=== PATIENT | female | born 1930 | race Caucasian/White ===

== ENCOUNTER 2017-05-22 11:35 | Emergency (ER) | payer MEDICARE ==
[2017-05-22 12:33] VITALS: BP 132/73
--- NOTE | 2017-05-22 13:34 | UC ---
Complaint Female HPI - HPI Summary HPI Summary: urinary incontience x2 since last night, which is not normal for pt. she also notes that she is peeing more frequently since then then. per pt's daughter, pt has been feeling a little run down over the past week. not quite the same amount of spunk as usual. no dysuria. no recent falls or confusion. - History Of Current Complaint Chief Complaint: UCGU Stated Complaint: URINARY COMPLAINT Time Seen by Provider: 05/22/17 12:22 Hx Obtained From: Patient, Family/Drip Molder Hx Last Menstrual Period: n/a ?: No Onset/Duration: Sudden Onset, Lasting Hours, Still Present Timing: Constant Severity Initially: Moderate Severity Currently: Moderate Pain Intensity: 0 Character: Not Applicable Aggravating Factor(s): Nothing Alleviating Factor(s): Nothing Associated Signs And Symptoms: Negative: Fever, Back Pain, Nausea, Vomiting(# Of Episodes =) - Allergies/Home Medications Allergies/Adverse Reactions: Allergies Allergy/AdvReac Type Severity Reaction Status Date / Time Atorvastatin [From Lipitor] Allergy Unknown Leg Cramps Verified 05/22/17 12:20 avoids statins Allergy Unknown Uncoded 05/22/17 12:20 Reaction Details Home Medications: Home Medications Acetaminophen TAB* [Tylenol TAB*] 500 mg Q6HR 05/22/17 [History Confirmed ] Warfarin TAB(*) [Coumadin TAB(*)] 3 tab DAILY 05/22/17 [History Confirmed ] PMH/Surg Hx/FS Hx/Imm Hx Previously Healthy: Yes Endocrine History: Thyroid Disease, Dyslipidemia Cardiovascular History: Hypertension, Atrial Fibrillation, Other Other Cardiovascular History: anticoagulated - Surgical History Surgical History: Yes Surgery Procedure, Year, and Place: aortic valve 2006, 2010 cholecystectomy; Left knee replacement 2000, hysterectomy, appendectomy, tonsillectomy, right shoulder surgery, LEFT hip - Family History Known Family History: Positive: Hypertension - Social History Occupation: Retired Lives: With Family Alcohol Use: None Alcohol Amount: gin and raisins for arhtritis Substance Use Type: None Smoking Status (MU): Former Smoker - Immunization History Most Recent Influenza Vaccination: NOT YET 2017 Most Recent Pneumonia Vaccination: UNKNOWN Review of Systems Constitutional: Negative Skin: Negative Eyes: Negative ENT: Negative Respiratory: Negative Cardiovascular: Negative Gastrointestinal: Negative Genitourinary: Frequency, Other - incontinence Motor: Negative, Other - no changes in gait stability Musculoskeletal: Negative Neurological: Negative Is Patient Immunocompromised?: No All Other Systems Reviewed And Are Negative: Yes Physical Exam Triage Information Reviewed: Yes Vital Signs: Initial Vital Signs Temp 98 F 05/22/17 12:25 Pulse 89 05/22/17 12:25 Resp 18 05/22/17 12:25 BP 132/73 05/22/17 12:25 Pulse Ox 96 05/22/17 12:25 Vital Signs Reviewed: Yes Abdomen Description: Positive: Nontender, Soft. Negative: CVA Tenderness (R), CVA Tenderness (L), Distended, Guarding, McBurney's Point Tenderness - Additional Comments Appearance: Well-Appearing, No Pain Distress, Well-Nourished Eyes: conjunctiva clear, negative: discharge ENT: hearing grossly normal, no muffled voice Neck: Normal, Supple Respiratory/Lung Sounds: Lungs clear, Normal breath sounds, No respiratory distress, No accessory muscle use Cardiovascular: RRR, No murmur Musculoskeletal: Normal Neurological: Alert, muscle tone normal Psychiatric: Normal, age appropriate behavior Skin: Normal, other -- Warm, Dry, Normal color VITAL SIGNS REVIEWED Complaint Female Dx - Differential Dx/Diagnosis Differential Diagnosis/HQI/PQRI: Urinary Tract Infection Provider Diagnoses: uti, hematuria Discharge - Discharge Plan Condition: Stable Disposition: HOME Prescriptions: Sulfamethox/Trimethoprim DS* [Bactrim DS 800/160 TAB*] 1 tab PO BID #10 tab Patient Education Materials: Urinary Tract Infection in Women (ED), Hematuria ( ED) Referrals: Max Alicea MD [Primary Care Provider] - 2 Days Additional Instructions: ANTIBIOTIC THERAPY: You have been given an antibiotic prescription. It's important that you take all the medication, unless instructed otherwise by your physician. Failure to complete the entire course can result in relapse of your condition. Common side effects of antibiotics include nausea, intestinal cramping, or diarrhea. Women may develop vaginal yeast infections, and babies can get yeast (thrush) in the mouth following the use of antibiotics. Contact your physician if you develop significant side effects from this medication. Allergy to this antibiotic can result in hives, wheezing, faintness, or itching. If symptoms of allergy occur, stop the medication and call the doctor. THIS MEDICATION WILL INCREASE THE LEVEL OF WARFARIN IN YOUR BLOOD! IT IS IMPORTANT THAT YOU SEE YOU PCP TO RECHECK YOU WARFARIN LEVEL IN 2 DAYS. ANYTIME YOU TAKE AN ANTIBIOTIC, IT IS IMPORTANT TO REPLENISH THE BODY'S SUPPLY OF "GOOD BACTERIA." YOU CAN GET GOOD BACTERIA FROM HIGH QUALITY CULTURED FOODS SUCH LOCAL YOGURT, SOUR KRAUT, MONIK GIOVANNI, NATURALLY FERMENTED PICKLES AND PROBIOTIC DRINKS. YOU CAN ALSO GET GOOD BACTERIA FROM A PROBIOTIC SUPPLEMENT.
== END 2017-05-22 13:33 | disposition home or self-care (01) ==
LOC: UCCORT 11:35
DX: N39.0 Urinary tract infection, site not specified (principal); R31.9 Hematuria, unspecified; E07.9 Disorder of thyroid, unspecified; E78.5 Hyperlipidemia, unspecified; I10 Essential (primary) hypertension; I48.91 Unspecified atrial fibrillation; Z79.01 Long term (current) use of anticoagulants; Z95.2 Presence of prosthetic heart valve; Z90.49 Acquired absence of other specified parts of digestive tract; Z96.652 Presence of left artificial knee joint; Z90.710 Acquired absence of both cervix and uterus; Z87.891 Personal history of nicotine dependence
CPT/HCPCS: 81003; 87086; 99212; G0463

== ENCOUNTER 2018-04-15 09:10 | Emergency (ER) | payer MEDICARE ==
[2018-04-15 10:26] VITALS: BP 139/69
--- NOTE | 2018-04-15 10:33 | UC ---
Lower Extremity/Ankle HPI - HPI Summary HPI Summary: Per white lead filterer "c/o falling on after loosing balance injuring R lower leg. Area is red and purplish in color. " -she is here w/ her daughter. -she has no pain in her leg. She didn't realize that she even bumped it until she saw the bruise next day. -Denies fevers, chills. -She is on Coumadin and reports that she is very compliant. INR has been therapeutic. She has no pain in the calf or swelling in the calf. There is redness anteriorly and a bruise. -She is a former nurse. - History of Current Complaint Chief Complaint: UCLowerExtremity Stated Complaint: RIGHT LEG COMPLAINT,FELL 04/13/18 Time Seen by Provider: 04/15/18 10:13 Hx Last Menstrual Period: n/a Pain Intensity: 0 - Allergies/Home Medications Allergies/Adverse Reactions: Allergies Allergy/AdvReac Type Severity Reaction Status Date / Time atorvastatin [From Lipitor] Allergy Leg Cramps Verified 04/15/18 10:15 avoids statins Allergy Unknown Uncoded 05/22/17 12:20 Reaction Details Home Medications: Home Medications Lisinopril TAB* [Prinivil TAB 10 MG*] 20 mg PO DAILY 04/15/18 [History Confirmed 04/15/18] PMH/Surg Hx/FS Hx/Imm Hx Previously Healthy: Yes Endocrine History: Hypothyroidism Cardiovascular History: Other - aortic valve replacement - coumadin. no h/o PE Other Cardiovascular History: aortic valve replacement - coumadin. no h/o PE - Surgical History Surgical History: Yes Surgery Procedure, Year, and Place: aortic valve 2006, 2010 cholecystectomy; Left knee replacement 2000, hysterectomy, appendectomy, tonsillectomy, right shoulder surgery, LEFT hip - Family History Known Family History: Positive: Hypertension - Social History Alcohol Use: None Alcohol Amount: gin and raisins for arhtritis Substance Use Type: None Smoking Status (MU): Former Smoker When Did the Patient Quit Smoking/Using Tobacco: 2006 - Immunization History Most Recent Influenza Vaccination: NOT YET 2016 Most Recent Pneumonia Vaccination: UNKNOWN Review of Systems Constitutional: Negative Skin: Rash, Bruising Eyes: Negative ENT: Negative Respiratory: Negative Cardiovascular: Negative Gastrointestinal: Negative Genitourinary: Negative Motor: Negative Neurovascular: Negative Musculoskeletal: Negative Neurological: Negative Psychological: Negative Is Patient Immunocompromised?: No All Other Systems Reviewed And Are Negative: Yes Physical Exam Triage Information Reviewed: Yes Appearance: Well-Appearing, No Pain Distress, Well-Nourished - well oriented. Vital Signs: Initial Vital Signs Temp 98.1 F 04/15/18 10:20 Pulse 77 04/15/18 10:20 Resp 18 04/15/18 10:20 BP 139/69 04/15/18 10:20 Pulse Ox 99 04/15/18 10:20 Vital Signs Reviewed: Yes Eye Exam: Normal ENT Exam: Normal Respiratory: Positive: Lungs clear Cardiovascular Exam: Normal Cardiovascular: Positive: RRR, Murmur:Sys:Grade _?_/ Abdomen Description: Positive: Nontender, Soft Musculoskeletal: Positive: Other: - rt anterior lower leg with bruise (baseball size) dark ecchymosis 2/3rds up the leg. there is light erythema surrounding that and extending down to proximal ankle. warm to touch. there is no erythema, swelling or tenderness in calf. mild swelling in ankle w/ varocicities. bony landmarks NT. tenderness only at bruise site. Neurological Exam: Normal Psychological Exam: Normal Skin: Positive: Other - see above Lower Extremity Course/Dx - Course Course Of Treatment: no indication for xray as there is no pain or significant trauma hx. -keflex tid x 10 d. denies abx allergy. probiotic. -call structural ironworker to notify of abx d/t coumadin. - Differential Dx/Diagnosis Differential Diagnosis/HQI/PQRI: Cellulitis, Compartment Syndrome, Contusion, DVT, Fracture (Closed) Provider Diagnoses: Rt lower leg cellulitis & contusion Discharge - Sign-Out/Discharge Documenting (check all that apply): Patient Departure - Discharge Plan Condition: Stable Disposition: HOME Prescriptions: Cephalexin CAP* [Keflex CAP*] 500 mg PO TID 10 Days #30 cap Patient Education Materials: Cellulitis (ED) Referrals: Max Alicea MD [Primary Care Provider] - Additional Instructions: -Make sure to take a probiotic daily while on antibiotics to help prevent a potential complication of antibiotic use called c diff. Some well known brands that can be found OTC are florastor, align and Dreamscape Blue. Make sure to complete the entire prescription unless advised otherwise by your health care provider. -Be certain to call your warfarin prescriber on Tuesday 04/17 to notify them of your new antibiotic as they may want to change your dose or lab draw schedule. -You should be seen sooner if you develop fevers/chills or worsening redness -You may require a longer course of antibiotics depending on the progress at the end of the 10 days of cephalexin. - Billing Disposition and Condition Condition: STABLE Disposition: Home
== END 2018-04-15 11:01 | disposition home or self-care (01) ==
LOC: UCCORT 09:10
DX: S80.11XA Contusion of right lower leg, initial encounter (principal); L03.115 Cellulitis of right lower limb; W19.XXXA Unspecified fall, initial encounter; Y93.9 Activity, unspecified; Y92.009 Unspecified place in unspecified non-institutional (private) residence as the place of occurrence of the external cause; Z79.01 Long term (current) use of anticoagulants; Z88.8 Allergy status to other drugs, medicaments and biological substances; Z95.2 Presence of prosthetic heart valve; Z87.891 Personal history of nicotine dependence
CPT/HCPCS: 99212; G0463

== ENCOUNTER 2018-05-02 10:57 | Emergency (ER) | payer MEDICARE ==
[2018-05-02 12:19] LABS: ABS Basophils 0.1 10^3/ul (0-0.2); ABS Eosinophils 0 10^3/ul (0-0.6); ABS Lymphocytes 1.2 10^3/ul (1.0-4.8); ABS Monocytes 1.4 10^3/ul (0-0.8); ABS Neutrophils 13.3 10^3/ul (1.5-7.7); ABS Nucleated RBC 0 10^3/ul; Eosinophil % 0.1 % (0-6); Hematocrit 36 % (35-47); Hemoglobin 11.9 g/dl (12.0-16.0); Lymphocyte % 7.7 % (25-47); Mean Corpuscular HGB Conc 33 g/dl (31-36); Mean Corpuscular Hemoglobin 31 pg (27-31); Mean Corpuscular Volume 94 fL (80-97); Mean Platelet Volume 8.3 um3 (7.4-10.4); Nucleated Red Blood Cells % 0; Platelet Count 286 10^3/ul (150-450); Red Blood Count 3.83 10^6/ul (4.00-5.40); Red Cell Distribution Width 14 % (10.5-15); White Blood Count 16.1 10^3/ul (3.5-10.8)
[2018-05-02 12:32] LABS: EGFR Non-African American 73.1 (>60)
--- NOTE | 2018-05-02 12:32 | ED ---
Back Pain - HPI Summary HPI Summary: This patient is an 88 year old F [facility] by [facility] daughter with a chief complaint of back pain since 1-2 weeks after a mechanical fall on 04/13/18. Pt endorses she had just woken up, and when in the kitchen she tripped over her legs (fall not related to dizziness or syncope) and landed on her buttocks and lower back, as well as hitting her right gonzalez on a chair. Pt notes she felt no pain sx until 1 or 2 weeks after she fell; she endorses sharp sudden pain in her back upon moving in a certain way, which causes lightheadedness and instability secondary to pain. In addition, pt endorses PMHx cellulitis in her right leg for which she finished abx on 04/25/18; pt endorses severe diarrhea and weakness on 04/24/18. Pt also finished abx on for a UTI. Pt currently endorses constipation, with little to no alleviation with enema, laxatives, and prune juice. She notes she feels impacted. Finally , pt endorses new onset incontinence. - History of Current Complaint Chief Complaint: EDBackInjuryPain Stated Complaint: LOWER BACK PAIN/WEAKNESS Time Seen by Provider: 05/02/18 11:30 Hx Obtained From: Patient, Family/Upstream Biomanufacturing Technician Hx Last Menstrual Period: n/a Onset/Duration: Sudden Onset, Lasting Minutes, Still Present - intermittent Onset/Duration: Started Weeks Ago, Traumatic, Still Present Timing: Intermittent, Lasting Seconds Back Pain Location: Is Discrete @ - lower Severity Initially: Moderate Severity Currently: None Pain Intensity: 5 Pain Scale Used: 0-10 Numeric Character: Sharp Aggravating Symptom(s): Movement Associated Signs And Symptoms: Positive: Swelling - right gonzalez, Redness - right gonzalez, Bladder Incontinence, Other - lightheadedness secondary to pain.. Negative: Fever - Allergies/Home Medications Allergies/Adverse Reactions: Allergies Allergy/AdvReac Type Severity Reaction Status Date / Time atorvastatin [From Lipitor] Allergy Leg Cramps Verified 05/02/18 11:20 avoids statins Allergy Unknown Uncoded 05/02/18 11:20 Reaction Details Home Medications: Home Medications Clotrimazole/Betamethasone* [Lotrisone Cream*] 1 applic TOPICAL Q72HR 05/02/18 [ History Confirmed 05/02/18] Conjugated Estrogens VAG CM* [Premarin VAG CREAM*] 1 applic VAGINAL DAILY [History Confirmed 05/02/18] Premarin VAG CREAM* 1 applic VAGINAL DAILY 05/02/18 [History Confirmed 05/02/18] PMH/Surg Hx/FS Hx/Imm Hx Endocrine/Hematology History: Reports: Hx Thyroid Disease - hypo Cardiovascular History: Reports: Hx Hypertension, Hx Valvular Heart Disease - aortic valve replacement GI History: Reports: Hx Gall Bladder Disease History: Denies: Hx Dialysis Musculoskeletal History: Reports: Hx Arthritis - left leg, Other Musculoskeletal History - right shoulder injury Sensory History: Reports: Hx Contacts or Glasses, Hx Hearing Aid Denies: Hx Deafness Opthamlomology History: Reports: Hx Contacts or Glasses EENT History: Denies: Hx Deafness Psychiatric History: Denies: Hx Autism - Surgical History Surgery Procedure, Year, and Place: aortic valve 2006, 2010 cholecystectomy; Left knee replacement 2000, hysterectomy, appendectomy, tonsillectomy, right shoulder surgery, LEFT hip Hx Anesthesia Reactions: No Infectious Disease History: No Infectious Disease History: Denies: Traveled Outside the [place] in Last 30 Days - Family History Known Family History: Positive: Hypertension - Social History Occupation: Retired Lives: Alone Alcohol Use: Rare Alcohol Amount: gin and raisins for arhtritis Hx Substance Use: No Substance Use Type: Reports: None Hx Tobacco Use: Yes Smoking Status (MU): Former Smoker Review of Systems Negative: Fever Positive: Other - constipation/impaction Positive: incontinence Positive: Myalgia - lower back, Decreased ROM - secondary to pain Positive: Bruising - right leg, Other - erythema right gonzalez Neurological: Other - lightheaded secondary to back pain upon position change All Other Systems Reviewed And Are Negative: Yes Physical Exam - Summary Physical Exam Summary: Appearance: Well appearing, no pain distress Skin: warm, dry, reflects adequate perfusion Head/face: normal Eyes: EOMI, CHERYL ENT: normal Neck: supple, non-tender Respiratory: CTA, breath sounds present Cardiovascular: RRR, pulses symmetrical Abdomen: non-tender, soft Bowel: present Musculoskeletal: normal, strength/ROM intact. Mild swelling of right leg with redness Neuro: normal, sensory motor intact, A&Ox3 Triage Information Reviewed: Yes Vital Signs On Initial Exam: Initial Vitals Temp Pulse Resp BP Pulse Ox 97.7 F 89 20 146/90 97 05/02/18 11:14 05/02/18 11:14 05/02/18 11:14 05/02/18 11:14 05/02/18 11:14 Vital Signs Reviewed: Yes Diagnostics - Vital Signs Vital Signs Temp Pulse Resp BP Pulse Ox 05/02/18 11:14 97.7 F 89 20 146/90 97 - Laboratory Lab Results: Lab Results 05/02/18 Range/Units 12:05 WBC 16.1 H (3.5-10.8) 10^3/ul RBC 3.83 L (4.00-5.40) 10^6/ul Hgb 11.9 L (12.0-16.0) g/dl Hct 36 (35-47) % MCV 94 (80-97) fL MCH 31 (27-31) pg MCHC 33 (31-36) g/dl RDW 14 (10.5-15) % Plt Count 286 (150-450) 10^3/ul MPV 8.3 (7.4-10.4) um3 Neut % (Auto) 83.0 (38-83) % Lymph % (Auto) 7.7 L (25-47) % [place] % (Auto) 8.9 H (0-7) % Eos % (Auto) 0.1 (0-6) % Baso % (Auto) 0.3 (0-2) % Absolute Neuts (auto) 13.3 H (1.5-7.7) 10^3/ul Absolute Lymphs (auto) 1.2 (1.0-4.8) 10^3/ul Absolute Monos (auto) 1.4 H (0-0.8) 10^3/ul Absolute Eos (auto) 0 (0-0.6) 10^3/ul Absolute Basos (auto) 0.1 (0-0.2) 10^3/ul Absolute Nucleated RBC 0 10^3/ul Nucleated RBC % 0 Result Diagrams: 05/02/18 12:05 05/02/18 12:05 Lab Statement: Any lab studies that have been ordered have been reviewed, and results considered in the medical decision making process. - Radiology RLE XR Xray Interpretation: No Acute Changes Radiology Interpretation Completed By: Radiologist - No acute bony findings. Dr. Albright has reviewed this report. - CT L-Spine CT Interpretation: No Acute Changes CT Interpretation Completed By: Radiologist - 1. NO EVIDENCE FOR FRACTURE. 2. MODERATE LUMBAR SPONDYLOSIS. Dr. Albright has reviewed this report. Back Pain Course/Dx - Course Course Of Treatment: An 88-year-old F presents to the ED with a CC of intermittent lower back pain for about a week. (+) intermittent pain, fall on 04/13, constipation, sx onset 2 weeks after fall, aggravation of sx with position change, incontinence (new). (-) enema/laxative/prune juice alleviating sx, dizziness. 04/24/18 severe diarrhea, weakness, aches, worsening back pain, chills. PMHx cellulitis RLE, UTI, ABx finished 05/01/18 (UTI), and different regimen finished 04/25 (cellulitis. A RLE XR was (-). A CT L-spine reveals moderate spondylosis but was otherwise negative. In the ED course, pt was given no meds. Pt shows an elevated WBC count and ascorbic acid in her urine. - Diagnoses Differential Diagnosis/HQI/PQRI: Positive: Arthritis, Strain, Other - cellulitis rt leg Provider Diagnoses: Cellulitis of right leg Discharge - Sign-Out/Discharge Documenting (check all that apply): Patient Departure - discharge - Discharge Plan Condition: Stable Disposition: HOME Prescriptions: DOXYcycline CAP(*) [DOXYcycline 100MG CAP(*)] 100 mg PO BID #20 cap Patient Education Materials: Cellulitis (ED) Referrals: Max Alicea MD [Primary Care Provider] - 3 Days Additional Instructions: Return to the emergency department for any new or worsening symptoms. - Billing Disposition and Condition Condition: STABLE Disposition: Home - Attestation Statements Document Initiated by Carmineibdayna: Yes Documenting Scribe: Luisito Rodriguez Provider For Whom Arnulfo is Documenting (Include Credential): Dr. Jon Albright MD Scribe Attestation: Luisito Prajapati scribed for Dr. Jon Albright MD on 05/02/18 at 1434. Scribe Documentation Reviewed: Yes Provider Attestation: The documentation as recorded by the Luisito arnold accurately reflects the service I personally performed and the decisions made by me, Dr. Jon Albright MD
--- NOTE | 2018-05-02 12:48 | RAD ---
INDICATION: Leg injury COMPARISON: None TECHNIQUE: AP and lateral views were obtained. FINDINGS: There is osteopenia. There is no acute bony change. There is advanced osteoarthritis about the knee. There are soft tissue calcifications many of which are vascular. IMPRESSION: NO ACUTE BONY FINDINGS
--- NOTE | 2018-05-02 13:22 | RAD ---
INDICATION: Trauma, back pain. COMPARISON: There are no relevant prior studies available for comparison. TECHNIQUE: Contiguous axial sections were obtained beginning above the T12 vertebra and continuing through the L5-S1 disc space. Images were reconstructed in the sagittal and coronal planes. FINDINGS: VERTEBRA: The vertebra are in normal alignment. No fracture is seen. L1-L2: There are mild hypertrophic changes within the facet joints and mild endplate spurring. No significant spinal canal or neural foraminal narrowing is seen. L2-L3: There is a mild broad-based disc bulge and mild hypertrophic changes within the facet joints. There is moderate spinal canal narrowing and mild bilateral neural foraminal narrowing. L3-L4: There is a mild broad-based disc bulge and moderate hypertrophic changes within the facet joints. There is mild to moderate spinal canal narrowing and mild neural foraminal narrowing on the left side. L4-L5: There is a mild broad-based disc bulge and severe hypertrophic changes within the facet joints. There is hypertrophy of the ligamentum flavum. There is moderate spinal canal narrowing and mild bilateral neural foraminal narrowing. L5-S1: There is a mild broad-based disc bulge and severe hypertrophic changes within the facet joints. There is mild lateral recess narrowing and mild bilateral neural foraminal narrowing. IMPRESSION: 1. NO EVIDENCE FOR FRACTURE. 2. MODERATE LUMBAR SPONDYLOSIS.
[2018-05-02 14:04] LABS: Urine Appearance Clear; Urine Blood Negative (Negative); Urine Color Straw; Urine Ketones Negative (Negative); Urine Protein Negative (Negative); Urine Specific Gravity 1.003 (1.010-1.030); Urine Urobilinogen Negative (Negative)
[2018-05-02] MEDS ORDERED: DOXYcycline CAP(*) 100 MG PO ONE (14:22)
[2018-05-02 14:23] VITALS: BP 113/67
== END 2018-05-02 14:41 | disposition home or self-care (01) ==
LOC: ED 10:57
DX: S80.11XA Contusion of right lower leg, initial encounter (principal); M54.5 Low back pain; Z87.891 Personal history of nicotine dependence; W19.XXXA Unspecified fall, initial encounter; Y92.9 Unspecified place or not applicable; I10 Essential (primary) hypertension
CPT/HCPCS: 36415; 72131; 80053; 81003; 85025; 99283; A9270-GY

== ENCOUNTER 2018-05-31 06:37 | Inpatient (IN) | payer MEDICARE ==
--- OUTSIDE RECORDS SUMMARY | 2018-05-31 06:46 | XMS REPORT ---
:1930 External Reference #:[id number] Author Organization [employer] Address [address] [place] [address] Phone [phone] Care Team Providers Name Role Phone Max Alicea MD Primary Care Physician Unavailable Payers Type Date Identification Numbers Payment Provider Subscriber Commercial Policy Number: [id number] [employer]/Todays Options Nurys Stephen PayID: [id number] [address] [address] Attn: [place] [address] Problems Date Description Provider Status Onset: 03/25/2017 Paroxysmal atrial fibrillation Tameka Larsen M.D. Active Onset: 01/06/2016 Essential hypertension Tameka Larsen M.D. Active Onset: 07/01/2015 Heart valve replacement Tameka Larsen M.D. Active Onset: 04/04/2015 Aortic valve disorder Tameka Larsen M.D. Active Onset: 04/04/2015 Atrial fibrillation Tameka Larsen M.D. Active Family History Date Family Member(s) Problem(s) Comments General Cancer General Diabetes General Hypertension General Stroke General Depression Social History Type Date Description Comments Marital Status Lives With Alone Family comes daily and sometimes stays w/ pt at night Occupation Retired Occupation Nurse Cigarette Use Former Cigarette Smoker Pt denies smoking pipe, cigar, e-cigarettes, or using chewing tobacco. Smokeless Tobacco Never Used Smokeless Tobacco ETOH Use Denies alcohol use Smoking Patient is a former smoker Recreational Drug Use Denies Drug Use Smoking Light tobacco smoker (10 or fewer cigarettes/day) Daily Caffeine Consumes on average 1 cup of regular coffee per day Daily Caffeine Comsumes on average 1 cup of decaff coffee per day Exercise Type/Frequency Does not exercise walking around the house, to the mailbox Allergies, Adverse Reactions, Alerts Date Description Reaction Status Severity Comments 11/22/2013 Lipitor Extreme weakness active Moderate to Severe Medications Medication Date Status Form Strength Qnty SIG Indications Ordering Provider Lisinopril 07/01/ Active Tablets 20mg 90tab 1 by mouth R42 Tameka 2014 s every day Sis Larsen Warfarin Sodium 06/10/ Active Tablets 1mg 270ta 4 tabs on Tameka2014 bs tuesday, , and M.DRoslyn saturdays 3 tabs all other days as directed Levothyroxine / Active 125mcg once daily Unknown Sodium 0000 Zetia / Active Tablets 10mg 1 per day Unknown 0000 Aspirin Ec / Active Tablets DR 81mg 90tab 1 by mouth Unknown 0000 s every day Senior / Active Tablets Unknown Multivitamin 0000 Plus Calcium 500+D / Active Once daily Unknown 0000 Icaps Areds / Active Capsules 2 daily Unknown Multivitamin 0000 Systain Eye / Active 2x a day Unknown Drop 0000 Acetaminophen / Active Tablets 500mg 1 tablets Unknown 0000 daily and as needed for pain Tylenol PM / Active Tablets take one Unknown 0000 tablet/capsu le by mouth at bedtime. as needed for pain Clotrimazole/Be / Active Cream 1-0.05% apply twice Unknown tamethasone 0000 a week as Dipropionate needed Apple Cider / Active with honey Unknown Vinegar Ultra 0000 Premarin / Active Cream 0.625mg/G 1 Unknown [address] of vagina 1-2 times weekly Lisinopril/Hydr / Hx Tablets 20-12.5mg 1 per day R42 Unknown ochlorothiazide - 2014 Nortriptyline / Hx Capsules 25mg 1 per day Unknown HCL - 2014 Metoprolol / Hx Tablets 25mg 2x per day Unknown Tartrate - 2014 Ibuprofen / Hx Tablets 400mg 90tab 1 by mouth Unknown 0000 - s three times 06/01/ a day as 2015 needed Elmore 3 / Hx Unknown 0000 - 05/02/ 2016 Nystatin/Triamc / Hx Cream 163821-7. 3x per day Unknown inolone 0000 - 1Unit/GM- prn 2017 Betamethasone / Hx Cream 0.1% 2x per day Unknown Valerate - 2014 Miconazole / Hx Topical prn Unknown Nitrate - 2017 Coconut Oil / Hx Capsules 1000mg 2 cap po Unknown 0000 - daily Am 2017 Pure Muscadine / Hx 2 tabs daily Unknown Grape Seed Caps - 2017 Tramadol HCL / Hx Tablets 50mg 1 tablets Unknown 0000 - every 6 20/ hours as 2017 needed Sulfamethoxazol / Hx Tablets 800-160mg Take 1 Unknown e/Trimethoprim 0000 - Tablet Twice DS 03/24/ A Day 2016 Amoxicillin / Hx Capsules 500mg Unknown - 2017 Prednisone / Hx Tablets 10mg take 2 Unknown 0000 - tablets by 01/18/ mouth for 5 2018 days then 1 tablet daily for 5 days for Vital Signs Date Vital Result Comment 05/16/2018 Height 61.5 inches 5'1.50" Weight 169.50 lb Heart Rate 68 /min BP Systolic Sitting 128 mmHg BP Diastolic Sitting 78 mmHg Respiratory Rate 16 /min Body Temperature 97.5 F Pain Level 5 BMI (Body Mass Index) 31.5 kg/m2 01/19/2018 Height 61.5 inches 5'1.50" Weight 173.50 lb Heart Rate 80 /min BP Systolic Sitting 132 mmHg Rue large cuff BP Diastolic Sitting 66 mmHg Rue large cuff BP Systolic Standing 136 mmHg Rue BP Diastolic Standing 74 mmHg Rue Respiratory Rate 16 /min BMI (Body Mass Index) 32.2 kg/m2 Ejection Fraction 55-60% 02/05/15 03/25/2017 Height 61.5 inches 5'1.50" Weight 180.00 lb with out shoes Heart Rate 88 /min BP Systolic Sitting 122 mmHg Lue reg cuff BP Diastolic Sitting 74 mmHg Lue reg cuff BP Systolic Standing 128 mmHg Lue reg cuff BP Diastolic Standing 84 mmHg Lue reg cuff Respiratory Rate 17 /min BMI (Body Mass Index) 33.5 kg/m2 Ejection Fraction 55-60% date 02/05/15 ECHO 01/06/2016 Height 62 inches 5'2" Weight 183.00 lb Heart Rate 78 /min BP Systolic Sitting 150 mmHg LA reg cuff BP Diastolic Sitting 78 mmHg LA reg cuff BP Systolic Standing 148 mmHg LA reg cuff BP Diastolic Standing 90 mmHg LA reg cuff Respiratory Rate 18 /min BMI (Body Mass Index) 33.5 kg/m2 Ejection Fraction 55-60% 02/05/15 07/01/2015 Height 61 inches 5'1" Weight 172.00 lb w/ shoes Heart Rate 96 /min BP Systolic Sitting 120 mmHg Lue, lg cuff BP Diastolic Sitting 74 mmHg Lue, lg cuff BP Systolic Standing 124 mmHg Lue BP Diastolic Standing 86 mmHg Lue Respiratory Rate 18 /min BMI (Body Mass Index) 32.5 kg/m2 Ejection Fraction 55-60% as of 02/05/15 echo 04/04/2015 Height 61 inches 5'1" Weight 181.00 lb w/ shoes Heart Rate 88 /min reg BP Systolic Sitting 144 mmHg Rue, lg cuff BP Diastolic Sitting 80 mmHg Rue, lg cuff Respiratory Rate 18 /min BMI (Body Mass Index) 34.2 kg/m2 Ejection Fraction 55-60% as of 02/05/15 echo 01/23/2014 Heart Rate 78 /min BP Systolic Sitting 122 mmHg BP Diastolic Sitting 80 mmHg 12/10/2013 Heart Rate 80 /min BP Systolic Sitting 130 mmHg BP Diastolic Sitting 82 mmHg 11/22/2013 Height 63 inches 5'3" Weight 200.00 lb Heart Rate 84 /min BMI (Body Mass Index) 35.4 kg/m2 Results Test Date Test Result H/L Range Note Inr/Protime 05/12/2018 Inr 2.11 High 0.77-1.02 Inr/Protime 05/05/2018 Inr 1.90 High 0.77-1.02 Inr/Protime 04/17/2018 Inr 2.76 High 0.77-1.02 Inr/Protime 03/29/2018 Inr 1.96 High 0.77-1.02 Inr/Protime 03/14/2018 Inr 2.33 High 0.77-1.02 Inr/Protime 03/01/2018 Inr 1.66 High 0.77-1.02 Inr/Protime 02/07/2018 Inr 2.54 High 0.77-1.02 Inr/Protime 01/24/2018 Inr 1.75 High 0.77-1.02 Inr/Protime 01/10/2018 Inr 2.04 High 0.77-1.02 Inr/Protime 12/19/2017 Inr 2.27 High 0.77-1.02 Basic Metabolic Panel 12/19/2017 Sodium 140 mmol/L 139-145 Potassium 4.4 mmol/L 3.5-5.0 Chloride 102 mmol/L 101-111 Co2 Carbon Dioxide 30 mmol/L 22-32 Anion Gap 8 mmol/L 2-11 Glucose 103 mg/dL High 70-100 Blood Urea Nitrogen 15 mg/dL 6-24 Creatinine 0.75 mg/dL 0.51-0.95 BUN/Creatinine Ratio 20.0 8-20 Calcium 9.6 mg/dL 8.6-10.3 Egfr Non- 73.3 >60 Egfr 94.2 >60 1 Laboratory test finding 12/19/2017 TSH (Thyroid Stim 1.71 mcIU/mL 0.34- 5.60 2 Horm) Inr/Protime 12/06/2017 Inr 2.54 High 0.77-1.02 Inr/Protime 11/25/2017 Inr 1.33 High 0.77-1.02 Inr/Protime 11/15/2017 Inr 2.81 High 0.77-1.02 Inr/Protime 10/25/2017 Inr 2.37 High 0.77-1.02 Inr/Protime 09/27/2017 Inr 2.29 High 0.77-1.02 Inr/Protime 09/06/2017 Inr 2.76 High 0.77-1.02 Inr/Protime 08/22/2017 Inr 3.05 High 0.77-1.02 3 Inr/Protime 08/09/2017 Inr 1.65 High 0.77-1.02 4 Inr/Protime 07/11/2017 Inr 2.27 High 0.89-1.11 Inr/Protime 06/21/2017 Inr 2.21 High 0.89-1.11 Inr/Protime 06/07/2017 Inr 2.15 High 0.89-1.11 Inr/Protime 05/31/2017 Inr 1.78 High 0.89-1.11 Inr/Protime 05/17/2017 Inr 1.93 High 0.89-1.11 Inr/Protime 04/25/2017 Inr 1.95 High 0.89-1.11 Inr/Protime 03/22/2017 Inr 2.36 High 0.89-1.11 Inr/Protime 02/22/2017 Inr 2.55 High 0.89-1.11 Inr/Protime 02/01/2017 Inr 2.93 High 0.89-1.11 Inr/Protime 12/28/2016 Inr 2.43 High 0.89-1.11 Inr/Protime 11/26/2016 Inr 2.55 High 0.89-1.11 Inr/Protime 11/09/2016 Inr 3.18 High 0.89-1.11 Inr/Protime 10/05/2016 Inr 2.41 High 0.89-1.11 Inr/Protime 09/07/2016 Inr 2.47 High 0.89-1.11 Urine Culture And 08/20/2016 Urine Culture SEE RESULT BELOW 5 Sensitivities Comp Metabolic Panel 08/20/2016 Sodium 132 mmol/L Low 133-145 Potassium 4.8 mmol/L 3.5-5.0 Chloride 98 mmol/L Low 101-111 Co2 Carbon Dioxide 26 mmol/L 22-32 Anion Gap 8 mmol/L 2-11 Glucose 102 mg/dL High 70-100 Blood Urea Nitrogen 14 mg/dL 6-24 Creatinine 1.08 mg/dL High 0.51-0.95 BUN/Creatinine Ratio 13.0 8-20 Calcium 10.0 mg/dL 8.6-10.3 Total Protein 7.1 g/dL 6.4-8.9 Albumin 4.7 g/dL 3.2-5.2 Globulin 2.4 g/dL 2-4 Albumin/Globulin Ratio 2.0 1-3 Total Bilirubin 0.50 mg/dL 0.2-1.0 Alkaline Phosphatase 79 U/L 34-104 Alt 17 U/L 7-52 Ast 30 U/L 13-39 Egfr Non- 48.2 >60 Egfr 62.0 >60 6 CBC Auto Diff 08/20/2016 White Blood Count 8.5 10^3/uL 3.5-10.8 Red Blood Count 4.32 10^6/uL 4.0-5.4 Hemoglobin 13.4 g/dL 12.0-16.0 Hematocrit 40 % 35-47 Mean Corpuscular Volume 93 fL 80-97 Mean Corpuscular Hemoglobin 31 pg 27-31 Mean Corpuscular HGB Conc 33 g/dL 31-36 Red Cell Distribution Width 13 % 10.5-15 Platelet Count 312 10^3/uL 150-450 Mean Platelet Volume 9 um3 7.4-10.4 Abs Neutrophils 5.6 10^3/uL 1.5-7.7 Abs Lymphocytes 2.0 10^3/uL 1.0-4.8 Abs Monocytes 0.7 10^3/uL 0-0.8 Abs Eosinophils 0.1 10^3/uL 0-0.6 Abs Basophils 0 10^3/uL 0-0.2 Abs Nucleated RBC 0 10^3/uL Granulocyte % 66.2 % 38-83 Lymphocyte % 23.9 % Low 25-47 Monocyte % 8.2 % 1-9 Eosinophil % 1.4 % 0-6 Basophil % 0.3 % 0-2 Nucleated Red Blood Cells % 0 Inr/Protime 08/20/2016 Inr 2.15 High 0.89-1.11 Inr/Protime 08/06/2016 Inr 2.50 High 0.89-1.11 Inr/Protime 07/19/2016 Inr 2.16 High 0.89-1.11 Inr/Protime 06/15/2016 Inr 2.21 High 0.89-1.11 Inr/Protime 06/01/2016 Inr 2.40 High 0.89-1.11 Inr/Protime 05/24/2016 Inr 1.98 High 0.89-1.11 Inr/Protime 05/20/2016 Inr 4.54 High 0.89-1.11 Inr/Protime 05/04/2016 Inr 3.27 High 0.89-1.11 Inr/Protime 04/20/2016 Inr 3.23 High 0.89-1.11 Inr/Protime 03/09/2016 Inr 2.74 High 0.89-1.11 Inr/Protime 02/06/2016 Inr 2.08 High 0.89-1.11 Inr/Protime 01/06/2016 Inr 2.72 High 0.89-1.11 Inr/Protime 12/16/2015 Inr 2.22 High 0.89-1.11 Inr/Protime 11/28/2015 Inr 3.03 High 0.89-1.11 Laboratory test finding 11/12/2015 Inr/Protime 1.96 High 0.89-1.11 Laboratory test finding 10/08/2015 Inr/Protime 2.33 High 0.89-1.11 Laboratory test finding 09/16/2015 Inr/Protime 2.50 High 0.89-1.11 Laboratory test finding 09/02/2015 Inr/Protime 2.78 High 0.89-1.11 Laboratory test finding 08/05/2015 Inr/Protime 3.35 High 0.89-1.11 Laboratory test finding 07/08/2015 Inr/Protime 2.48 High 0.89-1.11 7 Laboratory test finding 07/01/2015 Inr/Protime 1.38 High 0.78-1.07 Inr/Protime 06/26/2015 Inr 1.32 High 0.78-1.07 1 Because ethnic data is not always readily available, this report includes an eGFR for both -Americans and non- Americans. The National Kidney Disease Education Program (NKDEP) does not endorse the use of the MDRD equation for patients that are not between the ages of 18 and 70, are , have extremes of body size, muscle mass, or nutritional status, or are non- or non-. According to the National Kidney Foundation, irrespective of diagnosis, the stage of the disease is based on the level of kidney function: Stage Description GFR(mL/min/1.73 m(2)) 1 Kidney damage with normal or decreased GFR 90 2 Kidney damage with mild decrease in GFR 60-89 3 Moderate decrease in GFR 30-59 4 Severe decrease in GFR 15-29 5 Kidney failure <15 (or dialysis) 2 Copy Result to: TAMEKA LARSEN ([id number]) 3 Please note the change in INR reference range effective 17. 4 Please note the change in INR reference range effective 17. 5 SEE RESULT BELOW Name: NURYS STEPHEN : [address]: Max Alicea MD Acct: [id number] Unit: [id number] AGE: 86 Location: [facility] Re08/20/16 SEX: F Status: REG REF SPEC: [id number] FISH: 08/20/16 [facility] DR: Max Alicea MD REQ: [id number] RECD: 08/20/16 STATUS: COMP ELIN DR: Tameka Khan MD _ SOURCE: URINE SPDESC: ORDERED: Urine Culture COMMENTS: Procedure Result Reported Site Urine Culture Final 08/22/16- 0758 ML No Growth (<1,000 CFU/mL) * ML - MAIN LAB (PSC1) . END OF REPORT * ML=Testing performed at Main Lab DEPARTMENT OF PATHOLOGY, [address] [place] [address] Sumit Johnston M.D. Director [facility] # [id number] 6 Because ethnic data is not always readily available, this report includes an eGFR for both -Americans and non- Americans. The National Kidney Disease Education Program (NKDEP) does not endorse the use of the MDRD equation for patients that are not between the ages of 18 and 70, are , have extremes of body size, muscle mass, or nutritional status, or are non- or non-. According to the National Kidney Foundation, irrespective of diagnosis, the stage of the disease is based on the level of kidney function: Stage Description GFR(mL/min/1.73 m(2)) 1 Kidney damage with normal or decreased GFR 90 2 Kidney damage with mild decrease in GFR 60-89 3 Moderate decrease in GFR 30-59 4 Severe decrease in GFR 15-29 5 Kidney failure <15 (or dialysis) 7 Effective immediately, due to a laboratory mean normal Protime change, the reference range for the INR has changed. Procedures Date CPT Code Description Status Comment 02/20/2018 38571 ECHO Transthoracic, Real-Time Completed 2D With Doppler And Color Flow 02/20/2018 29717 ECHO Transthoracic, Real-Time Completed 2D With Doppler And Color Flow 01/19/2018 25914 EKG Tracing & Interpretation Completed 03/25/2017 07083 EKG Tracing & Interpretation Completed 02/10/2017 83537 Carotid Doppler,Bilateral Completed 01/18/2017 Diabetic Retinal Eye Exam Completed Document: 01/18/17 - Consult Op[facility] 07/01/2015 86000 EKG Tracing & Interpretation Completed 04/04/2015 65840 EKG Tracing & Interpretation Completed 02/07/2015 05004 Color Flow Doppler/Interp & Completed Reprt 02/07/2015 36705 Pulse Completed Wave/Continuous-Interp.RPT 02/07/2015 59535 Echocardiography, Completed Transesophageal, Real Time W/Image 2D W/W/O M-M 02/07/2015 29247 Cardioversion Completed 02/06/2015 17058 ECHO Transthorasic Realtime 2D Completed W Doppler & Color Flow Hosp 12/24/2013 07792 Rad Shoulder Comp, Min. 2 Views Completed 11/22/2013 76353 Closed trtmt prox humeral fx Completed Encounters Type Date Location Provider CPT E/M Dx Office Visit 01/19/2018 1:30p [facility] Nataly Larsen M.D. 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 45810 I35.0 Type Rolling Machine Operator Z95.2 I48.0 R42 R94.31 Office Visit 04/04/2015 11:00a [facility] Nataly Larsen M.D. 93702 427.31 Type Rolling Machine Operator 424.1 V15.88 038.9 Office Visit 02/13/2015 7:57p [facility],evelyn Mckenna, 72562 427.31 Hospitalists D.O. 599.0 038.9 401.9 Office Visit 02/12/2015 7:56p [facility],evelyn Mckenna, 07386 599.0 Hospitalists D.O. 038.9 427.31 401.9 Office Visit 02/11/2015 7:56p [facility],evelyn Mckenna 31072 427.31 Hospitalists D.O. 599.0 038.9 401.9 Office Visit 02/10/2015 7:55p [facility],evelyn Mckenna 94094 427.31 Hospitalists D.O. 599.0 038.9 401.9 Office Visit 02/09/2015 7:54p [facility], [address] 427.31 Hospitalists Sis 599.0 038.9 401.9 Office Visit 02/08/2015 7:53p [facility], 72591 599.0 Hospitalists MBrandon 038.9 427.31 401.9 Office Visit 02/08/2015 2:37p [facility] Of Leon Torres, 73836 427.31 Bailee Alegre, [facility] Office Visit 02/07/2015 7:51p [facility], 78163 599.0 Hospitalists MBrandon 038.9 427.31 401.9 Office Visit 02/07/2015 12:21p [facility] Mikey Dodson M.D. 79504 790.7 427.32 424.1 Office Visit 02/06/2015 7:50p [facility], 02172 599.0 Hospitalists Sis 038.9 427.31 401.9 Office Visit 02/06/2015 12:57p [facility] Tameka Larsen M.D. 82566 427.31 [facility] 995.91 Office Visit 02/05/2015 7:48p [facility] Alessia Sewell N.P. 90469 599.0 Hospitalists 038.9 427.31 401.9 Office Visit 02/05/2015 12:39p [facility] Tameka Larsen M.D. 50747 427.31 [facility] 424.1 995.91 Office Visit 01/23/2014 11:30a [facility] [place], [address] 812.00 Of [facility] AT [place] Sis Plan of Care 01/19/2018 - Tameka Larsen M.D.Z95.2 Presence of prosthetic heart valveFollow up :We will call with echo results, if needed bring in sooner.I48.0 Paroxysmal atrial fibrillationComments:You are in the normal rhythm today, good rate control.I10 Essential (primary) hypertensionComments:Well controlledRecommendations:Continue current [id number] Localized edemaComments:Avoid foods with salt, avoid NSAID's (Motrin, Aleve, ibuprophen, naproxen, Advil)
--- OUTSIDE RECORDS SUMMARY | 2018-05-31 06:47 | XMS REPORT ---
:1931 External Reference #:[id number] Author Organization [facility] Address [address] [place] [address] Phone [phone] Care Team Providers Name Role Phone HCP given Primary Care Physician Unavailable Payers Type Date Identification Numbers Payment Provider Subscriber Commercial Effective: Policy Number: [id number] Today Option/Amer Nurys Stephen 2009 Prog PayID: [id number] [address] [address] [place] [address] Problems Date Description Provider Status Onset: 06/11/2004 Benign essential hypertension Max Dunlap M.D. Active Onset: 06/11/2004 Pure hypercholesterolemia Max Dunlap M.D. Active Onset: 11/13/2004 Vianney thyroiditis Max Dunlap M.D. Active Onset: 03/02/2006 Carpal tunnel syndrome Max Dunlap M.D. Active Onset: 03/02/2006 Dysthymia Max Dunlap M.D. Active Onset: 10/31/2007 Atrophic vaginitis Max Dunlap M.D. Active Onset: 04/26/2008 Chronic rhinitis Max Dunlap M.D. Active Onset: 08/20/2014 Migraine variants, not intractable Max Dunlap M.D. 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 Marital Status Patient is Employment Not currently working Cigarette Use Smoked 1-5 Cigarettes A Day For 30 Years Cigarette Use 03/29/2014 Denies Cigarette Use ETOH Use Rare Alcohol Use Smoking Non Smoker Daily Caffeine Consumes on average 2 cups of to 3 cups per day coffee per day Sun Exposure Minimum amount of sun exposure. Uses sunscreen Seat Belt/Car Seat Always uses a seat belt Currently Active The patient is currently not sexually active Age 1st [place] First intercourse was at age 22 # Partners in a Lifetime The patient has had 1 sexual partner Allergies, Adverse Reactions, Alerts Date Description Reaction Status Severity Comments 05/12/2010 Lipitor active muscle weakness Medications Medication Date Status Form Strength Qnty SIG Indications Ordering Provider Doxycycline 05/02 Hx Capsules 100mg one po twice Unknown Hyclate daily - 05/12 Clotrimazole 04/27 Active Cream 1% 45gm apply B35.4 brennan externally to Max affected areas M.DRoslyn twice a day for 2 weeks or until rash has resolved: then cont 2 day after rash resolves Clotrimazole/B 05/23 Active Cream 1-0.05% 45gm apply to Deanne etamethasone affected areas Max Dipropionate 2x/day as M.DRoslyn needed for fungal skin rashes Acv W/Honey 05/23 Active as directed Deanne twice daily Sis Santana Lisinopril 07/02 Active Tablets 20mg 1 pill every I10 [place] morning for MD Tameka high blood pressure Coumadin 02/17 Active Tablets 2mg 100ta 1-2 tabletS by I48.0 brennan bs mouth daily; Max Adjust Dose as M.DRoslyn Directed Calcium/Vitami 02/13 Active 1 po bid Unknown n Levothyroxine 06/08 Active Tablets 125mcg 90tab take 1 tablet E06.3 Deanne s by mouth every , day in the M.D. morning on an empty stomach Systane 02/03 Active Solution 0.4-0.3% 1-2 drops in each eye bid for dry eye Icaps Areds 11/19 Active Tablets 1 tab by mouth [place] Formula twice a day , Mireille mcintosh MD Zetia 01/31 Active Tablets 10mg 100ta 1 by mouth E78.0 Deanne, bs every day for high Max M.DRoslyn cholesterol Mvi Active 1 PO qd Unknown / Aspirin Active Tablets 81mg otc 1 po qd for Unknown heart disease prevention Tylenol Extra Active Tablets 500mg take two Unknown Strength / tablets by mouth daily, as needed - tss=[id number] all sorces Cipro 04/27 Hx Tablets 250mg 10tab 1 twice a day x Silcoindu, s 5 days Max - M.D. 05/04 PT For Right 01/08 Hx evaluate and M25.511 Judycoindu, Shoulder Pain treatMax, - modalities as M.D. 02/08 needed, instruct in hep Amoxicillin 10/27 Hx Tablets 500mg 30tab 1 three times a J01.90 Silcoindu , s day a day x 10 Max, - days for M.D. 12/18 sinusitis Prednisone 10/27 Hx Tablets 10mg 15tab 2 tabs for 5 J20.9 Silcoindu, s days then 1 tab Max, - for 5 days with M.D. 12/18 exacerbation of bronchitis Sulfamethoxazo 08/17 Hx Tablets 800-160mg 6tabs take 1 tablet uJdycoindu, le/Trimethopri by mouth david Cash DS - a day for 3 M.D. 08/20 days, for suspected UTI PT For 07/08 Hx please evaluate Deanne, Unsteady Gait and Max leal, And For - instruct in M.D. General 10/26 hep, modalities Strengthening prn Tobramycin 06/03 Hx Solution 0.3% 5ml 1 drop three H00.014 Sopchak, times a day for Nolberto, - 7 days D.O. 12/18 Sulfamethoxazo 05/22 Hx Tablets 800-160mg 10tab take 1 tablet Unknown le/Trimethopri s by mouth twice m DS - a day x 5 days 05/24 Premarin 10/05 Hx Cream 0.625mg/G 42.50 apply 1 gm N95.2 Silcoff, M 0G intravaginally Max, - before bed M.D. 05/24 3x/wk /2016 PT For Neck 03/31 Hx please evaluate 723.1 Silcoff, Pain And /2014 and Max leal, Stiffness - instruct in M.D. 07/01 hep, modalities /2014 prn. Metoprolol 03/01 Hx Tablets 100mg 1/2 tab by 401.1 Silcoff, Tartrate mouth twice a Max, - day for blood M.D. 03/07 pressure and /2014 heart rate control PT For 02/25 Hx please evaluate Silcoff, Unsteady Gait and Max leal, And For - instruct in M.D. General 07/01 hep, modalities Strengthening prn Warfarin 02/17 Hx Tablets 1mg 100ta use as directed 427.31 Silcoff, Sodium bs (up to 4 Max, - tablets daily); M.D. 03/31 for atrial /2014 fibrillation Metoprolol 02/13 Hx Tablets 100mg take 1 tablet 401.1 Unknown Tartrate by mouth twice - a day 03/01 Keflex 02/13 Hx Capsules 500mg 1 by mouth four times daily x 5 - days 02/18 Miconazole 09/30 Hx Cream 2% 45gm apply to 110.5 Silcoff, Nitrate affected areas Max, - up to twice a M.D. 09/30 day as needed /2017 for fungal rashes in skin folds PT For Left 09/30 Hx evaluate and 719.46 Silcoff, Knee And Hip treatMax, Pain as Well - modalties as M.D. as R Knee Pain 07/01 needed, instruct in hep 719.45 [place]-3 09/27/2014 - Hx Capsules 1 qd Unknown 02/05/2014 Systane Ultra 08/14/2014 - Hx Solution 0.4- Unknown 09/27/2014 0.3% Suppliment 08/05/2014 - Hx Unknown 09/27/2014 Lisinopril-Hydroc 05/27/2014 - Hx Tablets 20-1 90tabs take 1 tablet 401. Sopchak, hlorothiazide 07/02/2015 2.5m every morning 1 Jaleel Arvizu g for high blood pressure Coconut Oil 02/03/2014 - Hx Capsules 1000 2 po daily Unknown 03/29/2016 mg Metoprolol 09/20/2013 - Hx Tablets 25mg 200tabs take one tablet 401. Silcoff, Tartrate 02/18/2015 by mouth twice a 1 Max, day for blood M.D. pressure control Betamethasone 06/08/2013 - Hx Cream 0.1% 45gm apply to 691. Silcoff, Valerate 10/04/2016 affected area on 8 Max, ankle 2x/day as M.D. needed Lisinopril/Hydroc 06/08/2013 - Hx Tablets 20-1 90tabs take 1 tablet 401. Silcoff, hlorothiazide 05/27/2014 2.5m every morning 1 divya Santana for high blood M.D. pressure Pure [place] 02/05/2013 - Hx Capsules 2 caps daily in Unknown Grape Seed 03/29/2016 am Sulfamethoxazole/ 01/25/2012 - Hx Tablets 800- 0tabs 1 by mouth twice 599. Husseini, Trimethoprim DS 09/27/2014 160m a day x3 days as 0 MD Ruiz g needed for UTIs; start at onset of symptoms of urinary tract infections Sulfamethoxazole/ 11/17/2011 - Hx Tablets 800- 6tabs 1 po bid x3 595. Silcoff, Trimethoprim DS 11/20/2011 160m days; for 0 Max g urinary tract M.D. infection Amoxicillin 10/30/2011 - Hx Capsules 250m 30caps 1 tid for ten 595. Truong Suazo 11/09/2011 g days for 0 Klepack, infection M.D. Polyethylene 10/30/2011 - Hx Packet 3350 60units 1-2 packets per 564. Truong A. Glycol 3350 11/29/2011 NF day for 01 Klepack, constipation M.D. Lisinopril/Hydroc 09/08/2011 - Hx Tablets 10-1 90tabs 1 po qd in am 401. Silcoff, hlorothiazide 06/08/2013 2.5m for high blood 1 Max g pressure M.D. Sulfamethoxazole/ 06/01/2011 - Hx Tablets 800- 6tabs 1 tablet by 595. Silcoff, Trimethoprim DS 06/04/2011 160m mouth twice a 0 divya Santana day for 3 days; M.DRoslyn for urinary tract infection Ibuprofen 05/04/2011 - Hx Tablets 200m OTC takes 400mg Unknown 09/30/2015 g 2x/day PT For R Arm Pain 04/30/2009 - Hx please evaluate 729. Silcoff, And Decreased 11/03/2009 and treat, 5 Max Shoulder ROM instruct in Sis harrison modalities prn. Levoxyl 02/06/2009 - Hx Tablets 112m 90tabs 1 po qd in am on 245. Silcoff, 06/08/2013 cg an empty stomach 2 Sis Santana Metoprolol 12/23/2008 - Hx Tablets 25mg 180tabs 1 po bid for 401. Silcoff, 09/20/2013 high blood 1 Max pressure Sis Septra DS 12/02/2008 - Hx Tablets 800- 6tabs 1 po bid x3 days 599. Silcoindu, 12/05/2008 160 0 Sis Santana 595.0 Nystatin 07/08/2008 - Hx Cream 258616Qucp/GM 30gm apply to 698.1 Silcoff, 10/04/2016 affected areas Sis Santana 3x/d as needed for fungal infections on skin (jeana in skin folds) 112.3 Estrace 07/08/2008 Hx Cream 0.1mg/GM 42.500G apply 1-2 GM 627.3 Silcoindu , - intravaginally Max, 09/17/2013 2x/wk as needed M.DRoslyn for atrophic vaginitis and to prevent urinary tract infections Nortriptyline 07/08/2008 Hx Capsules 25mg 180caps 1-2 PO QHS 300.4 Silcoff, HCL - Max, 01/05/2015 Sis 780.52 Levoxyl 04/26/2008 - Hx Tablets 100mcg 90tabs 1 PO qd In 245.2 Silcoff, 02/06/2009 Am On An Max Empty David.DRoslyn Stomach Nortriptyline 04/26/2008 - Hx Capsules 25mg 30caps 1 PO QHS 300.4 Silcoff, HCL 07/08/2008 for 1 ana Santana M.D. D/C Fluticasone 10/31/2007 - Hx Suspension 50mcg/Ac 3Bottle 2 Sprays 472.0 Silcoff, Propionate 09/17/2013 t Into Each Max Nostril qd Sis For chronic runny nose Cipro 10/13/2007 - Hx 250mg 20units 1 po bid 595.0 Truong Suazo 10/19/2007 Sis Johnson Levaquin 09/26/2007 - Hx Tablets 500mg 10tabs 1 PO Once 466.0 Kianason, 10/06/2007 Daily as Remedios BLACKMON Directed 599.0 Metoprolol 06/19/2007 - Hx Tablets ER 50mg 90tabs 1 PO QHS For 401.1 Silcoff, Succinate ER 12/23/2008 24HR High BP And Max Heart Protection Sis Lisinopril/Hydr 06/19/2007 - Hx Tablets 10-12. 90tabs 1 po qd in am 401.1 Silcoff, ochlorothiazide 09/08/2011 5 for high blood Max pressure Sis Citalopram 06/19/2007 - Hx Tablets 20mg 90tabs 1 PO qd as 300.4 Silcoff , Hydrobromide 11/03/2009 Directed, for Max depression Sis Simvastatin 06/19/2007 - Hx Tablets 10mg 90tabs 1 PO qd To Lower 272.0 Alexis, 04/26/2008 Cholesterol Remedios BLACKMON Lisinopril 04/03/2007 - Hx Tablets 10mg 90tabs 1 PO qd For High 401.1 Silcoff, 06/19/2007 Blood Pressure Sis Santana Metoprolol 04/03/2007 - Hx Tablets 25mg 1 PO bid For 401.1 Unknown 06/19/2007 High Blood Pressure Zetia 06/08/2006 - Hx Tablets 10mg 90tabs 1 po qd for 272.0 Truong 10/28/2008 cholesterol Lakeisha Johnson M.D. Mycolog-II 06/08/2006 - Hx Cream 100,00 30gm Apply To 698.1 Silcoff, 07/08/2008 0Units Affected Area On Max, ;0.1% Vulva bid prn Sis Levoxyl 04/18/2006 - Hx Tablets 88mcg 90tabs 1 po qd in am on 245.2 Silcoff, 04/26/2008 an empty stomach Sis Santana Zocor 03/02/2006 - Hx Tablets 20mg 90tabs 1 po qd for high 272.0 Silcoff, 04/20/2006 cholesterol Sis Santana Levoxyl 10/18/2005 - Hx Tablets 75mcg 90tabs 1 po qd in am on 245.2 Silcoff, 04/18/2006 an empty stomach Max for underactive M.DRoslyn thyroid PT Referral For 10/18/2005 - Hx evaluate and 724.4 Silcoff, Lumbar 04/03/2007 treat instruct Max Radiculopathy in hep M.DRoslyn modalities prn PT Referral For 10/04/2005 - Hx Evaluate And 726.0 Silcoff, Bilat Frozen 04/03/2007 TreatMax Shoulders Modalities prn M.Yanely Levoxyl 11/13/2004 - Hx Tablets 50mcg 90tabs 1 qd for thyroid 245.2 Silcoff, 10/18/2005 on empty stomach Max in the am MBrandon Lipitor 12/31/2003 - Hx Tablets 10mg 90tabs 1 po qd supper 272.0 Silcoff, 11/06/2005 time to reduce antonella Santana M.D. Nortriptyline 12/31/2003 - Hx Capsules 25mg 180caps 2 tabs qhs 300.4 Silcoff, 04/26/2008 Sis Santana Verapamil 12/31/2003 - Hx Tablets 240mg 135tabs 1 and 1/ tab 401.1 Silcoff, Sustained 04/03/2007 every day Adair Santana M.D. Premarin 12/31/2003 - Hx Cream 0.625m 42.5gm apply to the 627.3 Silcoff , Vaginal 07/08/2008 g/GM vaginal opening nicho Santana urinary Sis opening and up in vagina about an inch twice A week Premarin 11/11/2003 - Hx Cream 0.625m 42.5gm 09/06 applicator 627.3 Silcoff, Vaginal 12/31/2003 g/GM intravaginally nora Santana M.D. Zithromax Z-Jaron 11/01/2003 - Hx Tablets 250mg Take as Directed 466.0 klepack 11/11/2003 #One Pack Albuterol Mdi 11/01/2003 - Hx Aerosol 90mcg/ 1units 2 Puffs Q 4 HRS 466.0 klepack 06/19/2007 Dose prn For SOB Lisinopril & 09/17/2003 - Hx Tablets 10mg;1 90tabs 1 po qd for 401.1 Silcoff, HCTZ 04/03/2007 2.5 mg blood prssure Sis Santana Calcium, Zinc, - Hx 2 PO qd Unknown Magnesium Vit. 08/06/2014 Meso Silver And - Hx 1-2Oz Daily q am Unknown Meso Gold 02/03/2015 Each Alea Vie - Hx 3Oz daily q am Unknown 02/05/2014 Medications Administered in Office Medication Date Status Form Strength Qnty SIG Indications Ordering Provider [id number] Swine Flu Administered Injection Deanne Vaccine 009 Sis Santana Immunizations CPT Code Status Date Vaccine Lot # 13472 Given 05/24/2017 Influenza Vaccine Split Virus Preservative Free Im [id number] Use 99953 Given 07/15/2016 Influenza Vaccine Split Virus Preservative Free Im Use 07939 Given 10/01/2015 Influenza Vaccine Split Virus Preservative Free Im [id number] Use 67202 Given 03/31/2015 Prevnar 13 [id number] 90696 Given 12/12/2014 Adacel or Boostrix, TDaP 33977 Given 07/08/2014 Flu, Split Virus 3Yrs 92161 Given 06/08/2013 Flu, Split Virus 3Yrs [id number] 03386 Given 05/19/2012 Flu, Split Virus 3Yrs [id number] 52923 Given 07/07/2009 Flu, Split Virus 3Yrs 94095 Given 07/05/2008 Flu, Split Virus 3Yrs [id number] 87338 Given 06/19/2007 Flu, Split Virus 3Yrs [id number] 40619 Given 06/27/2006 Flu, Split Virus 3Yrs 43078 Given 09/01/2005 Td Immunization Td-142 20947 Given 09/01/2005 Td Immunization 20118 Given 07/06/2005 Influenza Immunization 44813 Given 09/05/2004 Pneumococcal Immunization 44420 Given 06/27/2004 Flu, Split Virus 3Yrs 93798 Given 06/27/2004 Flu, Split Virus 3Yrs 71816 Given 07/02/2003 Flu, Split Virus 3Yrs 97621 Refused 12/19/2017 Shingrix Zoster (Shingles) Vaccine (HZV) Recomb,Subnit,Adjuvanted 07170 Refused 11/04/2009 Zostavax Vital Signs Date Vital Result Comment 05/05/2018 BP Systolic 132 mmHg BP Diastolic 82 mmHg 2018 BP Systolic 140 mmHg BP Diastolic 72 mmHg BP Systolic Recheck 130 mmHg BP Diastolic Recheck 80 mmHg Body Temperature 97.4 F Height 62 inches 5'2" w/shoes Weight 171.00 lb w/shoes BMI (Body Mass Index) 31.3 kg/m2 12/19/2017 BP Systolic 138 mmHg BP Diastolic 76 mmHg Weight 174.00 lb with shoes 10/27/2017 BP Systolic 138 mmHg BP Diastolic 74 mmHg Heart Rate 84 /min O2 % BldC Oximetry 95 % Body Temperature 97.1 F Weight 175.00 lb 06/03/2017 BP Systolic 138 mmHg BP Diastolic 78 mmHg 05/24/2017 BP Systolic 140 mmHg BP Diastolic 70 mmHg Height 62.50 inches 5'2.50" w/shoes Weight 177.00 lb w/shoes BMI (Body Mass Index) 31.9 kg/m2 11/19/2016 BP Systolic 144 mmHg BP Diastolic 76 mmHg Height 62 inches 5'2" w/shoes Weight 182.00 lb w/shoes BMI (Body Mass Index) 33.3 kg/m2 10/05/2016 BP Systolic 136 mmHg BP Diastolic 82 mmHg Heart Rate 80 /min reg Weight 186.00 lb 03/30/2016 BP Systolic 148 mmHg BP Diastolic 70 mmHg Height 62.5 inches 5'2.50" with shoes Weight 187.00 lb with shoes BMI (Body Mass Index) 33.7 kg/m2 10/01/2015 BP Systolic 146 mmHg R arm sitting BP Diastolic 76 mmHg R arm sitting BP Systolic Recheck 164 mmHg per RN BP Diastolic Recheck 78 mmHg per compliance aide Rate 84 /min reg Weight 177.00 lb 07/02/2015 BP Systolic 162 mmHg BP Diastolic 80 mmHg Weight 173.00 lb 03/31/2015 BP Systolic 148 mmHg BP Diastolic 70 mmHg Heart Rate 80 /min reg Respiratory Rate 14 /min not laboured Weight 180.00 lb shoes on 02/21/2015 BP Systolic 130 mmHg BP Diastolic 70 mmHg Heart Rate 54 /min reg Body Temperature 97.6 F Height 61 inches 5'1" Weight 180.00 lb BMI (Body Mass Index) 34.0 kg/m2 02/05/2015 BP Systolic 120 mmHg BP Diastolic 60 mmHg Heart Rate 140 /min irreg Respiratory Rate 14 /min not laboured Body Temperature 97.5 F Weight 191.00 lb 09/30/2014 BP Systolic 150 mmHg BP Diastolic 90 mmHg Height 61 inches 5'1" Weight 195.00 lb BMI (Body Mass Index) 36.8 kg/m2 08/20/2014 BP Systolic 130 mmHg BP Diastolic 60 mmHg Weight 193.00 lb 08/06/2014 BP Systolic 162 mmHg BP Diastolic 72 mmHg O2 % BldC Oximetry 98 % Weight 196.00 lb shoes on 03/29/2014 BP Systolic 150 mmHg BP Diastolic 80 mmHg Height 61.25 inches 5'1.25" Weight 194.00 lb BMI (Body Mass Index) 36.4 kg/m2 09/17/2013 BP Systolic 158 mmHg BP Diastolic 76 mmHg BP Systolic Recheck 136 mmHg R arm sitting BP Diastolic Recheck 70 mmHg R arm sitting Heart Rate 72 /min reg Weight 203.00 lb 06/08/2013 BP Systolic 166 mmHg R arm sitting BP Diastolic 82 mmHg R arm sitting BP Systolic Recheck 166 mmHg L arm sitting BP Diastolic Recheck 76 mmHg L arm sitting Weight 204.00 lb 06/08/2013 BP Systolic 152 mmHg BP Diastolic 80 mmHg Height 61.75 inches 5'1.75" Weight 204.00 lb BMI (Body Mass Index) 37.6 kg/m2 11/20/2012 BP Systolic 150 mmHg BP Diastolic 76 mmHg BP Systolic Recheck 164 mmHg R arm sitting BP Diastolic Recheck 86 mmHg R arm sitting Heart Rate 78 /min reg Height 62.50 inches 5'2.50" Weight 214.00 lb BMI (Body Mass Index) 38.5 kg/m2 05/19/2012 BP Systolic 146 mmHg BP Diastolic 84 mmHg BP Systolic Recheck 128 mmHg R arm sitting BP Diastolic Recheck 70 mmHg R arm sitting Height 62.5 inches 5'2.50" Weight 214.00 lb BMI (Body Mass Index) 38.5 kg/m2 02/02/2012 BP Systolic 142 mmHg BP Diastolic 70 mmHg Heart Rate 76 /min reg Respiratory Rate 16 /min not laboured Weight 215.00 lb 11/17/2011 BP Systolic 150 mmHg BP Diastolic 80 mmHg BP Systolic Recheck 144 mmHg R arm sitting BP Diastolic Recheck 72 mmHg R arm sitting Heart Rate 70 /min reg Body Temperature 98.2 F Weight 215.00 lb Last Menstrual Period 0 10/30/2011 BP Systolic 126 mmHg afebrile BP Diastolic 84 mmHg afebrile Height 63.5 inches 5'3.50" Weight 220.00 lb BMI (Body Mass Index) 38.4 kg/m2 06/01/2011 BP Systolic 140 mmHg BP Diastolic 80 mmHg Body Temperature 97.7 F Weight 220.00 lb 05/05/2011 BP Systolic 156 mmHg BP Diastolic 70 mmHg Body Temperature 97.4 F Height 63.5 inches 5'3.50" Weight 219.00 lb BMI (Body Mass Index) 38.2 kg/m2 11/09/2010 BP Systolic 154 mmHg BP Diastolic 80 mmHg BP Systolic Recheck 136 mmHg R arm sitting BP Diastolic Recheck 68 mmHg R arm sitting Height 63.50 inches 5'3.50" Weight 214.00 lb BMI (Body Mass Index) 37.3 kg/m2 05/12/2010 BP Systolic 162 mmHg BP Diastolic 82 mmHg BP Systolic Recheck 152 mmHg R arm sitting BP Diastolic Recheck 82 mmHg R arm sitting Heart Rate 74 /min reg Height 63 inches 5'3" Weight 217.00 lb BMI (Body Mass Index) 38.4 kg/m2 Last Menstrual Period 0 11/04/2009 BP Systolic 146 mmHg BP Diastolic 70 mmHg Height 63 inches 5'3" Weight 214.00 lb BMI (Body Mass Index) 37.9 kg/m2 04/30/2009 BP Systolic 150 mmHg BP Diastolic 80 mmHg Weight 210.00 lb Last Menstrual Period 0 01/31/2009 BP Systolic 158 mmHg BP Diastolic 78 mmHg Height 63 inches 5'3" Weight 202.00 lb BMI (Body Mass Index) 35.8 kg/m2 07/08/2008 BP Systolic 130 mmHg BP Diastolic 70 mmHg Body Temperature 98.2 F Weight 210.00 lb Last Menstrual Period 0 04/26/2008 BP Systolic 144 mmHg our large cuff BP Diastolic 80 mmHg our large cuff BP Systolic Recheck 167 mmHg pt machine BP Diastolic Recheck 88 mmHg pt machine Weight 217.00 lb BMI (Body Mass Index) 34.1 kg/m2 10/31/2007 BP Systolic 150 mmHg BP Diastolic 76 mmHg BP Systolic Recheck 170 mmHg R arm sitting BP Diastolic Recheck 86 mmHg R arm sitting Heart Rate 76 /min reg Height 66.9 inches 5'6.90" Weight 211.00 lb BMI (Body Mass Index) 33.1 kg/m2 10/19/2007 BP Systolic 130 mmHg BP Diastolic 74 mmHg Weight 210.00 lb Last Menstrual Period 0 10/13/2007 BP Systolic 168 mmHg BP Diastolic 86 mmHg Body Temperature 97.7 F Weight 210.00 lb 09/26/2007 BP Systolic 130 mmHg BP Diastolic 78 mmHg Body Temperature 97.4 F Weight 204.00 lb Last Menstrual Period 0 07/31/2007 BP Systolic 140 mmHg BP Diastolic 90 mmHg BP Systolic Recheck 158 mmHg R arm sitting BP Diastolic Recheck 84 mmHg R arm sitting Weight 209.00 lb Last Menstrual Period 0 06/19/2007 BP Systolic 160 mmHg BP Diastolic 96 mmHg Weight 205.00 lb Last Menstrual Period 0 04/03/2007 BP Systolic 166 mmHg BP Diastolic 84 mmHg BP Systolic Recheck 176 mmHg R arm sitting BP Diastolic Recheck 88 mmHg R arm sitting Heart Rate 68 /min reg Respiratory Rate 16 /min not laboured Height 66.9 inches 5'6.90" Weight 202.00 lb BMI (Body Mass Index) 31.7 kg/m2 06/08/2006 BP Systolic 160 mmHg BP Diastolic 80 mmHg Height 66.9 inches 5'6.90" Weight 209.00 lb BMI (Body Mass Index) 32.8 kg/m2 03/02/2006 BP Systolic 160 mmHg BP Diastolic 82 mmHg BP Systolic Recheck 138 mmHg R arm sitting BP Diastolic Recheck 82 mmHg R arm sitting Height 66.9 inches 5'6.90" Weight 210.00 lb BMI (Body Mass Index) 33.0 kg/m2 12/17/2005 BP Systolic 126 mmHg BP Diastolic 66 mmHg Height 66.9 inches 5'6.90" Weight 215.00 lb BMI (Body Mass Index) 33.8 kg/m2 11/15/2005 BP Systolic 130 mmHg BP Diastolic 64 mmHg Height 66.9 inches 5'6.90" Weight 208.00 lb BMI (Body Mass Index) 32.7 kg/m2 10/18/2005 BP Systolic 160 mmHg 126/78 lying down after EKG BP Diastolic 78 mmHg 126/78 lying down after EKG Height 66.9 inches 5'6.90" Weight 209.00 lb BMI (Body Mass Index) 32.8 kg/m2 10/04/2005 BP Systolic 122 mmHg BP Diastolic 74 mmHg Body Temperature 97.7 F Height 66.9 inches 5'6.90" Weight 210.00 lb BMI (Body Mass Index) 33.0 kg/m2 09/01/2005 BP Systolic 120 mmHg BP Diastolic 78 mmHg Body Temperature 98.2 F Height 66.9 inches 5'6.90" Weight 211.00 lb BMI (Body Mass Index) 33.1 kg/m2 04/16/2005 BP Systolic 142 mmHg (pts r arm-office cuff)r arm(pt cuff 152/81 BP Diastolic 84 mmHg (pts r arm-office cuff)r arm(pt cuff 152/81 BP Systolic Recheck 149 mmHg R arm w/ her cuff; 144/76 w/ our cuff BP Diastolic Recheck 72 mmHg R arm w/ her cuff; 144/76 w/ our cuff Height 66.9 inches 5'6.90" Weight 215.00 lb BMI (Body Mass Index) 33.8 kg/m2 01/15/2005 BP Systolic 158 mmHg BP Diastolic 80 mmHg BP Systolic Recheck 142 mmHg R arm sitting BP Diastolic Recheck 78 mmHg R arm sitting Heart Rate 76 /min reg Height 66.9 inches 5'6.90" Weight 216.00 lb BMI (Body Mass Index) 33.9 kg/m2 11/13/2004 BP Systolic 146 mmHg BP Diastolic 86 mmHg Height 66.9 inches 5'6.90" Weight 217.00 lb BMI (Body Mass Index) 34.1 kg/m2 08/10/2004 BP Systolic 138 mmHg BP Diastolic 72 mmHg Height 66.9 inches 5'6.90" Weight 214.00 lb BMI (Body Mass Index) 33.6 kg/m2 Last Menstrual Period 0 05/12/2004 BP Systolic 128 mmHg BP Diastolic 70 mmHg Body Temperature 97.6 F Weight 214.00 lb 03/31/2004 BP Systolic 130 mmHg BP Diastolic 70 mmHg BP Systolic Recheck 132 mmHg R arm sitting BP Diastolic Recheck 70 mmHg R arm sitting Weight 216.00 lb 12/31/2003 BP Systolic 142 mmHg BP Diastolic 82 mmHg BP Systolic Recheck 146 mmHg R arm sitting BP Diastolic Recheck 80 mmHg R arm sitting Weight 207.00 lb 11/11/2003 BP Systolic 138 mmHg BP Diastolic 88 mmHg Weight 199.00 lb 11/01/2003 Body Temperature 98.4 F Weight 204.00 lb 10/08/2003 Body Temperature 97.6 F Weight 204.00 lb Last Menstrual Period 0 Results Test Date Test Result H/L Range Note CBC Auto Diff 05/02/2018 White Blood Count 16.1 10^3/uL High 3.5-10.8 Red Blood Count 3.83 10^6/uL Low 4.00-5.40 Hemoglobin 11.9 g/dL Low 12.0-16.0 Hematocrit 36 % 35-47 Mean Corpuscular Volume 94 fL 80-97 Mean Corpuscular Hemoglobin 31 pg 27-31 Mean Corpuscular HGB Conc 33 g/dL 31-36 Red Cell Distribution Width 14 % 10.5-15 Platelet Count 286 10^3/uL 150-450 Mean Platelet Volume 8.3 um3 7.4-10.4 Abs Neutrophils 13.3 10^3/uL High 1.5-7.7 Abs Lymphocytes 1.2 10^3/uL 1.0-4.8 Abs Monocytes 1.4 10^3/uL High 0-0.8 Abs Eosinophils 0 10^3/uL 0-0.6 Abs Basophils 0.1 10^3/uL 0-0.2 Abs Nucleated RBC 0 10^3/uL Granulocyte % 83.0 % 38-83 Lymphocyte % 7.7 % Low 25-47 Monocyte % 8.9 % High 0-7 Eosinophil % 0.1 % 0-6 Basophil % 0.3 % 0-2 Nucleated Red Blood Cells % 0 Comp Metabolic Panel 05/02/2018 Sodium 137 mmol/L 135-145 Potassium 4.0 mmol/L 3.5-5.0 Chloride 103 mmol/L 101-111 Co2 Carbon Dioxide 27 mmol/L 22-32 Anion Gap 7 mmol/L 2-11 Glucose 108 mg/dL High 70-100 Blood Urea Nitrogen 13 mg/dL 6-24 Creatinine 0.75 mg/dL 0.51-0.95 BUN/Creatinine Ratio 17.3 8-20 Calcium 9.5 mg/dL 8.6-10.3 Total Protein 6.5 g/dL 6.4-8.9 Albumin 4.2 g/dL 3.2-5.2 Globulin 2.3 g/dL 2-4 Albumin/Globulin Ratio 1.8 1-3 Total Bilirubin 0.70 mg/dL 0.2-1.0 Alkaline Phosphatase 84 U/L 34-104 Alt 21 U/L 7-52 Ast 34 U/L 13-39 Egfr Non- 73.1 >60 Egfr 88.4 >60 1 Urinalysis Profile 05/02/2018 Urine Color Straw Urine Appearance Clear Urine Specific [place] 1.003 Low 1.010-1.030 Urine pH 6.0 5-9 Urine Urobilinogen Negative Negative Urine Ketones Negative Negative Urine Protein Negative Negative Urine Leukocytes Negative Negative Urine Blood Negative Negative * * Negative 2 Urine Nitrite Negative Negative Urine Bilirubin Negative Negative Urine Glucose Negative Negative Xray 2018 X-Ray, Shoulder, Right, <pending> 2 View Inr/Protime 03/29/2018 Inr 1.96 High 0.77-1.02 Inr/Protime 03/14/2018 Inr 2.33 High 0.77-1.02 3 Inr/Protime 03/01/2018 Inr 1.66 High 0.77-1.02 Inr/Protime 02/07/2018 Inr 2.54 High 0.77-1.02 Inr/Protime 01/24/2018 Inr 1.75 High 0.77-1.02 Inr/Protime 01/10/2018 Inr 2.04 High 0.77-1.02 Basic Metabolic Panel 12/19/2017 Sodium 140 mmol/L 139-145 Potassium 4.4 mmol/L 3.5-5.0 Chloride 102 mmol/L 101-111 Co2 Carbon Dioxide 30 mmol/L 22-32 Anion Gap 8 mmol/L 2-11 Glucose 103 mg/dL High 70-100 Blood Urea Nitrogen 15 mg/dL 6-24 Creatinine 0.75 mg/dL 0.51-0.95 BUN/Creatinine Ratio 20.0 8-20 Calcium 9.6 mg/dL 8.6-10.3 Egfr Non- 73.3 >60 Egfr 94.2 >60 4 Laboratory test 12/19/2017 TSH (Thyroid Stim 1.71 mcIU/mL 0.34-5.60 5 finding Horm) Laboratory test 12/06/2017 Inr/Protime 2.54 High 0.77-1.02 6 finding Laboratory test 11/25/2017 Inr/Protime 1.33 High 0.77-1.02 7 finding Laboratory test 11/15/2017 Inr/Protime 2.81 High 0.77-1.02 8 finding Laboratory test 10/25/2017 Inr/Protime 2.37 High 0.77-1.02 9, 10 finding Laboratory test 09/06/2017 Urine Culture And SEE RESULT 11 finding Sensitivities BELOW Urinalysis Profile 09/06/2017 Urine Color Yellow Urine Appearance Clear Urine Specific [place] 1.005 Low 1.010-1.030 Urine pH 6.0 5-9 Urine Urobilinogen Negative Negative Urine Ketones Negative Negative Urine Protein Negative Negative Urine Leukocytes 3+ Negative Urine Blood Negative Negative * * Negative 12 Urine Nitrite Negative Negative Urine Bilirubin Negative Negative Urine Glucose Negative Negative Urine White Blood Cell 2+(11-20/hpf) Absent Urine Red Blood Cell Trace(0-2/hpf) Absent Urine Bacteria Absent Absent Urine Squamous Epithelial Cell Present Absent Urinalysis Profile 08/17/2017 Urine Color Straw Urine Appearance Clear Urine Specific [place] 1.004 Low 1.010-1.030 Urine pH 6.0 5-9 Urine Urobilinogen Negative Negative Urine Ketones Negative Negative Urine Protein Negative Negative Urine Leukocytes 1+ Negative Urine Blood 3+ Negative Urine Nitrite Negative Negative Urine Bilirubin Negative Negative Urine Glucose Negative Negative Urine White Blood Cell 3+(>20/hpf) Absent Urine Red Blood Cell Trace(0-2/hpf) Absent Urine Bacteria Absent Absent Laboratory test 08/17/2017 Urine Culture And SEE RESULT BELOW 13 finding Sensitivities Basic Metabolic Panel 06/07/2017 Sodium 139 mmol/L 133-145 Potassium 4.2 mmol/L 3.5-5.0 Chloride 102 mmol/L 101-111 Co2 Carbon Dioxide 30 mmol/L 22-32 Anion Gap 7 mmol/L 2-11 Glucose 118 mg/dL High 70-100 Blood Urea Nitrogen 13 mg/dL 6-24 Creatinine 0.86 mg/dL 0.51-0.95 BUN/Creatinine Ratio 15.1 8-20 Calcium 9.6 mg/dL 8.6-10.3 Egfr Non- 62.6 >60 Egfr 80.5 >60 14 Laboratory test finding 06/07/2017 TSH (Thyroid Stim 1.44 mcIU/mL 0.34- 5.60 Horm) Urine Micro Inhouse 05/24/2017 Ua WBC 3 15 Ua RBC - 15 Ua Casts - 15 Ua Epi - 15 Ua Other - 15 Ua Glucose - 15 Ua Bilirubin - 15 Ua Ketones - 15 Ua Specific [place] 1.005 15 Ua Blood - 15 Ua PH 5.0 15 Ua Protein - 15 Ua Urobilinogen - 15 Ua Nitrite - 15 Ua Leukocytes - 15 Laboratory test 05/22/2017 Urine Culture And SEE RESULT BELOW 16, 17 finding Sensitivities Urinalysis Profile 10/15/2016 Urine Color Straw Urine Appearance Clear Urine Specific [place] 1.004 Low 1.010-1.030 Urine pH 7.0 5-9 Urine Urobilinogen Negative Negative Urine Ketones Negative Negative Urine Protein Negative Negative Urine Leukocytes 1+ Negative Urine Blood 3+ Negative Urine Nitrite Negative Negative Urine Bilirubin Negative Negative Urine Glucose Negative Negative Urine White Blood Cell Trace(0-5/hpf) Absent Urine Red Blood Cell 2+(6-10/hpf) Absent Urine Bacteria Absent Absent Urine Squamous Epithelial Cell Present Absent Laboratory test 10/15/2016 Urine Culture And SEE RESULT 18 finding Sensitivities BELOW Laboratory test 10/05/2016 TSH (Thyroid Stim 1.88 mcIU/mL 0.34-5.6 finding Horm) 0 Laboratory test 08/20/2016 Inr/Protime 2.15 High 0.89-1.1 19, 20 finding 1 CBC Auto Diff 08/20/2016 White Blood Count [...] 0-2 Nucleated Red Blood Cells % 0 Comp Metabolic Panel 08/20/2016 Sodium 132 mmol/L [...] Egfr Non- 48.2 >60 Egfr 62.0 >60 21 Laboratory test finding 08/20/2016 Urine Culture And SEE RESULT BELOW 22 Sensitivities Urine Micro Inhouse 03/30/2016 Ua WBC - 23 Ua RBC - 23 Ua Casts - 23 Ua Epi - 23 Ua Other - 23 Ua Glucose - 23 Ua Bilirubin - 23 Ua Ketones - 23 Ua Specific [place] 1.005 23 Ua Blood H Tr 23 Ua PH 5.0 23 Ua Protein - 23 Ua Urobilinogen - 23 Ua Nitrite - 23 Ua Leukocytes - 23 Laboratory test 10/08/2015 TSH (Thyroid Stim 0.36 ?IU/mL 0.34-5.60 finding Horm) Laboratory test 08/12/2015 Inr/Protime 2.32 High 0.89-1.11 finding Protime W/ Inr(Add 07/15/2015 Inr 2.94 High 0.89-1.11 24, 25 V58.61) Laboratory test 06/26/2015 Inr/Protime 1.32 High 0.78-1.07 26, 27 finding Inr/Protime 03/21/2015 Inr 2.16 High 0.78-1.07 Inr/Protime 03/14/2015 Inr 2.11 High 0.78-1.07 Protime W/ Inr(Add 03/06/2015 #International 4.0 V58.61) Normalized Laboratory test 03/05/2015 Urine Culture See Note 28 finding Urine Screen 03/05/2015 Urine Color YELLOW Yellow Urine Clarity CLEAR Clear Urine Glucose - Dipstick NEGATIVE mg/dL Negative Urine Bilirubin - Dipstick NEGATIVE Negative Urine Ketone NEGATIVE mg/dL Negative Urine Specific [place] 1.015 1.010-1.030 Urine Blood NEGATIVE Negative Urine PH 6.0 Low 6.5-7.5 Urine Protein - Dipstick NEGATIVE mg/dL Negative Urine Urobilinogen - Dipstick 0.2 E.U./dL 0.2-1.0 Urine Nitrite - Dipstick NEGATIVE Negative Urine Leuk Esterase NEGATIVE Negative Protime W/ Inr(Add 02/25/2015 #International Normalized 3.0 V58.61) Protime 02/20/2015 Protime 21.3 seconds High 12.1-14.9 Inr 1.8 High 0.9-1.1 29 Protime 02/17/2015 Protime 19.9 seconds High 12.1-14.9 Inr 1.7 High 0.9-1.1 30 CBC W/Automated Diff 02/17/2015 White Blood Count 8.8 K/uL 3.1-10.7 Red Blood Count 3.86 M/uL Low 3.90-5.40 Hemoglobin 11.9 gm/dL 11.6-15.8 Hematocrit 37.3 % 36.0-46.1 Mean Cell Volume 96.6 fl 80.9-99.0 Mean Corpuscular HGB 30.8 pg 25.9-32.7 Mean Corpuscular HGB Conc 31.9 g/dL 30.8-34.3 Platelet Count 514 K/uL High 155-360 Red Cell Distri Width SD 50.3 fl High 3-47 Red Cell Distri Width %CV 14.6 % High 11.7-14.4 Mean Platelet Volume 10.7 fL 8.9-12.4 Neut% 62.2 % 40.4-72.8 Lymph % 24.1 % 17.0-46.1 [place] % 11.1 % 4.3-13.2 Eo% 2.1 % 0.0-6.6 Bas% 0.5 % 0.0-1.1 Neut# 5.47 K/uL 1.0-7.0 Lymph # 2.11 K/uL 1.8-7.0 [place] # 0.97 K/uL High 0.3-0.9 Eos # 0.18 K/uL 0.0-0.5 Baso # 0.04 K/uL 0.0-0.1 Basic Metabolic Panel 02/17/2015 Glucose 90 mg/dL 74-106 BUN 13 mg/dL 7-18 Creatinine 0.8 mg/dL 0.6-1.3 Glom Filtration Rate, Estimate >60 mL/min >60 If >60 mL/min >60 31 BUN/Creat 16.2 ratio Sodium 140 mmol/L 136-145 Potassium 3.7 mmol/L 3.5-5.1 Chloride 104 mmol/L 98-107 Carbon Dioxide 28 mmol/L 21-32 Anion Gap 8 mEq/L 8-16 Calcium 9.4 mg/dL 8.5-10.1 Laboratory test finding 02/05/2015 Blood Culture SEE RESULT BELOW 32 Urinalysis Profile 02/05/2015 Urine Color Yellow Urine Appearance Cloudy Urine Specific [place] 1.011 1.010-1.030 Urine pH 5.0 5-9 Urine Urobilinogen Negative Negative Urine Ketones Negative Negative Urine Protein 1+(30 mg/dL) Negative Urine Leukocytes 3+ Negative Urine Blood 1+ Negative * * Negative 33 Urine Nitrite Negative Negative Urine Bilirubin Negative Negative Urine Glucose Negative Negative Urine White Blood Cell 3+(>20/hpf) Absent Urine Red Blood Cell 1+(3-5/hpf) Absent Urine Bacteria Absent Absent Laboratory test finding 02/05/2015 Magnesium 1.9 mg/dL 1.9-2.7 Troponin-I (TnI) 0.11 ng/mL High <0.03 34 TSH (Thyroid Stim Horm) 1.97 ?IU/mL 0.34-5.60 Comp Metabolic Panel 02/05/2015 Sodium 130 mmol/L Low 133-145 Potassium 3.5 mmol/L 3.5-5.0 Chloride 94 mmol/L Low 101-111 Co2 Carbon Dioxide 26 mmol/L 22-32 Anion Gap 10 mmol/L 2-11 Glucose 156 mg/dL High 70-100 Blood Urea Nitrogen 20 mg/dL 6-24 Creatinine 1.06 mg/dL High 0.51-0.95 BUN/Creatinine Ratio 18.9 8-20 Calcium 9.3 mg/dL 8.6-10.3 Total Protein 7.5 g/dL 6.4-8.9 Albumin 4.0 g/dL 3.2-5.2 Globulin 3.5 g/dL 2-4 Albumin/Globulin Ratio 1.1 1-3 Total Bilirubin 0.70 mg/dL 0.2-1.0 Alkaline Phosphatase 165 U/L High 34-104 Alt 58 U/L High 7-52 Ast 57 U/L High 13-39 Egfr Non- 49.5 >60 Egfr 63.7 >60 35 Laboratory test finding 02/05/2015 Partial Thrombo Time 31.8 seconds 26.0 -36.3 PTT Lactic Acid 2.9 mmol/L High 0.5-2.2 36 Inr/Protime 02/05/2015 Inr 1.10 High 0.78-1.07 CBC Auto Diff 02/05/2015 White Blood Count 18.0 10^3/uL High 4.8-10.8 Red Blood Count 4.20 10^6/uL 4.0-5.4 Hemoglobin 13.0 g/dL 12.0-16.0 Hematocrit 39 % 35-47 Mean Corpuscular Volume 94 fL 80-97 Mean Corpuscular Hemoglobin 31 pg 27-31 Mean Corpuscular HGB Conc 33 g/dL 31-36 Red Cell Distribution Width 14 % 10.5-15 Platelet Count 290 10^3/uL 150-450 Mean Platelet Volume 9 um3 7.4-10.4 Abs Neutrophils 15.4 10^3/uL High 1.5-7.7 Abs Lymphocytes 1.0 10^3/uL 1.0-4.8 Abs Monocytes 1.5 10^3/uL High 0-0.8 Abs Eosinophils 0 10^3/uL 0-0.6 Abs Basophils 0 10^3/uL 0-0.2 Abs Nucleated RBC 0.01 10^3/uL Granulocyte % 85.8 % High 38-83 Lymphocyte % 5.8 % Low 25-47 Monocyte % 8.2 % 1-9 Eosinophil % 0.1 % 0-6 Basophil % 0.1 % 0-2 Nucleated Red Blood Cells % 0 CBC Auto Diff 06/14/2014 White Blood Count 8.0 10^3/uL 4.8-10.8 Red Blood Count 4.05 10^6/uL 4.0-5.4 Hemoglobin 13.0 g/dL 12.0-16.0 Hematocrit 37 % 35-47 Mean Corpuscular Volume 90 fL 80-97 Mean Corpuscular Hemoglobin 32 pg High 27-31 Mean Corpuscular HGB Conc 36 g/dL 31-36 Red Cell Distribution Width 13 % 10.5-15 Platelet Count 299 10^3/uL 150-450 Mean Platelet Volume 8 um3 7.4-10.4 Abs Neutrophils 4.7 10^3/uL 1.5-7.7 Abs Lymphocytes 2.3 10^3/uL 1.0-4.8 Abs Monocytes 0.7 10^3/uL 0-0.8 Abs Eosinophils 0.2 10^3/uL 0-0.6 Abs Basophils 0 10^3/uL 0-0.2 Abs Nucleated RBC 0 10^3/uL Granulocyte % 59.2 % 38-83 Lymphocyte % 28.9 % 25-47 Monocyte % 8.6 % 1-9 Eosinophil % 2.9 % 0-6 Basophil % 0.4 % 0-2 Nucleated Red Blood Cells % 0 Comp Metabolic Panel 06/14/2014 Sodium 137 mmol/L 133-145 Potassium 4.1 mmol/L 3.7-5.6 Chloride 101 mmol/L 101-111 Co2 Carbon Dioxide 31 mmol/L 22-32 Anion Gap 5 mmol/L 2-11 Glucose 93 mg/dL 70-100 Blood Urea Nitrogen 13 mg/dL 6-24 Creatinine 0.70 mg/dL 0.51-0.95 BUN/Creatinine Ratio 18.6 8-20 Calcium 9.7 mg/dL 8.6-10.3 Total Protein 6.5 g/dL 6.4-8.9 Albumin 4.4 g/dL 3.2-5.2 Globulin 2.1 g/dL 2-4 Albumin/Globulin Ratio 2.1 1-3 Total Bilirubin 0.50 mg/dL 0.2-1.0 Alkaline Phosphatase 94 U/L 34-104 Alt 16 U/L 7-52 Ast 22 U/L 13-39 Egfr Non- 79.9 >60 Egfr 102.8 >60 37 Laboratory test finding 06/14/2014 TSH (Thyroid Stimulating 3.63 IU/mL 0.34-5.60 Horm) Laboratory test finding 08/08/2013 TSH (Thyroid Stimulating 4.50 miu/mL 0.34-5.60 Horm) Basic Metabolic Panel 08/08/2013 Sodium 139 mmol/L 133-145 Potassium 3.9 mmol/L 3.5-5.0 Chloride 99 mmol/L Low 101-111 Co2 Carbon Dioxide 31.0 mmol/L 22-32 Anion Gap 9.0 mmol/L 2-11 Glucose 118 mg/dL High 70-100 Blood Urea Nitrogen 11 mg/dL 6-24 Creatinine 0.80 mg/dL 0.50-1.40 BUN/Creatinine Ratio 13.8 8-20 Calcium 9.8 mg/dL 8.1-9.9 Egfr Non- 68.7 >60 Egfr 88.3 >60 38 Laboratory test finding 06/08/2013 Hemoglobin A1c 6.0 Basic Metabolic Panel 06/07/2013 Sodium 137 mmol/L 133-145 Potassium 4.0 mmol/L 3.5-5.0 Chloride 100 mmol/L Low 101-111 Co2 Carbon Dioxide 31.0 mmol/L 22-32 Anion Gap 6.0 mmol/L 2-11 Glucose 102 mg/dL High 70-100 Blood Urea Nitrogen 9 mg/dL 6-24 Creatinine 0.70 mg/dL 0.50-1.40 BUN/Creatinine Ratio 12.9 8-20 Calcium 9.3 mg/dL 8.1-9.9 Egfr Non- 80.1 >60 Egfr 103.0 >60 39 Laboratory test 06/07/2013 TSH (Thyroid Stimulating 6.54 miu/mL High 0.34- 5.60 finding Horm) Lipid Profile 06/07/2013 Triglycerides 254 mg/dL High 40-200 (Trig/Chol/HDL) Cholesterol 247 mg/dL High Less than 200 HDL Cholesterol 45 mg/dL 40-60 40 Cholesterol/HDL Ratio 5.5 Average High 1-4.44 LDL Cholesterol 151.2 High Less Than 100 41 Laboratory test finding 06/07/2013 Alt 18 U/L 14-54 Urine Micro Inhouse 11/20/2012 Ua WBC - Ua RBC - Ua Casts - Ua Epi - Ua Other - Ua Glucose - Ua Bilirubin - Ua Ketones - Ua Specific [place] 1.005 Ua Blood - Ua PH 7.0 Ua Protein - Ua Urobilinogen - Ua Nitrite - Ua Leukocytes - Laboratory test finding 05/19/2012 Vitamin B12 422 pg/mL 180-914 Laboratory test finding 05/12/2012 TSH 3.56 MIU/ML 0.34-5.60 42 Comp Metabolic Panel 05/12/2012 Sodium 141 mmol/L 135-145 42 Potassium 4.4 mmol/L 3.5-5.0 42 Chloride 103 mmol/L 101-111 42 Co2 (Carbon Dioxide) 31.0 mmol/L 22-32 42 Anion Gap 7.0 mmol/L 2-11 42, 43 Glucose 111 mg/dL High 70-100 42 BUN 14 mg/dL 6-24 42 Creatinine 0.8 mg/dL 0.50-1.40 42 One Over Creatinine 1.25 42 BUN/Creatinine Ratio 17.5 8-20 42 Calcium 9.6 mg/dL 8.1-9.9 42 Total Protein 6.8 GM/DL 6.2-8.1 42 Albumin 4.3 GM/DL 3.2-5.2 42 Globulin 2.5 GM/DL 2-4 42 Albumin/Globulin Ratio 1.7 1-3 42 Bilirubin Total 0.6 mg/dL 0.4-1.5 42, 44 Alkaline Phosphatase 94 U/L 30-110 42 Ast (Sgot) 29 U/L 12-42 42 eGFR Non- 68.8 > 60 42 eGFR 88.5 > 60 42, 45 Laboratory test finding 05/12/2012 Alt (SGPT) 25 U/L 14-54 42 Basic Metabolic Panel 01/24/2012 Sodium 139 mmol/L 135-145 Potassium 4.2 mmol/L 3.5-5.0 Chloride 100 mmol/L Low 101-111 Co2 (Carbon Dioxide) 31.0 mmol/L 22-32 Anion Gap 8.0 mmol/L 2-11 46 Glucose 131 mg/dL High 70-100 BUN 14 mg/dL 6-24 Creatinine 0.9 mg/dL 0.50-1.40 One Over Creatinine 1.11 BUN/Creatinine Ratio 15.6 8-20 Calcium 10.2 mg/dL High 8.1-9.9 eGFR Non- 60.2 > 60 eGFR 77.5 > 60 47 Urine Micro Inhouse 11/17/2011 Ua WBC tntc Ua RBC tntc Ua Casts - Ua Epi 0-1 Ua Other - Ua Glucose - Ua Bilirubin - Ua Ketones - Ua Specific [place] 1.005 Ua Blood lrg Ua PH 6.0 Ua Protein - Ua Urobilinogen - Ua Nitrite - Ua Leukocytes 3+ Culture Urine Inhouse 11/17/2011 Colonies no growth Urine Micro Inhouse 10/30/2011 Ua WBC packed Ua RBC packed Ua Casts - Ua Epi - Ua Other - Ua Glucose - Ua Bilirubin - Ua Ketones - Ua Specific [place] 1.010 Ua Blood lrg Ua PH 6.0 Ua Protein 4+ Ua Urobilinogen - Ua Nitrite + Ua Leukocytes lrg Culture Urine Inhouse 10/30/2011 Colonies neg Urine Micro Inhouse 06/15/2011 Ua WBC 0-2 Ua RBC - Ua Casts - Ua Epi 0-2 Ua Other - Ua Glucose - Ua Bilirubin - Ua Ketones - Ua Specific [place] 1.005 Ua Blood - Ua PH 6.0 Ua Protein - Ua Urobilinogen - Ua Nitrite - Ua Leukocytes 2+ Urine Micro Inhouse 06/01/2011 Ua WBC tntc 48 Ua RBC tntc 48 Ua Casts - 48 Ua Epi - 48 Ua Other - 48 Ua Glucose - 48 Ua Bilirubin - 48 Ua Ketones - 48 Ua Specific [place] 1.015 48 Ua Blood lrg 48 Ua PH 6.5 48 Ua Protein 3+ 48 Ua Urobilinogen - 48 Ua Nitrite - 48 Ua Leukocytes 2+ 48 Culture Urine Inhouse 06/01/2011 Colonies 06/07 - 48 Basic Metabolic Panel 05/18/2011 Sodium 141 mmol/L 135-145 Potassium 4.2 mmol/L 3.5-5.0 Chloride 106 mmol/L 101-111 Co2 (Carbon Dioxide) 27.0 mmol/L 22-32 Anion Gap 8.0 mmol/L 2-11 49 Glucose 113 mg/dL High 70-100 BUN 11 mg/dL 6-24 Creatinine 0.9 mg/dL 0.50-1.40 One Over Creatinine 1.11 BUN/Creatinine Ratio 12.2 8-20 Calcium 9.3 mg/dL 8.1-9.9 eGFR Non- 60.2 > 60 eGFR 77.5 > 60 50 Laboratory test finding 05/18/2011 Folate RBC (RBC SEE NOTE ng/mL 280- 903 51 Folic Acid) Vitamin B12 339 pg/mL 180-914 TSH 3.94 MIU/ML 0.34-5.60 Lipid Profile (Trig/Chol/HDL) 05/18/2011 Triglyceride 266 mg/dL High 40- 200 Cholesterol 245 mg/dL High Less Than 200 52 High Density Lipoprotein 47 mg/dL 40-60 53 Cholesterol/HDL Ratio 5.21 AVERAGE High 1-4.44 Low Density Lipoprotein 145 mg/dL High Less Than 100 54 Laboratory test finding 05/18/2011 Alt (SGPT) 26 U/L 14-54 Lipid Profile (Trig/Chol/HDL) 05/07/2010 Triglyceride 213 mg/dL High 40- 200 Cholesterol 212 mg/dL High Less Than 200 55 High Density Lipoprotein 37 mg/dL Low 40-60 56 Cholesterol/HDL Ratio 5.73 AVERAGE High 1-4.44 Low Density Lipoprotein 132 mg/dL High Less Than 100 57 Laboratory test finding 05/07/2010 Alt (SGPT) 23 U/L 14-54 Basic Metabolic Panel 05/07/2010 Sodium 140 mmol/L 135-145 Potassium 4.1 mmol/L 3.5-5.0 Chloride 104 mmol/L 101-111 Co2 (Carbon Dioxide) 27.0 mmol/L 22-32 Anion Gap 9.0 mmol/L 2-11 58 Glucose 94 mg/dL 70-100 59 BUN 11 mg/dL 6-24 Creatinine 0.80 mg/dL 0.50-1.40 One Over Creatinine 1.20 BUN/Creatinine Ratio 13.8 8-20 Calcium 9.1 mg/dL 8.1-9.9 eGFR Non- 73.5 > 60 eGFR 89.0 > 60 60 Laboratory test finding 05/07/2010 TSH 2.54 MIU/ML 0.34-5.60 Laboratory test finding 04/30/2009 Alt (SGPT) 22 U/L 14-54 Lipid Profile (Trig/Chol/HDL) 04/30/2009 Triglyceride 254 mg/dL High 40- 200 Cholesterol 249 mg/dL High Less Than 200 61 High Density Lipoprotein 49 mg/dL 40-60 62 Cholesterol/HDL Ratio 5.08 AVERAGE High 1-4.44 Low Density Lipoprotein 149 mg/dL High Less Than 100 63 Laboratory test finding 04/30/2009 TSH 3.07 MIU/ML 0.34-5.60 Laboratory test finding 01/31/2009 TSH 4.71 MIU/ML 0.34-5.60 Basic Metabolic Panel 01/31/2009 Sodium 139 mmol/L 135-145 Potassium 4.4 mmol/L 3.5-5.0 Chloride 101 mmol/L 101-111 Co2 (Carbon Dioxide) 32.0 mmol/L 22-32 Anion Gap 6.0 mmol/L 2-11 64 Glucose 112 mg/dL High 70-100 65 BUN 11 mg/dL 6-24 Creatinine 0.90 mg/dL 0.50-1.40 One Over Creatinine 1.10 BUN/Creatinine Ratio 12.2 8-20 Calcium 10.2 mg/dL High 8.1-9.9 66 Urine Micro Inhouse 01/31/2009 Urine Microscopic Inhouse see result note 67 Ua Inhouse 01/31/2009 Ua Glucose - 67 Ua Bilirubin - 67 Ua Ketones - 67 Ua Specific [place] 1.010 67 Ua Blood - 67 Ua PH 6.0 67 Ua Protein - 67 Ua Urobilinogen - 67 Ua Nitrite - 67 Ua Leukocytes - 67 Culture Urine Inhouse 01/31/2009 Colonies no growth 67 Laboratory test finding 11/27/2008 Alt (SGPT) 23 U/L 14-54 Lipid Profile (Trig/Chol/HDL) 11/27/2008 Triglyceride 252 mg/dL High 40- 200 Cholesterol 258 mg/dL High Less Than 200 68 High Density Lipoprotein 47 mg/dL 40-60 69 Cholesterol/HDL Ratio 5.49 AVERAGE High 1-4.44 Low Density Lipoprotein 161 mg/dL High Less Than 100 70 Liver Function Tests 08/01/2008 Total Protein 6.9 g/dL 6.3-8.0 Albumin 4.0 g/dL 3.5-5.0 Bilirubin,Total 0.2 mg/dL 0.2-1.2 Bilirubin,Direct 0.0 mg/dL Low 0.1-0.4 Bilirubin,Indirect 0.2 mg/dL 0.0-0.9 Sgot/Ast 18 U/L 16-40 SGPT/Alt 34 U/L 30-65 Alkaline Phosphatase 113 U/L 50-136 Globulin 2.9 gm/dL 1.9-4.3 Alb/Glob 1.4 Laboratory test finding 08/01/2008 Lipase 473 U/L High 114-286 Laboratory test finding 06/19/2008 TSH 1.14 MIU/ML 0.34-5.60 Basic Metabolic Panel 04/16/2008 Sodium 140 mmol/L 135-145 Potassium 4.4 mmol/L 3.5-5.0 Chloride 106 mmol/L 101-111 Co2 (Carbon Dioxide) 30.0 mmol/L 22-32 Anion Gap 4.0 mmol/L 2-11 71 Glucose 101 mg/dL 70-105 BUN 13 mg/dL 6-24 Creatinine 1.0 mg/dL 0.5-1.4 One Over Creatinine 1.00 BUN/Creatinine Ratio 13.0 8-20 Calcium 9.0 mg/dL 8.1-9.9 72 Laboratory test finding 04/16/2008 Alt (SGPT) 21 U/L 14-54 Lipid Profile (Trig/Chol/HDL) 04/16/2008 Triglyceride 253 mg/dL High 40- 200 Cholesterol 243 mg/dL High Less Than 200 73 High Density Lipoprotein 49 mg/dL 40-60 74 Cholesterol/HDL Ratio 4.96 AVERAGE High 1-4.44 Low Density Lipoprotein 143 mg/dL High Less Than 100 75 Laboratory test finding 04/16/2008 TSH 5.04 MIU/ML 0.34-5.60 Urine Micro Inhouse 10/31/2007 Urine Microscopic - Inhouse Ua Inhouse 10/31/2007 Ua Glucose - Ua Bilirubin - Ua Ketones - Ua Specific [place] 1.005 Ua Blood - Ua PH 6.0 Ua Protein - Ua Urobilinogen - Ua Nitrite - Ua Leukocytes - Urine Micro Inhouse 10/19/2007 Urine Microscopic Inhouse 3-4 epi, occ wbc Ua Inhouse 10/19/2007 Ua Glucose - Ua Bilirubin - Ua Ketones - Ua Specific [place] 1.010 Ua Blood - Ua PH 6.0 Ua Protein - Ua Urobilinogen - Ua Nitrite - Ua Leukocytes sm Culture Urine Inhouse 10/13/2007 Colonies no growth Urine Micro Inhouse 10/13/2007 Urine Microscopic Inhouse packed rbc, no othr Ua Inhouse 10/13/2007 Ua Glucose - Ua Bilirubin - Ua Ketones - Ua Specific [place] 1.005 Ua Blood lg Ua PH 6.5 Ua Protein 1+ Ua Urobilinogen - Ua Nitrite - Ua Leukocytes tr Ua Inhouse 09/26/2007 Ua Glucose - Ua Bilirubin - Ua Ketones - Ua Specific [place] 1.015 Ua Blood lrg Ua PH 6.5 Ua Protein +3 Ua Urobilinogen - Ua Nitrite - Ua Leukocytes +2 Culture Urine Inhouse 09/26/2007 Colonies 1x10/2nd Laboratory test finding 07/19/2007 TSH 2.73 MIU/ML 0.34-5.60 Basic Metabolic Panel 07/19/2007 One Over Creatinine 1.11 Anion Gap 5.0 mmol/L 2-11 76 BUN 11 mg/dL 6-24 Calcium 9.1 mg/dL 8.7-10.2 Chloride 100 mmol/L Low 101-111 Co2 (Carbon Dioxide) 31.0 mmol/L 22-32 Glucose 98 mg/dL 70-105 Potassium 4.5 mmol/L 3.5-5.0 Sodium 136 mmol/L 135-145 BUN/Creatinine Ratio 12.2 8-20 Creatinine 0.9 mg/dL 0.5-1.4 Lipid Profile 07/19/2007 Cholesterol/HDL Ratio 4.17 AVERAGE 1-4.44 (Trig/Chol/HDL) Cholesterol 221 mg/dL High Less Than 200 77 Triglyceride 262 mg/dL High 40-200 High Density Lipoprotein 53 mg/dL 40-60 Low Density Lipoprotein 116 mg/dL High Less Than 100 78 Laboratory test finding 07/19/2007 Alt (SGPT) 19 U/L 14-54 Lipid Profile 04/03/2007 Cholesterol/HDL Ratio 6.21 AVERAGE High 1-4.44 79 (Trig/Chol/HDL) Cholesterol 261 mg/dL High Less Than 200 79, 80 Triglyceride 236 mg/dL High 40-200 79 High Density Lipoprotein 42 mg/dL 40-60 79 Low Density Lipoprotein 172 mg/dL High Less Than 100 79, 81 Laboratory test finding 04/03/2007 Alt (SGPT) 21 U/L 14-54 79 Basic Metabolic Panel 04/03/2007 One Over Creatinine 1.11 79 Anion Gap 8.0 mmol/L 2-11 79, 82 BUN 7 mg/dL 6-24 79 Calcium 9.1 mg/dL 8.7-10.2 79 Chloride 100 mmol/L Low 101-111 79 Co2 (Carbon Dioxide) 30.0 mmol/L 22-32 79 Glucose 98 mg/dL 70-105 79 Potassium 4.7 mmol/L 3.5-5.0 79 Sodium 138 mmol/L 135-145 79 BUN/Creatinine Ratio 7.8 Low 8-20 79 Creatinine 0.9 mg/dL 0.5-1.4 79 Laboratory test finding 04/03/2007 TSH 2.70 MIU/ML 0.34-5.60 79 CBC With Electronic Diff 04/03/2007 White Blood Count 7.0 CUMM 4.8-10.8 79 Abs Basophils 0 0-0.2 79 Abs Eosinophils 0.3 0-0.6 79 Absolute Neutrophil Count 3.9 1.5-7.7 79 Abs Lymphs 2.2 1.0-4.8 79 Abs Mononuclear 0.6 0-0.8 79 Basophil % 0.3 % 0-2 79 Hematocrit 38 % 35-47 79 Hemoglobin 12.8 g/dL 12.0-16.0 79 Eosinophil % 4.9 % 0-6 79 Gran % 55.6 % 38-83 79 Lymph % 30.6 % 20-45 79 Mean Corpuscular HGB Cone 34 g/dL 32-36 79 Mean Corpuscular Hemoglob 31 pg 27-31 79 Mean Corpuscular Volume 92 um3 79-97 79 Mean Platelet Volume 8.1 um3 7.4-10.4 79 Mononuclear % 8.6 % 1-9 79 Platelet Count 347 CUMM 150-450 79 Red Cell Count 4.12 CUMM Low 4.2-5.4 79 Redcell Distribution WDTH 15 % 10.5-15 79 Lipid Profile 08/01/2006 Cholesterol/HDL Ratio 5.29 AVERAGE High 1-4.44 (Trig/Chol/HDL) Cholesterol 259 mg/dL High Less Than 200 83 Triglyceride 277 mg/dL High 40-200 High Density Lipoprotein 49 mg/dL 40-60 Low Density Lipoprotein 155 mg/dL High Less Than 100 84 Laboratory test finding 08/01/2006 Alt (SGPT) 23 U/L 14-54 Lipid Profile 05/27/2006 Cholesterol/HDL Ratio 5.20 AVERAGE High 1-4.44 (Trig/Chol/HDL) Cholesterol 255 mg/dL High Less Than 200 85 Triglyceride 222 mg/dL High 40-200 High Density Lipoprotein 49 mg/dL 40-60 Low Density Lipoprotein 162 mg/dL High Less Than 100 86 Laboratory test finding 05/27/2006 Alt (SGPT) 17 U/L 14-54 TSH 2.46 MIU/ML 0.34-5.60 Lipid Profile 04/12/2006 Cholesterol/HDL Ratio 6.24 AVERAGE High 1-4.44 79 (Trig/Chol/HDL) Cholesterol 262 mg/dL High Less Than 200 79, 87 Triglyceride 229 mg/dL High 40-200 79 High Density Lipoprotein 42 mg/dL 40-60 79 Low Density Lipoprotein 174 mg/dL High Less Than 100 79, 88 Laboratory test finding 04/12/2006 Alt (SGPT) 20 U/L 14-54 79 TSH 5.22 MIU/ML 0.34-5.60 79 Laboratory test finding 11/30/2005 TSH 0.95 MIU/ML 0.34-5.60 Lipid Profile 10/14/2005 Cholesterol 172 mg/dL Less Than 200 79, 89 (Trig/Chol/HDL) Triglyceride 139 mg/dL 40-200 79 High Density Lipoprotein 51 mg/dL 40-60 79 Low Density Lipoprotein 93 mg/dL Less Than 100 79, 90 Cholesterol/HDL Ratio 3.37 AVERAGE 1-4.44 79 Laboratory test finding 10/14/2005 TSH 9.69 MIU/ML High 0.34-5.60 79 Laboratory test finding 10/14/2005 Alt (SGPT) 19 U/L 14-54 79 Basic Metabolic Panel 10/14/2005 One Over Creatinine 1.42 79 Anion Gap 7.0 mmol/L 2-11 79, 91 BUN 10 mg/dL 6-24 79 Calcium 9.7 mg/dL 8.7-10.2 79 Chloride 102 mmol/L 101-111 79 Co2 (Carbon Dioxide) 30.0 mmol/L 22-32 79 Glucose 95 mg/dL 70-105 79 Potassium 4.5 mmol/L 3.5-5.0 79 Sodium 139 mmol/L 135-145 79 BUN/Creatinine Ratio 14.3 8-20 79 Creatinine 0.7 mg/dL 0.5-1.4 79 Laboratory test finding 12/25/2004 TSH 2.92 MIU/ML 0.34-5.60 Thyroid Autoantibodies 10/29/2004 Thyroglobulin 55 U/ML < 60 Autoantibodies Thyroid Peroxidase Autoab > 1300 U/ML High < 60 92 Laboratory test finding 10/29/2004 TSH 9.89 MIU/ML High 0.34-5.60 Laboratory test finding 09/02/2004 TSH 7.67 High Lipid Profile (Trig/Chol/HDL) 09/02/2004 Cholesterol 184 93 Triglyceride 187 High Density Lipoprotein 55 Low Density Lipoprotein 92 94 Cholesterol/HDL Ratio 3.35 Laboratory test finding 09/02/2004 Alt (SGPT) 23 Basic Metabolic Panel 01/10/2004 Anion Gap 6.0 mmol/L 2-11 95 BUN 10 mg/dL 6-24 Calcium 9.6 mg/dL 8.7-10.2 Chloride 98 mmol/L Low 101-111 Co2 (Carbon Dioxide) 28.0 mmol/L 22-32 Creatinine 0.8 mg/dL 0.5-1.4 Glucose 96 mg/dL 70-105 Potassium 3.9 mmol/L 3.5-5.0 Sodium 132 mmol/L Low 135-145 BUN/Creatinine Ratio 12.5 8-20 Laboratory test finding 01/10/2004 Alt (SGPT) 30 U/L 14-54 Lipid Profile (Trig/Chol/HDL) 01/10/2004 Cholesterol 207 mg/dL High Less Than 200 96 Triglyceride 237 mg/dL High 40-200 High Density Lipoprotein 53 mg/dL 40-60 Low Density Lipoprotein 107 mg/dL High Less Than 100 97 Cholesterol/HDL Ratio 3.91 AVERAGE 1-4.44 1 Because ethnic data is not always [...] 5 Kidney failure <15 (or dialysis) 2 *Ascorbic acid is present which may interfere with detection of blood. 3 Dr. Motta's office is managing Warfarin dosing. 4 Because ethnic data is not always readily [...] 15-29 5 Kidney failure <15 (or dialysis) 5 Copy Result to: TAMEKA MOTTA ([id number]) 6 ORDERED ON 10/28/17 VALID THROUGH 04/27/18 PER DOCTOR DRAWN ONCE MONTHLY FOR 6 MONTHS 7 INR Q MONTH x 6 MONTHS x PRN VALID 05/05/2017 TO 11/03/2017 8 INR x month x 6 months plus PRN [address] Martinez office 10 INR Q MONTH x 6 MONTHS x PRN VALID 05/05/2017 TO 11/03/2017 11 SEE RESULT BELOW Name: NURYS STEPHEN : [address]: Max Dunlap MD Acct: [id number] Unit: [id number] AGE: 87 Location: [facility] Re09/06/17 SEX: F Status: REG REF SPEC: [id number] FISH: 09/06/[address] [facility] [address]: Max Dunlap MD REQ: [id number] RECD: 09/06/17 STATUS: COMP _ SOURCE: URINE SPDESC: ORDERED: Urine Culture Urine Source: Clean Catch Procedure Result Reported Site Urine Culture Final 09/08/17- 0907 ML No growth of clinically significant organisms * ML - [facility] ([facility]) . END OF REPORT * ML=Testing performed at Main Lab DEPARTMENT OF PATHOLOGY, [address] [place] [address] Sumit Johnston M.D. Director [facility] # [id number] 12 *Ascorbic acid is present which may interfere with detection of blood. 13 SEE RESULT BELOW Name: NURYS STEPHEN : [address]: Max Dunlap MD Acct: [id number] Unit: [id number] AGE: 87 Location: [facility] Re08/17/17 SEX: F Status: REG REF SPEC: [id number] FISH: 08/17/17-[address] [facility] [address]: Max Dunlap MD REQ: [id number] RECD: 08/17/17 STATUS: COMP _ S[facility]: [facility] ORDERED: Urine Culture Procedure Result Reported Site Urine Culture Final 08/19/17- 08 ML Organism 1 ESCHERICHIA COLI [place] Count 25-50,000 (Moderate) CFU/ML 1. ESCHERICHIA COLI M.I.C. RX --------- ------ Ampicillin <=2 S Cefazolin <=4 S Cefepime <=1 S Ceftriaxone <=1 S Ciprofloxacin <=0.25 S Gentamicin <=1 S Levofloxacin <=0.12 S Meropenem <=0.25 S Nitrofurantoin <=16 S Tetracycline <=1 S Pipercillin/Tazobactam <=4 S Trimethoprim/Sulfamethoxazole <=20 S Amoxicillin/Clavulanic Acid <=2 S Aztreonam <=1 S Contact the Microbiology Department for any additional antibiotic reporting. * ML - MAIN LAB ([facility]) . END OF REPORT * ML=Testing performed at Main Lab DEPARTMENT OF PATHOLOGY, [address] [place] [address] Sumit Johnston M.D. Director [facility] # [id number] 14 Because ethnic data is not always readily [...] 15-29 5 Kidney failure <15 (or dialysis) 15 void, clear, yellow 16 [id number] 17 SEE RESULT BELOW Name: SHERRINURYS A : [address]: Dayami Cohen Acct: [id number] Unit: [id number] AGE: 87 Location: [facility] Re05/22/17 SEX: F Status: DEP ER SPEC: [id number] FISH: 05/22/17-[address]: Dayami Borja DO REQ: [id number] RECD: 05/23/17 STATUS: ANA [place] DR: Max Dunlap MD _ SOURCE: URINE SPDC: ORDERED: Urine Culture COMMENTS: [id number] Procedure Result Reported Site Urine Culture Final 05/24/17- 1159 ML No Growth (<1,000 CFU/mL) * ML - MAIN LAB ([facility]) . END OF REPORT * ML=Testing performed at Main Lab DEPARTMENT OF PATHOLOGY, [address] [place] [address] Sumit Johnston M.D. Director [facility] # [id number] 18 SEE RESULT BELOW Name: NURYS STEPHEN : [address]: Max Dunlap MD Acct: [id number] Unit: [id number] AGE: 86 Location: [facility] Re10/15/16 SEX: F Status: REG REF SPEC: [id number] FISH: 10/15/[address] [facility] [address]: Max Dunlap MD REQ: [id number] RECD: 10/15/16 STATUS: COMP _ SOURCE: URINE SPDESC: ORDERED: Urine Culture Urine Source: Clean Catch Procedure Result Reported Site Urine Culture Final 10/17/16- 0832 ML No growth of clinically significant organisms * ML - MAIN LAB ([facility]) . END OF REPORT * ML=Testing performed at Main Lab DEPARTMENT OF PATHOLOGY, [address] [place] [address] Sumit Johnston M.D. Director [facility] # [id number] [address] Martinez office 20 PRN VALID 07/02/16-12/31/16 Q MONTHLY PRN 21 Because ethnic data is not always readily [...] 15-29 5 Kidney failure <15 (or dialysis) 22 SEE RESULT BELOW Name: NURYS STEPHEN : [address]: Max Dunlap MD Acct: [id number] Unit: [id number] AGE: 86 Location: [facility] Re08/20/16 SEX: F Status: REG REF SPEC: [id number] FISH: 08/20/[address] [facility] [address]: Max Dunlap MD REQ: [id number] RECD: 08/20/16 STATUS: COMP [facility] DR: Tameka Khan MD _ SOURCE: URINE SPDESC: ORDERED: Urine Culture COMMENTS: Procedure Result Reported Site Urine Culture Final 08/22/16- 0758 ML No Growth (<1,000 CFU/mL) * ML - MAIN LAB ([facility]) . END OF REPORT * ML=Testing performed at Main Lab DEPARTMENT OF PATHOLOGY, [address] [place] [address] Sumit Johnston M.D. Director [facility] # [id number] 23 void, clear, light yellow 24 Loree/HCR calls w/result of INR 2.7- this has not come in electronically so I will not enter result into report. SL 25 Effective immediately, due to a laboratory mean normal Protime change, the reference range for the INR has changed. 26 Pt no longer on Warfarin 27 monthly and prn X 6 months Copy Result to: MAX DUNLAP ([id number]) 28 Organism 1 ! URETHRAL KAITLYN Quantity ! 10,000 - 50,000 CFU/mL 29 THERAPEUTIC INR RANGE: 2.0 - 3.0 DVT, Pulmonary embolus, prophylaxis against venous thrombosis or systemic embolization in high risk patients. 2.5 - 3.5 Mechanical heart valves 30 THERAPEUTIC INR RANGE: 2.0 - 3.0 DVT, Pulmonary embolus, prophylaxis against venous thrombosis or systemic embolization in high risk patients. 2.5 - 3.5 Mechanical heart valves 31 Note: Persistent reduction for 3 months or more in an eGFR <60 mL/min/1.73 m2 defines CKD. Patients with eGFR values >/=60 mL/min/1.73 m2 may also have CKD if evidence of persistent proteinuria is present. The original MDRD equation for estimated GFR is not valid for patients less than 18 years of age. Additional information may be found at www.kdoqi.org. 32 SEE RESULT BELOW Name: NURYS STEPHEN DOB: [address]: Abeba Mckenna DO Acct: [id number] Unit: [id number] AGE: 84 Location: ICU [id number] Re02/05/15 SEX: F Status: ADM IN SPEC: [id number] FISH: 02/05/[address]: Jolynn Ervin MD REQ: [id number] RECD: 02/05/15 STATUS: COMP DELFINHR DR: [facility] Max Dunlap MD _ SOURCE: BLOOD,VENO SPDESC: ORDERED: Blood Cult COMMENTS: Verbal to [id number] by [id number] at 1651 on 02/07/15. Results read back accurately. Procedure Result Verified Site Aerobic Culture Bottle Final 02/08/15- 0852 ML Aerobic Bottle Gram Stain Gram Negative Bacilli Organism 1 ESCHERICHIA COLI Please refer to [id number] culture ANAEROBIC bottle for sensitivity testing. Anaerobic Culture Bottle Final 02/10/15- 1244 ML No Growth Day 5 * ML - MAIN LAB ([facility]) . END OF REPORT * ML=Testing performed at Main Lab DEPARTMENT OF PATHOLOGY, [address] [place] [address] Sumit Johnston M.D. Director [facility] # [id number] 33 *Ascorbic acid is present which may interfere with detection of blood. 34 Reference Range and Interpretation: TnI (ng/mL) Interpretation Less Than 0.03 ng/mL Not supportive of diagnosis of LA 0.03 - 0.50 ng/mL Indeterminate: suggest serial studies if clinically indicated. Greater than 0.5 ng/mL Consistent with diagnosis of LA 35 Because ethnic data is not always readily [...] 15-29 5 Kidney failure <15 (or dialysis) 36 Critical Result LACT:2.9 Called to [id number]/MICHELLE at: 12:39:55 by:[id number] Read back by:[email or web address] 37 Because ethnic data is not always readily [...] 15-29 5 Kidney failure <15 (or dialysis) 38 Because ethnic data is not always readily [...] 15-29 5 Kidney failure <15 (or dialysis) 39 Because ethnic data is not always readily [...] 15-29 5 Kidney failure <15 (or dialysis) 40 HDL Interpretation: Undesirable: High Risk: Less than 40 mg/dL Desirable: Low Risk: Greater than 60 mg/dL 41 LDL Interpretation: Low Risk Optimal Level: LDL Less than 100 mg/dL Near or Above Optimal: LDL 100-129 mg/dL Borderline High Risk: LDL 130-159 mg/dL High Risk: LDL 160-189 mg/dL Very High Risk: LDL Greater than 189 mg/dL 42 FASTING 43 Anion gap measurement may be of limited value in the presence of any alkalosis, especially in a combined acid base disorder. . 44 A metabolite of Naproxen, O-desmethylnaproxen, has been shown to interfere with the Jendrassik-Fourche method for measuring total bilirubin. Samples from patients who have taken Naproxen have shown spurious elevation in total bilirubin levels. 45 Because ethnic data is not always readily [...] 15-29 5 Kidney failure <15 (or dialysis) 46 Anion gap measurement may be of limited value in the presence of any alkalosis, especially in a combined acid base disorder. . 47 Because ethnic data is not always readily [...] 15-29 5 Kidney failure <15 (or dialysis) 48 pinpoint growth on emb only 49 Anion gap measurement may be of limited value in the presence of any alkalosis, especially in a combined acid base disorder. . 50 Because ethnic data is not always readily [...] 15-29 5 Kidney failure <15 (or dialysis) 51 RBC FOLATE result is greater than 1326 ng/ml. Test Performed By:[facility] [address] [place] [id number] 52 CHOLESTEROL INTERPRETATION: Desirable: Less than 200 MG/DL Borderline-High Risk: 200-239 MG/DL High-Risk: 240 MG/DL and over 53 HDL INTERPRETATION: Undesirable: High Risk: Less than 40 MG/DL Desirable: Low Risk: Greater than 60 MG/DL 54 LDL INTERPRETATION: Low Risk Optimal Level: LDL Less than 100 MG/DL Near or Above Optimal: LDL 100-129 MG/DL Borderline High Risk: LDL 130-159 MG/DL High Risk: LDL 160-189 MG/DL Very High Risk: LDL Greater than 189 MG/DL 55 CHOLESTEROL INTERPRETATION: Desirable: Less than 200 MG/DL Borderline-High Risk: 200-239 MG/DL High-Risk: 240 MG/DL and over 56 HDL INTERPRETATION: Undesirable: High Risk: Less than 40 MG/DL Desirable: Low Risk: Greater than 60 MG/DL 57 LDL INTERPRETATION: Low Risk Optimal Level: LDL Less than 100 MG/DL Near or Above Optimal: LDL 100-129 MG/DL Borderline High Risk: LDL 130-159 MG/DL High Risk: LDL 160-189 MG/DL Very High Risk: LDL Greater than 189 MG/DL 58 Anion gap measurement may be of limited value in the presence of any alkalosis, especially in a combined acid base disorder. . 59 Note change in reference range as of 04/25/08. The change was based on recommendations from the [place] [employer]. 60 Because ethnic data is not always readily [...] 15-29 5 Kidney failure <15 (or dialysis) 61 CHOLESTEROL INTERPRETATION: Desirable: Less than 200 MG/DL Borderline-High Risk: 200-239 MG/DL High-Risk: 240 MG/DL and over 62 HDL INTERPRETATION: Undesirable: High Risk: Less than 40 MG/DL Desirable: Low Risk: Greater than 60 MG/DL 63 LDL INTERPRETATION: Low Risk Optimal Level: LDL Less than 100 MG/DL Near or Above Optimal: LDL 100-129 MG/DL Borderline High Risk: LDL 130-159 MG/DL High Risk: LDL 160-189 MG/DL Very High Risk: LDL Greater than 189 MG/DL 64 Anion gap measurement may be of limited value in the presence of any alkalosis, especially in a combined acid base disorder. . 65 Note change in reference range as of 04/25/08. The change was based on recommendations from the [employer]. 66 Please note change in reference range effective 08 . 67 occ epi, occ renal cell, numerous crystals 68 CHOLESTEROL INTERPRETATION: Desirable: Less than 200 MG/DL Borderline-High Risk: 200-239 MG/DL High-Risk: 240 MG/DL and over 69 HDL INTERPRETATION: Undesirable: High Risk: Less than 40 MG/DL Desirable: Low Risk: Greater than 60 MG/DL 70 LDL INTERPRETATION: Low Risk Optimal Level: LDL Less than 100 MG/DL Near or Above Optimal: LDL 100-129 MG/DL Borderline High Risk: LDL 130-159 MG/DL High Risk: LDL 160-189 MG/DL Very High Risk: LDL Greater than 189 MG/DL 71 Anion gap measurement may be of limited value in the presence of any alkalosis, especially in a combined acid base disorder. . 72 Please note change in reference range effective 08 . 73 CHOLESTEROL INTERPRETATION: Desirable: Less than 200 MG/DL Borderline-High Risk: 200-239 MG/DL High-Risk: 240 MG/DL and over 74 HDL INTERPRETATION: Undesirable: High Risk: Less than 40 MG/DL Desirable: Low Risk: Greater than 60 MG/DL 75 LDL INTERPRETATION: Low Risk Optimal Level: LDL Less than 100 MG/DL Near or Above Optimal: LDL 100-129 MG/DL Borderline High Risk: LDL 130-159 MG/DL High Risk: LDL 160-189 MG/DL Very High Risk: LDL Greater than 189 MG/DL 76 Anion gap measurement may be of limited value in the presence of any alkalosis, especially in a combined acid base disorder. . 77 Classification: Borderline High . 78 CALCULATED LDL APPROXIMATES THE VALUE OF A DIRECT LDL MEASUREMENT. Classification: Near or above optimal . 79 FASTING 80 Classification: High . 81 CALCULATED LDL APPROXIMATES THE VALUE OF A DIRECT LDL MEASUREMENT. Classification: High . 82 Anion gap measurement may be of limited value in the presence of any alkalosis, especially in a combined acid base disorder. . 83 Classification: High . 84 CALCULATED LDL APPROXIMATES THE VALUE OF A DIRECT LDL MEASUREMENT. Classification: Borderline High . 85 Classification: High . 86 CALCULATED LDL APPROXIMATES THE VALUE OF A DIRECT LDL MEASUREMENT. Classification: High . 87 Classification: High . 88 CALCULATED LDL APPROXIMATES THE VALUE OF A DIRECT LDL MEASUREMENT. Classification: High . 89 Classification: Desirable . 90 CALCULATED LDL APPROXIMATES THE VALUE OF A DIRECT LDL MEASUREMENT. Classification: Optimal Level . 91 Anion gap measurement may be of limited value in the presence of any alkalosis, especially in a combined acid base disorder. . 92 TEST PERFORMED BY: [facility], [employer] [address] [place] [address] 93 Classification: Desirable . 94 CALCULATED LDL APPROXIMATES THE VALUE OF A DIRECT LDL MEASUREMENT. Classification: Optimal Level . 95 Anion gap measurement may be of limited value in the presence of any alkalosis, especially in a combined acid base disorder. . 96 Classification: Borderline High . 97 CALCULATED LDL APPROXIMATES THE VALUE OF A DIRECT LDL MEASUREMENT. Classification: Near or above optimal . Procedures Date CPT Code Description Status Comment 2018 27345 X-Ray Shoulder Two Or More Views Completed 05/24/2017 40883 Destruction Premalignant Skin Completed Lesions, 2-14,Ea 05/24/2017 81297 Destruction Premalignant Skin Completed Lesions 03/30/2016 88573 Destruction Premalignant Skin Completed Lesions 11/03/2015 13287 Excise Benign Lesion 1.1-2CM Completed Scalp/Neck/Hands/Feet/Genitalia 02/05/2015 43102 Electrocardiogram Complete Completed 11/17/2011 12317 Electrocardiogram Complete Completed 04/26/2008 19178 Destruction Of Skin Lesions Up Completed To 14 Flat Warts/Molluscum Contag 10/06/2006 Colonoscopy Completed 10/12: Had 2 polyps (hyperplastic), some divertics (Dr Moe) : Normal exc w/adhesions 10/18/2005 21760 Electrocardiogram Complete Completed 10/04/2005 70567 X-Ray, Hip (Both) Incl Ap Pelvis Completed 05/12/2004 49623 Electrocardiogram Complete Completed Encounters Type Date Location Provider CPT E/M Dx Office Visit 2018 11:00a Main Office Rossi Antonio 96507 B35.4 M25.511 L03.115 M75.41 Office Visit 12/19/2017 11:00a Main Office Max Dunlap M.D. 44593 I10 E06.3 Z23 M25.511 Office Visit 10/27/2017 3:00p Main Office Rossi Antonio 35544 J01.90 J20.9 Office Visit 06/03/2017 11:45a Main Office Nolberto Gibbs D.O. 47249 H00.014 Office Visit 05/24/2017 11:00a Main Office Max Dunlap M.D. 09564 I10 L57.0 I48.0 E06.3 N95.2 N39.0 Z23 Z79.01 Office Visit 11/19/2016 10:45a Main Office Max Dunlap M.D. 97646 N95.2 E06.3 I10 Z71.89 G47.00 Office Visit 10/05/2016 12:55p Main Office Max Dunlap M.D. 45712 E06.3 I10 N95.2 M17.11 G47.00 Office Visit 03/30/2016 12:55p Main Office Max Dunlap M.D. 38016 M17.11 R60.9 E06.3 I10 I48.0 E78.0 L57.0 Office Visit 10/01/2015 12:55p Main Office Max Dunlap M.D. 42614 I10 I48.0 L72.3 E06.3 Z23 Z41.8 Office Visit 07/02/2015 12:55p Main Office Max Dunlap M.D. 64205 I10 R19.5 I48.0 Office Visit 03/31/2015 10:45a Main Office Max Dunlap M.D. 77450 401.1 427.31 723.1 362.30 v03.82 v07.2 Office Visit 02/21/2015 9:45a Main Office Max Dunlap M.D. 34586 427.31 995.91 599.0 783.21 783.0 Office Visit 02/05/2015 9:45a Main Office Max Dunlap M.D. 07176 780.60 780.79 783.0 785.0 427.31 Office Visit 09/30/2014 11:30a Main Office Max Dunlap M.D. 79414 719.46 719.45 401.1 245.2 110.5 Office Visit 08/20/2014 12:55p Main Office Max Dunlap M.D. 56275 362.36 346.20 362.81 Office Visit 08/06/2014 10:45a Main Office Nolberto Gibbs D.O. 49382 786.2 Office Visit 03/29/2014 1:45p Main Office Max Dunlap M.D. 43868 401.1 272.0 245.2 783.21 Office Visit 09/17/2013 2:00p Main Office Max Dunlap M.D. 52366 401.1 245.2 719.46 790.21 Office Visit 06/08/2013 1:00p Main Office Max Dunlap M.D. 00553 790.21 401.1 272.0 245.2 691.8 v04.81 v07.2 112.3 Office Visit 11/20/2012 9:45a Main Office Max Dunlap M.D. 24721 401.1 245.2 790.21 272.0 V76.10 V70.0 300.4 Office Visit 05/19/2012 11:15a Main Office Max Dunlap M.D. 89736 401.1 245.2 790.21 599.0 V76.10 782.0 V04.81 V07.2 Office Visit 02/02/2012 3:30p Main Office Max Dunlap M.D. 76516 366.9 V72.84 401.1 272.0 Office Visit 11/17/2011 9:45a Main Office Max Dunlap M.D. 73465 401.1 599.70 595.0 272.0 245.2 V70.0 300.4 V79.0 Office Visit 10/30/2011 11:00a Main Office Truong Johnson M.D. 90867 595.0 564.01 Office Visit 06/01/2011 1:45p Main Office Max Dunlap M.D. 00498 599.70 595.0 Office Visit 05/05/2011 3:30p Main Office Max Dunlap M.D. 46763 401.1 782.1 272.0 245.2 V76.10 Office Visit 11/09/2010 1:30p Main Office Max Dunlap M.D. 03952 401.1 V70.0 V76.10 782.0 727.03 245.2 272.0 V82.81 698.1 Office Visit 05/12/2010 10:15a Main Office Max Dunlap M.D. 60361 401.1 272.0 245.2 300.4 V76.10 Office Visit 11/04/2009 11:15a Main Office Max Dunlap M.D. 63700 245.2 401.1 272.0 300.4 386.11 702.0 V65.49 Office Visit 04/30/2009 9:45a Main Office Max Dunlap M.D. 26268 245.2 401.1 272.0 729.5 V76.10 Office Visit 01/31/2009 10:15a Main Office Max Dunlap M.D. 81360 401.1 272.0 386.11 300.4 245.2 599.71 627.3 Office Visit 10/28/2008 8:55a Main Office Max Dunlap M.D. 05406 401.9 272.0 789.00 Office Visit 07/08/2008 1:45p Main Office Max Dunlap M.D. 01323 780.4 627.3 698.1 401.1 245.2 300.4 780.52 780.79 Office Visit 04/26/2008 10:45a Main Office Max Dunlap M.D. 93994 401.1 272.0 300.4 245.2 627.3 472.0 078.10 Office Visit 10/31/2007 10:00a Main Office Max Dunlap M.D. 27115 627.3 401.1 272.0 300.4 472.0 245.2 Office Visit 10/19/2007 2:00p Main Office Truong Johnson M.D. 79566 627.3 599.7 Office Visit 10/13/2007 5:00p Main Office Truong Johnson M.D. 84145 599.0 595.0 Office Visit 09/26/2007 2:00p [place] [address] 466.0 599.0 272.0 401.1 Office Visit 07/31/2007 8:30a Main Office Max Dunlap M.D. 19216 401.1 272.0 300.4 245.2 Office Visit 06/19/2007 8:30a Main Office Max Dunlap M.D. 44036 401.1 V07.2 272.0 300.4 245.2 780.79 782.1 V04.81 Office Visit 04/03/2007 9:15a Main Office Max Dunlap M.D. 16057 272.0 401.1 245.2 300.4 424.1 V65.49 Office Visit 06/08/2006 9:30a Main Office Max Dunlap M.D. 00228 272.0 245.2 401.1 698.1 565.0 Office Visit 03/02/2006 9:15a Main Office Max Dunlap M.D. 43490 724.4 729.5 272.0 401.1 354.0 300.4 245.2 Office Visit 12/17/2005 3:45p Main Office Max Dunlap M.D. 10015 245.2 354.0 724.4 729.5 272.0 401.1 722.52 Office Visit 11/15/2005 10:15a Main Office Max Dunlap M.D. 85965 401.1 245.2 729.5 354.0 724.4 272.0 722.52 Office Visit 10/18/2005 9:30a Main Office Max Dunlap M.D. 31200 401.1 272.0 245.2 729.5 354.0 724.4 110.5 Office Visit 10/04/2005 2:15p Main Office Max Dunlap M.D. 23338 726.0 719.45 354.0 401.1 272.0 245.2 Office Visit 09/01/2005 9:30a Main Office Max Dunlap M.D. 17138 726.32 726.31 718.41 743.9 V06.5 V07.2 Office Visit 04/16/2005 10:45a Main Office Max Dunlap M.D. 59567 401.1 272.0 Office Visit 01/15/2005 11:15a Main Office Max Dunlap M.D. 97860 245.2 401.1 Office Visit 11/13/2004 9:30a Main Office Max Dunlap M.D. 10690 245.2 Office Visit 08/10/2004 9:45a Main Office Max Dunlap M.D. 44480 272.0 401.1 110.5 569.3 V76.51 V76.10 Office Visit 05/12/2004 11:30a Main Office Max Dunlap M.D. 17164 366.9 401.1 272.0 V72.84 Office Visit 03/31/2004 1:30p Main Office Max Dunlap M.D. 55223 401.1 272.0 728.71 424.1 Office Visit 12/31/2003 2:30p Main Office Max Dunlap M.D. 54369 627.3 401.1 272.0 Office Visit 11/11/2003 12:55p Main Office Max Dunlap M.D. 04086 627.3 Office Visit 11/01/2003 3:30p Main Office fabiola 04234 466.0 Office Visit 10/08/2003 11:15a Main Office Carlos Caceres M.D. 85964 462 401.1 424.1 Plan of Care Future Appointment(s):06/20/2018 1:30 pm - Max Dunlap M.D. at Main Tqaaxx8705/05/2018 - Nolberto Gibbs D.O.M25.511 Pain in right shoulderFollow up: as orojvuwqlN00.7 Diarrhea, jkvyaymxhrqS86.5 Low back painL03.115 Cellulitis of right lower limbK64.9 Unspecified okxuxmrczkoT49.00 Constipation, unspecified
--- OUTSIDE RECORDS SUMMARY | 2018-05-31 06:48 | XMS REPORT ---
:1930 External Reference #:[id number] Author Organization [facility] Address [address] [place] [address] Phone [phone] Care Team Providers Name Role Phone HCP given Primary Care Physician Unavailable Payers Type Date Identification Numbers Payment Provider Subscriber Commercial Effective: Policy Number: [id number] Today Option/Amer Nurys Stephen 2009 Prog PayID: [id number] [address] [address] [place] [address] Problems Date Description Provider Status Onset: 06/11/2004 [...] is currently not sexually active Age 1st [place] First intercourse was at age 22 # [...] Active Tablets 20mg 1 pill every I10 [place] morning for MD Tameka high blood pressure [...] tablets by mouth daily, as needed - [id number] all sorces Cipro 04/27 Hx Tablets 250mg [...] Hx Tablets 800-160mg 6tabs take 1 tablet Judycoindu, le/Trimethopri by mouth david Cash DS - [...] Hx please evaluate Silcoff, Unsteady Gait and aMx leal, And For - instruct in M.D. [...] Pain 07/01 needed, instruct in hep 719.45 Louisa-3 09/27/2014 - Hx Capsules 1 qd Unknown [...] x3 days 599. Silcoindu, 12/05/2008 160 0 Ssi Santana 595.0 Nystatin 07/08/2008 - Hx Cream [id number]/GM 30gm apply to 698.1 Silcoff, 10/04/2016 affected [...] CPT Code Status Date Vaccine Lot # [id number] Given 05/24/2017 Influenza Vaccine Split Virus Preservative Free Im [id number] Use 43218 Given 07/15/2016 Influenza Vaccine Split Virus Preservative Free Im Use 77984 Given 10/01/2015 Influenza Vaccine Split Virus Preservative Free Im [id number] Use 22439 Given 03/31/2015 Prevnar 13 [id number] 73835 Given 12/12/2014 Adacel or Boostrix, TDaP 43720 Given 07/08/2014 Flu, Split Virus 3Yrs 06164 Given 06/08/2013 Flu, Split Virus 3Yrs [id number] 29407 Given 05/19/2012 Flu, Split Virus 3Yrs [id number] 98085 Given 07/07/2009 Flu, Split Virus 3Yrs 98605 Given 07/05/2008 Flu, Split Virus 3Yrs [id number] 68197 Given 06/19/2007 Flu, Split Virus 3Yrs [id number] 20592 Given 06/27/2006 Flu, Split Virus 3Yrs 32126 Given 09/01/2005 Td Immunization Td-142 33842 Given 09/01/2005 Td Immunization 85100 Given 07/06/2005 Influenza Immunization 73324 Given 09/05/2004 Pneumococcal Immunization 17565 Given 06/27/2004 Flu, Split Virus 3Yrs 95212 Given 06/27/2004 Flu, Split Virus 3Yrs 71027 Given 07/02/2003 Flu, Split Virus 3Yrs 52330 Refused 12/19/2017 Shingrix Zoster (Shingles) Vaccine (HZV) Recomb,Subnit,Adjuvanted 14749 Refused 11/04/2009 Zostavax Vital Signs Date Vital [...] RN BP Diastolic Recheck 78 mmHg per aircraft log clerk Rate 84 /min reg Weight 177.00 lb [...] Color Straw Urine Appearance Clear Urine Specific [place] 1.003 Low 1.010-1.030 Urine pH 6.0 5-9 [...] Color Yellow Urine Appearance Clear Urine Specific [place] 1.005 Low 1.010-1.030 Urine pH 6.0 5-9 [...] Color Straw Urine Appearance Clear Urine Specific [place] 1.004 Low 1.010-1.030 Urine pH 6.0 5-9 [...] 15 Ua Ketones - 15 Ua Specific [place] 1.005 15 Ua Blood - 15 Ua PH 5.0 15 Ua Protein - 15 Ua Urobilinogen - 15 Ua Nitrite - 15 Ua Leukocytes - 15 Laboratory test 05/22/2017 Urine Culture And SEE RESULT BELOW 16, 17 finding Sensitivities Urinalysis Profile 10/15/2016 Urine Color Straw Urine Appearance Clear Urine Specific [place] 1.004 Low 1.010-1.030 Urine pH 7.0 5-9 [...] 23 Ua Ketones - 23 Ua Specific [place] 1.005 23 Ua Blood H Tr 23 [...] Urine Ketone NEGATIVE mg/dL Negative Urine Specific [place] 1.015 1.010-1.030 Urine Blood NEGATIVE Negative Urine [...] % 40.4-72.8 Lymph % 24.1 % 17.0-46.1 [place] % 11.1 % 4.3-13.2 Eo% 2.1 % 0.0-6.6 Bas% 0.5 % 0.0-1.1 Neut# 5.47 K/uL 1.0-7.0 Lymph # 2.11 K/uL 1.8-7.0 [place] # 0.97 K/uL High 0.3-0.9 Eos # [...] Color Yellow Urine Appearance Cloudy Urine Specific [place] 1.011 1.010-1.030 Urine pH 5.0 5-9 Urine [...] Bilirubin - Ua Ketones - Ua Specific [place] 1.005 Ua Blood - Ua PH 7.0 [...] Bilirubin - Ua Ketones - Ua Specific [place] 1.005 Ua Blood lrg Ua PH 6.0 Ua Protein - Ua Urobilinogen - Ua Nitrite - Ua Leukocytes 3+ Culture Urine Inhouse 11/17/2011 Colonies no growth Urine Micro Inhouse 10/30/2011 Ua WBC packed Ua RBC packed Ua Casts - Ua Epi - Ua Other - Ua Glucose - Ua Bilirubin - Ua Ketones - Ua Specific [place] 1.010 Ua Blood lrg Ua PH 6.0 Ua Protein 4+ Ua Urobilinogen - Ua Nitrite + Ua Leukocytes lrg Culture Urine Inhouse 10/30/2011 Colonies neg Urine Micro Inhouse 06/15/2011 Ua WBC 0-2 Ua RBC - Ua Casts - Ua Epi 0-2 Ua Other - Ua Glucose - Ua Bilirubin - Ua Ketones - Ua Specific [place] 1.005 Ua Blood - Ua PH 6.0 Ua Protein - Ua Urobilinogen - Ua Nitrite - Ua Leukocytes 2+ Urine Micro Inhouse 06/01/2011 Ua WBC tntc 48 Ua RBC tntc 48 Ua Casts - 48 Ua Epi - 48 Ua Other - 48 Ua Glucose - 48 Ua Bilirubin - 48 Ua Ketones - 48 Ua Specific [place] 1.015 48 Ua Blood lrg 48 Ua [...] 67 Ua Ketones - 67 Ua Specific [place] 1.010 67 Ua Blood - 67 Ua [...] Bilirubin - Ua Ketones - Ua Specific [place] 1.005 Ua Blood - Ua PH 6.0 Ua Protein - Ua Urobilinogen - Ua Nitrite - Ua Leukocytes - Urine Micro Inhouse 10/19/2007 Urine Microscopic Inhouse 3-4 epi, occ wbc Ua Inhouse 10/19/2007 Ua Glucose - Ua Bilirubin - Ua Ketones - Ua Specific [place] 1.010 Ua Blood - Ua PH 6.0 Ua Protein - Ua Urobilinogen - Ua Nitrite - Ua Leukocytes sm Culture Urine Inhouse 10/13/2007 Colonies no growth Urine Micro Inhouse 10/13/2007 Urine Microscopic Inhouse packed rbc, no othr Ua Inhouse 10/13/2007 Ua Glucose - Ua Bilirubin - Ua Ketones - Ua Specific [place] 1.005 Ua Blood lg Ua PH 6.5 Ua Protein 1+ Ua Urobilinogen - Ua Nitrite - Ua Leukocytes tr Ua Inhouse 09/26/2007 Ua Glucose - Ua Bilirubin - Ua Ketones - Ua Specific [place] 1.015 Ua Blood lrg Ua PH 6.5 [...] dialysis) 5 Copy Result to: TAMEKA MOTTA ([id number]) 6 ORDERED ON 10/28/17 VALID THROUGH 04/27/18 [...] [address]: Max Dunlap MD Acct: [id number] Unit: [id number] AGE: 87 Location: [facility] Re09/06/17 SEX: F Status: REG REF SPEC: [id number] FISH: 09/06/[address] [facility] [address]: Max Dunlap MD REQ: [id number] RECD: 09/06/17 STATUS: COMP _ SOURCE: URINE SPDESC: ORDERED: Urine Culture Urine Source: Clean Catch Procedure Result Reported Site Urine Culture Final 09/08/17- 0907 ML No growth of clinically significant organisms * ML - [facility] ([facility]) . END OF REPORT * ML=Testing performed at Main Lab DEPARTMENT OF PATHOLOGY, [address] [place] [address] Sumit Johnston M.D. Director [facility] # [id number] 12 *Ascorbic acid is present which may interfere with detection of blood. 13 SEE RESULT BELOW Name: NURYS STEPHEN : [address]: Max Dunlap MD Acct: [id number] Unit: [id number] AGE: 87 Location: [facility] Re08/17/17 SEX: F Status: REG REF SPEC: [id number] FISH: 08/17/17-10[address] [facility] [address]: Max Dunlap MD REQ: [id number] RECD: 08/17/17 STATUS: COMP _ S[facility]: [facility] ORDERED: Urine Culture Procedure Result Reported Site Urine Culture Final 08/19/17- 08 ML Organism 1 ESCHERICHIA COLI [place] Count 25-50,000 (Moderate) CFU/ML 1. ESCHERICHIA COLI [...] performed at Main Lab DEPARTMENT OF PATHOLOGY, [address] [place] [address] Sumit Johnston M.D. Director [facility] # [id number] 14 Because ethnic data is not always [...] (or dialysis) 15 void, clear, yellow 16 [id number] 17 SEE RESULT BELOW Name: SHERRINURYS A : [address]: Dayami Cohen Acct: [id number] Unit: [id number] AGE: 87 Location: [facility] Re05/22/17 SEX: F Status: DEP ER SPEC: [id number] FISH: 05/22/17-[address]: Dayami Borja DO REQ: [id number] RECD: 05/23/17 STATUS: [facility] [place] DR: Max Dunlap MD _ SOURCE: URINE SPDC: ORDERED: Urine Culture COMMENTS: [id number] Procedure Result Reported Site Urine Culture Final 05/24/17- 1159 ML No Growth (<1,000 CFU/mL) * ML - MAIN LAB ([facility]) . END OF REPORT * ML=Testing performed at Main Lab DEPARTMENT OF PATHOLOGY, [address] [place] [address] Sumit Johnston M.D. Director [facility] # [id number] 18 SEE RESULT BELOW Name: NURYS STEPHEN : [address]: Max Dunlap MD Acct: [id number] Unit: [id number] AGE: 86 Location: [facility] Re10/15/16 SEX: F Status: REG REF SPEC: [id number] FISH: 10/15/[address] [facility] [address]: Max Dunlap MD REQ: [id number] RECD: 10/15/16 STATUS: COMP _ SOURCE: URINE SPDESC: ORDERED: Urine Culture Urine Source: Clean Catch Procedure Result Reported Site Urine Culture Final 10/17/16- 0832 ML No growth of clinically significant organisms * ML - MAIN LAB ([facility]) . END OF REPORT * ML=Testing performed at Main Lab DEPARTMENT OF PATHOLOGY, [address] [place] [address] Sumit Johnston M.D. Director [facility] # [id number] [address] Martinez office 20 [...] [address]: Max Dunlap MD Acct: [id number] Unit: [id number] AGE: 86 Location: [facility] Re08/20/16 SEX: F Status: REG REF SPEC: [id number] FISH: 08/20/[address] [facility] [address]: Max Dunlap MD REQ: [id number] RECD: 08/20/16 STATUS: COMP [facility] DR: Tameka Khan MD _ SOURCE: URINE SPDESC: ORDERED: Urine Culture COMMENTS: Procedure Result Reported Site Urine Culture Final 08/22/16- 0758 ML No Growth (<1,000 CFU/mL) * ML - MAIN LAB ([facility]) . END OF REPORT * ML=Testing performed at Main Lab DEPARTMENT OF PATHOLOGY, [address] [place] [address] Sumit Johnston M.D. Director [facility] # [id number] 23 void, clear, light yellow 24 Loree/HCR [...] 6 months Copy Result to: MAX DUNLAP ([id number]) 28 Organism 1 ! URETHRAL KAITLYN Quantity [...] [address]: Abeba Mckenna DO Acct: [id number] Unit: [id number] AGE: 84 Location: ICU [id number] Re02/05/15 SEX: F Status: ADM IN SPEC: [id number] FISH: 02/05/[address]: Jolynn Ervin MD REQ: [id number] RECD: 02/05/15 STATUS: COMP DELFINHR DR: [facility] Max Dunlap MD _ SOURCE: BLOOD,VENO SPDESC: ORDERED: Blood Cult COMMENTS: Verbal to [id number]/ICU by [email or web address] at 1651 on 02/07/15. Results read back accurately. Procedure Result Verified Site Aerobic Culture Bottle Final 02/08/15- 0852 ML Aerobic Bottle Gram Stain Gram Negative Bacilli Organism 1 ESCHERICHIA COLI Please refer to SY0459 culture ANAEROBIC bottle for sensitivity testing. Anaerobic Culture Bottle Final 02/10/15- 1244 ML No Growth Day 5 * ML - MAIN LAB ([facility]) . END OF REPORT * ML=Testing performed at Main Lab DEPARTMENT OF PATHOLOGY, [address] [place] [address] Sumit Johnston M.D. Director [facility] # [id number] 33 *Ascorbic acid is present which may interfere with detection of blood. 34 Reference Range and Interpretation: TnI (ng/mL) Interpretation Less Than 0.03 ng/mL Not supportive of diagnosis of [place] 0.03 - 0.50 ng/mL Indeterminate: suggest serial studies if clinically indicated. Greater than 0.5 ng/mL Consistent with diagnosis of [place] 35 Because ethnic data is not always [...] dialysis) 36 Critical Result LACT:2.9 Called to [id number]/MICHELLE at: 12:39:55 by:[email or web address] Read back by:[email or web address] 37 Because ethnic data is not always [...] has been shown to interfere with the [place] method for measuring total bilirubin. Samples from [...] is greater than 1326 ng/ml. Test Performed By:[facility] [address] [place] [id number] 52 CHOLESTEROL INTERPRETATION: Desirable: Less than 200 [...] change was based on recommendations from the [place] [employer]. 60 Because ethnic data is [...] change was based on recommendations from the [place] [employer]. 66 Please note change in [...] base disorder. . 92 TEST PERFORMED BY: [employer], [address] [address] [place] [address] 93 Classification: Desirable . 94 CALCULATED LDL [...] Date CPT Code Description Status Comment 2018 41463 X-Ray Shoulder Two Or More Views Completed 05/24/2017 82139 Destruction Premalignant Skin Completed Lesions, 2-14,Ea 05/24/2017 39209 Destruction Premalignant Skin Completed Lesions 03/30/2016 38282 Destruction Premalignant Skin Completed Lesions 11/03/2015 87928 Excise Benign Lesion 1.1-2CM Completed Scalp/Neck/Hands/Feet/Genitalia 02/05/2015 11523 Electrocardiogram Complete Completed 11/17/2011 63480 Electrocardiogram Complete Completed 04/26/2008 44784 Destruction Of Skin Lesions Up Completed To 14 Flat Warts/Molluscum Contag 10/06/2006 Colonoscopy Completed 10/12: Had 2 polyps (hyperplastic), some divertics (Dr Moe) : Normal exc w/adhesions 10/18/2005 78187 Electrocardiogram Complete Completed 10/04/2005 53982 X-Ray, Hip (Both) Incl Ap Pelvis Completed 05/12/2004 38494 Electrocardiogram Complete Completed Encounters Type Date Location Provider CPT E/M Dx Office Visit 2018 11:00a Main Office Rossi Antonio 31915 B35.4 M25.511 L03.115 M75.41 Office Visit 12/19/2017 11:00a Main Office Max Dunlap M.D. 14752 I10 E06.3 Z23 M25.511 Office Visit 10/27/2017 3:00p Main Office Rossi Antonio 98650 J01.90 J20.9 Office Visit 06/03/2017 11:45a Main Office Nolberto Gibbs D.O. 65203 H00.014 Office Visit 05/24/2017 11:00a Main Office Max Dunlap M.D. 28895 I10 L57.0 I48.0 E06.3 N95.2 N39.0 Z23 Z79.01 Office Visit 11/19/2016 10:45a Main Office Max Dunlap M.D. 77368 N95.2 E06.3 I10 Z71.89 G47.00 Office Visit 10/05/2016 12:55p Main Office Max Dunlap M.D. 00162 E06.3 I10 N95.2 M17.11 G47.00 Office Visit 03/30/2016 12:55p Main Office Max Dunlap M.D. 17627 M17.11 R60.9 E06.3 I10 I48.0 E78.0 L57.0 Office Visit 10/01/2015 12:55p Main Office Max Dunlap M.D. 69690 I10 I48.0 L72.3 E06.3 Z23 Z41.8 Office Visit 07/02/2015 12:55p Main Office Max Dunlap M.D. 15390 I10 R19.5 I48.0 Office Visit 03/31/2015 10:45a Main Office Max Dunlap M.D. 29772 401.1 427.31 723.1 362.30 v03.82 v07.2 Office Visit 02/21/2015 9:45a Main Office Max Dunlap M.D. 92578 427.31 995.91 599.0 783.21 783.0 Office Visit 02/05/2015 9:45a Main Office Max Dunlap M.D. 98806 780.60 780.79 783.0 785.0 427.31 Office Visit 09/30/2014 11:30a Main Office Max Dunlap M.D. 79170 719.46 719.45 401.1 245.2 110.5 Office Visit 08/20/2014 12:55p Main Office Max Dunlap M.D. 29698 362.36 346.20 362.81 Office Visit 08/06/2014 10:45a Main Office Nolberto Gibbs D.O. 68758 786.2 Office Visit 03/29/2014 1:45p Main Office Max Dunlap M.D. 04842 401.1 272.0 245.2 783.21 Office Visit 09/17/2013 2:00p Main Office Max Dunlap M.D. 49266 401.1 245.2 719.46 790.21 Office Visit 06/08/2013 1:00p Main Office Max Dunlap M.D. 42833 790.21 401.1 272.0 245.2 691.8 v04.81 v07.2 112.3 Office Visit 11/20/2012 9:45a Main Office Max Dunlap M.D. 18326 401.1 245.2 790.21 272.0 V76.10 V70.0 300.4 Office Visit 05/19/2012 11:15a Main Office Max Dunlap M.D. 53144 401.1 245.2 790.21 599.0 V76.10 782.0 V04.81 V07.2 Office Visit 02/02/2012 3:30p Main Office Max Dunlap M.D. 59717 366.9 V72.84 401.1 272.0 Office Visit 11/17/2011 9:45a Main Office Max Dunlap M.D. 63227 401.1 599.70 595.0 272.0 245.2 V70.0 300.4 V79.0 Office Visit 10/30/2011 11:00a Main Office Truong Johnson M.D. 65921 595.0 564.01 Office Visit 06/01/2011 1:45p Main Office Max Dunlap M.D. 56939 599.70 595.0 Office Visit 05/05/2011 3:30p Main Office Max Dunlap M.D. 10290 401.1 782.1 272.0 245.2 V76.10 Office Visit 11/09/2010 1:30p Main Office Max Dunlap M.D. 71374 401.1 V70.0 V76.10 782.0 727.03 245.2 272.0 V82.81 698.1 Office Visit 05/12/2010 10:15a Main Office Max Dunlap M.D. 19709 401.1 272.0 245.2 300.4 V76.10 Office Visit 11/04/2009 11:15a Main Office Max Dunlap M.D. 35142 245.2 401.1 272.0 300.4 386.11 702.0 V65.49 Office Visit 04/30/2009 9:45a Main Office Max Dunlap M.D. 10349 245.2 401.1 272.0 729.5 V76.10 Office Visit 01/31/2009 10:15a Main Office Max Dunlap M.D. 75673 401.1 272.0 386.11 300.4 245.2 599.71 627.3 Office Visit 10/28/2008 8:55a Main Office Max Dunlap M.D. 80957 401.9 272.0 789.00 Office Visit 07/08/2008 1:45p Main Office Max Dunlap M.D. 08901 780.4 627.3 698.1 401.1 245.2 300.4 780.52 780.79 Office Visit 04/26/2008 10:45a Main Office Max Dunlap M.D. 27212 401.1 272.0 300.4 245.2 627.3 472.0 078.10 Office Visit 10/31/2007 10:00a Main Office Max Dunlap M.D. 75897 627.3 401.1 272.0 300.4 472.0 245.2 Office Visit 10/19/2007 2:00p Main Office Truong Johnson M.D. 86822 627.3 599.7 Office Visit 10/13/2007 5:00p Main Office Truong Johnson M.D. 09484 599.0 595.0 Office Visit 09/26/2007 2:00p [place] [address] 466.0 599.0 272.0 401.1 Office Visit 07/31/2007 8:30a Main Office Max Dunlap M.D. 91070 401.1 272.0 300.4 245.2 Office Visit 06/19/2007 8:30a Main Office Max Dunlap M.D. 60455 401.1 V07.2 272.0 300.4 245.2 780.79 782.1 V04.81 Office Visit 04/03/2007 9:15a Main Office Max Dunlap M.D. 35512 272.0 401.1 245.2 300.4 424.1 V65.49 Office Visit 06/08/2006 9:30a Main Office Max Dunlap M.D. 84284 272.0 245.2 401.1 698.1 565.0 Office Visit 03/02/2006 9:15a Main Office Max Dunlap M.D. 95832 724.4 729.5 272.0 401.1 354.0 300.4 245.2 Office Visit 12/17/2005 3:45p Main Office Max Dunlap M.D. 85778 245.2 354.0 724.4 729.5 272.0 401.1 722.52 Office Visit 11/15/2005 10:15a Main Office Max Dunlap M.D. 63604 401.1 245.2 729.5 354.0 724.4 272.0 722.52 Office Visit 10/18/2005 9:30a Main Office Max Dunlap M.D. 34706 401.1 272.0 245.2 729.5 354.0 724.4 110.5 Office Visit 10/04/2005 2:15p Main Office Max Dunlap M.D. 05195 726.0 719.45 354.0 401.1 272.0 245.2 Office Visit 09/01/2005 9:30a Main Office Max Dunlap M.D. 92117 726.32 726.31 718.41 743.9 V06.5 V07.2 Office Visit 04/16/2005 10:45a Main Office Max Dunlap M.D. 89759 401.1 272.0 Office Visit 01/15/2005 11:15a Main Office Max Dunlap M.D. 78874 245.2 401.1 Office Visit 11/13/2004 9:30a Main Office Max Dunlap M.D. 95081 245.2 Office Visit 08/10/2004 9:45a Main Office Max Dunlap M.D. 86491 272.0 401.1 110.5 569.3 V76.51 V76.10 Office Visit 05/12/2004 11:30a Main Office Max Dunlap M.D. 71127 366.9 401.1 272.0 V72.84 Office Visit 03/31/2004 1:30p Main Office Max Dunlap M.D. 08688 401.1 272.0 728.71 424.1 Office Visit 12/31/2003 2:30p Main Office Max Dunlap M.D. 82483 627.3 401.1 272.0 Office Visit 11/11/2003 12:55p Main Office Max Dunlap M.D. 76423 627.3 Office Visit 11/01/2003 3:30p Main Office fabiola 89943 466.0 Office Visit 10/08/2003 11:15a Main Office Carlos Caceres M.D. 67266 462 401.1 424.1 Plan of Care Future Appointment(s):06/20/2018 1:30 pm - Max Dunlap M.D. at Main Wgqymc9805/05/2018 - Nolberto Gibbs D.O.M25.511 Pain in right pttdzjvkC46.7 Diarrhea, vfantxbnsftC17.00 Constipation, rdjrxqnqrntO34.5 Low back painL03.115 Cellulitis of right lower limbK64.9 Unspecified hemorrhoids
[2018-05-31] MEDS ORDERED: Morphine INJ* 2 MG/ML 1 ML SYRINGE (TWO MG - NEW SYRINGE VERSION) IV ONE (06:57)
[2018-05-31] MEDS ORDERED: NS 0.9% 1000 ML* 1,000 ML IV ONE (06:59)
--- NOTE | 2018-05-31 07:00 | ED ---
Lower Extremity - HPI Summary HPI Summary: Patient is an 88-year-old female who presents emergency department for left knee injury that occurred around midnight. Patient lives at home by myself with her dog. Patient states she was trying to get out of her room and her daughter was in her way when she suddenly lost her balance and fell injuring her left knee. Pt. is unclear exactly why she fell but denie syncopal episode. Patient called for her son who was able to assist her off the floor. Patient did not want to come to the ER after fall and went back to sleep. When she awoke just prior to arrival she had significant left pain and is unable to bear weight or bend. She denies striking her head or LOC. She denies current or prior CP, SOB, abd. pain, V/D, urinary sxs, lightheadedness or dizziness. She not chronic back pain. She denies numbness, tingling or weakness in extremities. Symptoms are moderate in severity. Moving left leg makes symptoms worse. Lying still makes sxs better. Pt. currently on coumadin for a. fib. Past medical hx: afib, hypothyroidism, HTN. 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 Hx Last Menstrual Period: n/a Pain Intensity: 4 - Allergies/Home Medications Allergies/Adverse Reactions: Allergies Allergy/AdvReac Type Severity Reaction Status Date / Time atorvastatin [From Lipitor] Allergy Leg Cramps Verified 05/31/18 06:42 avoids statins Allergy Unknown Uncoded 05/31/18 06:42 Reaction Details PMH/Surg Hx/FS Hx/Imm Hx Previously Healthy: Yes Endocrine/Hematology History: Reports: Hx Thyroid Disease - hypo Cardiovascular History: Reports: Hx Hypertension, Hx Valvular Heart Disease - aortic valve replacement GI History: Reports: Hx Gall Bladder Disease History: Denies: Hx Dialysis Musculoskeletal History: Reports: Hx Arthritis - left leg, Other Musculoskeletal History - right shoulder injury Sensory History: Reports: Hx Contacts or Glasses, Hx Hearing Aid Denies: Hx Deafness Opthamlomology History: Reports: Hx Contacts or Glasses Psychiatric History: Denies: Hx Autism - Surgical History Surgery Procedure, Year, and Place: aortic valve 2006, 2010 cholecystectomy; Left knee replacement 2000, hysterectomy, appendectomy, tonsillectomy, right shoulder surgery, LEFT hip Hx Anesthesia Reactions: No Infectious Disease History: No Infectious Disease History: Denies: Traveled Outside the [place] in Last 30 Days - Family History Known Family History: Positive: Hypertension - Social History Occupation: Retired Lives: Alone Alcohol Use: Rare Alcohol Amount: gin and raisins for arhtritis Hx Substance Use: No Substance Use Type: Reports: None Hx Tobacco Use: Yes Smoking Status (MU): Former Smoker Review of Systems Constitutional: Negative Negative: Fever, Chills Eyes: Negative ENT: Negative Cardiovascular: Negative Negative: Palpitations, Chest Pain Respiratory: Negative Negative: Shortness Of Breath, Cough Gastrointestinal: Negative Negative: Abdominal Pain, Vomiting, Diarrhea, Nausea Genitourinary: Negative Positive: Other - Left knee pain Skin: Negative Neurological: Negative Negative: Headache, Weakness, Paresthesia, Numbness, Syncope All Other Systems Reviewed And Are Negative: Yes Physical Exam Triage Information Reviewed: Yes Vital Signs On Initial Exam: Initial Vitals Temp Pulse Resp BP Pulse Ox 97.3 F 74 16 143/75 98 05/31/18 06:37 05/31/18 06:37 05/31/18 06:37 05/31/18 06:37 05/31/18 06:37 Vital Signs Reviewed: Yes Appearance: Positive: Well-Appearing - Pt. lying in bed in NAD. Pleasant and talkative. Daughter present. Skin: Positive: Warm, Dry Head/Face: Positive: Normal Head/Face Inspection Eyes: Positive: Normal, EOMI Neck: Positive: Supple Respiratory/Lung Sounds: Positive: Clear to Auscultation, Breath Sounds Present Cardiovascular: Positive: Normal, RRR, Murmur Abdomen Description: Positive: Nontender, Soft Musculoskeletal: Positive: Other - Good palpable bilateral pedal pulses. Exam is limited secondary to pt.'s pain. Diffuse edema and pain over left knee. No hip pain. Neurological: Positive: Normal, Alert, Oriented to Person Place, Time, CN Intact II-III Psychiatric: Positive: Affect/Mood Appropriate - Ozone Coma Scale Best Eye Response: 4 - Spontaneous Best Motor Response: 6 - Obeys Commands Best Verbal Response: 5 - Oriented Coma Scale Total: 15 Procedures - Splinting Left Pre-Made Type: knee immobilizer Pre-Proc Neuro Vasc Exam: normal Post-Proc Neuro Vasc Exam: normal Diagnostics - Vital Signs Vital Signs Temp Pulse Resp BP Pulse Ox 05/31/18 06:51 78 130/67 97 05/31/18 06:37 97.3 F 74 16 143/75 98 - Laboratory Result Diagrams: 05/31/18 08:03 05/31/18 08:03 Lab Statement: Any lab studies that have been ordered have been reviewed, and results considered in the medical decision making process. Lower Extremity Course/Dx - Course Course Of Treatment: Patient presenting to the ER for left knee pain after a fall. No reported head injury and patient is well-appearing, awake, alert and oriented. We'll obtain basic labs, EKG and imaging. Patient ordered IV morphine for pain. Suspect fracture. Knee xray shows a minimally displaced periprosthetic distal femur fracture. I spoke with oncall orthopedics, Dr. Ramos, and he would like pt. placed in immobilizer and CT scan for further evaluation. Results discussed with pt. and daughter. Daughter notes that pt. is now c/o right knee pain and would like an xray. Right knee xray shows effusion without fx, per radiology. Pt. will be unable to return home given unable to ambulate with bilateral knee injuries. Hospitalist was consulted, Dr. Power, and pt. has been accpeted for admission and ortho. consults. Knee immobilizer in place. - Diagnoses Differential Diagnosis/HQI/PQRI: Positive: Contusion, Fracture (Closed), Sprain , Strain Provider Diagnoses: Femur fracture Discharge - Sign-Out/Discharge Documenting (check all that apply): Patient Departure - Discharge Plan Condition: Stable Disposition: ADMITTED TO [facility] - Billing Disposition and Condition Condition: STABLE Disposition: Admitted to [facility]
[2018-05-31] MEDS ORDERED: Morphine INJ* 4 MG/ML 1 ML SYRINGE (NEW SYRINGE VERSION) ONE (07:27)
--- NOTE | 2018-05-31 07:49 | RAD ---
INDICATION: Left knee injury. TECHNIQUE: 4 views of the left knee were obtained. FINDINGS: There is a lipohemarthrosis. The patient is status post total left knee replacement surgery. There is a transverse periprosthetic fracture of the distal femur which appears nondisplaced. IMPRESSION: 1. NONDISPLACED PERIPROSTHETIC FRACTURE OF THE DISTAL FEMUR. 2. LIPOHEMARTHROSIS.
--- NOTE | 2018-05-31 07:49 | RAD ---
HISTORY: fall COMPARISONS: None VIEWS: 1 , Single frontal view of the pelvis FINDINGS: BONE DENSITY: There is diffuse osteopenia. BONES: The patient is status post left hip arthroplasty. On the single frontal projection, there is no appreciable hardware failure or osteolysis. There is no displaced fracture. JOINTS: The patient is status post left hip arthroplasty. There is mild osteoarthritis of the right hip and SI joint with moderate to advanced osteoarthritis of the left SI joint. ALIGNMENT: There is no dislocation. SOFT TISSUES: Unremarkable. OTHER FINDINGS: None. IMPRESSION: 1. OSTEOPENIA. 2. OSTEOARTHRITIS. 3. STATUS POST LEFT HIP ARTHROPLASTY. 4. NO ACUTE OSSEOUS INJURY. IF SYMPTOMS PERSIST, RECOMMEND REPEAT IMAGING.
--- NOTE | 2018-05-31 07:50 | RAD ---
HISTORY: fall COMPARISONS: February 10, 2015 VIEWS: 1: frontal portable view of the chest at 7:18 AM FINDINGS: LINES AND TUBES: None. CARDIOMEDIASTINAL SILHOUETTE: The cardiomediastinal silhouette is normal for portable technique. PLEURA: The costophrenic angles are sharp. No pleural abnormalities are noted. LUNG PARENCHYMA: There is a diffuse reticular pattern with indistinct pulmonary vessels. ABDOMEN: The upper abdomen is clear. There is no subphrenic gas. BONES AND SOFT TISSUES: Degenerative changes are noted. Surgical clips are noted overlying the right upper chest. IMPRESSION: HYPERINFLATION. NO ACTIVE CARDIOPULMONARY DISEASE.
[2018-05-31 08:15] LABS: ABS Basophils 0 10^3/ul (0-0.2); ABS Eosinophils 0.1 10^3/ul (0-0.6); ABS Lymphocytes 1.3 10^3/ul (1.0-4.8); ABS Neutrophils 10.5 10^3/ul (1.5-7.7); ABS Nucleated RBC 0 10^3/ul; Eosinophil % 0.5 % (0-6); Hematocrit 36 % (35-47); Lymphocyte % 10.3 % (25-47); Mean Corpuscular HGB Conc 33 g/dl (31-36); Mean Corpuscular Hemoglobin 31 pg (27-31); Mean Corpuscular Volume 95 fL (80-97); Mean Platelet Volume 9.1 um3 (7.4-10.4); Nucleated Red Blood Cells % 0; Platelet Count 269 10^3/ul (150-450); Red Blood Count 3.82 10^6/ul (4.00-5.40); Red Cell Distribution Width 14 % (10.5-15); White Blood Count 12.8 10^3/ul (3.5-10.8)
[2018-05-31 08:22] LABS: Urine Appearance Clear; Urine Blood Negative (Negative); Urine Color Yellow; Urine Ketones Negative (Negative); Urine Protein Negative (Negative); Urine Specific Gravity 1.011 (1.010-1.030); Urine Urobilinogen Negative (Negative)
[2018-05-31 08:28] LABS: INR 3.42 (0.77-1.02)
[2018-05-31 08:34] LABS: EGFR Non-African American 79.2 (>60)
--- NOTE | 2018-05-31 08:54 | RAD ---
Indication: LEFT knee pain following injury. Periprosthetic fracture noted on radiographs. Comparison: May 31, 2018 radiographs. Technique: Noncontrast CT from the LEFT hip through the LEFT knee without contrast. Multiplanar reformation. Report: Artifact from the normally located hip and knee prostheses. There is a nondisplaced oblique coronal posterior cephalad to anterior caudal fracture at the distal metaphysis of the femur extending to the margin of the femoral component of the knee prosthesis distally. No additional fracture evident within the [id number]. Knee joint effusion with fat fluid level. Soft tissue edema or infiltrative hematoma about the LEFT knee without evidence for a loculated soft tissue plane hematoma. IMPRESSION: #. Nondisplaced oblique coronal oriented periprosthetic fracture at the distal femur extending to the margin of the femoral component prosthesis distally. #. Moderate lipohemarthrosis at the knee.
--- NOTE | 2018-05-31 08:59 | RAD ---
Indication: Fall with periprosthetic LEFT knee fracture. Denies RIGHT knee complaints. Comparison: May 02, 2018 RIGHT lower leg radiographs. Technique: RIGHT knee: AP, tunnel, crosstable lateral, sunrise views. Report: Bone density appears decreased throughout. Advanced osteoarthritis with severe osteophytosis. Joint space narrowing is marked at the lateral joint compartment with associated subchondral sclerosis. Subtle lucencies at the medial tibial plateau noted however this portion of the RIGHT knee is included in the [id number] on the CT of the LEFT femur of the same date and fails to demonstrate a corresponding fracture. Moderate suprapatellar joint effusion without gross fat fluid level. Mild diffuse soft tissue swelling. Peripheral vascular calcifications. IMPRESSION: #. Advanced osteoarthritis. Moderate joint effusion. No visualized fracture.
[2018-05-31] MEDS ORDERED: Clotrimazole/Betamethasone CREAM* 15 GM TOPICAL PRN (09:00)
[2018-05-31] MEDS ORDERED: oxyCODONE TAB* 5 MG TAB PO PRN (10:57)
[2018-05-31] MEDS ORDERED: Acetaminophen TAB* 325 MG PO PRN (10:58)
[2018-05-31] MEDS: oxyCODONE TAB* 5 MG TAB PO PRN (11:31)
[2018-05-31] MEDS: Aspirin 81 mg CHEW TAB* 81 MG TAB.CHEW PO SCH (11:31)
[2018-05-31] MEDS: Levothyroxine TAB* 125 MCG TAB PO SCH (12:29)
[2018-05-31] MEDS ORDERED: Bisacodyl SUPP* 10 MG SUPP PR PRN (18:13)
[2018-05-31] MEDS ORDERED: Senna TAB PO PRN (18:13)
[2018-05-31] MEDS: Acetaminophen TAB* 325 MG PO PRN (18:32)
--- NOTE | 2018-05-31 18:46 | CONS ---
CONSULTATION NOTE: DATE OF CONSULT: 05/31/18 REASON FOR CONSULT: Left knee area fracture. HISTORY OF PRESENT ILLNESS: The patient is an 88-year-old woman, with atrial fibrillation, who lives at home by herself, with family nearby, who ambulates with a walker at home and a walker or cane outside the home, who presents to the [facility] Emergency Department after having sustained a fall at home with left knee pain around midnight early in the morning of today, 05/31/18. The patient lives in a 1-level home by herself. She uses a walker at home. She has 8 children. One daughter lives nearby and visits her at least twice a week. She has a dog at home. The patient did not state how many times a week she leaves the home. The patient got up at around midnight. She was getting much attention from her dog. She fell quickly while using her walker. She thinks that the dog might have bumped into her or tripped her. The patient fell on to bilateral knees and developed left knee pain. The patient called her son to assist her off the floor using some sort of medical alert system. The patient initially did not want to come to the emergency room and fell asleep. When she awoke after having been brought to bed , the patient had significant left knee pain and so consented to an ambulance being called. The patient was brought in by ambulance. The patient describes significant left knee area pain. She has some minimal right knee pain. No other areas of pain throughout her body. No head or neck injury sustained in the fall. No loss of consciousness. The patient was seen in the emergency room, the patient has already been admitted to the hospitalist service, given this fracture, her age and functional level, and her atrial fibrillation. The patient had her total knee arthroplasty performed in the distant past, by Dr. Sullivan in [place], [place], at [facility], in approximately 2000. The patient does not have an arthroplasty in the right knee. The patient also has a left hip arthroplasty in place, as appreciated by CT imaging. PAST MEDICAL HISTORY: Hypertension, atrial fibrillation, hypothyroidism, and aortic valve replacement. PAST SURGICAL HISTORY: Aortic valve replacement, 2006; cholecystectomy, 2010; left total knee arthroplasty, 2000; hysterectomy; appendectomy; tonsillectomy; right shoulder surgery; left hip arthroplasty. MEDICATIONS: 1. Lisinopril. 2. Coumadin. 3. Tylenol as needed. 4. Multivitamin. 5. Calcium and vitamin D. 6. Ezetimibe. 7. Levothyroxine. 8. Aspirin 81 mg p.o. daily. 9. Clotrimazole betamethasone topical cream q.72 hours. ALLERGIES: ATORVASTATIN (leg cramps). SOCIAL HISTORY: Retired. Lives alone, uses a walker most of the times and a cane some of the time. Occasionally leaves the home. Has children who live nearby. Eight total children. Former smoker. REVIEW OF SYSTEMS: The patient denies loss of consciousness or headache. No fevers, sweats, or chills. No chest pain. No shortness of breath. No abdominal pain. Some minimal contralateral right knee pain. PHYSICAL EXAM: Vital Signs: At 6:37 a.m., her temperature 97.3 degrees Fahrenheit, pulse 74, blood pressure 143/75, respirations 16 with a pulse oxygenation of 98% on room air. In no acute distress, alert and oriented, appropriate mood and affect, appropriate dress and hygiene for an ER patient, well- coordinated bilateral upper and lower extremities. The patient's daughter is in the emergency room bay with her. Left lower extremity exam reveals moderate soft tissue swelling about the knee. No bruising. Skin is intact. No skin defects or abrasions. Generalized tenderness to palpation about the distal femur and knee. Neurovascularly intact distally. Deferred contralateral right knee exam. DIAGNOSTIC STUDIES/LAB DATA: X-rays of the left knee from today were reviewed by me. They demonstrate a well-placed total knee arthroplasty. Difficult to discern if this is cruciate retaining or posterior stabilized, but I believe that it is cruciate retaining. Periprosthetic fracture appreciated. There are fracture lines both distal and proximal to the proximal most extent of the femoral component. No displacement appreciable at the fracture sites, although there is a question of some displacement of the lateral epicondyle with regards to the implant on the AP view, x-ray; there were total of [address] scan, lower extremity of the femur, which included the knee. In this, there is no appreciable fracture site displacement of the left distal femur fracture. Component appears stable and not loose. A fracture line is again visible both proximal and distal to the anterior proximal most lip of the femoral component. The CT scan makes it seem as though the predominance of the fracture is at that proximal lip of the femoral component and proximal to it. More difficult to appreciate fracture line distal to that lip by CT, that had been appreciated on x-ray. We can see in the CT scan that there is also a total hip arthroplasty, left component in place with no fracture about it. ASSESSMENT: 1. Left distal femur periprosthetic fracture. 2. Status post total knee arthroplasty, outside hospital, 2000, with components well fixed by imaging. PLAN: 1. I spoke to the patient and her daughter about treatment options, nonoperative and operative. Typically nondisplaced fractures are treated nonoperatively, although certainly there is the downside that the patient's weightbearing is going to be limited for prolonged period of time. However, especially given her medical comorbidities including aortic valve replacement, nonoperative treatment is initially safer. 2. We will place the patient in a knee immobilizer. 3. I recommend a small amount of elevation for comfort and reduced swelling of the left lower extremity. Icing as tolerated to the left knee to reduce swelling. 4. The patient has been admitted to the hospitalist service for atrial fibrillation and other medical diagnosis management. 5. The patient will see Physical Therapy to determine how functional she can be given the limitations that we will put on her in terms of weightbearing and knee immobilizer. 6. Disposition planning for rehab placement versus return to the patient's daughter's home. 7. The patient will be toe touch or touch down weightbearing in a knee immobilizer. 8. Orthopedic Surgery can continue to follow while the patient is in-house. The patient can follow up with me in clinic in 2 weeks to obtain radiographs and to look for any leg displacement at the fracture site. 9. I recommended that the patient and her daughter buy a second knee immobilizer that can be used for when she is bathing. 10. The patient's daughter is a very good healthcare advocate and had a number of questions to ask regarding the patient's care and diagnosis and prognosis. [id number]/[facility] #: [id number] LIANA
[2018-05-31] MEDS: Docusate CAP* 100 MG PO SCH (19:59)
[2018-05-31] MEDS: Magnesium Hydroxide LIQ* 30 ML UDC PO SCH (19:59)
--- NOTE | 2018-06-01 00:47 | HP ---
CC: Dr. Alicea; Dr. Ramos HISTORY AND PHYSICAL: DATE OF ADMISSION: 05/31/18 PROVIDER: Claudette Irwin NP PRIMARY CARE PROVIDER: Dr. Alicea. ATTENDING PHYSICIAN WHILE IN THE HOSPITAL: Maddie Le MD * (dictated by Claudette Irwin NP). CHIEF COMPLAINT: 1. Left distal femur fracture. 2. Fall. HISTORY OF PRESENT ILLNESS: Ms. Stephen is an 88-year-old female with a past medical history significant for history of atrial fibrillation, hypothyroidism, hypertension, high cholesterol, who presented to the emergency room after a fall at home. The patient reports that she was ambulating from the bathroom, she turned to turn off the bathroom light and then went forward and her dog was in front of her walker. She is not sure what happened but ended up falling and landing on the floor. She denies any loss of consciousness. She denies any head injury. She does report that immediately after the fall she had left leg pain. She reports that her son came to the house and assisted her into bed, where she slept for approximately 3 to 4 hours and then called her family due to the pain and swelling in her leg. The patient denies any fever or chills, denies any nausea or vomiting, denies any abdominal pain, denies any back pain. She denies any urine frequency or urgency, denies any cough or congestion. The patient reports that she was in her normal state of health prior to her fall. She also denied any dizziness. While in the emergency room, she had x-rays of her chest, pelvis, and knee. Her left knee shows a distal left femur fracture above the prosthetic as she does have a history of left knee replacement. Due to the distal femur fracture , we were asked to see and evaluate her for admission. PAST MEDICAL HISTORY: Significant for: 1. Hypertension. 2. Hypothyroidism. 3. History of atrial fibrillation. 4. Severe constipation. 5. History of cellulitis. PAST SURGICAL HISTORY: 1. Tonsillectomy. 2. Hysterectomy. 3. Appendectomy. 4. Left knee replacement in 2000. 5. Left eye detachment retina repair. 6. Left cataract implant. 7. Aortic valve replacement in 2006. 8. Cholecystectomy in 2007. 9. Right cataract in 2011. HOME MEDICATIONS: Include: 1. Levothyroxine 125 mcg p.o. daily. 2. Lisinopril 20 mg p.o. daily. 3. Zetia 10 mg p.o. daily. 4. Aspirin 81 mg p.o. daily. 5. Calcium with vitamin D b.i.d. 6. Multivitamin. 7. Coumadin 3 mg Tuesday, Tuesday and Tuesday and 4 mg Tuesday, , Tuesday, and Tuesday. ALLERGIES TO MEDICATIONS: ATORVASTATIN. FAMILY HISTORY: A grandmother with a history of coronary artery disease. No reported history of diabetes or cancer within the family. SOCIAL HISTORY: The patient reports that she quit smoking in 2006, prior to that she smoked approximately a quarter pack a week for several years. She denies any alcohol use, denies any illicit drug use. She currently lives at home alone, but her family visits on a daily basis and then is there for support. Surrogate decision maker in the event she is unable to make her own decisions is her daughter, Sharona Stephen, her phone number is [phone] and her cell phone number is [phone]. The patient is a full code. REVIEW OF SYSTEMS: There was no documented fever. There has been no significant weight change. There was no double vision. She denies any dizziness. Denies any current rhinorrhea. Denies sore throat, cough, or congestion. She denies chest pain, orthopnea, or nocturnal dyspnea. She denies any abdominal pain, nausea, vomiting or diarrhea. Denies any dysuria, urinary frequency, or hematuria. She denies any loss of consciousness. She denies neck pain. She denies any pruritus or skin ulcerations. Review of 14 systems was completed and all others were negative. PHYSICAL EXAMINATION GENERAL: At this time, Ms. Stephen is an 88-year-old female who appears in mild discomfort, resting in the hospital bed. She does not appear to be in acute distress. VITAL SIGNS: Temperature was 98.8, heart rate was 85, respirations 16, O2 saturation on room air was 99%, blood pressure was 101/40. HEENT: Head is atraumatic, normocephalic. Eyes: EOMs are intact. Sclerae anicteric and not pale. Oral mucosa appears to be moist. No oropharyngeal erythema. NECK: Supple. LUNGS: Clear to auscultation bilaterally. No wheezes, rales, or rhonchi. CARDIAC: S1, S2. She has a regular rate and rhythm. There is a murmur. No rubs or gallops. ABDOMEN: Soft and nontender. Bowel sounds are present x4. EXTREMITIES: Pulses are +2 bilaterally. Radial pulses are +2 bilaterally. She is able to move upper extremities with 4/5 strength. She does have a knee immobilizer intact to her left lower extremity. She is able to bend and move her right lower extremity without difficulty. NEUROLOGIC: She is awake, alert, and oriented x3. Her speech is clear. Tongue is midline. There is no gross neuro focal deficits. SKIN: Intact. She does have ecchymosis noted to her left posterior rib cage. There is no crepitus and it is nontender to palpation. DIAGNOSTIC STUDIES AND LABORATORY DATA: WBCs were 12.8, RBCs 3.82, hemoglobin was 12.0, hematocrit was 36, platelet count was 269. INR was 3.42. Sodium 140 , potassium 3.9, chloride 105, carbon dioxide was 27, anion gap was 8, BUN was 13, creatinine 0.70, glucose was 122. Urine was within normal limits. She had an x- ray of the left knee, nondisplaced periprosthetic fracture of the distal femur. She had a pelvis x-ray, osteopenia, osteoarthritis, status post left hip arthroplasty. No acute osseous injury. She had a chest x-ray, radiologist's impression: Hyperinflation, no active cardiopulmonary disease. She had a CT of her lower extremity, nondisplaced oblique coronal oriented periprosthetic fracture at the distal femur extended into the margins of the femoral component prosthesis distally. Moderate lipohemarthrosis at the knee. She had an x-ray of the right knee, advanced osteoarthritis, mild joint effusion , no evidence of fracture. She had an electrocardiogram in the emergency room, which showed sinus rhythm at a rate of 75. ASSESSMENT AND PLAN: Ms. Stephen is an 88-year-old female patient who presented to the emergency room with complaints of left leg pain after a fall at home. We were asked to see and evaluate her due to distal femur fracture. She will be admitted inpatient for: 1. Left distal periprosthetic femur fracture. Management will be per Orthopedics. PT/OT per Orthopedics. Deep venous thrombosis prophylaxis per Orthopedics. 2. Fall. I suspect that her fall was related to being off balance as she was turning and then went forward to move forward and possibly tripping over her dog. She denied any dizziness or loss of consciousness. 3. Hypertension. We will continue on Zetia at this time. I will hold her lisinopril as her systolic blood pressure is 108. 4. History of atrial fibrillation. We will continue her on Coumadin. We will hold today's Coumadin dose as her INR is 3.42. We will repeat an INR in the a.m. and dosing will be adjusted as needed. 5. Hypothyroid. We will continue her on levothyroxine 125 mcg p.o. daily. 6. Deep venous thrombosis prophylaxis. She will be placed on Coumadin and SCDs as she is greater than highest risk. 7. Code status. She is a full code. 8. Fluids, electrolytes, and nutrition. She will be placed on regular diet and heart healthy. TIME SPENT: Time spent on this admission was approximately 60 minutes, greater than half that time was spent [id number] with the patient obtaining my history and physical, the other half the time was spent going over my plan of care and implementing my plan of care. I have discussed this with my attending, Dr. Maddie Le, she is in agreement with my plan. CLAUDETTE IRWIN, SHEEBA [id number]/CPS #: [id number] MTDD
[2018-06-01] MEDS: Acetaminophen TAB* 325 MG PO PRN ×3 (03:46→20:49)
[2018-06-01 05:18] LABS: ABS Basophils 0 10^3/ul (0-0.2); ABS Eosinophils 0.1 10^3/ul (0-0.6); ABS Lymphocytes 1.4 10^3/ul (1.0-4.8); ABS Monocytes 1.2 10^3/ul (0-0.8); ABS Neutrophils 6.7 10^3/ul (1.5-7.7); ABS Nucleated RBC 0 10^3/ul; Eosinophil % 0.6 % (0-6); Hematocrit 30 % (35-47); Hemoglobin 10.1 g/dl (12.0-16.0); Lymphocyte % 14.9 % (25-47); Mean Corpuscular HGB Conc 34 g/dl (31-36); Mean Corpuscular Hemoglobin 32 pg (27-31); Mean Corpuscular Volume 94 fL (80-97); Mean Platelet Volume 8.9 um3 (7.4-10.4); Nucleated Red Blood Cells % 0; Platelet Count 223 10^3/ul (150-450); Red Blood Count 3.14 10^6/ul (4.00-5.40); Red Cell Distribution Width 13 % (10.5-15); White Blood Count 9.3 10^3/ul (3.5-10.8)
[2018-06-01 05:24] LABS: INR 3.6 (0.77-1.02)
[2018-06-01 05:37] LABS: EGFR Non-African American 92.8 (>60)
[2018-06-01] MEDS: Levothyroxine TAB* 125 MCG TAB PO SCH (07:53)
[2018-06-01] MEDS: Magnesium Hydroxide LIQ* 30 ML UDC PO SCH ×2 (09:12→20:53)
[2018-06-01] MEDS: Vitamin THERAPEUTIC TAB PO SCH (09:13)
[2018-06-01] MEDS: Ezetimibe TAB* 10 MG PO SCH (09:13)
[2018-06-01] MEDS: oxyCODONE TAB* 5 MG TAB PO PRN (09:13)
[2018-06-01] MEDS: Docusate CAP* 100 MG PO SCH ×2 (09:13→20:49)
[2018-06-01] MEDS: Aspirin 81 mg CHEW TAB* 81 MG TAB.CHEW PO SCH (09:13)
--- NOTE | 2018-06-01 13:20 | PN ---
Progress Note - Progress Note Date of Service: 06/01/18 SOAP: Subjective: []Patient seen and examined at bedside. She feels well. No pain at rest. Denies CP, SOB, dizziness, nausea. Objective: []General: Well appearing, NAD LLE: immobilizer in place. No skin breakdown. DF/PF intact. Sensation intact distally. Dp2+ Calves supple and nontender without erythema, edema or palpable cords Assessment: []left periprosthetic distal femur fracture Plan: []TTWB with knee immobilizer F/U with Dr Ramos outpt in 2 weeks Vital Signs Temp 97.8 F 06/01/18 11:43 Pulse 95 06/01/18 11:43 Resp 16 06/01/18 12:11 BP 134/49 06/01/18 11:43 Pulse Ox 96 06/01/18 11:43 Intake & Output 05/31/18 06/01/18 06/01/18 18:59 06:59 18:59 Intake Total 1120 640 Output Total 300 900 450 Balance 820 -260 -450 Weight 170 lb Intake: IV Fluids 1000 Oral 120 640 Output: Urine 300 900 450 Other: Estimated Void Medium # Bowel Movements 0 # Voids 1 Laboratory Last Values WBC 9.3 10^3/ul (3.5-10.8) 06/01/18 05:10 RBC 3.14 10^6/ul (4.00-5.40) L 06/01/18 05:10 Hgb 10.1 g/dl (12.0-16.0) L 06/01/18 05:10 Hct 30 % (35-47) L 06/01/18 05:10 MCV 94 fL (80-97) 06/01/18 05:10 MCH 32 pg (27-31) H 06/01/18 05:10 MCHC 34 g/dl (31-36) 06/01/18 05:10 RDW 13 % (10.5-15) 06/01/18 05:10 Plt Count 223 10^3/ul (150-450) 06/01/18 05:10 MPV 8.9 um3 (7.4-10.4) 06/01/18 05:10 Neut % (Auto) 71.7 % (38-83) 06/01/18 05:10 Lymph % (Auto) 14.9 % (25-47) L 06/01/18 05:10 [place] % (Auto) 12.4 % (0-7) H 06/01/18 05:10 Eos % (Auto) 0.6 % (0-6) 06/01/18 05:10 Baso % (Auto) 0.4 % (0-2) 06/01/18 05:10 Absolute Neuts (auto) 6.7 10^3/ul (1.5-7.7) 06/01/18 05:10 Absolute Lymphs (auto) 1.4 10^3/ul (1.0-4.8) 06/01/18 05:10 Absolute Monos (auto) 1.2 10^3/ul (0-0.8) H 06/01/18 05:10 Absolute Eos (auto) 0.1 10^3/ul (0-0.6) 06/01/18 05:10 Absolute Basos (auto) 0 10^3/ul (0-0.2) 06/01/18 05:10 Absolute Nucleated RBC 0 10^3/ul 06/01/18 05:10 Nucleated RBC % 0 06/01/18 05:10 INR (Anticoag Therapy) 3.60 (0.77-1.02) H 06/01/18 05:10 Sodium 137 mmol/L (135-145) 06/01/18 05:10 Potassium 4.2 mmol/L (3.5-5.0) 06/01/18 05:10 Chloride 105 mmol/L (101-111) 06/01/18 05:10 Carbon Dioxide 28 mmol/L (22-32) 06/01/18 05:10 Anion Gap 4 mmol/L (2-11) 06/01/18 05:10 BUN 9 mg/dL (6-24) 06/01/18 05:10 Creatinine 0.61 mg/dL (0.51-0.95) 06/01/18 05:10 Est GFR ( Amer) 112.3 (>60) 06/01/18 05:10 Est GFR (Non-Af Amer) 92.8 (>60) 06/01/18 05:10 BUN/Creatinine Ratio 14.8 (8-20) 06/01/18 05:10 Glucose 121 mg/dL (70-100) H 06/01/18 05:10 Calcium 8.5 mg/dL (8.6-10.3) L 06/01/18 05:10 Total Bilirubin 0.50 mg/dL (0.2-1.0) 05/31/18 08:03 AST 24 U/L (13-39) 05/31/18 08:03 ALT 15 U/L (7-52) 05/31/18 08:03 Alkaline Phosphatase 76 U/L (34-104) 05/31/18 08:03 Troponin I 0.00 ng/mL (<0.04) 05/31/18 08:03 Total Protein 6.5 g/dL (6.4-8.9) 05/31/18 08:03 Albumin 4.3 g/dL (3.2-5.2) 05/31/18 08:03 Globulin 2.2 g/dL (2-4) 05/31/18 08:03 Albumin/Globulin Ratio 2.0 (1-3) 05/31/18 08:03 Urine Color Yellow 05/31/18 08:03 Urine Appearance Clear 05/31/18 08:03 Urine pH 6.0 (5-9) 05/31/18 08:03 Ur Specific [place] 1.011 (1.010-1.030) 05/31/18 08:03 Urine Protein Negative (Negative) 05/31/18 08:03 Urine Ketones Negative (Negative) 05/31/18 08:03 Urine Blood Negative (Negative) 05/31/18 08:03 Urine Nitrate Negative (Negative) 05/31/18 08:03 Urine Bilirubin Negative (Negative) 05/31/18 08:03 Urine Urobilinogen Negative (Negative) 05/31/18 08:03 Ur Leukocyte Esterase Negative (Negative) 05/31/18 08:03 Urine Glucose Negative (Negative) 05/31/18 08:03 Urine Ascorbic Acid * (Negative) A 05/31/18 08:03
[2018-06-01] MEDS: Polyethylene Glycol 3350* 17 GM PACKET PO PRN (14:20)
--- NOTE | 2018-06-01 19:30 | PN ---
Subjective Date of Service: 06/01/18 Interval History: States that left leg pain is controlled. denies fever or chills denies chest pain or shortness of breath. Denies abd pain n/v/d. Family History: Unchanged from Admission Social History: Unchanged from Admission Past Medical History: Unchanged from Admission Objective Active Medications: Acetaminophen (Tylenol Tab*) 487.5 mg PO Q6H PRN PRN Reason: PAIN Last Admin: 06/01/18 12:17 Dose: 487.5 mg Aspirin (Aspirin 81 Mg Chew Tab*) 81 mg PO DAILY [facility] Last Admin: 06/01/18 09:13 Dose: 81 mg Betamethasone/Clotrimazole (Lotrisone Cream*) 1 applic TOPICAL BID PRN PRN Reason: FUNGAL SKIN RASHES Bisacodyl (Dulcolax Supp*) 10 mg [place] DAILY PRN PRN Reason: CONSTIPATION Docusate Sodium (Colace Cap*) 100 mg PO BID [facility] Last Admin: 06/01/18 09:13 Dose: 100 mg Ezetimibe (Zetia Tab*) 10 mg PO DAILY [facility] Last Admin: 06/01/18 09:13 Dose: 10 mg Levothyroxine Sodium (Synthroid Tab*) 125 mcg PO 0800 [facility] Last Admin: 06/01/18 07:53 Dose: 125 mcg Magnesium Hydroxide (Milk Of Magnesia Liq*) 30 ml PO BID [facility] Last Admin: 06/01/18 09:12 Dose: 30 ml Magnesium Hydroxide (Milk Of Magnesia Liq*) 30 ml PO BID PRN PRN Reason: CONSTIPATION Multivitamins (Theragran Tab*) 1 tab PO DAILY [facility] Last Admin: 06/01/18 09:13 Dose: 1 tab Oxycodone HCl (Roxycodone Tab*) 5 mg PO Q4H PRN PRN Reason: PAIN Last Admin: 06/01/18 09:13 Dose: 5 mg Oxycodone HCl (Roxycodone Tab*) 10 mg PO Q4H PRN PRN Reason: SEVERE PAIN Polyethylene Glycol/Electrolytes (Miralax*) 17 gm PO DAILY PRN PRN Reason: CONSTIPATION Last Admin: 06/01/18 14:20 Dose: 17 gm Senna (Senokot Tab*) 1 tab PO BEDTIME PRN PRN Reason: CONSTIPATION Vital Signs - 8 hr 06/01/18 06/01/1806/01/18 11:43 12:11 15:26 Temperature 97.8 F 98.6 F Pulse Rate 95 95 Respiratory 16 16 16 Rate Blood Pressure 134/49 117/56 (mmHg) O2 Sat by Pulse 96 99 Oximetry Oxygen Devices in Use Now: None Appearance: alert resting in bed, no acute distress. Eyes: No Scleral Icterus Ears/Nose/Mouth/Throat: Clear Oropharnyx, Mucous Membranes Moist Neck: NL Appearance and Movements; NL JVP, Trachea Midline Respiratory: Symmetrical Chest Expansion and Respiratory Effort, Clear to Auscultation Cardiovascular: NL Sounds; No Murmurs; No JVD, No Edema Abdominal: NL Sounds; No Tenderness; No Distention Extremities: No Clubbing, Cyanosis Skin: No Rash or Ulcers, No Nodules or Sclerosis Neurological: Alert and Oriented x 3 Nutrition: Taking PO's Result Diagrams: 06/01/18 05:10 06/01/18 05:10 Assess/Plan/Problems-Billing Assessment: Ms. Stephen is a 88 y.o female with a past medical hx significant for htn, hypothyroid, and fib who presented to the ER after fall at home. Patient was found to have a left distal femur fracture. She was seen by dr. Ramos in consult and surgery is not needed. Patient was placed in a left knee immobilizer - Patient Problems (1) Closed fracture of left distal femur Current Visit: Yes Status: Acute Code(s): S72.402A - UNSP FRACTURE OF LOWER END OF LEFT FEMUR, INIT FOR CLOS FX SNOMED Code(s): 036456367 Comment: Management per ortho left knee immobilzer PT/OT (2) Afib Current Visit: Yes Status: Acute Code(s): I48.91 - UNSPECIFIED ATRIAL FIBRILLATION SNOMED Code(s): 65552198 Comment: stable continue coumadin - holding coumadin as INR is supratherapeutic 3.40 not on rate agent at home (3) HTN (hypertension) Current Visit: No Status: Acute Code(s): I10 - ESSENTIAL (PRIMARY) HYPERTENSION SNOMED Code(s): 36638686 Comment: BP stable - continue zetia - will hold lisinopril for now as SBP 117 (4) Hypothyroidism Current Visit: No Status: Acute Code(s): E03.9 - HYPOTHYROIDISM, UNSPECIFIED SNOMED Code(s): 44188773 Comment: continue levothyroxine (5) DVT prophylaxis Current Visit: No Status: Acute Code(s): ZTL8757 - SNOMED Code(s): 749253148 Comment: coumadin (6) Patient is full code Current Visit: No Status: Acute Code(s): Z78.9 - OTHER SPECIFIED HEALTH STATUS SNOMED Code(s): 601994213 Status and Disposition: inpatient
[2018-06-02 06:20] LABS: INR 1.64 (0.77-1.02)
[2018-06-02] MEDS: Levothyroxine TAB* 125 MCG TAB PO SCH (09:00)
[2018-06-02] MEDS: Ezetimibe TAB* 10 MG PO SCH (09:00)
[2018-06-02] MEDS: Polyethylene Glycol 3350* 17 GM PACKET PO PRN (09:00)
[2018-06-02] MEDS: Aspirin 81 mg CHEW TAB* 81 MG TAB.CHEW PO SCH (09:00)
[2018-06-02] MEDS: Vitamin THERAPEUTIC TAB PO SCH (09:00)
[2018-06-02] MEDS: Docusate CAP* 100 MG PO SCH ×2 (09:00→20:52)
[2018-06-02] MEDS: oxyCODONE TAB* 5 MG TAB PO PRN ×3 (09:07→20:56)
[2018-06-02] MEDS: Magnesium Hydroxide LIQ* 30 ML UDC PO SCH (09:08)
--- NOTE | 2018-06-02 14:48 | RAD ---
Indication: Left distal femoral fracture with left calf swelling. Duplex Doppler sonography of the deep venous system of the left lower extremity deep venous system was performed. Bilaterally the common femoral veins appear patent and compressible. Left proximal greater saphenous vein, proximal deep femoral vein, femoral vein, popliteal vein, posterior tibial veins and peroneal veins appear patent and compressible. IMPRESSION: NO EVIDENCE OF DEEP VENOUS THROMBOSIS IS IDENTIFIED.
--- NOTE | 2018-06-02 16:58 | PN ---
Subjective Date of Service: 06/02/18 Interval History: reports left calf tenderness today. no swelling to the calf. Denies chest pain or shortness of breath . denies abd pain n/v/d. Family History: Unchanged from Admission Social History: Unchanged from Admission Past Medical History: Unchanged from Admission Objective Active Medications: Acetaminophen (Tylenol Tab*) 487.5 mg PO Q6H PRN PRN Reason: PAIN Last Admin: 06/01/18 20:49 Dose: 487.5 mg Aspirin (Aspirin 81 Mg Chew Tab*) 81 mg PO DAILY [facility] Last Admin: 06/02/18 09:00 Dose: 81 mg Betamethasone/Clotrimazole (Lotrisone Cream*) 1 applic TOPICAL BID PRN PRN Reason: FUNGAL SKIN RASHES Bisacodyl (Dulcolax Supp*) 10 mg [place] DAILY PRN PRN Reason: CONSTIPATION Docusate Sodium (Colace Cap*) 100 mg PO BID [facility] Last Admin: 06/02/18 09:00 Dose: 100 mg Ezetimibe (Zetia Tab*) 10 mg PO DAILY [facility] Last Admin: 06/02/18 09:00 Dose: 10 mg Levothyroxine Sodium (Synthroid Tab*) 125 mcg PO 0800 [facility] Last Admin: 06/02/18 09:00 Dose: 125 mcg Magnesium Hydroxide (Milk Of Magnesia Liq*) 30 ml PO BID PRN PRN Reason: CONSTIPATION Multivitamins (Theragran Tab*) 1 tab PO DAILY [facility] Last Admin: 06/02/18 09:00 Dose: 1 tab Oxycodone HCl (Roxycodone Tab*) 5 mg PO Q4H PRN PRN Reason: PAIN Last Admin: 06/02/18 16:21 Dose: 5 mg Oxycodone HCl (Roxycodone Tab*) 10 mg PO Q4H PRN PRN Reason: SEVERE PAIN Pharmacy Profile Note (Coumadin Daily Reminder*) 1 note FOLLOW UP 1700 [facility] Last Admin: 06/02/18 16:21 Dose: 1 note Polyethylene Glycol/Electrolytes (Miralax*) 17 gm PO DAILY PRN PRN Reason: CONSTIPATION Last Admin: 06/02/18 09:00 Dose: 17 gm Senna (Senokot Tab*) 1 tab PO BEDTIME PRN PRN Reason: CONSTIPATION Last Admin: 06/01/18 20:49 Dose: 1 tab Warfarin Sodium (Coumadin Tab(*)) 4 mg PO ONCE@1700 ONE; Protocol Stop: 06/02/18 17:01 Last Admin: 06/02/18 16:21 Dose: 4 mg Vital Signs - 8 hr 06/02/18 06/02/18 06/02/18 09:07 11:10 12:26 Temperature 97.8 F Pulse Rate 87 Respiratory 18 14 18 Rate Blood Pressure 120/57 (mmHg) O2 Sat by Pulse 96 Oximetry 06/02/18 06/02/18 15:24 16:21 Temperature 97.7 F Pulse Rate 97 Respiratory 16 18 Rate Blood Pressure 127/68 (mmHg) O2 Sat by Pulse 100 Oximetry Oxygen Devices in Use Now: None Appearance: appears comfortable sittingin the chair, no acute distress Eyes: No Scleral Icterus Ears/Nose/Mouth/Throat: Clear Oropharnyx, Mucous Membranes Moist Neck: NL Appearance and Movements; NL JVP Respiratory: Symmetrical Chest Expansion and Respiratory Effort, Clear to Auscultation Cardiovascular: NL Sounds; No Murmurs; No JVD, No Edema Abdominal: NL Sounds; No Tenderness; No Distention Extremities: No Edema, No Clubbing, Cyanosis Skin: No Rash or Ulcers Neurological: Alert and Oriented x 3 Nutrition: Taking PO's Result Diagrams: 06/01/18 05:10 06/01/18 05:10 Assess/Plan/Problems-Billing Assessment: Ms. Stephen is a 88 y.o female with a past medical hx significant for htn, hypothyroid, and fib who presented to the ER after fall at home. Patient was found to have a left distal femur fracture. She was seen by dr. Ramos in consult and surgery is not needed. Patient was placed in a left knee immobilizer - Patient Problems (1) Closed fracture of left distal femur Current Visit: Yes Status: Acute Code(s): S72.402A - UNSP FRACTURE OF LOWER END OF LEFT FEMUR, INIT FOR CLOS FX SNOMED Code(s): 729962473 Comment: Management per ortho left knee immobilzer PT/OT -c/o calf tenderness to the left calf today- ultrasound negative for DVT (2) Afib Current Visit: Yes Status: Acute Code(s): I48.91 - UNSPECIFIED ATRIAL FIBRILLATION SNOMED Code(s): 01460727 Comment: stable continue coumadin - INR 1.65 today at 4mg not on rate agent at home (3) HTN (hypertension) Current Visit: No Status: Acute Code(s): I10 - ESSENTIAL (PRIMARY) HYPERTENSION SNOMED Code(s): 05933382 Comment: BP stable - continue zetia - will hold lisinopril for now as SBP 120-130's (4) Hypothyroidism Current Visit: No Status: Acute Code(s): E03.9 - HYPOTHYROIDISM, UNSPECIFIED SNOMED Code(s): 63385338 Comment: continue levothyroxine (5) DVT prophylaxis Current Visit: No Status: Acute Code(s): NDW6849 - SNOMED Code(s): 370476642 Comment: coumadin (6) Patient is full code Current Visit: No Status: Acute Code(s): Z78.9 - OTHER SPECIFIED HEALTH STATUS SNOMED Code(s): 161515935 Status and Disposition: inpatient - will need short term rehab at discharge.
[2018-06-02] MEDS ORDERED: Warfarin TAB(*) 4 MG PO ONE (17:00)
[2018-06-02] MEDS: Magnesium Hydroxide LIQ* 30 ML UDC PO PRN (20:57)
[2018-06-03 05:47] LABS: INR 1.21 (0.77-1.02)
[2018-06-03] MEDS: Acetaminophen TAB* 325 MG PO PRN ×2 (06:33→20:04)
[2018-06-03] MEDS: Levothyroxine TAB* 125 MCG TAB PO SCH (08:45)
[2018-06-03] MEDS: Ezetimibe TAB* 10 MG PO SCH (08:45)
[2018-06-03] MEDS: Vitamin THERAPEUTIC TAB PO SCH (08:45)
[2018-06-03] MEDS: Aspirin 81 mg CHEW TAB* 81 MG TAB.CHEW PO SCH (08:45)
[2018-06-03] MEDS: Docusate CAP* 100 MG PO SCH ×2 (08:45→20:04)
--- NOTE | 2018-06-03 11:59 | PN ---
Subjective Date of Service: 06/03/18 Interval History: Ms. Stephen reports feeling well today. She does have some continued pain in her left knee but it is manageable. She denies other complaint including chest pain , SOB, nausea, or abdominal pain. Family History: Unchanged from Admission Social History: Unchanged from Admission Past Medical History: Unchanged from Admission Objective Active Medications: Acetaminophen (Tylenol Tab*) 487.5 mg PO Q6H PRN Aspirin (Aspirin 81 Mg Chew Tab*) 81 mg PO DAILY [facility] Betamethasone/Clotrimazole (Lotrisone Cream*) 1 applic TOPICAL BID PRN Bisacodyl (Dulcolax Supp*) 10 mg [place] DAILY PRN Docusate Sodium (Colace Cap*) 100 mg PO BID [facility] Ezetimibe (Zetia Tab*) 10 mg PO DAILY [facility] Levothyroxine Sodium (Synthroid Tab*) 125 mcg PO 0800 [facility] Magnesium Hydroxide (Milk Of Magnesia Liq*) 30 ml PO BID PRN Multivitamins (Theragran Tab*) 1 tab PO DAILY [facility] Oxycodone HCl (Roxycodone Tab*) 5 mg PO Q4H PRN Oxycodone HCl (Roxycodone Tab*) 10 mg PO Q4H PRN Pharmacy Profile Note (Coumadin Daily Reminder*) 1 note FOLLOW UP 1700 [facility] Polyethylene Glycol/Electrolytes (Miralax*) 17 gm PO DAILY PRN Senna (Senokot Tab*) 1 tab PO BEDTIME PRN Vital Signs: Temp Pulse Resp BP Pulse Ox 97.9 F 83 16 127/57 96 06/03/18 07:48 06/03/18 07:48 06/03/18 07:48 06/03/18 07:48 06/03/18 07:48 Oxygen Devices in Use Now: None Appearance: Female sitting up in chair in NAD Eyes: No Scleral Icterus Ears/Nose/Mouth/Throat: Mucous Membranes Moist Neck: Trachea Midline Respiratory: Symmetrical Chest Expansion and Respiratory Effort, Clear to Auscultation Cardiovascular: NL Sounds; No Murmurs; No JVD, No Edema Abdominal: NL Sounds; No Tenderness; No Distention Extremities: No Edema Skin: No Rash or Ulcers Neurological: Alert and Oriented x 3, NL Muscle Strength and Tone Nutrition: Taking PO's Result Diagrams: 06/01/18 05:10 09/27/18 05:10 Assess/Plan/Problems-Billing Assessment: Ms. Stephen is a 88 y.o female with a past medical hx significant for htn, hypothyroid, and fib who presented to the ER after fall at home. Patient was found to have a left distal femur fracture. She was seen by dr. Ramos in consult and surgery is not needed. Patient was placed in a left knee immobilizer . - Patient Problems (1) Closed fracture of left distal femur Comment: - Management per ortho, non-operative - Left knee immobilzer, TTWB - PT/OT (2) Afib Comment: - HR 80s. - Continue coumadin - INR 1.21 today at 4mg, had been held as INR was supratherapeutic - Not on rate control agent outpatient. (3) HTN (hypertension) Comment: - SBP 110-130s - Resume lisinopril at half dose. (4) Hypothyroidism Comment: - Continue levothyroxine (5) DVT prophylaxis Comment: - Coumadin with heparin while INR subtherapeutic. (6) Patient is full code Comment: Status and Disposition: Inpatient - will need short term rehab at discharge.
[2018-06-03] MEDS: Heparin VIAL(*) 5000 UNITS/ML VIAL (FIVE THOUSAND) SUBCUT SCH ×2 (14:46→21:31)
[2018-06-03] MEDS ORDERED: Warfarin TAB(*) 6 MG PO ONE (18:00)
[2018-06-04] MEDS: Acetaminophen TAB* 325 MG PO PRN ×3 (03:40→19:54)
[2018-06-04] MEDS: Heparin VIAL(*) 5000 UNITS/ML VIAL (FIVE THOUSAND) SUBCUT SCH ×3 (06:00→23:29)
[2018-06-04] MEDS: Levothyroxine TAB* 125 MCG TAB PO SCH (08:04)
--- NOTE | 2018-06-04 08:20 | PN ---
Subjective Date of Service: 06/04/18 Interval History: Ms. Stephen reports good control of her pain. She did have a steroid injection to her left knee per ortho today. She denies chest pain, SOB, nausea, or abdominal pain and is tolerating oral intake well. She hopes for discharge to [facility] for subacute rehab when and if a bed is available. Family History: Unchanged from Admission Social History: Unchanged from Admission Past Medical History: Unchanged from Admission Objective Active Medications: Acetaminophen (Tylenol Tab*) 487.5 mg PO Q6H PRN Aspirin (Aspirin 81 Mg Chew Tab*) 81 mg PO DAILY JACK Betamethasone/Clotrimazole (Lotrisone Cream*) 1 applic TOPICAL BID PRN Bisacodyl (Dulcolax Supp*) 10 mg ND DAILY PRN Docusate Sodium (Colace Cap*) 100 mg PO BID JACK Ezetimibe (Zetia Tab*) 10 mg PO DAILY JACK Heparin Sodium (Porcine) (Heparin Vial(*)) 5,000 units SUBCUT Q8HR [facility] Levothyroxine Sodium (Synthroid Tab*) 125 mcg PO 0800 JACK Lisinopril (Prinivil Tab*) 10 mg PO DAILY JACK Magnesium Hydroxide (Milk Of Magnesia Liq*) 30 ml PO BID PRN Multivitamins (Theragran Tab*) 1 tab PO DAILY JACK Oxycodone HCl (Roxycodone Tab*) 5 mg PO Q4H PRN Oxycodone HCl (Roxycodone Tab*) 10 mg PO Q4H PRN Pharmacy Profile Note (Coumadin Daily Reminder*) 1 note FOLLOW UP 1700 [facility] Polyethylene Glycol/Electrolytes (Miralax*) 17 gm PO DAILY PRN Senna (Senokot Tab*) 1 tab PO BEDTIME PRN Vital Signs: Temp Pulse Resp BP Pulse Ox 98.0 F 87 20 125/72 99 06/04/18 03:14 06/04/18 03:14 06/04/18 03:14 06/04/18 03:14 06/04/18 03:14 Oxygen Devices in Use Now: None Appearance: Female sitting up in chair in NAD Eyes: No Scleral Icterus Neck: Trachea Midline Respiratory: Symmetrical Chest Expansion and Respiratory Effort, Clear to Auscultation Cardiovascular: NL Sounds; No Murmurs; No JVD, No Edema Abdominal: NL Sounds; No Tenderness; No Distention Lymphatic: No Cervical Adenopathy Extremities: No Edema Skin: No Rash or Ulcers Neurological: Alert and Oriented x 3, NL Muscle Strength and Tone Nutrition: Taking PO's Result Diagrams: 06/01/18 05:10 06/01/18 05:10 Assess/Plan/Problems-Billing Assessment: Ms. Stephen is a 88 y.o female with a past medical hx significant for htn, hypothyroid, and fib who presented to the ER after fall at home. Patient was found to have a left distal femur fracture. She was seen by dr. Ramos in consult and surgery is not needed. Patient was placed in a left knee immobilizer . - Patient Problems (1) Closed fracture of left distal femur Comment: - Management per ortho, non-operative - Left knee immobilzer, TTWB - PT/OT (2) Afib Comment: - HR 80s. - Continue coumadin - INR 1.21 today at 4mg, had been held as INR was supratherapeutic - Not on rate control agent outpatient. (3) HTN (hypertension) Comment: - SBP 110-130s - Resume lisinopril at half dose. (4) Hypothyroidism Comment: - Continue levothyroxine (5) DVT prophylaxis Comment: - Coumadin with heparin while INR subtherapeutic. (6) Patient is full code Comment: Status and Disposition: Inpatient - will need short term rehab at discharge. Patient hoping to go to [facility] for rehab.
[2018-06-04] MEDS: Ezetimibe TAB* 10 MG PO SCH (08:34)
[2018-06-04] MEDS: Vitamin THERAPEUTIC TAB PO SCH (08:35)
[2018-06-04] MEDS: Lisinopril TAB* 10 MG PO SCH (08:35)
[2018-06-04] MEDS: Docusate CAP* 100 MG PO SCH ×2 (08:35→19:54)
[2018-06-04] MEDS: Aspirin 81 mg CHEW TAB* 81 MG TAB.CHEW PO SCH (08:35)
[2018-06-04] MEDS ORDERED: Lidocaine 2% PF * 5 ML VIAL INJ ONE (12:00)
[2018-06-04] MEDS ORDERED: methylPREDNISolone ACETATE 80* 80 MG/ML 1 ML VIAL INTRAARTIC ONE (12:00)
--- NOTE | 2018-06-04 12:04 | PN ---
Progress Note - Progress Note Date of Service: 06/04/18 SOAP: Subjective: Left knee distal femur periprosthetic fx. Tolerating immobilizer well, c/o pain to right knee with known arthritis. Awaiting bed at [facility] rehab. Denies CP/SOB, f /c, n/v Objective: Vitals: Temp Pulse Resp BP Pulse Ox 98.3 F 84 18 120/66 98 06/04/18 07:13 06/04/18 07:13 06/04/18 08:00 06/04/18 07:13 06/04/18 07:13 Gen: A&Ox3, NAD at rest sitting in chair LLE: Immobilizer intact, +f/e at ankle and MTPs, n/v intact RLE: Mild joint effusion at knee, ttp med and lat joint line. 10-100 deg ROM with crepitus. Distal n/v inact Assessment: Left knee distal femur periprostheic fx, right knee arthritis Plan: Cortisone injection requested in right knee, will give today for pain relief as LLE is toe touch WB Transfer to rehab when bed available F/u with Dr. Ramos as outpt
[2018-06-04] MEDS: Warfarin TAB(*) 4 MG PO SCH (16:54)
[2018-06-05] MEDS: Heparin VIAL(*) 5000 UNITS/ML VIAL (FIVE THOUSAND) SUBCUT SCH ×2 (05:29→16:00)
[2018-06-05] MEDS: Acetaminophen TAB* 325 MG PO PRN ×2 (05:30→20:16)
[2018-06-05 05:52] LABS: INR 2.02 (0.77-1.02)
[2018-06-05] MEDS: Levothyroxine TAB* 125 MCG TAB PO SCH (08:03)
[2018-06-05] MEDS: Docusate CAP* 100 MG PO SCH ×2 (08:03→20:16)
[2018-06-05] MEDS: Vitamin THERAPEUTIC TAB PO SCH (08:03)
[2018-06-05] MEDS: Polyethylene Glycol 3350* 17 GM PACKET PO PRN (08:03)
[2018-06-05] MEDS: Ezetimibe TAB* 10 MG PO SCH (08:03)
[2018-06-05] MEDS: Aspirin 81 mg CHEW TAB* 81 MG TAB.CHEW PO SCH (08:03)
[2018-06-05] MEDS: Lisinopril TAB* 10 MG PO SCH (10:31)
--- NOTE | 2018-06-05 12:49 | PN ---
Subjective Date of Service: 06/05/18 Interval History: Ms. Stephen denies complaint today. She is eager for discharge to [place] tomorrow. Family History: Unchanged from Admission Social History: Unchanged from Admission Past Medical History: Unchanged from Admission Objective Active Medications: Acetaminophen (Tylenol Tab*) 487.5 mg PO Q6H PRN Aspirin (Aspirin 81 Mg Chew Tab*) 81 mg PO DAILY JACK Betamethasone/Clotrimazole (Lotrisone Cream*) 1 applic TOPICAL BID PRN Bisacodyl (Dulcolax Supp*) 10 mg HI DAILY PRN Docusate Sodium (Colace Cap*) 100 mg PO BID JACK Ezetimibe (Zetia Tab*) 10 mg PO DAILY JACK Heparin Sodium (Porcine) (Heparin Vial(*)) 5,000 units SUBCUT Q8HR JACK Levothyroxine Sodium (Synthroid Tab*) 125 mcg PO 0800 JACK Lisinopril (Prinivil Tab*) 10 mg PO DAILY JACK Magnesium Hydroxide (Milk Of Magnesia Liq*) 30 ml PO BID PRN Multivitamins (Theragran Tab*) 1 tab PO DAILY JACK Oxycodone HCl (Roxycodone Tab*) 5 mg PO Q4H PRN Oxycodone HCl (Roxycodone Tab*) 10 mg PO Q4H PRN Polyethylene Glycol/Electrolytes (Miralax*) 17 gm PO DAILY PRN Senna (Senokot Tab*) 1 tab PO BEDTIME PRN Warfarin Sodium (Coumadin Tab(*)) 4 mg PO DAILY@1700 JACK; Protocol Vital Signs: Temp Pulse Resp BP Pulse Ox 98.1 F 98 17 149/70 99 06/05/18 11:58 06/05/18 11:58 06/05/18 11:58 06/05/18 11:58 06/05/18 11:58 Oxygen Devices in Use Now: None Appearance: Female lying in bed in NAD Eyes: No Scleral Icterus Ears/Nose/Mouth/Throat: Mucous Membranes Moist Neck: Trachea Midline Respiratory: Symmetrical Chest Expansion and Respiratory Effort, Clear to Auscultation Cardiovascular: NL Sounds; No Murmurs; No JVD, No Edema Abdominal: NL Sounds; No Tenderness; No Distention Extremities: No Edema Skin: No Rash or Ulcers Neurological: Alert and Oriented x 3, NL Muscle Strength and Tone Nutrition: Taking PO's Result Diagrams: 06/01/18 05:10 06/01/18 05:10 Assess/Plan/Problems-Billing Assessment: Ms. Stephen is a 88 y.o female with a past medical hx significant for htn, hypothyroid, and fib who presented to the ER after fall at home. Patient was found to have a left distal femur fracture. She was seen by dr. Ramos in consult and surgery is not needed. Patient was placed in a left knee immobilizer . - Patient Problems (1) Closed fracture of left distal femur Comment: - Management per ortho, non-operative - Left knee immobilzer, TTWB - PT/OT (2) Afib Comment: - HR 80s. - Continue coumadin - INR 2.02 today at 4mg. - Not on rate control agent outpatient. (3) HTN (hypertension) Comment: - SBP 110-130s - Resume lisinopril at half dose. (4) Hypothyroidism Comment: - Continue levothyroxine (5) DVT prophylaxis Comment: - Coumadin with heparin while INR subtherapeutic. (6) Patient is full code Comment: Status and Disposition: Inpatient - will need short term rehab at discharge. Patient hoping to go to [facility] for rehab.
--- NOTE | 2018-06-05 15:32 | PN ---
Progress Note - Progress Note Date of Service: 06/05/18 SOAP: Subjective: [] Patient seen and examined at bedside. She feels well without LLE pain ,CP, SOB. Right knee pain has improved Objective: []Gen: NAD, sitting comfortably LLE: Immobilizer intact and no skin breakdown, +f/e at ankle and MTPs, DP2+, sensation intact distally. RLE: knee with mild effusion, no erythema or warmth. Calves supple and nontender without erythema, edema or palpable cords Assessment: Left knee distal femur periprostheic fx, right knee arthritis Plan: LLE toe touch WB Transfer to rehab when bed available F/u with Dr. Ramos as outpt Vital Signs Temp 98.1 F 06/05/18 11:58 Pulse 98 06/05/18 11:58 Resp 17 06/05/18 11:58 BP 149/70 06/05/18 11:58 Pulse Ox 99 06/05/18 11:58 Intake & Output 06/04/18 06/05/18 06/05/18 18:59 06:59 18:59 Intake Total 1470 1000 540 Output Total 1700 0 500 Balance -230 1000 40 Intake: Oral 1470 1000 540 Output: Urine 1700 0 500 Other: Estimated Void Large # Bowel Movements 1 1 Estimated Stool Amount Small Small # Voids 1 Laboratory Last Values WBC 9.3 10^3/ul (3.5-10.8) 06/01/18 05:10 RBC 3.14 10^6/ul (4.00-5.40) L 06/01/18 05:10 Hgb 10.1 g/dl (12.0-16.0) L 06/01/18 05:10 Hct 30 % (35-47) L 06/01/18 05:10 MCV 94 fL (80-97) 06/01/18 05:10 MCH 32 pg (27-31) H 06/01/18 05:10 MCHC 34 g/dl (31-36) 06/01/18 05:10 RDW 13 % (10.5-15) 06/01/18 05:10 Plt Count 223 10^3/ul (150-450) 06/01/18 05:10 MPV 8.9 um3 (7.4-10.4) 06/01/18 05:10 Neut % (Auto) 71.7 % (38-83) 06/01/18 05:10 Lymph % (Auto) 14.9 % (25-47) L 06/01/18 05:10 [place] % (Auto) 12.4 % (0-7) H 06/01/18 05:10 Eos % (Auto) 0.6 % (0-6) 06/01/18 05:10 Baso % (Auto) 0.4 % (0-2) 06/01/18 05:10 Absolute Neuts (auto) 6.7 10^3/ul (1.5-7.7) 06/01/18 05:10 Absolute Lymphs (auto) 1.4 10^3/ul (1.0-4.8) 06/01/18 05:10 Absolute Monos (auto) 1.2 10^3/ul (0-0.8) H 06/01/18 05:10 Absolute Eos (auto) 0.1 10^3/ul (0-0.6) 06/01/18 05:10 Absolute Basos (auto) 0 10^3/ul (0-0.2) 06/01/18 05:10 Absolute Nucleated RBC 0 10^3/ul 06/01/18 05:10 Nucleated RBC % 0 06/01/18 05:10 INR (Anticoag Therapy) 2.02 (0.77-1.02) H 06/05/18 05:18 Sodium 137 mmol/L (135-145) 06/01/18 05:10 Potassium 4.2 mmol/L (3.5-5.0) 06/01/18 05:10 Chloride 105 mmol/L (101-111) 06/01/18 05:10 Carbon Dioxide 28 mmol/L (22-32) 06/01/18 05:10 Anion Gap 4 mmol/L (2-11) 06/01/18 05:10 BUN 9 mg/dL (6-24) 06/01/18 05:10 Creatinine 0.61 mg/dL (0.51-0.95) 06/01/18 05:10 Est GFR ( Amer) 112.3 (>60) 06/01/18 05:10 Est GFR (Non-Af Amer) 92.8 (>60) 06/01/18 05:10 BUN/Creatinine Ratio 14.8 (8-20) 06/01/18 05:10 Glucose 121 mg/dL (70-100) H 06/01/18 05:10 Calcium 8.5 mg/dL (8.6-10.3) L 06/01/18 05:10 Total Bilirubin 0.50 mg/dL (0.2-1.0) 05/31/18 08:03 AST 24 U/L (13-39) 05/31/18 08:03 ALT 15 U/L (7-52) 05/31/18 08:03 Alkaline Phosphatase 76 U/L (34-104) 05/31/18 08:03 Troponin I 0.00 ng/mL (<0.04) 05/31/18 08:03 Total Protein 6.5 g/dL (6.4-8.9) 05/31/18 08:03 Albumin 4.3 g/dL (3.2-5.2) 05/31/18 08:03 Globulin 2.2 g/dL (2-4) 05/31/18 08:03 Albumin/Globulin Ratio 2.0 (1-3) 05/31/18 08:03 Urine Color Yellow 05/31/18 08:03 Urine Appearance Clear 05/31/18 08:03 Urine pH 6.0 (5-9) 05/31/18 08:03 Ur Specific [place] 1.011 (1.010-1.030) 05/31/18 08:03 Urine Protein Negative (Negative) 05/31/18 08:03 Urine Ketones Negative (Negative) 05/31/18 08:03 Urine Blood Negative (Negative) 05/31/18 08:03 Urine Nitrate Negative (Negative) 05/31/18 08:03 Urine Bilirubin Negative (Negative) 05/31/18 08:03 Urine Urobilinogen Negative (Negative) 05/31/18 08:03 Ur Leukocyte Esterase Negative (Negative) 05/31/18 08:03 Urine Glucose Negative (Negative) 05/31/18 08:03 Urine Ascorbic Acid * (Negative) A 05/31/18 08:03
[2018-06-05] MEDS: Warfarin TAB(*) 4 MG PO SCH (17:32)
[2018-06-05] MEDS: Magnesium Hydroxide LIQ* 30 ML UDC PO PRN (20:37)
--- NOTE | 2018-06-06 05:46 | PN ---
Subjective Date of Service: 06/06/18 Interval History: Ms. Stephen states that she is doing well. She reports that her knee pain is well controlled. She denies other complaint including chest pain, SOB, nausea, or abdominal pain. She is eager for discharge today. Family History: Unchanged from Admission Social History: Unchanged from Admission Past Medical History: Unchanged from Admission Objective Active Medications: Acetaminophen (Tylenol Tab*) 487.5 mg PO Q6H PRN Aspirin (Aspirin 81 Mg Chew Tab*) 81 mg PO DAILY JACK Betamethasone/Clotrimazole (Lotrisone Cream*) 1 applic TOPICAL BID PRN Bisacodyl (Dulcolax Supp*) 10 mg SD DAILY PRN Docusate Sodium (Colace Cap*) 100 mg PO BID JACK Ezetimibe (Zetia Tab*) 10 mg PO DAILY JACK Levothyroxine Sodium (Synthroid Tab*) 125 mcg PO 0800 JACK Lisinopril (Prinivil Tab*) 10 mg PO DAILY JACK Magnesium Hydroxide (Milk Of Magnesia Liq*) 30 ml PO BID PRN Multivitamins (Theragran Tab*) 1 tab PO DAILY JACK Oxycodone HCl (Roxycodone Tab*) 5 mg PO Q4H PRN Oxycodone HCl (Roxycodone Tab*) 10 mg PO Q4H PRN Polyethylene Glycol/Electrolytes (Miralax*) 17 gm PO DAILY JACK Senna (Senokot Tab*) 1 tab PO BEDTIME PRN Warfarin Sodium (Coumadin Tab(*)) 4 mg PO DAILY@1700 JACK; Protocol Vital Signs: Temp Pulse Resp BP Pulse Ox 97.7 F 84 16 124/56 98 06/06/18 00:23 06/06/18 00:23 06/06/18 00:23 06/06/18 00:23 06/06/18 00:23 Oxygen Devices in Use Now: None Appearance: Female lying in bed in NAD Eyes: No Scleral Icterus Ears/Nose/Mouth/Throat: Mucous Membranes Moist Neck: Trachea Midline Respiratory: Symmetrical Chest Expansion and Respiratory Effort, Clear to Auscultation Cardiovascular: NL Sounds; No Murmurs; No JVD, No Edema Abdominal: NL Sounds; No Tenderness; No Distention Extremities: No Edema Skin: No Rash or Ulcers Neurological: Alert and Oriented x 3, NL Muscle Strength and Tone Nutrition: Taking PO's Result Diagrams: 06/01/18 05:10 06/01/18 05:10 Assess/Plan/Problems-Billing Assessment: Ms. Stephen is a 88 y.o female with a past medical hx significant for htn, hypothyroid, and fib who presented to the ER after fall at home. Patient was found to have a left distal femur fracture. She was seen by dr. Ramos in consult and surgery is not needed. Patient was placed in a left knee immobilizer . - Patient Problems (1) Closed fracture of left distal femur Comment: - Management per ortho, non-operative - Left knee immobilzer, TTWB - PT/OT (2) Afib Comment: - HR 80s. - Continue coumadin - INR 2.02 today. - Not on rate control agent outpatient. (3) HTN (hypertension) Comment: - SBP 110-130s - Resume lisinopril at half dose. (4) Hypothyroidism Comment: - Continue levothyroxine (5) DVT prophylaxis Comment: - Coumadin (6) Patient is full code Comment: Status and Disposition: Inpatient -Discharge to [facility].
[2018-06-06] MEDS ORDERED: Polyethylene Glycol 3350* 17 GM PACKET PO SCH (09:00)
[2018-06-06] MEDS: Levothyroxine TAB* 125 MCG TAB PO SCH (10:23)
[2018-06-06] MEDS: Vitamin THERAPEUTIC TAB PO SCH (10:23)
[2018-06-06] MEDS: Aspirin 81 mg CHEW TAB* 81 MG TAB.CHEW PO SCH (10:24)
[2018-06-06] MEDS: Lisinopril TAB* 10 MG PO SCH (10:24)
[2018-06-06] MEDS: Docusate CAP* 100 MG PO SCH (10:24)
[2018-06-06] MEDS: Ezetimibe TAB* 10 MG PO SCH (10:24)
[2018-06-06 11:30] VITALS: BP 127/56
--- NOTE | 2018-06-06 12:33 | DS ---
CC: Dr. Alicea * [facility] MEDICINE DISCHARGE SUMMARY: DATE OF ADMISSION: 05/31/18 DATE OF DISCHARGE: 06/06/18 PRIMARY CARE PHYSICIAN: Dr. Alicea. ATTENDING PHYSICIAN: Dr. Aline Honeycutt * (dictation provided by Alessia Sewell NP ). PRIMARY DIAGNOSIS: Periprosthetic fracture of the distal femur on the left. SECONDARY DIAGNOSES: 1. Hypertension. 2. Hypothyroidism. 3. History of atrial fibrillation. 4. Severe constipation. 5. History of cellulitis. PAST SURGICAL HISTORY: 1. Tonsillectomy. 2. Hysterectomy. 3. Appendectomy. 4. Left knee replacement in 2000. 5. Left eye detachment and retina repair. 6. Cataract implant. 7. Aortic valve replacement in 2006. 8. Cholecystectomy in 2007. 9. Right cataract, 2011. MEDICATIONS AT THE TIME OF DISCHARGE: 1. Warfarin 3 mg on Tuesday, Tuesday, , Tuesday, Tuesday, and 4 mg on Tuesday and Tuesday. 2. Multivitamin 1 cap p.o. daily. 3. Aspirin 81 mg p.o. daily. 4. Tylenol 500 mg p.o. q.6 hours p.r.n. 5. Clotrimazole 1 application topically q.72 hours. 6. Calcium with vitamin D 1 tab p.o. daily. 7. Levothyroxine 125 mcg p.o. daily. 8. Zetia 10 mg p.o. daily. 9. Oxycodone 5 mg p.o. q.4 hours p.r.n. 10. Senna 1 tab p.o. at bedtime p.r.n. 11. MiraLAX 17 g p.o. daily. 12. Lisinopril 10 mg p.o. daily. 13. Docusate 100 mg p.o. b.i.d. 14. Dulcolax 10 mg p.o. daily p.r.n. HOSPITAL COURSE: Ms. Stephen is an 88-year-old female, who presented to the hospital on 05/31/18 after a fall with pain in her left leg. Please see the dictated H and P from Claudette Irwin NP, for complete details. In brief, the patient reported that she was ambulating to the bathroom when she tripped and fell over her dog. She had immediate left leg pain. In the emergency room, the patient had x-rays including a knee x-ray, which showed "nondisplaced periprosthetic fracture of the distal femur and lipohemarthrosis." The pelvis x-ray showed no acute fracture. Chest x-ray showed hyperinflation with no active cardiopulmonary disease. The lower extremity CT showed "nondisplaced oblique coronal oriented periprosthetic fracture at the distal femur extending to the margin of the femoral component prosthesis distally, moderate lipohemarthrosis at the knee." Her labs showed only mild leukocytosis likely secondary to trauma. Urinalysis was negative. Ms. Stephen was admitted to the hospital. She was seen in consultation by Dr. Bi Ramos from orthopedic services and I refer you to his note for complete details but in brief, he noted that nondisplaced fractures were typically treated nonoperatively and that given her medical comorbidities, nonoperative treatment would be safer. The patient was placed in a knee immobilizer. Physical Therapy and pain medication efforts were attempted were instituted. Ms. Stephen has been doing well in the period since her fall. She has been progressing well with physical therapy, but continues with knee rehabilitation. Her vitals have remained stable. She states that her pain is well controlled and she has no other complaint. Ms. Stephen is to be discharged to [facility] today. DISPOSITION: To [facility]. DIET: Low fat, low salt. ACTIVITY: As tolerated. FOLLOWUP PLANS: 1. Please follow up with the providers at [facility] regarding the continued management of INR while on warfarin. INR on 06/05/18 was 2.02. 2. Please follow up with Dr. Ramos from [facility] Orthopedic Services around . Please call for an appointment. TIME SPENT: Approximately 60 minutes was spent in the discharge of this patient , more than half the time was spent with the patient at the bedside reviewing the events leading up to this hospitalization and during this hospitalization, performing the physical examination, reviewing the plan of care. ALESSIA SEWELL NP [id number]/[facility] #: [id number] [facility] CENTERVicki
[2018-06-06] MEDS: oxyCODONE TAB* 5 MG TAB PO PRN (13:56)
== END 2018-06-06 13:50 | DRG 561 ==
LOC: ED 06:37 → SSU 09:23
PROVIDERS: ADMIT Internal Medicine; ATTEND Internal Medicine
PROC: 2W3MX3Z Immobilization of Left Lower Extremity using Brace (ICD-10-PCS; principal; 2018-05-31)
DX: M97.02XA Periprosthetic fracture around internal prosthetic left hip joint, initial encounter (principal); Z96.642 Presence of left artificial hip joint; W01.0XXA Fall on same level from slipping, tripping and stumbling without subsequent striking against object, initial encounter; I48.91 Unspecified atrial fibrillation; E03.9 Hypothyroidism, unspecified; I10 Essential (primary) hypertension; K59.09 Other constipation; M16.11 Unilateral primary osteoarthritis, right hip; Y92.008 Other place in unspecified non-institutional (private) residence as the place of occurrence of the external cause; Z79.01 Long term (current) use of anticoagulants; Z79.82 Long term (current) use of aspirin; Z79.899 Other long term (current) drug therapy; Z88.8 Allergy status to other drugs, medicaments and biological substances; Z82.49 Family history of ischemic heart disease and other diseases of the circulatory system; Z95.2 Presence of prosthetic heart valve; Z87.891 Personal history of nicotine dependence
CPT/HCPCS: 36415; 71045; 72170; 80048; 80053; 81003; 84484; 85025; 85610; 90686; 93005; 97530; 99285; A9270-GY; G8978-GP-CL; G8978-GP-CM; G8979-GP-CJ; G8987-GO-CL; G8988-GO-CI; J1040; J1644; J2270

== ENCOUNTER 2019-01-14 12:29 | Emergency (ER) | payer MEDICARE ==
--- NOTE | 2019-01-14 12:56 | ED ---
Lower Extremity - HPI Summary HPI Summary: This patient is a 88 year old female presenting to [facility] with a chief complaint of left leg weakness and pain since last week. Patient suffered a femur fracture in May last year. Since then, patient has taken physical therapy and achieved 100% weight bearing. 2 weeks ago, patient states that she suddenly felt pain and weakness in her left leg after stepping wrong. Patient states that the pain has persisted since then and has begun to radiate to the back of her leg as well. The pain is rated 10/10 in severity. Symptoms aggravated by nothing. Symptoms alleviated by nothing - History of Current Complaint Chief Complaint: EDExtremityLower Stated Complaint: PAIN IN LEFT FEMUR/LEG/WEAKNESS PER PT DAUGHTER Time Seen by Provider: 01/14/19 12:41 Hx Obtained From: Patient Hx Last Menstrual Period: n/a Mechanism Of Injury: Unknown Onset of Pain: Immediate Onset/Duration: Still Present Severity Currently: Severe Pain Intensity: 10 Pain Scale Used: 0-10 Numeric Timing: Constant Location: Is Discrete @ - left leg Associated Signs And Symptoms: Negative: Fever Aggravating Factor(s): Nothing Alleviating Factor(s): Nothing - Allergies/Home Medications Allergies/Adverse Reactions: Allergies Allergy/AdvReac Type Severity Reaction Status Date / Time atorvastatin [From Lipitor] Allergy Leg Cramps Verified 05/31/18 06:42 avoids statins Allergy Unknown Uncoded 05/31/18 06:42 Reaction Details PMH/Surg Hx/FS Hx/Imm Hx Previously Healthy: No Endocrine/Hematology History: Reports: Hx Thyroid Disease - hypo, Hx Anemia Cardiovascular History: Reports: Hx Hypertension, Hx Valvular Heart Disease - aortic valve replacement GI History: Reports: Hx Gall Bladder Disease, Other GI Disorders - chronic constipation Denies: Hx Gastroesophageal Reflux Disease History: Denies: Hx Dialysis Comment Only: Other Problems/Disorders - UTI Musculoskeletal History: Reports: Hx Arthritis - left leg, Hx Osteoporosis, Other Musculoskeletal History - right shoulder injury Sensory History: Reports: Hx Cataracts - both eyes, Hx Contacts or Glasses, Hx Macular Degeneration, Hx Hearing Aid Denies: Hx Deafness Opthamlomology History: Reports: Hx Cataracts - both eyes, Hx Contacts or Glasses, Hx Macular Degeneration Psychiatric History: Reports: Hx Depression Denies: Hx Autism - Surgical History Surgery Procedure, Year, and Place: aortic valve 2006, 2010 cholecystectomy; Left knee replacement 2000, hysterectomy, appendectomy, tonsillectomy, right shoulder surgery, LEFT hip Hx Anesthesia Reactions: No Infectious Disease History: No Infectious Disease History: Denies: Traveled Outside the [place] in Last 30 Days - Family History Known Family History: Positive: Hypertension - Social History Alcohol Use: Rare Alcohol Amount: gin and raisins for arhtritis Hx Substance Use: No Substance Use Type: Reports: None Hx Tobacco Use: Yes Smoking Status (MU): Former Smoker Review of Systems Negative: Fever Positive: Other - left leg pain Positive: Weakness All Other Systems Reviewed And Are Negative: Yes Physical Exam - Summary Physical Exam Summary: Appearance: The patient is well-nourished in no acute distress and in no acute pain. Skin: The skin is warm and dry and skin color reflects adequate perfusion. HEENT: The head is normocephalic and atraumatic. The pupils are equal and reactive. The conjunctivae are clear and without drainage. Nares are patent and without drainage. Mouth reveals moist mucous membranes and the throat is without erythema and exudate. The external ears are intact. The ear canals are patent and without drainage. The tympanic membranes are intact. Neck: The neck is supple with full range of motion and non-tender. There are no carotid bruits. There is no neck vein distension. Respiratory: Chest is non-tender. Lungs are clear to auscultation and breath sounds are symmetrical and equal. Cardiovascular: Heart is regular rate and rhythm. There is no murmur or rub auscultated. There is no peripheral edema and pulses are symmetrical and equal. Abdomen: The abdomen is soft and non-tender. There are normal bowel sounds heard in all four quadrants and there is no organomegaly palpated. Musculoskeletal: There is no back tenderness noted. Extremities are non-tender with full range of motion. There is good capillary refill. There is no peripheral edema or calf tenderness elicited. Neurological: Patient is alert and oriented to person, place and time. Tender to ROM of her left leg. Cranial nerves are grossly intact. Deep tendon reflexes are symmetrical and equal in all four extremities. Psychiatric: The patient has an appropriate affect and does not exhibit any anxiety or depression. Triage Information Reviewed: Yes Vital Signs On Initial Exam: Initial Vitals Temp Pulse Resp BP Pulse Ox 97.7 F 98 16 125/88 97 01/14/19 12:35 01/14/19 12:35 01/14/19 12:35 01/14/19 12:35 01/14/19 12:35 Vital Signs Reviewed: Yes Diagnostics - Vital Signs Vital Signs Temp Pulse Resp BP Pulse Ox 01/14/19 12:35 97.7 F 98 16 125/88 97 - Laboratory Lab Statement: Any lab studies that have been ordered have been reviewed, and results considered in the medical decision making process. - Radiology Femur XR Radiology Interpretation Completed By: Radiologist Summary of Radiographic Findings: Femur XR reveals, per radiologist, IMPRESSION : 1. No radiographically apparent acute abnormality of the left hip or femur including the hip and knee prostheses. 2. Incidentally noted is calcified atherosclerosis. Please correlate to signs or symptoms of left lower extremity arterial insufficiency. ED physician has reviewed this radiology report. Lower Extremity Course/Dx - Course Course Of Treatment: Ms. 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 This past August she sustained a periprosthetic fracture and was treated conservatively by Dr. Rodríguez. She has been going through physical therapy and rehabilitation and last while she was at rehabilitation she got a sudden pain in her left thigh. She has continued to have pain and infected is gotten worse subsequently. She is barely able to bear weight on it. She is nontoxic in appearance with stable vitals and pleasant and cooperative. Initially any attempt to move the leg elicited pain therefore an x-ray was obtained of her left femur prior to any manipulation. There was no sign of a fracture on plain film. Subsequent exam revealed that she had significant pain when she had active or passive movement in the anterior thigh. She did not have any significant tenderness to palpation of that area. I think this is likely a muscle tear although she may need further workup with MRI scan at some point. Initially she refused to have any pain medication but at discharge she accepted a prescription for tramadol. - Diagnoses Provider Diagnoses: Muscle strain Discharge - Sign-Out/Discharge Documenting (check all that apply): Patient Departure Patient Received Moderate/Deep Sedation with Procedure: No - Discharge Plan Condition: Stable Disposition: HOME Prescriptions: traMADol TAB* [Ultram*] 50 mg PO Q6HR PRN #20 tab MDD 4 PRN Reason: Pain traMADol TAB* [Ultram*] 50 mg PO Q6HR PRN #20 tab MDD 4 PRN Reason: Pain Patient Education Materials: Muscle Strain (ED) Referrals: Max Alicea MD [Primary Care Provider] - 3 Days Bi Ramos MD [Medical Doctor] - 1 Week Additional Instructions: Follow up with Dr. Ramos this week. Return to the ED for any new or worsening symptoms. - Billing Disposition and Condition Condition: STABLE Disposition: Home - Attestation Statements Document Initiated by Paule: Yes Documenting Scribe: Miriam Love Provider For Whom Scribe is Documenting (Include Credential): Abelardo Felipe MD Scribe Attestation: I, Miriam Love, scribed for Abelardo Felipe MD on 01/14/19 at 1759. Scribe Documentation Reviewed: Yes Provider Attestation: The documentation as recorded by the Miriam arnold accurately reflects the service I personally performed and the decisions made by me, Abelardo Felipe MD Status of Scribe Document: Viewed
--- OUTSIDE RECORDS SUMMARY | 2019-01-14 13:19 | XMS REPORT | Continuity of Care Document ---
:1930 External Reference #:[id number] Author Name Max Dunlap M.D. Address [address] [facility] [address] [place] [address] Care Team Providers Name Role Phone HCP given Primary Care Physician Unavailable Payers Date Identification Numbers Payment Provider Subscriber Effective: 2009 Policy Number: [id number] Today [employer] Stephen PayID: [id number] [address] [address] [place] [address] Advance Directives Description No Information Available Problems Active Problems Provider Date Benign essential hypertension Max Dunlap M.D. Onset: 06/11/2004 Pure hypercholesterolemia Max Dunlap M.D. Onset: 06/11/2004 Vianney thyroiditis Max Dunlap M.D. Onset: 11/13/2004 Carpal tunnel syndrome Max Dunlap M.D. Onset: 03/02/2006 Dysthymia Max Dunlap M.D. Onset: 03/02/2006 Atrophic vaginitis Max Dunlap M.D. Onset: 10/31/2007 Chronic rhinitis Max Dunlap M.D. Onset: 04/26/2008 Migraine variants, not intractable Max Dunlap M.D. 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 Marital Status Patient is Employment Not currently working Hand Dominance Patient is right-handed Tobacco Use Start: Unknown Smoked 1-5 Cigarettes A Day For 30 Years Tobacco Use Reviewed: 03/29/14 Denies Cigarette Use Smoking Status Reviewed: 05/05/18 Denies Cigarette Use ETOH Use Rare Alcohol Use Tobacco Use Start: Unknown Non Smoker Sun Exposure Minimum amount of sun exposure. Uses sunscreen Seat Belt/Car Seat Always uses a seat belt Currently Active The patient is currently not sexually active Age 1st Terril First intercourse was at age 22 # Partners in a Lifetime The patient has had 1 sexual partner Allergies, Adverse Reactions, Alerts Active Allergies Reaction Severity Comments Date Lipitor muscle weakness 05/12/2010 Medications Active Medications SIG Qnty Indications Ordering Date Provider Premarin apply 1 gm 42.500G N95.2 Silcoindu, 01/10/2019 intravaginally before Sis Santana 0.625mg/GM Cream bed 3x/wk as needed for vaginal bleeding Ezetimibe take 1 tablet by 100tabs E78.0 Deanne, 10/18/2018 10mg mouth once daily For Sis Santana Tablets High Cholesterol PT For R Shoulder please evaluate and M25.511 Silbrennan, 09/12/2018 Pain And L Leg treat, instruct in Sis Santana Pain (S/P L Distal hep, modalities prn Femur #) M97.12xD Mvi/Senior Complete 1 PO qd Unknown 08/06/2018 Nystatin apply up to 3x/day to 60gm Max Dunlap, 08/06/2018 [id number]/GM affected area as M.D. Powder needed for fungal rashes Docusate Sodium 1 cap by mouth twice 60caps Max Dunlap, 06/06/2018 100mg a day for M.D. Capsules constipation Dulcolax take 1-2 tablets by Unknown 06/06/[address] mouth in the evening only Clotrimazole apply externally to 45gm B35.4 Max Dunlap, 2018 1% Cream affected areas twice M.D. a day for 2 weeks or until rash has resolved: then cont 2 day after rash resolves Acv W/Honey as directed twice Max Dunlap, 05/23/2017 daily M.D. Lisinopril 1 pill every morning I10 KaliaYolanda ninon, 07/02/2015 20mg Tablets for high blood MD pressure Coumadin 1-2 tabletS by mouth 100tabs I48.0 Max Dunlap, 02/17/2015 2mg Tablets daily; Adjust Dose as M.D. Directed Calcium/Vitamin D 1 po daily Unknown 02/13/2015 Levothyroxine Sodium take 1 tablet by 90tabs E06.3 Max Dunlap, 2012 125mcg mouth every morning M.D. Tablets on empty stomach Systane 1-2 drops in each eye Unknown 02/03/2013 0.4-0.3% Solution bid for dry eye for chronic dry eye` Icaps Areds Formula 1 tab by mouth twice Nik, 11/19/2012 a day MD Rosette Tablets Aspirin 1 po qd for heart otc Unknown 81mg Tablets disease prevention Tylenol Extra Strength take two tablets by Unknown mouth twice daily, as 500mg Tablets needed - [id number] all sorces with additional mid day dose prn History Medications PT For Right M25.511 Deanne, 08/07/2018 - Shoulder Pain Sis Santana 09/12/2018 Doxycycline Hyclate one po twice daily Unknown 05/02/2018 - 05/12/2018 100mg Capsules Cipro 1 twice a day x 5 10tabs Deanne, 2018 - 250mg Tablets days Sis Santana 05/04/2018 PT For Right evaluate and treat, M25.511 Deanne, 01/08/2018 - Shoulder Pain modalities as needed, Sis Santana 02/08/2018 instruct in hep Amoxicillin 1 three times a day a 30tabs J01.90 Deanne, 10/27/2017 - 500mg day x 10 days for Sis Santana 12/18/2017 Tablets sinusitis Prednisone 2 tabs for 5 days 15tabs J20.9 Deanne, 10/27/2017 - 10mg then 1 tab for 5 days Sis Santana 12/18/2017 Tablets with exacerbation of bronchitis Sulfamethoxazole/Tri take 1 tablet by 6tabs Deanne, 08/17/2017 - methoprim DS mouth twice a day for Sis Santana 08/20/2017 3 days, for suspected 800-160mg Tablets UTI PT For Unsteady Gait please evaluate and Deanne, 07/08/2017 - And For General treat, instruct in Sis Santana 10/26/2017 Strengthening hep, modalities prn Tobramycin 1 drop three times a 5ml H00.014 Sai, 06/03/2017 - 0.3% day for 7 days Jaleel Arvizu 12/18/2017 Solution Clotrimazole/Betamet apply to affected 45unit Deanne, 05/23/2017 - hasone Dipropionate areas 2x/day as s Sis Santana 01/09/2019 needed for fungal 1-0.05% Cream skin rashes Sulfamethoxazole/Tri take 1 tablet by 10tabs Unknown 05/22/2017 - methoprim DS mouth twice a day x 5 05/24/2017 days 800-160mg Tablets Premarin apply 1 gm 42.500 N95.2 Judycoindu, 10/05/2016 - 0.625mg/GM intravaginally before G Sis Santana 05/24/2017 Cream bed 3x/wk Premarin 1 by mouth every day 90tabs Silbrennan, 08/06/2016 - 0.625mg as needed for vaginal Sis Santana 12/05/2018 Tablets bleeding PT For Neck Pain And please evaluate and 723.1 Deanne, 03/31/2015 - Stiffness treat, instruct in Sis Santana 07/01/2015 hep, modalities prn. Metoprolol Tartrate 1/2 tab by mouth 401.1 Deanne, 03/01/2015 - twice a day for blood Sis Santana 03/07/2015 100mg Tablets pressure and heart rate control PT For Unsteady Gait please evaluate and Deanne, 02/25/2015 - And For General treat, instruct in Sis Santana 07/01/2015 Strengthening hep, modalities prn Warfarin Sodium use as directed (up 100tab 427.31 Silbrennan, 02/17/2015 - 1mg to 4 tablets daily); jaime Santana M.D. 03/31/2015 Tablets for atrial fibrillation Keflex 1 by mouth four times Unknown 02/13/2015 - 500mg Capsules daily x 5 days 02/18/2015 Metoprolol Tartrate take 1 tablet by 401.1 Unknown 02/13/2015 - mouth twice a day 03/01/2015 100mg Tablets Miconazole Nitrate apply to affected 45gm 110.5 Silcoff, 09/30/2014 - 2% areas up to twice a Sis Santana 09/30/2017 Cream day as needed for fungal rashes in skin folds PT For Left Knee And evaluate and treat, 719.46 Deanne, 09/30/2014 - Hip Pain as Well as modalties as needed, Sis Santana 07/01/2015 R Knee Pain instruct in hep 719.45 [place]-3 1 qd Unknown 09/27/2014 - Capsules 02/05/2014 Systane Ultra Unknown 08/14/2014 - 09/27/2014 0.4-0.3% Solution Suppliment Unknown 08/05/2014 - 09/27/2014 Lisinopril-Hydrochlo take 1 tablet every 90tabs 401.1 [facility], 05/27/2014 - rothiazide morning for high Nolberto, D.O. 07/02/2015 20-12.5mg blood pressure Tablets Coconut Oil 2 po daily Unknown 02/03/2014 - 1000mg 03/29/2016 Capsules Metoprolol Tartrate take one tablet by 200tabs 401.1 Deanne, 09/20/2013 - mouth twice a day Sis Santana 02/18/2015 25mg Tablets for blood pressure control Betamethasone apply to affected 45gm 691.8 Silcoff, 06/08/2013 - Valerate area on ankle Sis Santana 10/04/2016 0.1% Cream 2x/day as needed Lisinopril/Hydrochlo take 1 tablet every 90tabs 401.1 Silcoindu, 06/08/2013 - rothiazide morning for high Sis Santana 05/27/2014 20-12.5mg blood pressure Tablets Pure [place] Grape 2 caps daily in am Unknown 02/05/2013 - Seed 03/29/2016 Capsules Sulfamethoxazole/Tri 1 by mouth twice a 0tabs 599.0 Erin 01/25/2012 - methoprim DS day x3 days as MD Ruiz 09/27/2014 needed for UTIs; 800-160mg Tablets start at onset of symptoms of urinary tract infections Sulfamethoxazole/Tri 1 po bid x3 days; 6tabs 595.0 Silcoindu, 11/17/2011 - methoprim DS for urinary tract Sis Santana 11/20/2011 infection 800-160mg Tablets Amoxicillin 1 tid for ten days 30caps 595.0 Truong Suazo 10/30/2011 - 250mg for infection Sis Johnson 11/09/2011 Capsules Polyethylene Glycol 1-2 packets per day 60units 564.01 Truong Suazo 2011 - 3350 for constipation Sis Johnson 11/29/2011 3350NF Packet Lisinopril/Hydrochlo 1 po qd in am for 90tabs 401.1 Deanne, 09/08/2011 - rothiazide high blood pressure Sis Santana 06/08/2013 10-12.5mg Tablets Sulfamethoxazole/Tri 1 tablet by mouth 6tabs 595.0 Judycoindu, 06/01/2011 - methoprim DS twice a day for 3 Sis Santana 06/04/2011 days; for urinary 800-160mg Tablets tract infection Ibuprofen takes 400mg 2x/day OTC Unknown 05/04/2011 - 200mg 09/30/2015 Tablets PT For R Arm Pain please evaluate and 729.5 Deanne, 04/30/2009 - And Decreased treat, instruct in Sis Santana 11/03/2009 Shoulder ROM hep, modalities prn. Levoxyl 1 po qd in am on an 90tabs 245.2 Judycoindu, 02/06/2009 - 112mcg empty stomach Sis Santana 06/08/2013 Tablets Zetia 1 by mouth every 100tabs E78.0 Deanne, 01/31/2009 - 10mg Tablets day for high Sis Santana 10/18/2018 cholesterol Metoprolol 1 po bid for high 180tabs 401.1 Judycoindu, 12/23/2008 - 25mg blood pressure Sis Santana 09/20/2013 Tablets Septra DS 1 po bid x3 days 6tabs 599.0 Deanne 12/02/2008 - 800-160 Sis Santana 12/05/2008 Tablets 595.0 Nystatin apply to affected 30gm 698.1 Max Dunlap 07/08/2008 - [id number]/GM areas 3x/d as M.DRoslyn 10/04/2016 Cream needed for fungal infections on skin (jeana in skin folds) 112.3 Estrace apply 1-2 GM 42.500G 627.3 Deanne 07/08/2008 - 0.1mg/GM intravaginally 2x/wk Sis Santana 09/17/2013 Cream as needed for atrophic vaginitis and to prevent urinary tract infections Nortriptyline HCL 1-2 PO QHS 180caps 300.4 Deanne 07/08/2008 - Sis Santana 01/05/2015 25mg Capsules 780.52 Levoxyl 1 PO qd In Am On 90tabs 245.2 Max Dunlap 04/26/2008 - 100mcg Tablets An Empty Stomach M.DRoslyn 02/06/2009 Nortriptyline HCL 1 PO QHS for 1 30caps 300.4 Max Dunlap 04/26/2008 - 25mg month then D/C M.DRoslyn 07/08/2008 Capsules Fluticasone 2 Sprays Into 3Bottle 472.0 Max Dunlap 10/31/2007 - Propionate Each Nostril qd M.DRoslyn 09/17/2013 50mcg/Act For chronic Suspension runny nose Cipro 1 po bid 20units 595.0 Truong Suazo 10/13/2007 - 250mg Sis Johnson 10/19/2007 Levaquin 1 PO Once Daily 10tabs 466.0 Remedios Espinoza MD 09/26/2007 - 500mg Tablets as Directed 10/06/2007 599.0 Simvastatin 1 PO qd To Lower 90tabs 272.0 Remedios Espinoza 06/19/2007 - 10mg Cholesterol 04/26/2008 Tablets Citalopram 1 PO qd as Directed, 90tabs 300.4 Deanne 06/19/2007 - Hydrobromide for depression Sis Santana 11/03/2009 20mg Tablets Lisinopril/Hydrochlo 1 po qd in am for 90tabs 401.1 Judycoindu, 06/19/2007 - rothiazide high blood pressure Sis Santana 09/08/2011 10-12.5 Tablets Metoprolol Succinate 1 PO QHS For High BP 90tabs 401.1 Deanne, 2006 - ER And Heart Protection Sis Santana 12/23/2008 50mg Tablets ER 24HR Lisinopril 1 PO qd For High 90tabs 401.1 Judycoindu, 04/03/2007 - 10mg Blood Pressure Sis Santana 06/19/2007 Tablets Metoprolol 1 PO bid For High 401.1 Unknown 04/03/2007 - 25mg Blood Pressure 06/19/2007 Tablets Zetia 1 po qd for 90tabs 272.0 Truong Suazo 06/08/2006 - 10mg Tablets cholesterol Sis Johnson 10/28/2008 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 04/03/2007 modalities prn PT Referral For Evaluate And Treat, 726.0 Deanne, 10/04/2005 - Bilat Frozen Modalities prn Sis Santana 04/03/2007 Shoulders Levoxyl 1 qd for thyroid on 90tabs 245.2 Judycoindu, 11/13/2004 - 50mcg Tablets empty stomach in the Sis Santana 10/18/2005 am Lipitor 1 po qd supper time 90tabs 272.0 Deanne 12/31/2003 - 10mg Tablets to reduce cholesterol Sis Santana 11/06/2005 Nortriptyline 2 tabs qhs 180caps 300.4 Deanne, 12/31/2003 - 25mg Sis Santana 04/26/2008 Capsules Verapamil Sustained 1 and 1/2 tab every 135tabs 401.1 Deanne 12/31/2003 - Release day Sis Santana 04/03/2007 240mg Tablets Premarin Vaginal apply to the vaginal 42.5gm 627.3 Deanne 12/31/2003 - opening and urinary Sis Santana 07/08/2008 0.625mg/GM Cream opening and up in vagina about an inch twice A week Premarin Vaginal 1/2 applicator 42.5gm 627.3 Deanne, 11/11/2003 - intravaginally hs Sis Santana 12/31/2003 0.625mg/GM Cream Zithromax Z-Jaron Take as Directed 466.0 fabiola 11/01/2003 - 250mg 11/11/2003 Tablets #One Pack Albuterol Mdi 2 Puffs Q 4 HRS prn 1units 466.0 fabiola 11/01/2003 - For SOB 06/19/2007 90mcg/Dose Aerosol Lisinopril & HCTZ 1 po qd for blood 90tabs 401.1 Deanne, 09/17/2003 - prssure Sis Santana 04/03/2007 10mg;12.5 mg Tablets Calcium, Zinc, 2 PO qd Unknown - Magnesium Vit. 08/06/2014 Meso Silver [place] Daily q am Unknown - Gold 02/03/2015 1-2Oz Each Alea Vie daily q am Unknown - 3Oz 02/05/2014 Medications Administered in Office Medication SIG Qnty Indications Ordering Provider Date H1N1 Swine Flu Vaccine Max Dunlap M.D. 08/25/2009 Injection Immunizations CPT Code Status Date Vaccine Lot # U-[id number] Given 05/31/2018 Influenza,Unspecified 24560 Given 05/24/2017 Influenza Vaccine Split Virus Preservative Free Im [id number] Use 11897 Given 07/15/2016 Influenza Vaccine Split Virus Preservative Free Im Use 23236 Given 10/01/2015 Influenza Vaccine Split Virus Preservative Free Im [id number] Use 50658 Given 03/31/2015 Prevnar 13 [id number] 12568 Given 12/12/2014 Adacel or Boostrix, TDaP 84386 Given 07/08/2014 Flu, Split Virus 3Yrs 06104 Given 06/08/2013 Flu, Split Virus 3Yrs [id number] 88430 Given 05/19/2012 Flu, Split Virus 3Yrs [id number] 42836 Given 07/07/2009 Flu, Split Virus 3Yrs 19359 Given 07/05/2008 Flu, Split Virus 3Yrs [id number] 53719 Given 06/19/2007 Flu, Split Virus 3Yrs [id number] 97113 Given 06/27/2006 Flu, Split Virus 3Yrs 27453 Given 09/01/2005 Td Immunization [id number] 73216 Given 09/01/2005 Td Immunization 16923 Given 07/06/2005 Influenza Immunization 38035 Given 09/05/2004 Pneumococcal Immunization 74235 Given 06/27/2004 Flu, Split Virus 3Yrs 27363 Given 06/27/2004 Flu, Split Virus 3Yrs 63601 Given 07/02/2003 Flu, Split Virus 3Yrs 84708 Refused 12/19/2017 Shingrix Zoster (Shingles) Vaccine (HZV) Recomb,Subnit,Adjuvanted [id number] Refused 11/04/2009 Zostavax Vital Signs Date Vital Result Comment 01/10/2019 2:27pm BP Systolic 112 mmHg BP Diastolic 60 mmHg Height 61.75 inches 5'1.75" Weight 168.00 lb BMI (Body Mass Index) 31.0 kg/m2 08/07/2018 12:14pm BP Systolic 128 mmHg BP Diastolic 80 mmHg Body Temperature 97.7 F Weight 163.00 lb w/shoes 05/05/2018 9:20am BP Systolic 132 mmHg BP Diastolic 82 mmHg 2018 11:08am BP Systolic 140 mmHg BP Diastolic 72 mmHg BP Systolic Recheck 130 mmHg BP Diastolic Recheck 80 mmHg Body Temperature 97.4 F Height 62 inches 5'2" w/shoes Weight 171.00 lb w/shoes BMI (Body Mass Index) 31.3 kg/m2 12/19/2017 11:30am BP Systolic 138 mmHg BP Diastolic 76 mmHg Weight 174.00 lb with shoes 10/27/2017 3:06pm BP Systolic 138 mmHg BP Diastolic 74 mmHg Heart Rate 84 /min O2 % BldC Oximetry 95 % Body Temperature 97.1 F Weight 175.00 lb 06/03/2017 12:09pm BP Systolic 138 mmHg BP Diastolic 78 mmHg 05/24/2017 11:13am BP Systolic 140 mmHg BP Diastolic 70 mmHg Height 62.50 inches 5'2.50" w/shoes Weight 177.00 lb w/shoes BMI (Body Mass Index) 31.9 kg/m2 11/19/2016 10:52am BP Systolic 144 mmHg BP Diastolic 76 mmHg Height 62 inches 5'2" w/shoes Weight 182.00 lb w/shoes BMI (Body Mass Index) 33.3 kg/m2 10/05/2016 1:35pm BP Systolic 136 mmHg BP Diastolic 82 mmHg Heart Rate 80 /min reg Weight 186.00 lb 03/30/2016 12:59pm BP Systolic 148 mmHg BP Diastolic 70 mmHg Height 62.5 inches 5'2.50" with shoes Weight 187.00 lb with shoes BMI (Body Mass Index) 33.7 kg/m2 10/01/2015 1:03pm BP Systolic 146 mmHg R arm sitting BP Diastolic 76 mmHg R arm sitting BP Systolic Recheck 164 mmHg per RN BP Diastolic Recheck 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00 lb 09/30/2014 11:55am BP Systolic 150 mmHg BP Diastolic 90 mmHg Height 61 inches 5'1" Weight 195.00 lb BMI (Body Mass Index) 36.8 kg/m2 08/20/2014 1:07pm BP Systolic 130 mmHg BP Diastolic 60 mmHg Weight 193.00 lb 08/06/2014 11:42am BP Systolic 162 mmHg BP Diastolic 72 mmHg O2 % BldC Oximetry 98 % Weight 196.00 lb shoes on 03/29/2014 1:52pm BP Systolic 150 mmHg BP Diastolic 80 mmHg Height 61.25 inches 5'1.25" Weight 194.00 lb BMI (Body Mass Index) 36.4 kg/m2 09/17/2013 2:44pm BP Systolic 158 mmHg BP Diastolic 76 mmHg BP Systolic Recheck 136 mmHg R arm sitting BP Diastolic Recheck 70 mmHg R arm sitting Heart Rate 72 /min reg Weight 203.00 lb 06/08/2013 1:38pm BP Systolic 166 mmHg R arm sitting BP Diastolic 82 mmHg R arm sitting BP Systolic Recheck 166 mmHg L arm sitting BP Diastolic Recheck 76 mmHg L arm sitting Weight 204.00 lb 06/08/2013 1:02pm BP Systolic 152 mmHg BP Diastolic 80 mmHg Height 61.75 inches 5'1.75" Weight 204.00 lb BMI (Body Mass Index) 37.6 kg/m2 11/20/2012 9:59am BP Systolic 150 mmHg BP Diastolic 76 mmHg BP Systolic Recheck 164 mmHg R arm sitting BP Diastolic Recheck 86 mmHg R arm sitting Heart Rate 78 /min reg Height 62.50 inches 5'2.50" Weight 214.00 lb BMI (Body Mass Index) 38.5 kg/m2 05/19/2012 11:35am BP Systolic 146 mmHg BP Diastolic 84 mmHg BP Systolic Recheck 128 mmHg R arm sitting BP Diastolic Recheck 70 mmHg R arm sitting Height 62.5 inches 5'2.50" Weight 214.00 lb BMI (Body Mass Index) 38.5 kg/m2 02/02/2012 3:45pm BP Systolic 142 mmHg BP Diastolic 70 mmHg Heart Rate 76 /min reg Respiratory Rate 16 /min not laboured Weight 215.00 lb 11/17/2011 10:15am BP Systolic 150 mmHg BP Diastolic 80 mmHg BP Systolic Recheck 144 mmHg R arm sitting BP Diastolic Recheck 72 mmHg R arm sitting Heart Rate 70 /min reg Body Temperature 98.2 F Weight 215.00 lb Last Menstrual Period 0 10/30/2011 11:33am BP Systolic 126 mmHg afebrile BP Diastolic 84 mmHg afebrile Height 63.5 inches 5'3.50" Weight 220.00 lb BMI (Body Mass Index) 38.4 kg/m2 06/01/2011 2:03pm BP Systolic 140 mmHg BP Diastolic 80 mmHg Body Temperature 97.7 F Weight 220.00 lb 05/05/2011 3:17pm BP Systolic 156 mmHg BP Diastolic 70 mmHg Body Temperature 97.4 F Height 63.5 inches 5'3.50" Weight 219.00 lb BMI (Body Mass Index) 38.2 kg/m2 11/09/2010 1:46pm BP Systolic 154 mmHg BP Diastolic 80 mmHg BP Systolic Recheck 136 mmHg R arm sitting BP Diastolic Recheck 68 mmHg R arm sitting Height 63.50 inches 5'3.50" Weight 214.00 lb BMI (Body Mass Index) 37.3 kg/m2 05/12/2010 10:37am BP Systolic 162 mmHg BP Diastolic 82 mmHg BP Systolic Recheck 152 mmHg R arm sitting BP Diastolic Recheck 82 mmHg R arm sitting Heart Rate 74 /min reg Height 63 inches 5'3" Weight 217.00 lb BMI (Body Mass Index) 38.4 kg/m2 Last Menstrual Period 0 11/04/2009 11:26am BP Systolic 146 mmHg BP Diastolic 70 mmHg Height 63 inches 5'3" Weight 214.00 lb BMI (Body Mass Index) 37.9 kg/m2 04/30/2009 10:02am BP Systolic 150 mmHg BP Diastolic 80 mmHg Weight 210.00 lb Last Menstrual Period 0 01/31/2009 10:01am BP Systolic 158 mmHg BP Diastolic 78 mmHg Height 63 inches 5'3" Weight 202.00 lb BMI (Body Mass Index) 35.8 kg/m2 07/08/2008 1:48pm BP Systolic 130 mmHg BP Diastolic 70 mmHg Body Temperature 98.2 F Weight 210.00 lb Last Menstrual Period 0 04/26/2008 11:08am BP Systolic 144 mmHg our large cuff BP Diastolic 80 mmHg our large cuff BP Systolic Recheck 167 mmHg pt machine BP Diastolic Recheck 88 mmHg pt machine Weight 217.00 lb BMI (Body Mass Index) 34.1 kg/m2 10/31/2007 10:04am BP Systolic 150 mmHg BP Diastolic 76 mmHg BP Systolic Recheck 170 mmHg R arm sitting BP Diastolic Recheck 86 mmHg R arm sitting Heart Rate 76 /min reg Height 66.9 inches 5'6.90" Weight 211.00 lb BMI (Body Mass Index) 33.1 kg/m2 10/19/2007 2:05pm BP Systolic 130 mmHg BP Diastolic 74 mmHg Weight 210.00 lb Last Menstrual Period 0 10/13/2007 5:07pm BP Systolic 168 mmHg BP Diastolic 86 mmHg Body Temperature 97.7 F Weight 210.00 lb 09/26/2007 1:55pm BP Systolic 130 mmHg BP Diastolic 78 mmHg Body Temperature 97.4 F Weight 204.00 lb Last Menstrual Period 0 07/31/2007 8:37am BP Systolic 140 mmHg BP Diastolic 90 mmHg BP Systolic Recheck 158 mmHg R arm sitting BP Diastolic Recheck 84 mmHg R arm sitting Weight 209.00 lb Last Menstrual Period 0 06/19/2007 8:31am BP Systolic 160 mmHg BP Diastolic 96 mmHg Weight 205.00 lb Last Menstrual Period 0 04/03/2007 9:16am BP Systolic 166 mmHg BP Diastolic 84 mmHg BP Systolic Recheck 176 mmHg R arm sitting BP Diastolic Recheck 88 mmHg R arm sitting Heart Rate 68 /min reg Respiratory Rate 16 /min not laboured Height 66.9 inches 5'6.90" Weight 202.00 lb BMI (Body Mass Index) 31.7 kg/m2 06/08/2006 9:48am BP Systolic 160 mmHg BP Diastolic 80 mmHg Height 66.9 inches 5'6.90" Weight 209.00 lb BMI (Body Mass Index) 32.8 kg/m2 03/02/2006 9:04am BP Systolic 160 mmHg BP Diastolic 82 mmHg BP Systolic Recheck 138 mmHg R arm sitting BP Diastolic Recheck 82 mmHg R arm sitting Height 66.9 inches 5'6.90" Weight 210.00 lb BMI (Body Mass Index) 33.0 kg/m2 12/17/2005 3:30pm BP Systolic 126 mmHg BP Diastolic 66 mmHg Height 66.9 inches 5'6.90" Weight 215.00 lb BMI (Body Mass Index) 33.8 kg/m2 11/15/2005 10:24am BP Systolic 130 mmHg BP Diastolic 64 mmHg Height 66.9 inches 5'6.90" Weight 208.00 lb BMI (Body Mass Index) 32.7 kg/m2 10/18/2005 9:25am BP Systolic 160 mmHg 126/78 lying down after EKG BP Diastolic 78 mmHg 126/78 lying down after EKG Height 66.9 inches 5'6.90" Weight 209.00 lb BMI (Body Mass Index) 32.8 kg/m2 10/04/2005 2:35pm BP Systolic 122 mmHg BP Diastolic 74 mmHg Body Temperature 97.7 F Height 66.9 inches 5'6.90" Weight 210.00 lb BMI (Body Mass Index) 33.0 kg/m2 09/01/2005 9:38am BP Systolic 120 mmHg BP Diastolic 78 mmHg Body Temperature 98.2 F Height 66.9 inches 5'6.90" Weight 211.00 lb BMI (Body Mass Index) 33.1 kg/m2 04/16/2005 11:15am BP Systolic 142 mmHg (pts r arm-office [...] BMI (Body Mass Index) 33.8 kg/m2 01/15/2005 11:14am BP Systolic 158 mmHg BP Diastolic 80 mmHg BP Systolic Recheck 142 mmHg R arm sitting BP Diastolic Recheck 78 mmHg R arm sitting Heart Rate 76 /min reg Height 66.9 inches 5'6.90" Weight 216.00 lb BMI (Body Mass Index) 33.9 kg/m2 11/13/2004 9:17am BP Systolic 146 mmHg BP Diastolic 86 mmHg Height 66.9 inches 5'6.90" Weight 217.00 lb BMI (Body Mass Index) 34.1 kg/m2 08/10/2004 10:11am BP Systolic 138 mmHg BP Diastolic 72 mmHg Height 66.9 inches 5'6.90" Weight 214.00 lb BMI (Body Mass Index) 33.6 kg/m2 Last Menstrual Period 0 05/12/2004 11:51am BP Systolic 128 mmHg BP Diastolic 70 mmHg Body Temperature 97.6 F Weight 214.00 lb 03/31/2004 1:06pm BP Systolic 130 mmHg BP Diastolic 70 mmHg BP Systolic Recheck 132 mmHg R arm sitting BP Diastolic Recheck 70 mmHg R arm sitting Weight 216.00 lb 12/31/2003 2:38pm BP Systolic 142 mmHg BP Diastolic 82 mmHg BP Systolic Recheck 146 mmHg R arm sitting BP Diastolic Recheck 80 mmHg R arm sitting Weight 207.00 lb 11/11/2003 12:52pm BP Systolic 138 mmHg BP Diastolic 88 mmHg Weight 199.00 lb 11/01/2003 4:08pm Body Temperature 98.4 F Weight 204.00 lb 10/08/2003 11:28am Body Temperature 97.6 F Weight 204.00 lb Last Menstrual Period 0 Results Test Date Facility Test Result H/L Range Note Inr/Protime 12/12/2018 [facility] Inr 2.62 High 0.77-1.02 7 [phone] Inr/Protime 10/12/2018 [facility] Inr 1.56 High 0.77-1.02 2 [phone] CBC Auto Diff 05/31/2018 [facility] White Blood 12.8 10^3/uL High 3.5 -10.8 [phone] Count Red Blood Count 3.82 10^6/uL Low 4.00-5.40 Hemoglobin 12.0 g/dL N 12.0-16.0 Hematocrit 36 % N 35-47 Mean Corpuscular Volume 95 fL N 80-97 Mean Corpuscular Hemoglobin 31 pg N 27-31 Mean Corpuscular HGB Conc 33 g/dL N 31-36 Red Cell Distribution Width 14 % N 10.5-15 Platelet Count 269 10^3/uL N 150-450 Mean Platelet Volume 9.1 um3 N 7.4-10.4 Abs Neutrophils 10.5 10^3/uL High 1.5-7.7 Abs Lymphocytes 1.3 10^3/uL N 1.0-4.8 Abs Monocytes 1.0 10^3/uL High 0-0.8 Abs Eosinophils 0.1 10^3/uL N 0-0.6 Abs Basophils 0 10^3/uL N 0-0.2 Abs Nucleated RBC 0 10^3/uL Granulocyte % 81.4 % N 38-83 Lymphocyte % 10.3 % Low 25-47 Monocyte % 7.6 % High 0-7 Eosinophil % 0.5 % N 0-6 Basophil % 0.2 % N 0-2 Nucleated Red Blood Cells % 0 Inr/Protime 05/31/2018 [facility] Inr 3.42 High 0.77-1.02 [phone] Comp Metabolic Panel 05/31/2018 [facility] Sodium 140 mmol/L N 135- 145 [phone] Potassium 3.9 mmol/L N 3.5-5.0 Chloride 105 mmol/L N 101-111 Co2 Carbon Dioxide 27 mmol/L N 22-32 Anion Gap 8 mmol/L N 2-11 Glucose 122 mg/dL High 70-100 Blood Urea Nitrogen 13 mg/dL N 6-24 Creatinine 0.70 mg/dL N 0.51-0.95 BUN/Creatinine Ratio 18.6 N 8-20 Calcium 9.3 mg/dL N 8.6-10.3 Total Protein 6.5 g/dL N 6.4-8.9 Albumin 4.3 g/dL N 3.2-5.2 Globulin 2.2 g/dL N 2-4 Albumin/Globulin Ratio 2.0 N 1-3 Total Bilirubin 0.50 mg/dL N 0.2-1.0 Alkaline Phosphatase 76 U/L N 34-104 Alt 15 U/L N 7-52 Ast 24 U/L N 13-39 Egfr Non- 79.2 >60 Egfr 95.8 >60 3 Laboratory test 05/31/2018 [facility] Troponin-I (TnI) 0.00 ng/mL < 0.04 finding [phone] Urinalysis Profile 05/31/2018 [facility] Urine Color Yellow [phone] Urine Appearance Clear Urine Specific Ava 1.011 N 1.010-1.030 Urine pH 6.0 N 5-9 Urine Urobilinogen Negative Negative Urine Ketones Negative Negative Urine Protein Negative Negative Urine Leukocytes Negative Negative Urine Blood Negative Negative * * Abnormal Negative 4 Urine Nitrite Negative Negative Urine Bilirubin Negative Negative Urine Glucose Negative Negative Inr/Protime 05/30/2018 [facility] Inr 3.04 High 0.77-1.02 5 [phone] Inr/Protime 05/12/2018 [facility] Inr 2.11 High 0.77-1.02 [phone] CBC Auto Diff 05/02/2018 [facility] White Blood 16.1 10^3/uL High 3.5 -10.8 [phone] Count Red Blood Count 3.83 10^6/uL Low 4.00-5.40 Hemoglobin 11.9 g/dL Low 12.0-16.0 Hematocrit 36 % N 35-47 Mean Corpuscular Volume 94 fL N 80-97 Mean Corpuscular Hemoglobin 31 pg N 27-31 Mean Corpuscular HGB Conc 33 g/dL N 31-36 Red Cell Distribution Width 14 % N 10.5-15 Platelet Count 286 10^3/uL N 150-450 Mean Platelet Volume 8.3 um3 N 7.4-10.4 Abs Neutrophils 13.3 10^3/uL High 1.5-7.7 Abs Lymphocytes 1.2 10^3/uL N 1.0-4.8 Abs Monocytes 1.4 10^3/uL High 0-0.8 Abs Eosinophils 0 10^3/uL N 0-0.6 Abs Basophils 0.1 10^3/uL N 0-0.2 Abs Nucleated RBC 0 10^3/uL Granulocyte % 83.0 % N 38-83 Lymphocyte % 7.7 % Low 25-47 Monocyte % 8.9 % High 0-7 Eosinophil % 0.1 % N 0-6 Basophil % 0.3 % N 0-2 Nucleated Red Blood Cells % 0 Comp Metabolic Panel 05/02/2018 [facility] Sodium 137 mmol/L N 135- 145 [phone] Potassium 4.0 mmol/L N 3.5-5.0 Chloride 103 mmol/L N 101-111 Co2 Carbon Dioxide 27 mmol/L N 22-32 Anion Gap 7 mmol/L N 2-11 Glucose 108 mg/dL High 70-100 Blood Urea Nitrogen 13 mg/dL N 6-24 Creatinine 0.75 mg/dL N 0.51-0.95 BUN/Creatinine Ratio 17.3 N 8-20 Calcium 9.5 mg/dL N 8.6-10.3 Total Protein 6.5 g/dL N 6.4-8.9 Albumin 4.2 g/dL N 3.2-5.2 Globulin 2.3 g/dL N 2-4 Albumin/Globulin Ratio 1.8 N 1-3 Total Bilirubin 0.70 mg/dL N 0.2-1.0 Alkaline Phosphatase 84 U/L N 34-104 Alt 21 U/L N 7-52 Ast 34 U/L N 13-39 Egfr Non- 73.1 >60 Egfr 88.4 >60 6 Urinalysis Profile 05/02/2018 [facility] Urine Color Straw [phone] Urine Appearance Clear Urine Specific Ava 1.003 Low 1.010-1.030 Urine pH 6.0 N 5-9 Urine Urobilinogen Negative Negative Urine Ketones Negative Negative Urine Protein Negative Negative Urine Leukocytes Negative Negative Urine Blood Negative Negative * * Abnormal Negative 7 Urine Nitrite Negative Negative Urine Bilirubin Negative Negative Urine Glucose Negative Negative Inr/Protime 03/29/2018 [facility] Inr 1.96 High 0.77-1.02 [phone] Inr/Protime 03/14/2018 [facility] Inr 2.33 High 0.77-1.02 8 [phone] Inr/Protime 03/01/2018 [facility] Inr 1.66 High 0.77-1.02 [phone] Inr/Protime 02/07/2018 [facility] Inr 2.54 High 0.77-1.02 [phone] Inr/Protime 01/24/2018 [facility] Inr 1.75 High 0.77-1.02 [phone] Inr/Protime 01/10/2018 [facility] Inr 2.04 High 0.77-1.02 [phone] Basic Metabolic Panel 12/19/2017 [facility] Sodium 140 mmol/L N 139- 145 [phone] Potassium 4.4 mmol/L N 3.5-5.0 Chloride 102 mmol/L N 101-111 Co2 Carbon Dioxide 30 mmol/L N 22-32 Anion Gap 8 mmol/L N 2-11 Glucose 103 mg/dL High 70-100 Blood Urea Nitrogen 15 mg/dL N 6-24 Creatinine 0.75 mg/dL N 0.51-0.95 BUN/Creatinine Ratio 20.0 N 8-20 Calcium 9.6 mg/dL N 8.6-10.3 Egfr Non- 73.3 >60 Egfr 94.2 >60 9 Laboratory test 12/19/2017 [facility] TSH (Thyroid 1.71 N 0.34-5.60 10 finding [phone] Stim Horm) mcIU/mL Laboratory test 12/06/2017 [facility] Inr/Protime 2.54 High 0.77- 1.02 11 finding [phone] Laboratory test 11/25/2017 [facility] Inr/Protime 1.33 High 0.77- 1.02 12 finding [phone] Laboratory test 11/15/2017 [facility] Inr/Protime 2.81 High 0.77- 1.02 13 finding [phone] Laboratory test 10/25/2017 [facility] Inr/Protime 2.37 High 0.77- 1.02 14, 15 finding [phone] Urinalysis 09/06/2017 [facility] Urine Color Yellow Profile [phone] Urine Appearance Clear Urine Specific Ava 1.005 Low 1.010-1.030 Urine pH 6.0 N 5-9 Urine Urobilinogen Negative Negative Urine Ketones Negative Negative Urine Protein Negative Negative Urine Leukocytes 3+ Abnormal Negative Urine Blood Negative Negative * * Abnormal Negative 16 Urine Nitrite Negative Negative Urine Bilirubin Negative Negative Urine Glucose Negative Negative Urine White Blood Cell 2+(11-20/hpf) Abnormal Absent Urine Red Blood Cell Trace(0-2/hpf) Absent Urine Bacteria Absent Absent Urine Squamous Epithelial Cell Present Abnormal Absent Laboratory test 09/06/2017 [facility] Urine Culture And SEE RESULT 17 finding [phone] Sensitivities BELOW Urinalysis Profile 08/17/2017 [facility] Urine Color Straw [phone] Urine Appearance Clear Urine Specific Ava 1.004 Low 1.010-1.030 Urine pH 6.0 N 5-9 Urine Urobilinogen Negative Negative Urine Ketones Negative Negative Urine Protein Negative Negative Urine Leukocytes 1+ Abnormal Negative Urine Blood 3+ Abnormal Negative Urine Nitrite Negative Negative Urine Bilirubin Negative Negative Urine Glucose Negative Negative Urine White Blood Cell 3+(>20/hpf) Abnormal Absent Urine Red Blood Cell Trace(0-2/hpf) Absent Urine Bacteria Absent Absent Laboratory test 08/17/2017 [facility] Urine Culture And SEE RESULT 18 finding [phone] Sensitivities BELOW Basic Metabolic 06/07/2017 [facility] Sodium 139 mmol/L N 133-14 Panel [phone] Potassium 4.2 mmol/L N 3.5-5.0 Chloride 102 mmol/L N 101-111 Co2 Carbon Dioxide 30 mmol/L N 22-32 Anion Gap 7 mmol/L N 2-11 Glucose 118 mg/dL High 70-100 Blood Urea Nitrogen 13 mg/dL N 6-24 Creatinine 0.86 mg/dL N 0.51-0.95 BUN/Creatinine Ratio 15.1 N 8-20 Calcium 9.6 mg/dL N 8.6-10.3 Egfr Non- 62.6 N >60 Egfr 80.5 N >60 19 Laboratory test 06/07/2017 [facility] TSH (Thyroid 1.44 mcIU/mL N 0.34-5.60 finding [phone] Stim Horm) Urine Micro 05/24/2017 In House Ua WBC 3 20 Inhouse Ua RBC - Ua Casts - Ua Epi - Ua Other - Ua Glucose - Ua Bilirubin - Ua Ketones - Ua Specific Ava 1.005 Ua Blood - Ua PH 5.0 Ua Protein - Ua Urobilinogen - Ua Nitrite - Ua Leukocytes - Laboratory test 05/22/2017 [facility] Urine Culture And SEE RESULT 21, 22 finding [phone] Sensitivities BELOW Urinalysis 10/15/2016 [facility] Urine Color Straw N Profile [phone] Urine Appearance Clear N Urine Specific Ava 1.004 Low 1.010-1.030 Urine pH 7.0 N 5-9 Urine Urobilinogen Negative N Negative Urine Ketones Negative N Negative Urine Protein Negative N Negative Urine Leukocytes 1+ Abnormal Negative Urine Blood 3+ Abnormal Negative Urine Nitrite Negative N Negative Urine Bilirubin Negative N Negative Urine Glucose Negative N Negative Urine White Blood Cell Trace(0-5/hpf) N Absent Urine Red Blood Cell 2+(6-10/hpf) Abnormal Absent Urine Bacteria Absent N Absent Urine Squamous Epithelial Cell Present Abnormal Absent Laboratory test 10/15/2016 [facility] Urine Culture And SEE RESULT 23 finding [phone] Sensitivities BELOW Laboratory test 10/05/2016 [facility] TSH (Thyroid Stim 1.88 N 0.34 finding [phone] Horm) mcIU/mL -5.6 0 Laboratory test 08/20/2016 [facility] Inr/Protime 2.15 High 0.89 24 , 25 finding [phone] -1.1 1 CBC Auto Diff 08/20/2016 [facility] White Blood Count 8.5 10^3/uL N 3.5- [phone] 10.8 Red Blood Count 4.32 10^6/uL N 4.0-5.4 Hemoglobin 13.4 g/dL N 12.0-16.0 Hematocrit 40 % N 35-47 Mean Corpuscular Volume 93 fL N 80-97 Mean Corpuscular Hemoglobin 31 pg N 27-31 Mean Corpuscular HGB Conc 33 g/dL N 31-36 Red Cell Distribution Width 13 % N 10.5-15 Platelet Count 312 10^3/uL N 150-450 Mean Platelet Volume 9 um3 N 7.4-10.4 Abs Neutrophils 5.6 10^3/uL N 1.5-7.7 Abs Lymphocytes 2.0 10^3/uL N 1.0-4.8 Abs Monocytes 0.7 10^3/uL N 0-0.8 Abs Eosinophils 0.1 10^3/uL N 0-0.6 Abs Basophils 0 10^3/uL N 0-0.2 Abs Nucleated RBC 0 10^3/uL N Granulocyte % 66.2 % N 38-83 Lymphocyte % 23.9 % Low 25-47 Monocyte % 8.2 % N 1-9 Eosinophil % 1.4 % N 0-6 Basophil % 0.3 % N 0-2 Nucleated Red Blood Cells % 0 N Comp Metabolic Panel 08/20/2016 [facility] Sodium 132 mmol/L Low 133- 145 [phone] Potassium 4.8 mmol/L N 3.5-5.0 Chloride 98 mmol/L Low 101-111 Co2 Carbon Dioxide 26 mmol/L N 22-32 Anion Gap 8 mmol/L N 2-11 Glucose 102 mg/dL High 70-100 Blood Urea Nitrogen 14 mg/dL N 6-24 Creatinine 1.08 mg/dL High 0.51-0.95 BUN/Creatinine Ratio 13.0 N 8-20 Calcium 10.0 mg/dL N 8.6-10.3 Total Protein 7.1 g/dL N 6.4-8.9 Albumin 4.7 g/dL N 3.2-5.2 Globulin 2.4 g/dL N 2-4 Albumin/Globulin Ratio 2.0 N 1-3 Total Bilirubin 0.50 mg/dL N 0.2-1.0 Alkaline Phosphatase 79 U/L N 34-104 Alt 17 U/L N 7-52 Ast 30 U/L N 13-39 Egfr Non- 48.2 N >60 Egfr 62.0 N >60 26 Laboratory test 08/20/2016 [facility] Urine Culture And SEE RESULT 27 finding [phone] Sensitivities BELOW Urine Micro 03/30/2016 In House Ua WBC - 28 Inhouse Ua RBC - Ua Casts - Ua Epi - Ua Other - Ua Glucose - Ua Bilirubin - Ua Ketones - Ua Specific Ava 1.005 Ua Blood H Tr Ua PH 5.0 Ua Protein - Ua Urobilinogen - Ua Nitrite - Ua Leukocytes - Laboratory 10/08/2015 [facility] TSH (Thyroid 0.36 N 0.34-5.60 test finding [phone] Stim Horm) ?IU/mL Laboratory 08/12/2015 [facility] Inr/Protime 2.32 High 0.89-1.11 test finding [phone] Protime W/ 07/15/2015 [facility] Inr 2.94 High 0.89-1.11 29, Inr(Add [phone] 30 V58.61) Laboratory 06/26/2015 [facility] Inr/Protime 1.32 High 0.78-1.07 31, test finding [phone] 32 Inr/Protime 03/21/2015 [facility] Inr 2.16 High 0.78-1.07 [phone] Inr/Protime 03/14/2015 [facility] Inr 2.11 High 0.78-1.07 [phone] Protime W/ 03/06/2015 [facility] 4.0 Inr(Add l Normalized V58.61) Urine Screen 03/05/2015 [facility]. Urine Color YELLOW Yellow LABORATORY [phone] Urine Clarity CLEAR Clear Urine Glucose - Dipstick NEGATIVE mg/dL Negative Urine Bilirubin - Dipstick NEGATIVE Negative Urine Ketone NEGATIVE mg/dL Negative Urine Specific Ava 1.015 1.010-1.030 Urine Blood NEGATIVE Negative Urine PH 6.0 Low 6.5-7.5 Urine Protein - Dipstick NEGATIVE mg/dL Negative Urine Urobilinogen - Dipstick 0.2 E.U./dL 0.2-1.0 Urine Nitrite - Dipstick NEGATIVE Negative Urine Leuk Esterase NEGATIVE Negative Laboratory test 03/05/2015 [facility] Urine Culture See Note 33 finding LABORATORY [phone] Protime W/ 02/25/2015 [facility] 3.0 Inr(Add V58.61) Normalized Protime 02/20/2015 [facility] Protime 21.3 seconds High 12.1 - LABORATORY 14.9 [phone] Inr 1.8 High 0.9-1.1 34 Protime 02/17/2015 [facility] Protime 19.9 seconds High 12.1 -14.9 LABORATORY [phone] Inr 1.7 High 0.9-1.1 35 CBC W/Automated 02/17/2015 [facility] White Blood 8.8 K/uL 3.1-10.7 Diff LABORATORY Count [phone] Red Blood Count 3.86 M/uL Low 3.90-5.40 [...] % 40.4-72.8 Lymph % 24.1 % 17.0-46.1 [place] % 11.1 % 4.3-13.2 Eo% 2.1 % 0.0-6.6 Bas% 0.5 % 0.0-1.1 Neut# 5.47 K/uL 1.0-7.0 Lymph # 2.11 K/uL 1.8-7.0 [place] # 0.97 K/uL High 0.3-0.9 Eos # 0.18 K/uL 0.0-0.5 Baso # 0.04 K/uL 0.0-0.1 Basic Metabolic Panel 02/17/2015 [facility] Glucose 90 mg/dL 74-106 LABORATORY [phone] BUN 13 mg/dL 7-18 Creatinine 0.8 mg/dL 0.6-1.3 Glom Filtration Rate, Estimate >60 mL/min >60 If >60 mL/min >60 36 BUN/Creat 16.2 ratio Sodium 140 mmol/L 136-145 Potassium 3.7 mmol/L 3.5-5.1 Chloride 104 mmol/L 98-107 Carbon Dioxide 28 mmol/L 21-32 Anion Gap 8 mEq/L 8-16 Calcium 9.4 mg/dL 8.5-10.1 CBC Auto Diff 02/05/2015 [facility] White Blood 18.0 10^3/uL High 4.8 -10.8 [phone] Count Red Blood Count 4.20 10^6/uL N 4.0-5.4 Hemoglobin 13.0 g/dL N 12.0-16.0 Hematocrit 39 % N 35-47 Mean Corpuscular Volume 94 fL N 80-97 Mean Corpuscular Hemoglobin 31 pg N 27-31 Mean Corpuscular HGB Conc 33 g/dL N 31-36 Red Cell Distribution Width 14 % N 10.5-15 Platelet Count 290 10^3/uL N 150-450 Mean Platelet Volume 9 um3 N 7.4-10.4 Abs Neutrophils 15.4 10^3/uL High 1.5-7.7 Abs Lymphocytes 1.0 10^3/uL N 1.0-4.8 Abs Monocytes 1.5 10^3/uL High 0-0.8 Abs Eosinophils 0 10^3/uL N 0-0.6 Abs Basophils 0 10^3/uL N 0-0.2 Abs Nucleated RBC 0.01 10^3/uL N Granulocyte % 85.8 % High 38-83 Lymphocyte % 5.8 % Low 25-47 Monocyte % 8.2 % N 1-9 Eosinophil % 0.1 % N 0-6 Basophil % 0.1 % N 0-2 Nucleated Red Blood Cells % 0 N Inr/Protime 02/05/2015 [facility] Inr 1.10 High 0.78-1.07 [phone] Laboratory test 02/05/2015 [facility] Partial 31.8 seconds N 26.0- 36.3 finding [phone] Thrombo Time PTT Lactic Acid 2.9 mmol/L High 0.5-2.2 37 Comp Metabolic Panel 02/05/2015 [facility] Sodium 130 mmol/L Low 133- 145 [phone] Potassium 3.5 mmol/L N 3.5-5.0 Chloride 94 mmol/L Low 101-111 Co2 Carbon Dioxide 26 mmol/L N 22-32 Anion Gap 10 mmol/L N 2-11 Glucose 156 mg/dL High 70-100 Blood Urea Nitrogen 20 mg/dL N 6-24 Creatinine 1.06 mg/dL High 0.51-0.95 BUN/Creatinine Ratio 18.9 N 8-20 Calcium 9.3 mg/dL N 8.6-10.3 Total Protein 7.5 g/dL N 6.4-8.9 Albumin 4.0 g/dL N 3.2-5.2 Globulin 3.5 g/dL N 2-4 Albumin/Globulin Ratio 1.1 N 1-3 Total Bilirubin 0.70 mg/dL N 0.2-1.0 Alkaline Phosphatase 165 U/L High 34-104 Alt 58 U/L High 7-52 Ast 57 U/L High 13-39 Egfr Non- 49.5 N >60 Egfr 63.7 N >60 38 Laboratory test finding 02/05/2015 [facility] Magnesium 1.9 mg/dL N 1.9-2.7 [phone] Troponin-I (TnI) 0.11 ng/mL High <0.03 39 TSH (Thyroid Stim Horm) 1.97 ?IU/mL N 0.34-5.60 Urinalysis Profile 02/05/2015 [facility] Urine Color Yellow N [phone] Urine Appearance Cloudy N Urine Specific Ava 1.011 N 1.010-1.030 Urine pH 5.0 N 5-9 Urine Urobilinogen Negative N Negative Urine Ketones Negative N Negative Urine Protein 1+(30 mg/dL) Abnormal Negative Urine Leukocytes 3+ Abnormal Negative Urine Blood 1+ Abnormal Negative * * Abnormal Negative 40 Urine Nitrite Negative N Negative Urine Bilirubin Negative N Negative Urine Glucose Negative N Negative Urine White Blood Cell 3+(>20/hpf) Abnormal Absent Urine Red Blood Cell 1+(3-5/hpf) Abnormal Absent Urine Bacteria Absent N Absent Laboratory test 02/05/2015 [facility] Blood Culture SEE RESULT 41 finding [phone] BELOW Laboratory test 06/14/2014 [facility] TSH (Thyroid 3.63 IU/mL N 0.34- 5 finding [phone] Stimulating Horm) .60 Comp Metabolic 06/14/2014 [facility] Sodium 137 mmol/L N 133-14 Panel [phone] Potassium 4.1 mmol/L N 3.7-5.6 Chloride 101 mmol/L N 101-111 Co2 Carbon Dioxide 31 mmol/L N 22-32 Anion Gap 5 mmol/L N 2-11 Glucose 93 mg/dL N 70-100 Blood Urea Nitrogen 13 mg/dL N 6-24 Creatinine 0.70 mg/dL N 0.51-0.95 BUN/Creatinine Ratio 18.6 N 8-20 Calcium 9.7 mg/dL N 8.6-10.3 Total Protein 6.5 g/dL N 6.4-8.9 Albumin 4.4 g/dL N 3.2-5.2 Globulin 2.1 g/dL N 2-4 Albumin/Globulin Ratio 2.1 N 1-3 Total Bilirubin 0.50 mg/dL N 0.2-1.0 Alkaline Phosphatase 94 U/L N 34-104 Alt 16 U/L N 7-52 Ast 22 U/L N 13-39 Egfr Non- 79.9 N >60 Egfr 102.8 N >60 42 CBC Auto Diff 06/14/2014 [facility] White Blood Count 8.0 10^3/uL N 4.8-10.8 [phone] Red Blood Count 4.05 10^6/uL N 4.0-5.4 Hemoglobin 13.0 g/dL N 12.0-16.0 Hematocrit 37 % N 35-47 Mean Corpuscular Volume 90 fL N 80-97 Mean Corpuscular Hemoglobin 32 pg High 27-31 Mean Corpuscular HGB Conc 36 g/dL N 31-36 Red Cell Distribution Width 13 % N 10.5-15 Platelet Count 299 10^3/uL N 150-450 Mean Platelet Volume 8 um3 N 7.4-10.4 Abs Neutrophils 4.7 10^3/uL N 1.5-7.7 Abs Lymphocytes 2.3 10^3/uL N 1.0-4.8 Abs Monocytes 0.7 10^3/uL N 0-0.8 Abs Eosinophils 0.2 10^3/uL N 0-0.6 Abs Basophils 0 10^3/uL N 0-0.2 Abs Nucleated RBC 0 10^3/uL N Granulocyte % 59.2 % N 38-83 Lymphocyte % 28.9 % N 25-47 Monocyte % 8.6 % N 1-9 Eosinophil % 2.9 % N 0-6 Basophil % 0.4 % N 0-2 Nucleated Red Blood Cells % 0 N Laboratory test 08/08/2013 [facility] TSH (Thyroid 4.50 miu/mL 0.34- 5.60 finding [phone] Stimulating Horm) Basic Metabolic 08/08/2013 [facility] Sodium 139 mmol/L 133-145 Panel [phone] Potassium 3.9 mmol/L 3.5-5.0 Chloride 99 mmol/L Low 101-111 Co2 Carbon Dioxide 31.0 mmol/L 22-32 Anion Gap 9.0 mmol/L 2-11 Glucose 118 mg/dL High 70-100 Blood Urea Nitrogen 11 mg/dL 6-24 Creatinine 0.80 mg/dL 0.50-1.40 BUN/Creatinine Ratio 13.8 8-20 Calcium 9.8 mg/dL 8.1-9.9 Egfr Non- 68.7 >60 Egfr 88.3 >60 43 Laboratory test 06/08/2013 In House Hemoglobin A1c 6.0 finding Basic Metabolic Panel 06/07/2013 [facility] Sodium 137 mmol/L 133- 145 [phone] Potassium 4.0 mmol/L 3.5-5.0 Chloride 100 mmol/L Low 101-111 Co2 Carbon Dioxide 31.0 mmol/L 22-32 Anion Gap 6.0 mmol/L 2-11 Glucose 102 mg/dL High 70-100 Blood Urea Nitrogen 9 mg/dL 6-24 Creatinine 0.70 mg/dL 0.50-1.40 BUN/Creatinine Ratio 12.9 8-20 Calcium 9.3 mg/dL 8.1-9.9 Egfr Non- 80.1 >60 Egfr 103.0 >60 44 Laboratory test 06/07/2013 [facility] TSH (Thyroid 6.54 High 0.34- 5.60 finding [phone] Stimulating Horm) miu/mL Lipid Profile 06/07/2013 [facility] Triglycerides 254 mg/dL High 40- 200 (Trig/Chol/HDL) [phone] Cholesterol 247 mg/dL High Less than 200 HDL Cholesterol 45 mg/dL 40-60 45 Cholesterol/HDL Ratio 5.5 Average High 1-4.44 LDL Cholesterol 151.2 High Less Than 100 46 Laboratory test finding 06/07/2013 [facility] Alt 18 U/L 14-54 [phone] Urine Micro Inhouse 11/20/2012 In House Ua WBC - Ua RBC - Ua Casts - Ua Epi - Ua Other - Ua Glucose - Ua Bilirubin - Ua Ketones - Ua Specific Ava 1.005 Ua Blood - Ua PH 7.0 Ua Protein - Ua Urobilinogen - Ua Nitrite - Ua Leukocytes - Laboratory test finding 05/19/2012 [facility] Vitamin B12 422 pg/mL 180-914 [phone] Laboratory test finding 05/12/2012 [facility] Alt (SGPT) 25 U/L 14- 54 47 [phone] Comp Metabolic Panel 05/12/2012 [facility] Sodium 141 mmol/L 135- 145 [phone] Potassium 4.4 mmol/L 3.5-5.0 Chloride 103 mmol/L 101-111 Co2 (Carbon Dioxide) 31.0 mmol/L 22-32 Anion Gap 7.0 mmol/L 2-11 48 Glucose 111 mg/dL High 70-100 BUN 14 mg/dL 6-24 Creatinine 0.8 mg/dL 0.50-1.40 One Over Creatinine 1.25 BUN/Creatinine Ratio 17.5 8-20 Calcium 9.6 mg/dL 8.1-9.9 Total Protein 6.8 GM/DL 6.2-8.1 Albumin 4.3 GM/DL 3.2-5.2 Globulin 2.5 GM/DL 2-4 Albumin/Globulin Ratio 1.7 1-3 Bilirubin Total 0.6 mg/dL 0.4-1.5 49 Alkaline Phosphatase 94 U/L 30-110 Ast (Sgot) 29 U/L 12-42 eGFR Non- 68.8 > 60 eGFR 88.5 > 60 50 Laboratory test finding 05/12/2012 [facility] TSH 3.56 MIU/ML 0.34- 5.60 [phone] Basic Metabolic Panel 01/24/2012 [facility] Sodium 139 mmol/L 135- 145 [phone] Potassium 4.2 mmol/L 3.5-5.0 Chloride 100 mmol/L Low 101-111 Co2 (Carbon Dioxide) 31.0 mmol/L 22-32 Anion Gap 8.0 mmol/L 2-11 51 Glucose 131 mg/dL High 70-100 BUN 14 mg/dL 6-24 Creatinine 0.9 mg/dL 0.50-1.40 One Over Creatinine 1.11 BUN/Creatinine Ratio 15.6 8-20 Calcium 10.2 mg/dL High 8.1-9.9 eGFR Non- 60.2 > 60 eGFR 77.5 > 60 52 Urine Micro Inhouse 11/17/2011 In House Ua WBC tntc Ua RBC tntc Ua Casts - Ua Epi 0-1 Ua Other - Ua Glucose - Ua Bilirubin - Ua Ketones - Ua Specific Ava 1.005 Ua Blood lrg Ua PH 6.0 Ua Protein - Ua Urobilinogen - Ua Nitrite - Ua Leukocytes 3+ Culture Urine Inhouse 11/17/2011 In House Colonies no growth Culture Urine Inhouse 10/30/2011 In House Colonies neg Urine Micro Inhouse 10/30/2011 In House Ua WBC packed Ua RBC packed Ua Casts - Ua Epi - Ua Other - Ua Glucose - Ua Bilirubin - Ua Ketones - Ua Specific Ava 1.010 Ua Blood lrg Ua PH 6.0 Ua Protein 4+ Ua Urobilinogen - Ua Nitrite + Ua Leukocytes lrg Urine Micro Inhouse 06/15/2011 In House Ua WBC 0-2 Ua RBC - Ua Casts - Ua Epi 0-2 Ua Other - Ua Glucose - Ua Bilirubin - Ua Ketones - Ua Specific Ava 1.005 Ua Blood - Ua PH 6.0 Ua Protein - Ua Urobilinogen - Ua Nitrite - Ua Leukocytes 2+ Urine Micro Inhouse 06/01/2011 In House Ua WBC tntc 53 Ua RBC tntc Ua Casts - Ua Epi - Ua Other - Ua Glucose - Ua Bilirubin - Ua Ketones - Ua Specific Ava 1.015 Ua Blood lrg Ua PH 6.5 Ua Protein 3+ Ua Urobilinogen - Ua Nitrite - Ua Leukocytes 2+ Culture Urine Inhouse 06/01/2011 In House Colonies 06/07 - Basic Metabolic Panel 05/18/2011 [facility] Sodium 141 mmol/L 135- 145 [phone] Potassium 4.2 mmol/L 3.5-5.0 Chloride 106 mmol/L 101-111 Co2 (Carbon Dioxide) 27.0 mmol/L 22-32 Anion Gap 8.0 mmol/L 2-11 54 Glucose 113 mg/dL High 70-100 BUN 11 mg/dL 6-24 Creatinine 0.9 mg/dL 0.50-1.40 One Over Creatinine 1.11 BUN/Creatinine Ratio 12.2 8-20 Calcium 9.3 mg/dL 8.1-9.9 eGFR Non- 60.2 > 60 eGFR 77.5 > 60 55 Laboratory test 05/18/2011 [facility] Folate RBC SEE NOTE [phone] finding [phone] (RBC Folic ng/mL Acid) Vitamin B12 339 pg/mL [phone] TSH 3.94 MIU/ML 0.34-5.60 Lipid Profile 05/18/2011 [facility] Triglyceride 266 mg/dL High 40- 200 (Trig/Chol/HDL) [phone] Cholesterol 245 mg/dL High Less Than 200 57 High Density Lipoprotein 47 mg/dL 40-60 58 Cholesterol/HDL Ratio 5.21 AVERAGE High 1-4.44 Low Density Lipoprotein 145 mg/dL High Less Than 100 59 Laboratory test 05/18/2011 [facility] Alt (SGPT) 26 U/L 14-54 finding [phone] Lipid Profile 05/07/2010 [facility] Triglyceride 213 mg/dL High 40- 200 (Trig/Chol/HDL) [phone] Cholesterol 212 mg/dL High Less Than 200 60 High Density Lipoprotein 37 mg/dL Low 40-60 61 Cholesterol/HDL Ratio 5.73 AVERAGE High 1-4.44 Low Density Lipoprotein 132 mg/dL High Less Than 100 62 Laboratory test 05/07/2010 [facility] Alt (SGPT) 23 U/L 14-54 finding [phone] Laboratory test 05/07/2010 [facility] TSH 2.54 MIU/ML 0.34-5.60 finding [phone] Basic Metabolic Panel 05/07/2010 [facility] Sodium 140 mmol/L 135- 145 [phone] Potassium 4.1 mmol/L 3.5-5.0 Chloride 104 mmol/L 101-111 Co2 (Carbon Dioxide) 27.0 mmol/L 22-32 Anion Gap 9.0 mmol/L 2-11 63 Glucose 94 mg/dL 70-100 64 BUN 11 mg/dL 6-24 Creatinine 0.80 mg/dL 0.50-1.40 One Over Creatinine 1.20 BUN/Creatinine Ratio 13.8 8-20 Calcium 9.1 mg/dL 8.1-9.9 eGFR Non- 73.5 > 60 eGFR 89.0 > 60 65 Laboratory test 04/30/2009 [facility] TSH 3.07 MIU/ML 0.34-5.60 finding [phone] Lipid Profile 04/30/2009 [facility] Triglyceride 254 mg/dL High 40- 200 (Trig/Chol/HDL) [phone] Cholesterol 249 mg/dL High Less Than 200 66 High Density Lipoprotein 49 mg/dL 40-60 67 Cholesterol/HDL Ratio 5.08 AVERAGE High 1-4.44 Low Density Lipoprotein 149 mg/dL High Less Than 100 68 Laboratory test 04/30/2009 [facility] Alt (SGPT) 22 U/L 14-54 finding [phone] Culture Urine 01/31/2009 In House Colonies no growth 69 Inhouse Urine Micro 01/31/2009 In House Urine Microscopic see result Inhouse Inhouse note Laboratory test 01/31/2009 [facility] TSH 4.71 MIU/ML 0.34-5.60 finding [phone] Ua Inhouse 01/31/2009 In House Ua Glucose - Ua Bilirubin - Ua Ketones - Ua Specific Ava 1.010 Ua Blood - Ua PH 6.0 Ua Protein - Ua Urobilinogen - Ua Nitrite - Ua Leukocytes - Basic Metabolic Panel 01/31/2009 [facility] Sodium 139 mmol/L 135- 145 [phone] Potassium 4.4 mmol/L 3.5-5.0 Chloride 101 mmol/L 101-111 Co2 (Carbon Dioxide) 32.0 mmol/L 22-32 Anion Gap 6.0 mmol/L 2-11 70 Glucose 112 mg/dL High 70-100 71 BUN 11 mg/dL 6-24 Creatinine 0.90 mg/dL 0.50-1.40 One Over Creatinine 1.10 BUN/Creatinine Ratio 12.2 8-20 Calcium 10.2 mg/dL High 8.1-9.9 72 Lipid Profile 11/27/2008 [facility] Triglyceride 252 mg/dL High 40- 200 (Trig/Chol/HDL) [phone] Cholesterol 258 mg/dL High Less Than 200 73 High Density Lipoprotein 47 mg/dL 40-60 74 Cholesterol/HDL Ratio 5.49 AVERAGE High 1-4.44 Low Density Lipoprotein 161 mg/dL High Less Than 100 75 Laboratory test 11/27/2008 [facility] Alt (SGPT) 23 U/L 14-54 finding [phone] Liver Function 08/01/2008 [facility]. Total Protein 6.9 g/dL 6.3-8.0 Tests LABORATORY [phone] Albumin 4.0 g/dL 3.5-5.0 Bilirubin,Total 0.2 mg/dL 0.2-1.2 Bilirubin,Direct 0.0 mg/dL Low 0.1-0.4 Bilirubin,Indirect 0.2 mg/dL 0.0-0.9 Sgot/Ast 18 U/L 16-40 SGPT/Alt 34 U/L 30-65 Alkaline Phosphatase 113 U/L 50-136 Globulin 2.9 gm/dL 1.9-4.3 Alb/Glob 1.4 Laboratory test 08/01/2008 [facility]. Lipase 473 U/L High 114-286 finding LABORATORY [phone] Laboratory test 06/19/2008 [facility] TSH 1.14 0.34-5.60 finding [phone] MIU/ML Laboratory test 04/16/2008 [facility] Alt (SGPT) 21 U/L 14-54 finding [phone] Basic Metabolic 04/16/2008 [facility] Sodium 140 135-145 Panel [phone] mmol/L Potassium 4.4 mmol/L 3.5-5.0 Chloride 106 mmol/L 101-111 Co2 (Carbon Dioxide) 30.0 mmol/L 22-32 Anion Gap 4.0 mmol/L 2-11 76 Glucose 101 mg/dL 70-105 BUN 13 mg/dL 6-24 Creatinine 1.0 mg/dL 0.5-1.4 One Over Creatinine 1.00 BUN/Creatinine Ratio 13.0 8-20 Calcium 9.0 mg/dL 8.1-9.9 77 Lipid Profile 04/16/2008 [facility] Triglyceride 253 mg/dL High 40- 200 (Trig/Chol/HDL) [phone] Cholesterol 243 mg/dL High Less Than 200 78 High Density Lipoprotein 49 mg/dL 40-60 79 Cholesterol/HDL Ratio 4.96 AVERAGE High 1-4.44 Low Density Lipoprotein 143 mg/dL High Less Than 100 80 Laboratory test 04/16/2008 [facility] TSH 5.04 MIU/ML 0.34-5.60 finding [phone] Ua Inhouse 10/31/2007 In [place] Ua Glucose - Ua Bilirubin - Ua Ketones - Ua Specific Ava 1.005 Ua Blood - Ua PH 6.0 Ua Protein - Ua Urobilinogen - Ua Nitrite - Ua Leukocytes - Urine Micro Inhouse 10/31/2007 In [place] Urine Microscopic Inhouse - Ua Inhouse 10/19/2007 In [place] Ua Glucose - Ua Bilirubin - Ua Ketones - Ua Specific Ava 1.010 Ua Blood - Ua PH 6.0 Ua Protein - Ua Urobilinogen - Ua Nitrite - Ua Leukocytes sm Urine Micro Inhouse 10/19/2007 In House Urine Microscopic 3-4 epi, occ wbc Inhouse Ua Inhouse 10/13/2007 In [place] Ua Glucose - Ua Bilirubin - Ua Ketones - Ua Specific Ava 1.005 Ua Blood lg Ua PH 6.5 Ua Protein 1+ Ua Urobilinogen - Ua Nitrite - Ua Leukocytes tr Urine Micro Inhouse 10/13/2007 In [place] Urine Microscopic packed rbc, no Inhouse othr Culture Urine 10/13/2007 In House Colonies no growth Inhouse Culture Urine 09/26/2007 In House Colonies 1x10/2nd Inhouse Ua Inhouse 09/26/2007 In [place] Ua Glucose - Ua Bilirubin - Ua Ketones - Ua Specific Ava 1.015 Ua Blood lrg Ua PH 6.5 Ua Protein +3 Ua Urobilinogen - Ua Nitrite - Ua Leukocytes +2 Laboratory test 07/19/2007 [facility] TSH 2.73 MIU/ML 0.34-5.60 finding [phone] Lipid Profile 07/19/2007 [facility] Cholesterol/H 4.17 AVERAGE 1- 4.44 (Trig/Chol/HDL) [phone] DL Ratio Cholesterol 221 mg/dL High Less Than 200 81 Triglyceride 262 mg/dL High 40-200 High Density Lipoprotein 53 mg/dL 40-60 Low Density Lipoprotein 116 mg/dL High Less Than 100 82 Basic Metabolic Panel 07/19/2007 [facility] One Over Creatinine 1.11 [phone] Anion Gap 5.0 mmol/L 2-11 83 BUN 11 mg/dL 6-24 Calcium 9.1 mg/dL 8.7-10.2 Chloride 100 mmol/L Low 101-111 Co2 (Carbon Dioxide) 31.0 mmol/L 22-32 Glucose 98 mg/dL 70-105 Potassium 4.5 mmol/L 3.5-5.0 Sodium 136 mmol/L 135-145 BUN/Creatinine Ratio 12.2 8-20 Creatinine 0.9 mg/dL 0.5-1.4 Laboratory test 07/19/2007 [facility] Alt (SGPT) 19 U/L 14-54 finding [phone] Laboratory test 04/03/2007 [facility] TSH 2.70 MIU/ML 0.34-5.60 84 finding [phone] CBC With 04/03/2007 [facility] White Blood 7.0 CUMM 4.8-10.8 Electronic Diff [phone] Count Abs Basophils 0 0-0.2 Abs Eosinophils 0.3 0-0.6 Absolute Neutrophil Count 3.9 1.5-7.7 Abs Lymphs 2.2 1.0-4.8 Abs Mononuclear 0.6 0-0.8 Basophil % 0.3 % 0-2 Hematocrit 38 % 35-47 Hemoglobin 12.8 g/dL 12.0-16.0 Eosinophil % 4.9 % 0-6 Gran % 55.6 % 38-83 Lymph % 30.6 % 20-45 Mean Corpuscular HGB Cone 34 g/dL 32-36 Mean Corpuscular Hemoglob 31 pg 27-31 Mean Corpuscular Volume 92 um3 79-97 Mean Platelet Volume 8.1 um3 7.4-10.4 Mononuclear % 8.6 % 1-9 Platelet Count 347 CUMM 150-450 Red Cell Count 4.12 CUMM Low 4.2-5.4 Redcell Distribution WDTH 15 % 10.5-15 Lipid Profile 04/03/2007 [facility] Cholesterol/HDL 6.21 High 1-4.44 (Trig/Chol/HDL) [phone] Ratio AVERAGE Cholesterol 261 mg/dL High Less Than 200 85 Triglyceride 236 mg/dL High 40-200 High Density Lipoprotein 42 mg/dL 40-60 Low Density Lipoprotein 172 mg/dL High Less Than 100 86 Laboratory test 04/03/2007 [facility] Alt (SGPT) 21 U/L 14-54 finding [phone] Basic Metabolic Panel 04/03/2007 [facility] One Over Creatinine 1.11 [phone] Anion Gap 8.0 mmol/L 2-11 87 BUN 7 mg/dL 6-24 Calcium 9.1 mg/dL 8.7-10.2 Chloride 100 mmol/L Low 101-111 Co2 (Carbon Dioxide) 30.0 mmol/L 22-32 Glucose 98 mg/dL 70-105 Potassium 4.7 mmol/L 3.5-5.0 Sodium 138 mmol/L 135-145 BUN/Creatinine Ratio 7.8 Low 8-20 Creatinine 0.9 mg/dL 0.5-1.4 Lipid Profile 08/01/2006 [facility] Cholesterol/HDL 5.29 High 1-4.44 (Trig/Chol/HDL) [phone] Ratio AVERAGE Cholesterol 259 mg/dL High Less Than 200 88 Triglyceride 277 mg/dL High 40-200 High Density Lipoprotein 49 mg/dL 40-60 Low Density Lipoprotein 155 mg/dL High Less Than 100 89 Laboratory test 08/01/2006 [facility] Alt (SGPT) 23 U/L 14-54 finding [phone] Lipid Profile 05/27/2006 [facility] Cholesterol/HD 5.20 AVERAGE High 1-4.44 (Trig/Chol/HDL) [phone] L Ratio Cholesterol 255 mg/dL High Less Than 200 90 Triglyceride 222 mg/dL High 40-200 High Density Lipoprotein 49 mg/dL 40-60 Low Density Lipoprotein 162 mg/dL High Less Than 100 91 Laboratory test finding 05/27/2006 [facility] Alt (SGPT) 17 U/L 14- 54 [phone] TSH 2.46 MIU/ML 0.34-5.60 Lipid Profile 04/12/2006 [facility] Cholesterol/HDL 6.24 High 1-4.44 (Trig/Chol/HDL) [phone] Ratio AVERAGE Cholesterol 262 mg/dL High Less Than 200 92 Triglyceride 229 mg/dL High 40-200 High Density Lipoprotein 42 mg/dL 40-60 Low Density Lipoprotein 174 mg/dL High Less Than 100 93 Laboratory test finding 04/12/2006 [facility] Alt (SGPT) 20 U/L 14 88 [phone] TSH 5.22 MIU/ML 0.34-5.60 Laboratory test 11/30/2005 [facility] TSH 0.95 MIU/ML 0.34-5.60 finding [phone] Basic Metabolic 10/14/2005 [facility] One Over 1.42 Panel [phone] Creatinine Anion Gap 7.0 mmol/L 2-11 94 BUN 10 mg/dL 6-24 Calcium 9.7 mg/dL 8.7-10.2 Chloride 102 mmol/L 101-111 Co2 (Carbon Dioxide) 30.0 mmol/L 22-32 Glucose 95 mg/dL 70-105 Potassium 4.5 mmol/L 3.5-5.0 Sodium 139 mmol/L 135-145 BUN/Creatinine Ratio 14.3 8-20 Creatinine 0.7 mg/dL 0.5-1.4 Laboratory test 10/14/2005 [facility] Alt (SGPT) 19 U/L 14-54 finding [phone] Lipid Profile 10/14/2005 [facility] Cholesterol 172 mg/dL Less Than 200 95 (Trig/Chol/HDL) [phone] Triglyceride 139 mg/dL 40-200 High Density Lipoprotein 51 mg/dL 40-60 Low Density Lipoprotein 93 mg/dL Less Than 100 96 Cholesterol/HDL Ratio 3.37 AVERAGE 1-4.44 Laboratory test 10/14/2005 [facility] TSH 9.69 High 0.34-5.60 finding [phone] MIU/ML Laboratory test 12/25/2004 [facility] TSH 2.92 0.34-5.60 finding [phone] MIU/ML Laboratory test 10/29/2004 [facility] TSH 9.89 High 0.34-5.60 finding [phone] MIU/ML Thyroid 10/29/2004 [facility] Thyroglobulin 55 U/ML < 60 Autoantibodies [phone] Autoantibodies Thyroid Peroxidase Autoab > 1300 U/ML High < 60 97 Laboratory test finding 09/02/2004 [facility] Alt (SGPT) 23 [phone] Lipid Profile (Trig/Chol/HDL) 09/02/2004 [facility] Cholesterol 184 98 [phone] Triglyceride 187 High Density Lipoprotein 55 Low Density Lipoprotein 92 99 Cholesterol/HDL Ratio 3.35 Laboratory test 09/02/2004 [facility] TSH 7.67 High finding [phone] Lipid Profile 01/10/2004 [facility] Cholesterol 207 mg/dL High Less Than 100 (Trig/Chol/HDL) [phone] 200 Triglyceride 237 mg/dL High 40-200 High Density Lipoprotein 53 mg/dL 40-60 Low Density Lipoprotein 107 mg/dL High Less Than 100 101 Cholesterol/HDL Ratio 3.91 AVERAGE 1-4.44 Laboratory test finding 01/10/2004 [facility] Alt (SGPT) 30 U/L 14- 54 [phone] Basic Metabolic Panel 01/10/2004 [facility] Anion Gap 6.0 mmol/L 2- 11 102 [phone] BUN 10 mg/dL 6-24 Calcium 9.6 mg/dL 8.7-10.2 Chloride 98 mmol/L Low 101-111 Co2 (Carbon Dioxide) 28.0 mmol/L 22-32 Creatinine 0.8 mg/dL 0.5-1.4 Glucose 96 mg/dL 70-105 Potassium 3.9 mmol/L 3.5-5.0 Sodium 132 mmol/L Low 135-145 BUN/Creatinine Ratio 12.5 8-[address] Martinez office 2 warfarin dosing managed by Dr. Motta 3 Because ethnic data is not always readily [...] 15-29 5 Kidney failure <15 (or dialysis) 4 *Ascorbic acid is present which may interfere with detection of blood. [address] MOTTA 6 Because ethnic data is not always [...] 5 Kidney failure <15 (or dialysis) 7 *Ascorbic acid is present which may interfere with detection of blood. 8 Dr. Motta's office is managing Warfarin dosing. 9 Because ethnic data is not always readily [...] 15-29 5 Kidney failure <15 (or dialysis) 10 Copy Result to: TAMEKA MOTTA ([id number]) 11 ORDERED ON 10/28/17 VALID THROUGH 04/27/18 PER DOCTOR DRAWN ONCE MONTHLY FOR 6 MONTHS 12 INR Q MONTH x 6 MONTHS x PRN VALID 05/05/2017 TO 11/03/2017 13 INR x month x 6 months plus PRN [address] Martinez office 15 INR Q MONTH x 6 MONTHS x PRN VALID 05/05/2017 TO 11/03/2017 16 *Ascorbic acid is present which may interfere with detection of blood. 17 SEE RESULT BELOW Name: NURYS STEPHEN Shania : [address]: Max Dunlap MD Acct: [id number] Unit: [id number] AGE: 87 Location: [facility] Re09/06/17 SEX: F Status: REG REF SPEC: [id number] FISH: 01/ BRIANA DR: Max Dunlap MD REQ: [id number] RECD: 09/06/17 STATUS: COMP _ SOURCE: URINE [facility]: ORDERED: Urine Culture Urine Source: Clean Catch Procedure Result Reported Site Urine Culture Final 09/08/17906 ML No growth of clinically significant organisms * ML - MAIN LAB ([facility]) . END OF REPORT * ML=Testing performed at Main Lab DEPARTMENT OF PATHOLOGY, [address] [place] [address] Sumit Johnston M.D. Director [facility] # [id number] 18 SEE RESULT BELOW Name: NURYS STEPHEN : [address]: Max Dunlap MD Acct: [id number] Unit: [id number] AGE: 87 Location: [facility] Re08/17/17 SEX: F Status: REG REF SPEC: [id number] FISH: 08/17/17-1099 [facility] DR: Max Dunlap MD REQ: [id number] RECD: 08/17/17 STATUS: COMP _ SOURCE: URINE SPDESC: ORDERED: Urine Culture Procedure Result Reported Site Urine Culture Final 08/19/17- 821 ML Organism 1 ESCHERICHIA COLI Waterflow Count 25-50,000 (Moderate) CFU/ML 1. ESCHERICHIA COLI [...] antibiotic reporting. * ML - MAIN LAB ([facility]) . END OF REPORT * ML=Testing performed at Main Lab DEPARTMENT OF PATHOLOGY, [address] [place] [address] Sumit Johnston M.D. Director [facility] # [id number] 19 Because ethnic data is not always readily [...] 15-29 5 Kidney failure <15 (or dialysis) 20 void, clear, yellow 21 [id number] 22 SEE RESULT BELOW Name: NURYS STEPHEN : [address]: Dayami Cohen Acct: [id number] Unit: [id number] AGE: 87 Location: [facility] Re05/22/17 SEX: F Status: DEP ER SPEC: [id number] FISH: 05/22/17-1240 [facility] DR: Dayami Borja DO REQ: [id number] RECD: 05/23/17 STATUS: ANA WORTHINGTON DR: Max Dunlap MD _ SOURCE: URINE SPDESC: ORDERED: Urine Culture COMMENTS: [id number] Procedure Result Reported Site Urine Culture Final 05/24/17- 1159 ML No Growth (<1,000 CFU/mL) * ML - MAIN LAB ([facility]) . END OF REPORT * ML=Testing performed at Main Lab DEPARTMENT OF PATHOLOGY, [address] [place] [address] Sumit Johnston M.D. Director [facility] # [id number] 23 SEE RESULT BELOW Name: SHERRINURYS Shania : [address]: Max Dunlap MD Acct: [id number] Unit: [id number] AGE: 86 Location: [facility] Re10/15/16 SEX: F Status: REG REF SPEC: [id number] FISH: 10/15/[address]: Max Dunlap MD REQ: [id number] RECD: 10/15/16 STATUS: COMP _ SOURCE: URINE SPDESC: ORDERED: Urine Culture Urine Source: Clean Catch Procedure Result Reported Site Urine Culture Final 10/17/16- 0832 ML No growth of clinically significant organisms * ML - MAIN LAB ([facility]) . END OF REPORT * ML=Testing performed at Main Lab DEPARTMENT OF PATHOLOGY, [address] [place] [address] Sumit Johnston M.D. Director [facility] # [id number] [address] Martinez office 25 PRN VALID 07/02/16-12/31/16 Q MONTHLY PRN 26 Because ethnic data is not always readily [...] 15-29 5 Kidney failure <15 (or dialysis) 27 SEE RESULT BELOW Name: NURYS STEPHEN Shania : [address]: Max Dunlap MD Acct: [id number] Unit: [id number] AGE: 86 Location: [facility] Re08/20/16 SEX: F Status: REG REF SPEC: [id number] FISH: 08/20/16 [facility] DR: Max Dunlap MD REQ: [id number] RECD: 08/20/169056 STATUS: ANA WORTHINGTON DR: Tameka Khan MD _ SOURCE: URINE SPDESC: ORDERED: Urine Culture COMMENTS: Procedure Result Reported Site Urine Culture Final 08/22/16- 0758 ML No Growth (<1,000 CFU/mL) * ML - MAIN LAB ([facility]) . END OF REPORT * ML=Testing performed at Main Lab DEPARTMENT OF PATHOLOGY, [address] [place] [address] Sumit Johnston M.D. Director [facility] # [id number] 28 void, clear, light yellow 29 Loree/HCR calls w/result of INR 2.7- this has not come in electronically so I will not enter result into report. SL 30 Effective immediately, due to a laboratory mean normal Protime change, the reference range for the INR has changed. 31 Pt no longer on Warfarin 32 monthly and prn X 6 months Copy Result to: MAX DUNLAP ([id number]) 33 Organism 1 ! URETHRAL KAITLYN Quantity ! 10,000 - 50,000 CFU/mL 34 THERAPEUTIC INR RANGE: 2.0 - 3.0 DVT, Pulmonary embolus, prophylaxis against venous thrombosis or systemic embolization in high risk patients. 2.5 - 3.5 Mechanical heart valves 35 THERAPEUTIC INR RANGE: 2.0 - 3.0 DVT, Pulmonary embolus, prophylaxis against venous thrombosis or systemic embolization in high risk patients. 2.5 - 3.5 Mechanical heart valves 36 Note: Persistent reduction for 3 months or more in an eGFR <60 mL/min/1.73 m2 defines CKD. Patients with eGFR values >/=60 mL/min/1.73 m2 may also have CKD if evidence of persistent proteinuria is present. The original MDRD equation for estimated GFR is not valid for patients less than 18 years of age. Additional information may be found at www.kdoqi.org. 37 Critical Result LACT:2.9 Called to [id number] at: 12:39:55 by:[id number] Read back by:[id number] 38 Because ethnic data is not always [...] 5 Kidney failure <15 (or dialysis) 39 Reference Range and Interpretation: TnI (ng/mL) Interpretation Less Than 0.03 ng/mL Not supportive of diagnosis of SD 0.03 - 0.50 ng/mL Indeterminate: suggest serial studies if clinically indicated. Greater than 0.5 ng/mL Consistent with diagnosis of SD 40 *Ascorbic acid is present which may interfere with detection of blood. 41 SEE RESULT BELOW Name: NURYS STEPHEN : [address]: Abeba Mckenna DO Acct: [id number] Unit: [id number] AGE: 84 Location: ICU [id number] Re02/05/15 SEX: F Status: ADM IN SPEC: [id number] FISH: 02/05/[address]: Jolynn Ervin MD REQ: [id number] RECD: 02/05/15 STATUS: ANA WORTHINGTON DR: [facility] Max Dunlap MD _ SOURCE: BLOOD,VENO SPDESC: ORDERED: Blood Cult COMMENTS: Verbal to [id number] by [id number] at 1651 on 02/07/15. Results read back accurately. Procedure Result Verified Site Aerobic Culture Bottle Final 02/08/15- 0852 ML Aerobic Bottle Gram Stain Gram Negative Bacilli Organism 1 ESCHERICHIA COLI Please refer to [id number] culture ANAEROBIC bottle for sensitivity testing. Anaerobic Culture Bottle Final 02/10/15- 1244 ML No Growth Day 5 * ML - MAIN LAB ([facility]) . END OF REPORT * ML=Testing performed at Main Lab DEPARTMENT OF PATHOLOGY, [address] [place] [address] Sumit Johnston M.D. Director [facility] # [id number] 42 Because ethnic data is not always readily [...] 15-29 5 Kidney failure <15 (or dialysis) 43 Because ethnic data is not always readily [...] 15-29 5 Kidney failure <15 (or dialysis) 44 Because ethnic data is not always readily [...] 15-29 5 Kidney failure <15 (or dialysis) 45 HDL Interpretation: Undesirable: High Risk: Less than 40 mg/dL Desirable: Low Risk: Greater than 60 mg/dL 46 LDL Interpretation: Low Risk Optimal Level: LDL Less than 100 mg/dL Near or Above Optimal: LDL 100-129 mg/dL Borderline High Risk: LDL 130-159 mg/dL High Risk: LDL 160-189 mg/dL Very High Risk: LDL Greater than 189 mg/dL 47 FASTING 48 Anion gap measurement may be of limited value in the presence of any alkalosis, especially in a combined acid base disorder. . 49 A metabolite of Naproxen, O-desmethylnaproxen, has been shown to interfere with the Jendrassik-Mckittrick method for measuring total bilirubin. Samples from patients who have taken Naproxen have shown spurious elevation in total bilirubin levels. 50 Because ethnic data is not always [...] 5 Kidney failure <15 (or dialysis) 51 Anion gap measurement may be of limited value in the presence of any alkalosis, especially in a combined acid base disorder. . 52 Because ethnic data is not always readily [...] 15-29 5 Kidney failure <15 (or dialysis) 53 pinpoint growth on emb only 54 Anion gap measurement may be of limited value in the presence of any alkalosis, especially in a combined acid base disorder. . 55 Because ethnic data is not always readily [...] 15-29 5 Kidney failure <15 (or dialysis) 56 RBC FOLATE result is greater than 1326 ng/ml. Test Performed By:[facility] [address] [place] [id number] CHOLESTEROL INTERPRETATION: Desirable: Less than 200 MG/DL Borderline-High Risk: 200-239 MG/DL High-Risk: 240 MG/DL and over 58 HDL INTERPRETATION: Undesirable: High Risk: Less than 40 MG/DL Desirable: Low Risk: Greater than 60 MG/DL 59 LDL INTERPRETATION: Low Risk Optimal Level: LDL Less than 100 MG/DL Near or Above Optimal: LDL 100-129 MG/DL Borderline High Risk: LDL 130-159 MG/DL High Risk: LDL 160-189 MG/DL Very High Risk: LDL Greater than 189 MG/DL 60 CHOLESTEROL INTERPRETATION: Desirable: Less than 200 MG/DL Borderline-High Risk: 200-239 MG/DL High-Risk: 240 MG/DL and over 61 HDL INTERPRETATION: Undesirable: High Risk: Less than 40 MG/DL Desirable: Low Risk: Greater than 60 MG/DL 62 LDL INTERPRETATION: Low Risk Optimal Level: LDL Less than 100 MG/DL Near or Above Optimal: LDL 100-129 MG/DL Borderline High Risk: LDL 130-159 MG/DL High Risk: LDL 160-189 MG/DL Very High Risk: LDL Greater than 189 MG/DL 63 Anion gap measurement may be of limited value in the presence of any alkalosis, especially in a combined acid base disorder. . 64 Note change in reference range as of 04/25/08. The change was based on recommendations from the [employer]. 65 Because ethnic data is not always readily [...] 15-29 5 Kidney failure <15 (or dialysis) 66 CHOLESTEROL INTERPRETATION: Desirable: Less than 200 MG/DL Borderline-High Risk: 200-239 MG/DL High-Risk: 240 MG/DL and over 67 HDL INTERPRETATION: Undesirable: High Risk: Less than 40 MG/DL Desirable: Low Risk: Greater than 60 MG/DL 68 LDL INTERPRETATION: Low Risk Optimal Level: LDL Less than 100 MG/DL Near or Above Optimal: LDL 100-129 MG/DL Borderline High Risk: LDL 130-159 MG/DL High Risk: LDL 160-189 MG/DL Very High Risk: LDL Greater than 189 MG/DL 69 occ epi, occ renal cell, numerous crystals 70 Anion gap measurement may be of limited value in the presence of any alkalosis, especially in a combined acid base disorder. . 71 Note change in reference range as of 04/25/08. The change was based on recommendations from the [employer]. 72 Please note change in reference range [...] a combined acid base disorder. . 77 Please note change in reference range effective 08 . 78 CHOLESTEROL INTERPRETATION: Desirable: Less than 200 MG/DL Borderline-High Risk: 200-239 MG/DL High-Risk: 240 MG/DL and over 79 HDL INTERPRETATION: Undesirable: High Risk: Less than 40 MG/DL Desirable: Low Risk: Greater than 60 MG/DL 80 LDL INTERPRETATION: Low Risk Optimal Level: LDL Less than 100 MG/DL Near or Above Optimal: LDL 100-129 MG/DL Borderline High Risk: LDL 130-159 MG/DL High Risk: LDL 160-189 MG/DL Very High Risk: LDL Greater than 189 MG/DL 81 Classification: Borderline High . 82 CALCULATED LDL APPROXIMATES THE VALUE OF A DIRECT LDL MEASUREMENT. Classification: Near or above optimal . 83 Anion gap measurement may be of limited value in the presence of any alkalosis, especially in a combined acid base disorder. . 84 FASTING 85 Classification: High . 86 CALCULATED LDL APPROXIMATES THE VALUE OF A DIRECT LDL MEASUREMENT. Classification: High . 87 Anion gap measurement may be of limited value in the presence of any alkalosis, especially in a combined acid base disorder. . 88 Classification: High . 89 CALCULATED LDL APPROXIMATES THE VALUE OF A DIRECT LDL MEASUREMENT. Classification: Borderline High . 90 Classification: High . 91 CALCULATED LDL APPROXIMATES THE VALUE OF A DIRECT LDL MEASUREMENT. Classification: High . 92 Classification: High . 93 CALCULATED LDL APPROXIMATES THE VALUE OF A DIRECT LDL MEASUREMENT. Classification: High . 94 Anion gap measurement may be of limited value in the presence of any alkalosis, especially in a combined acid base disorder. . 95 Classification: Desirable . 96 CALCULATED LDL APPROXIMATES THE VALUE OF A DIRECT LDL MEASUREMENT. Classification: Optimal Level . 97 TEST PERFORMED BY: [employer]. [address] [place] [id number] 98 Classification: Desirable . 99 CALCULATED LDL APPROXIMATES THE VALUE OF A DIRECT LDL MEASUREMENT. Classification: Optimal Level . 100 Classification: Borderline High . 101 CALCULATED LDL APPROXIMATES THE VALUE OF A DIRECT LDL MEASUREMENT. Classification: Near or above optimal . 102 Anion gap measurement may be of limited value in the presence of any alkalosis, especially in a combined acid base disorder. . Procedures Date Code Description Status 01/10/2019 23695 Destruction Premalignant Skin Lesions, 2-14,Ea Completed 01/10/2019 80363 Destruction Premalignant Skin Lesions Completed 08/07/2018 75591 Destruction Premalignant Skin Lesions Completed 2018 30605 X-Ray Shoulder Two Or More Views Completed 05/24/2017 28047 Destruction Premalignant Skin Lesions, 2-14,Ea Completed 05/24/2017 11555 Destruction Premalignant Skin Lesions Completed 03/30/2016 05694 Destruction Premalignant Skin Lesions Completed 11/03/2015 01791 Excise Benign Lesion 1.1-2CM Completed Scalp/Neck/Hands/Feet/Genitalia 02/05/2015 92721 Electrocardiogram Complete Completed 11/17/2011 54963 Electrocardiogram Complete Completed 04/26/2008 33952 Destruction Of Skin Lesions Up To 14 Flat Completed Warts/Molluscum Contag 10/06/2006 [id number] Colonoscopy Completed 10/18/2005 59529 Electrocardiogram Complete Completed 10/04/2005 88298 X-Ray, Hip (Both) Incl Ap Pelvis Completed 05/12/2004 04381 Electrocardiogram Complete Completed Encounters Type Date Location Provider Dx Diagnosis Office Visit 01/10/2019 Main Office Max Dunlap, Julian Essential ( primary) 2:00p M.DRoslyn hypertension E06.3 Autoimmune thyroiditis I48.0 Paroxysmal atrial fibrillation N95.2 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 fracture around internal prosth l knee jt, subs M25.511 Pain in right shoulder L57.0 Actinic keratosis K59.00 Constipation, unspecified I10 Essential (primary) hypertension Office Visit 05/05/2018 8:55a Main Office Nolberto Gibbs, M25.511 Pain in right D.O. shoulder R19.7 Diarrhea, unspecified M54.5 Low back pain L03.115 Cellulitis of right lower limb K64.9 Unspecified hemorrhoids K59.00 Constipation, unspecified M47.817 Spondyls w/o myelopathy or radiculopathy, lumbosacr region Office Visit 2018 11:00a Main Office Rossi Antonio B35.4 Tinea corporis M25.511 Pain in right shoulder L03.115 Cellulitis of right lower limb M75.41 Impingement syndrome of right shoulder Office Visit 12/19/2017 11:00a Main Office Max Dunlap, Julian Essential (primary) M.DRoslyn hypertension E06.3 Autoimmune thyroiditis Z23 Encounter for immunization M25.511 Pain in right shoulder Office Visit 10/27/2017 3:00p Main Office Dara Ross J01.90 Acute sinusitis, P.A. unspecified J20.9 Acute bronchitis, unspecified Office Visit 06/03/2017 11:45a Main Office Nolberto Gibbs, H00.014 Hordeolum externum D.O. left upper eyelid Office Visit 05/24/2017 11:00a Main Office Julian Dunlap Essential (primary ) Sis Santana hypertension L57.0 Actinic keratosis I48.0 Paroxysmal atrial fibrillation E06.3 Autoimmune thyroiditis N95.2 Postmenopausal atrophic vaginitis N39.0 Urinary tract infection, site not specified Z23 Encounter for immunization Z79.01 senior living (current) use of anticoagulants Office Visit 11/19/2016 10:45a Main Office Deanne N95.2 Postmenopausal Sis Santana atrophic vaginitis E06.3 Autoimmune thyroiditis I10 Essential (primary) hypertension Z71.89 Other specified counseling G47.00 Insomnia, unspecified Office Visit 10/05/2016 12:55p Main Office Max Dunlap, E06.3 Autoimmune MRoslynDRoslyn thyroiditis I10 Essential (primary) hypertension N95.2 Postmenopausal atrophic vaginitis M17.11 Unilateral primary osteoarthritis, right knee G47.00 Insomnia, unspecified Office Visit 03/30/2016 12:55p Main Office Deanne M17.11 Unilateral primary Sis Santana osteoarthritis, right knee R60.9 Edema, unspecified E06.3 Autoimmune thyroiditis I10 Essential (primary) hypertension I48.0 Paroxysmal atrial fibrillation E78.0 Pure hypercholesterolemia L57.0 Actinic keratosis Office Visit 10/01/2015 12:55p Main Office Max Dunlap, I10 Essential (primary) M.DRoslyn hypertension I48.0 Paroxysmal atrial fibrillation L72.3 Sebaceous cyst E06.3 Autoimmune thyroiditis Z23 Encounter for immunization Z41.8 Encntr for oth proc for purpose oth than [facility] Office Visit 07/02/2015 12:55p Main Office Max Dunlap, I10 Essential (primary) M.DRoslyn hypertension R19.5 Other fecal abnormalities I48.0 Paroxysmal atrial fibrillation Office Visit 03/31/2015 10:45a Main Office Max Dunlap, 401.1 Hypertension Benign M.D. 427.31 Atrial Fibrillation 723.1 Cervicalgia 362.30 Occlusion Retinal Vascular Unspec v03.82 Streptococcus Pneumoniae Vaccination Spec Other v07.2 Prophylactic Immunotherapy Office Visit 02/21/2015 9:45a Main Office Max Dunlap, 427.31 Atrial Fibrillation M.D. 995.91 Sepsis 599.0 UTI Urinary Tract Infection Site Not Spec 783.21 Loss Of Weight 783.0 Anorexia Office Visit 02/05/2015 9:45a Main Office Max Dunlap, 780.60 Fever, Unspecified M.D. 780.79 Malaise And Fatigue Other 783.0 Anorexia 785.0 Tachycardia Unspec 427.31 Atrial Fibrillation Office Visit 09/30/2014 11:30a Main Office Max Dunlap, 719.46 Pain Joint Lower M.D. Leg 719.45 Pain Joint Pelvic Region & Thigh 401.1 Hypertension Benign 245.2 Thyroiditis Chronic Lymphocytic 110.5 Dermatophytosis Body Office Visit 08/20/2014 12:55p Main Office Max Dunlap, 362.36 Occlusion Venous M.D. [place] 346.20 Migraine Variants W/O Intractable W/O Status Migrainosus 362.81 Retinal Hemorrhage Office Visit 08/06/2014 10:45a Main Office Nolberto Gibbs, 786.2 Cough D.O. Office Visit 03/29/2014 1:45p Main Office Max Dunlap, 401.1 Hypertension Benign M.D. 272.0 Hypercholesterolemia Pure 245.2 Thyroiditis Chronic Lymphocytic 783.21 Loss Of Weight Office Visit 09/17/2013 2:00p Main Office Max Dunlap, 401.1 Hypertension Benign M.D. 245.2 Thyroiditis Chronic Lymphocytic 719.46 Pain Joint Lower Leg 790.21 Impaired Fasting Glucose Office Visit 06/08/2013 1:00p Main Office Max Dunlap, 790.21 Impaired Fasting M.D. Glucose 401.1 Hypertension Benign 272.0 Hypercholesterolemia Pure 245.2 Thyroiditis Chronic Lymphocytic 691.8 Dermatitis Atopic & Related Conditions Other v04.81 Need For Prophylactic Vaccination & Inoculation/Influenza v07.2 Prophylactic Immunotherapy 112.3 Candidiasis Skin & Nails Office Visit 11/20/2012 9:45a Main Office Max Dunlap, 401.1 Hypertension Benign M.D. 245.2 Thyroiditis Chronic Lymphocytic 790.21 Impaired Fasting Glucose 272.0 Hypercholesterolemia Pure V76.10 Screening For Malignant Neoplasm Breast V70.0 Examination General Medical Routine AT Health Care Facility 300.4 Dysthymic Disorder Office Visit 05/19/2012 11:15a Main Office Max Dunlap, 401.1 Hypertension Benign M.D. 245.2 Thyroiditis Chronic Lymphocytic 790.21 Impaired Fasting Glucose 599.0 UTI Urinary Tract Infection Site Not Spec V76.10 Screening For Malignant Neoplasm Breast 782.0 Skin Sensation Disturbance V04.81 Need For Prophylactic Vaccination & Inoculation/Influenza V07.2 Prophylactic Immunotherapy Office Visit 02/02/2012 3:30p Main Office Max Dunlap, 366.9 Cataract Unspec M.D. V72.84 Examination Preoperative Unspec 401.1 Hypertension Benign 272.0 Hypercholesterolemia Pure Office Visit 11/17/2011 9:45a Main Office Max Dunlap, 401.1 Hypertension Benign M.D. 599.70 Hematuria, Unspecified 595.0 Cystitis Acute 272.0 Hypercholesterolemia Pure 245.2 Thyroiditis Chronic Lymphocytic V70.0 Examination General Medical Routine AT Health Care Facility 300.4 Dysthymic Disorder V79.0 Screening Depression Office Visit 10/30/2011 11:00a Main Office Truong Johnson, 595.0 Cystitis Acute M.D. 564.01 Constipation Slow Transit Office Visit 06/01/2011 1:45p Main Office Max Dunlap, 599.70 Hematuria, M.D. Unspecified 595.0 Cystitis Acute Office Visit 05/05/2011 3:30p Main Office Max Dunlap, 401.1 Hypertension Benign M.D. 782.1 Rash & Other Nonspec Skin Eruption 272.0 Hypercholesterolemia Pure 245.2 Thyroiditis Chronic Lymphocytic V76.10 Screening For Malignant Neoplasm Breast Office Visit 11/09/2010 1:30p Main Office Max Dunlap, 401.1 Hypertension Benign M.D. V70.0 Examination General Medical Routine AT Health Care Facility V76.10 Screening For Malignant Neoplasm Breast 782.0 Skin Sensation Disturbance 727.03 Trigger Finger Acquired 245.2 Thyroiditis Chronic Lymphocytic 272.0 Hypercholesterolemia Pure V82.81 Special Screening For Osteoporosis 698.1 Pruritus Of Genital Organs Office Visit 05/12/2010 10:15a Main Office Max Dunlap, 401.1 Hypertension Benign M.D. 272.0 Hypercholesterolemia Pure 245.2 Thyroiditis Chronic Lymphocytic 300.4 Dysthymic Disorder V76.10 Screening For Malignant Neoplasm Breast Office Visit 11/04/2009 11:15a Main Office Max Dunlap, 245.2 Thyroiditis Chronic M.D. Lymphocytic 401.1 Hypertension Benign 272.0 Hypercholesterolemia Pure 300.4 Dysthymic Disorder 386.11 Vertigo Benign Paroxysmal Position 702.0 Actinic Keratosis V65.49 Counseling Other Spec Office Visit 04/30/2009 9:45a Main Office Max Dunlap, 245.2 Thyroiditis Chronic M.D. Lymphocytic 401.1 Hypertension Benign 272.0 Hypercholesterolemia Pure 729.5 Pain In Limb V76.10 Screening For Malignant Neoplasm Breast Office Visit 01/31/2009 10:15a Main Office Max Dunlap, 401.1 Hypertension Benign M.D. 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 272.0 Hypercholesterolemia Pure 789.00 Pain Abdominal Unspec Site Office Visit 07/08/2008 1:45p Main Office Max Dunlap, 780.4 Dizziness & M.D. Giddiness 627.3 Atrophic Vaginitis Postmenopausal 698.1 Pruritus Of Genital Organs 401.1 Hypertension Benign 245.2 Thyroiditis Chronic Lymphocytic 300.4 Dysthymic Disorder 780.52 Insomnia Unspecified 780.79 Malaise And Fatigue Other Office Visit 04/26/2008 10:45a Main Office Max Dunlap, 401.1 Hypertension Benign M.D. 272.0 Hypercholesterolemia Pure 300.4 Dysthymic Disorder 245.2 Thyroiditis Chronic Lymphocytic 627.3 Atrophic Vaginitis Postmenopausal 472.0 Rhinitis Chronic 078.10 Viral Warts Unspec Office Visit 10/31/2007 10:00a Main Office Deanne 627.3 Atrophic Vaginitis Sis Santana Postmenopausal 401.1 Hypertension Benign 272.0 Hypercholesterolemia Pure 300.4 Dysthymic Disorder 472.0 Rhinitis Chronic 245.2 Thyroiditis Chronic Lymphocytic Office Visit 10/19/2007 2:00p Main Office Truong Suazo 627.3 Atrophic Vaginitis Sis Johnson Postmenopausal 599.7 Hematuria Office Visit 10/13/2007 5:00p Main Office Truong Suazo 599.0 UTI Urinary Tract Sis Johnson Infection Site Not Spec 595.0 Cystitis Acute Office Visit 09/26/2007 2:00p Main Office Remedios Espinoza MD 466.0 Bronchitis Acute 599.0 UTI Urinary Tract Infection Site Not Spec 272.0 Hypercholesterolemia Pure 401.1 Hypertension Benign Office Visit 07/31/2007 8:30a Main Office Max Dunlap, 401.1 Hypertension Benign M.D. 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 V07.2 Prophylactic Immunotherapy 272.0 Hypercholesterolemia Pure 300.4 Dysthymic Disorder 245.2 Thyroiditis Chronic Lymphocytic 780.79 Malaise And Fatigue Other 782.1 Rash & Other Nonspec Skin Eruption V04.81 Need For Prophylactic Vaccination & Inoculation/Influenza Office Visit 04/03/2007 Main Office Deanne 272.0 Hypercholesterolemia Pure 9:15a Sis Santana 401.1 Hypertension Benign 245.2 Thyroiditis Chronic Lymphocytic 300.4 Dysthymic Disorder 424.1 Aortic Valve Disorder V65.49 Counseling Other Spec Office Visit 06/08/2006 Main Office Deanne 272.0 Hypercholesterolemia Pure 9:30a Sis Santana 245.2 Thyroiditis Chronic Lymphocytic 401.1 Hypertension Benign 698.1 Pruritus Of Genital Organs 565.0 Anal Fissure Office Visit 03/02/2006 9:15a Main Office Max Dunlap, 724.4 Neuritis Or M.D. Radiculitis Thoracic Or Lumbosacral Unspec 729.5 Pain In Limb 272.0 Hypercholesterolemia Pure 401.1 Hypertension Benign 354.0 Carpal Tunnel Syndrome 300.4 Dysthymic Disorder 245.2 Thyroiditis Chronic Lymphocytic Office Visit 12/17/2005 3:45p Main Office Max Dunlap, 245.2 Thyroiditis Chronic M.D. 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 272.0 Hypercholesterolemia Pure 245.2 Thyroiditis Chronic Lymphocytic 729.5 Pain In Limb 354.0 Carpal Tunnel Syndrome 724.4 Neuritis Or Radiculitis Thoracic Or Lumbosacral Unspec 110.5 Dermatophytosis Body Office Visit 10/04/2005 2:15p Main Office Max Dunlap, 726.0 Adhesive Capsulitis M.D. 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 272.0 Hypercholesterolemia Pure Office Visit 01/15/2005 11:15a Main Office Max Dunlap, 245.2 Thyroiditis Chronic M.D. Lymphocytic 401.1 Hypertension Benign Office Visit 11/13/2004 Main Office Deanne 245.2 Thyroiditis Chronic 9:30a Sis Santana Lymphocytic Office Visit 08/10/2004 Main Office Deanne, 272.0 Hypercholesterolemia Pure 9:45a Sis Santana 401.1 Hypertension Benign 110.5 Dermatophytosis Body 569.3 Hemorrhage Rectum & Anus V76.51 Special Screening For Malignant Neoplasms Colon V76.10 Screening For Malignant Neoplasm Breast Office Visit 05/12/2004 11:30a Main Office Max Dunlap, 366.9 Cataract Unspec M.D. 401.1 Hypertension Benign 272.0 Hypercholesterolemia Pure V72.84 Examination Preoperative Unspec Office Visit 03/31/2004 1:30p Main Office Max Dunlap, 401.1 Hypertension Benign M.D. 272.0 Hypercholesterolemia Pure 728.71 Fibromatosis Plantar Fascia 424.1 Aortic Valve Disorder Office Visit 12/31/2003 2:30p Main Office Deanne 627.3 Atrophic Vaginitis iSs Santana Postmenopausal 401.1 Hypertension Benign 272.0 Hypercholesterolemia Pure Office Visit 11/11/2003 12:55p Main Office Deanne, 627.3 Atrophic Vaginitis Sis Santana Postmenopausal Office Visit 11/01/2003 3:30p Main Office fabiola 466.0 Bronchitis Acute Office Visit 10/08/2003 11:15a Main Office Carlos MacielRoslyn Caceres, 462 Pharyngitis Acute Sis 401.1 Hypertension Benign 424.1 Aortic Valve Disorder Plan of Treatment Future Appointment(s):07/13/2019 12:55 pm - Max Dunlap M.D. at [facility]/10/2019 - Max Dunlap M.D.I10 Essential (primary) hypertensionComments:Controlled. Continue current Tx.Follow up:RTO 6 [id number] Autoimmune nbudolgdpsvS56.0 Paroxysmal atrial idbpurldchopH42.2 Postmenopausal atrophic vaginitisNew Medication:Premarin 0.625 mg/GM - apply 1 gm intravaginally before bed 3x/wk as needed for vaginal sfhkfzkeT06.0 Actinic keratosisComments:2 lesions treated w/ LN (R cheek, L subclavicular)L82.1 Other seborrheic hrsnvprzkW05.01 Encounter for general adult medical examination with abnorma
[2019-01-14 14:58] VITALS: BP 131/71
[2019-01-14] MEDS ORDERED: traMADol TAB* 50 MG PO ONE (14:59)
== END 2019-01-14 14:56 | disposition home or self-care (01) ==
LOC: ED 12:29
DX: S86.912A Strain of unspecified muscle(s) and tendon(s) at lower leg level, left leg, initial encounter (principal); X58.XXXA Exposure to other specified factors, initial encounter; Y92.9 Unspecified place or not applicable; Z87.891 Personal history of nicotine dependence
CPT/HCPCS: 99283; A9270-GY

== ENCOUNTER 2019-10-01 13:36 | Observation (INO) | payer MEDICARE ==
--- OUTSIDE RECORDS SUMMARY | 2019-10-01 13:47 | XMS REPORT | Continuity of Care Document ---
:1930 External Reference #:[id number] Author Name Miguel Larsen M.D. (transmitted by agent of provider Linnea Blanchard) Address [address] [place] [id number] Problems Active Problems Provider Date Atrial fibrillation Miguel Larsen M.D. Onset: 04/04/2015 Aortic valve disorder Miguel Larsen M.D. Onset: 04/04/2015 Heart valve replacement Miguel Larsen M.D. Onset: 07/01/2015 Essential hypertension Miguel Larsen M.D. Onset: 01/06/2016 Paroxysmal atrial fibrillation Miguel Larsen M.D. Onset: 03/25/2017 Localized, primary osteoarthritis of the Zatiburcio Gongora MD Onset: 05/16/2018 shoulder region Periprosthetic fracture of hip Claudette Irwin NP Onset: 05/31/2018 Hypothyroidism Claudette Irwin NP Onset: 05/31/2018 Paroxysmal supraventricular tachycardia Miguel Larsen M.D. Onset: 09/25/2019 Social History Type Date Description Comments Sex Unknown Tobacco Use Start: Unknown End: Former Cigarette Smoker Pt denies smoking Unknown pipe, cigar, e-cigarettes, or using chewing tobacco. Smokeless Tobacco Never Used Smokeless Tobacco ETOH Use Denies alcohol use Tobacco Use Start: Unknown End: Patient is a former Unknown smoker Recreational Drug Use Denies Drug Use Tobacco Use Start: Unknown Light tobacco smoker (10 or fewer cigarettes/day) Smoking Status Reviewed: 09/25/19 Light tobacco smoker (10 or fewer cigarettes/day) Exercise Type/Frequency Does not exercise walking around the house, to the mailbox Allergies, Adverse Reactions, Alerts Active Allergies Reaction Severity Comments Date Lipitor Extreme weakness Severe 11/22/2013 Medications Active Medications SIG Qnty Indications Ordering Date Provider Warfarin Sodium 3 mg on tuesday, 120tabs Miguel Larsen, 06/10/2015 1mg tue, tuesday 4 mg M.D. Tablets on the other days or as directed Levothyroxine Sodium once daily Unknown 125mcg Zetia 1 per day Unknown 10mg Tablets Senior Multivitamin 1 po qd Unknown Plus Tablets Icaps Areds 2 daily Unknown Multivitamin Capsules Systain Eye Drop 2x a day Unknown Acetaminophen 1 tablets po bid 1 Unknown 500mg additional dose at Tablets 12 noon prn Apple Cider Vinegar with honey 1x/day Unknown Ultra Premarin 1 application by Unknown 0.625mg/GM way of vagina prn Cream Nystatin apply topically Unknown 1-2 x/week as needed Colace 1 po daily Unknown Clotrimazole apply to affected Unknown Anti-Fungal area twice a day 1% Cream Calcium + D3 1 by mouth daily Unknown [id number] Tablets History Medications Eliquis 1 by mouth twice 60tabs Zoila Tucker, 08/10/2019 - 5mg Tablets a day N.P. 08/13/2019 Medications Administered in Office Medication SIG Qnty Indications Ordering Provider Date Depomedrol 40MG Bi Ramos MD 06/22/2018 Injection Immunizations Description No Information Available Vital Signs Date Vital Result Comment 09/25/2019 12:10pm Height 63 inches 5'3" Weight 164.00 lb with shoes Heart Rate 78 /min R radial, regular BP Systolic Sitting 168 mmHg LA< reg BP Diastolic Sitting 82 mmHg LA< reg BP Systolic Standing 158 mmHg LA regularLA regular BP Diastolic Standing 74 mmHg LA regularLA regular BMI (Body Mass Index) 29.0 kg/m2 Ejection Fraction 65%-70% 09/11/19 echo 07/31/2019 11:00am Weight 162.00 lb with shoes Heart Rate 60 /min BP Systolic Sitting 132 mmHg lue reg cuff BP Diastolic Sitting 64 mmHg lue reg cuff BP Systolic Standing 140 mmHg lue reg cuff BP Diastolic Standing 68 mmHg lue reg cuff Respiratory Rate 14 /min Ejection Fraction 65-70% echo.02/20/18 Results Test Acquired Date Facility Test Result H/L Range Note Inr/Protime 09/24/2019 [facility] Inr 2.48 High 0.82-1.[address] [place] [address] [phone] Inr/Protime 09/03/2019 [facility] Inr 2.55 High 0.82-1.[address] [place] [address] [phone] Inr/Protime 08/20/2019 [facility] Inr 2.79 High 0.82-1.[address] [place] [address] [phone] Inr/Protime 08/09/2019 [facility] Inr 3.20 High 0.82-1.[address] [place] [address] [phone] Inr/Protime 08/03/2019 [facility] Inr 1.85 High 0.82-1.[address] [place] [address] [phone] Inr/Protime 07/27/2019 [facility] Inr 3.34 High 0.82-1.[address] [place] [address] [phone] Inr/Protime 07/18/2019 [facility] Inr 3.16 High 0.82-1.09 7 [place] [address] [phone] Laboratory test 07/13/2019 [facility] TSH 1.08 Normal 0.34- 5.60 8 finding [facility] (Thyroid mcIU/[place] [address] Stim Horm) [phone] Basic Metabolic 07/13/2019 [facility] Sodium 139 mmol/L Normal 135-145 [place] [address] [phone] Potassium 4.2 mmol/L Normal 3.5-5.0 Chloride 102 mmol/L Normal 101-111 Co2 Carbon Dioxide 30 mmol/L Normal 22-32 Anion Gap 7 mmol/L Normal 2-11 Glucose 87 mg/dL Normal 70-100 Blood Urea Nitrogen 18 mg/dL Normal 6-24 Creatinine 0.94 mg/dL Normal 0.51-0.95 BUN/Creatinine Ratio 19.1 Normal 8-20 Calcium 10.0 mg/dL Normal 8.6-10.3 Egfr Non- 56.2 >60 Egfr 68.0 >60 9 CBC Auto 07/13/2019 [facility] White Blood 10.2 10^3/uL Normal 3.5-10.[address] [place] [address] [phone] Red Blood Count 4.35 10^6/uL Normal 3.70-4.87 Hemoglobin 13.8 g/dL Normal 12.0-16.0 Hematocrit 41 % Normal 35-47 Mean Corpuscular Volume 95 fL Normal 80-97 Mean Corpuscular Hemoglobin 32 pg High 27-31 Mean Corpuscular HGB Conc 34 g/dL Normal 31-36 Red Cell Distribution Width 14 % Normal 10-15 Platelet Count 370 10^3/uL Normal 150-450 Mean Platelet Volume 8.6 fL Normal 7.4-10.4 Abs Neutrophils 7.0 10^3/uL Normal 1.5-7.7 Abs Lymphocytes 2.2 10^3/uL Normal 1.0-4.8 Abs Monocytes 0.9 10^3/uL High 0-0.8 Abs Eosinophils 0.1 10^3/uL Normal 0-0.6 Abs Basophils 0.0 10^3/uL Normal 0-0.2 Abs Nucleated RBC 0.0 10^3/uL Granulocyte % 68.7 % Lymphocyte % 21.1 % Monocyte % 9.2 % Eosinophil % 0.8 % Basophil % 0.2 % Nucleated Red Blood Cells % 0.0 Inr/Protime 06/28/2019 [facility] Inr 2.69 High 0.82-1.[address] [place] [address] [phone] Inr/Protime 06/14/2019 [facility] Inr 3.08 High 0.82-1.[address] [place] [address] [phone] Inr/Protime 05/31/2019 [facility] Inr 2.96 High 0.82-1.[address] [place] [address] [phone] Inr/Protime 05/14/2019 [facility] Inr 3.13 High 0.82-1.[address] [place] [address] [phone] Inr/Protime 04/26/2019 [facility] Inr 3.16 High 0.82-1.[address] [place] [address] [phone] Inr/Protime 03/29/2019 [facility] Inr 2.84 High 0.82-1.[address] [place] [address] [phone] Standard intensity warfarin therapeutic range: 2.0-3.0 High intensity warfarin therapeutic range: 2.5-3.5 2 Standard intensity warfarin therapeutic range: 2.0-3.0 High intensity warfarin therapeutic range: 2.5-3.5 3 Standard intensity warfarin therapeutic range: 2.0-3.0 High intensity warfarin therapeutic range: 2.5-3.5 4 Standard intensity warfarin therapeutic range: 2.0-3.0 High intensity warfarin therapeutic range: 2.5-3.5 5 Standard intensity warfarin therapeutic range: 2.0-3.0 High intensity warfarin therapeutic range: 2.5-3.5 6 Standard intensity warfarin therapeutic range: 2.0-3.0 High intensity warfarin therapeutic range: 2.5-3.5 7 Standard intensity warfarin therapeutic range: 2.0-3.0 High intensity warfarin therapeutic range: 2.5-3.5 8 Copy Result to: MIGUEL LARSEN ([id number]) 9 Because ethnic data is not always [...] 5 Kidney failure <15 (or dialysis) 10 Standard intensity warfarin therapeutic range: 2.0-3.0 High intensity warfarin therapeutic range: 2.5-3.5 11 Standard intensity warfarin therapeutic range: 2.0-3.0 High intensity warfarin therapeutic range: 2.5-3.5 12 Standard intensity warfarin therapeutic range: 2.0-3.0 High intensity warfarin therapeutic range: 2.5-3.5 13 Standard intensity warfarin therapeutic range: 2.0-3.0 High intensity warfarin therapeutic range: 2.5-3.5 14 Standard intensity warfarin therapeutic range: 2.0-3.0 High intensity warfarin therapeutic range: 2.5-3.5 15 Standard intensity warfarin therapeutic range: 2.0-3.0 High intensity warfarin therapeutic range: 2.5-3.5 Procedures Date Code Description Status 09/11/2019 77777 ECHO Transthoracic, Real-Time 2D With Doppler And Completed Color Flow 07/31/2019 05490 EKG Tracing & Interpretation Completed 07/18/2019 35280 EKG, Interpretation Only Completed 07/18/2019 54783 Cardioversion Completed 07/17/2019 86510 EKG Tracing & Interpretation Completed 01/18/2017 [id number] Diabetic Retinal Eye Exam Completed Medical Devices Description No Information Available Encounters Type Date Location Provider Dx Diagnosis Office Visit 07/31/2019 [facility] Zoila Tucker, I48.0 Paroxysmal atrial 11:00a Of [facility] N.P. fibrillation R42 Dizziness and giddiness Z95.2 Presence of prosthetic heart valve I10 Essential (primary) hypertension Office Visit 07/17/2019 11:00a [facility] Miguel Larsen, I48.0 Paroxysmal atrial [facility] M.D. fibrillation R42 Dizziness and giddiness Z95.2 Presence of prosthetic heart valve I10 Essential (primary) hypertension Assessments Date Code Description Provider 09/25/2019 Z95.2 Presence of prosthetic heart valve Miguel Larsen M.D. 09/25/2019 I47.1 Supraventricular tachycardia Miguel Larsen M.D. 09/25/2019 R42 Dizziness and giddiness Miguel Larsen M.D. 09/25/2019 I10 Essential (primary) hypertension Miguel Larsen M.D. 09/25/2019 E03.9 Hypothyroidism, unspecified Miguel Larsen M.D. 09/25/2019 I48.0 Paroxysmal atrial fibrillation Miguel Larsen M.D. 09/11/2019 Z95.2 Presence of prosthetic heart valve Miguel Larsen M.D. 09/11/2019 Z95.2 Presence of prosthetic heart valve Traveling ECHO 2 09/11/2019 R42 Dizziness and giddiness Traveling ECHO 2 09/11/2019 I48.0 Paroxysmal atrial fibrillation Traveling ECHO 2 07/31/2019 R94.31 Abnormal electrocardiogram [ECG] [EKG] Miguel Larsen M.D. 07/31/2019 I48.0 Paroxysmal atrial fibrillation Zoila Tucker, N.P. 07/31/2019 R42 Dizziness and giddiness Zoila Tucker, N.P. 07/31/2019 Z95.2 Presence of prosthetic heart valve Zoila Tucker, N.P. 07/31/2019 I10 Essential (primary) hypertension Zoila Tucker, N.P. 07/18/2019 I48.91 Unspecified atrial fibrillation Miguel Larsen M.D. 07/18/2019 I48.91 Unspecified atrial fibrillation Miguel Larsen M.D. 07/17/2019 I48.0 Paroxysmal atrial fibrillation Miguel Larsen M.D. 07/17/2019 R42 Dizziness and giddiness Miguel Larsen M.D. 07/17/2019 Z95.2 Presence of prosthetic heart valve Miguel Larsen M.D. 07/17/2019 I10 Essential (primary) hypertension Miguel Larsen M.D. Plan of Treatment Future Appointment(s):10/03/2019 11:30 am - Bi Barajas DO at [facility] AT [id number]/21/2020 - Miguel Larsen M.D.Z95.2 Presence of prosthetic heart valveNew Orders:Echocardiogram, Ordered: 09/25/19Comments:Echo suggestive of aging prosthetic aortic valve.Follow echos more closelyCould contribute/cause dizziness.Follow up:6 months after testing (echo) Recommendations:Symptom limited activity is fine.I47.1 Supraventricular tachycardiaComments:One brief episode seen on the monitor, no symptoms ( 7 PM).R42 Dizziness and giddinessComments:Rest or activity, occurs seated.Monitor does not show fast or slow heart rates with your events.Consider non cardiac reasons.Avoid dehydration.I10 Essential (primary) hypertensionComments:A little high here, home BP's 134/64 ideal.E03.9 Hypothyroidism, unspecifiedComments:TSH normal in July.I48.0 Paroxysmal atrial fibrillationComments:Asymptomatic in the past.Safest at age 89 yo with hypertension to stay on blood thinners. Functional Status Description No Information Available Mental Status Description No Information Available Referrals Description No Information Available
[2019-10-01 14:08] LABS: ABS Basophils 0.1 10^3/ul (0-0.2); ABS Lymphocytes 1.6 10^3/ul (1.0-4.8); ABS Monocytes 0.6 10^3/ul (0-0.8); ABS Neutrophils 4.9 10^3/ul (1.5-7.7); Eosinophil % 0.7 %; Hematocrit 39 % (35-47); Hemoglobin 13.4 g/dL (12.0-16.0); Lymphocyte % 22.1 %; Mean Corpuscular HGB Conc 34 g/dL (31-36); Mean Corpuscular Hemoglobin 32 pg (27-31); Mean Corpuscular Volume 93 fL (80-97); Mean Platelet Volume 8.6 fL (7.4-10.4); Nucleated Red Blood Cells % 0.1; Platelet Count 297 10^3/uL (150-450); Red Cell Distribution Width 14 % (10-15); White Blood Count 7.2 10^3/uL (3.5-10.8)
[2019-10-01 14:15] LABS: INR 2.82 (0.82-1.09)
[2019-10-01 14:25] LABS: Albumin 4.3 g/dL (3.2-5.2); Albumin/Globulin Ratio 1.7 (1-3); Calcium 9.3 mg/dL (8.6-10.3); EGFR African American 81.9 (>60); EGFR Non-African American 67.7 (>60); Globulin 2.5 g/dL (2-4); Potassium 4.2 mmol/L (3.5-5.0); Total Bilirubin 0.4 mg/dL (0.2-1.0); Total Protein 6.8 g/dL (6.4-8.9)
[2019-10-01 14:26] LABS: Troponin I 0.01 ng/mL (<0.03)
--- NOTE | 2019-10-01 16:11 | ED ---
HPI Chest Pain - HPI Summary HPI Summary: This patient is an 89 year old F presenting to ED with a chief complaint of sudden onset chest pressure since [facility]. As patient was sitting in her car, she started to have chest pressure first and then also developed shortness of breath. She states it was not a sharp pain. Patient reports the pain stayed in one place. She does not think that the pain radiated to the jaw, arm, back. She denies, vomiting, diarrhea, and fever. Patient developed nausea. The chest pressure lasted for approximately two hours, and the pain started to subside slowly while the patient was in the ED waiting room. The patient rates the pain 6/10 in severity. Symptoms aggravated by nothing. Symptoms alleviated by nothing. In the ED room, the patient denies any chest pain or pressure. Recently , the patient has had an increase in the number of dizzy spells, with the most recent one occurring last night while she got up from the bathroom. Last night, patients blood pressure was 104/64, which is low for the patient. Patients daughter reports that her HR was in the 80s this morning, stating that the patients normal HR is in the 60s. Patient recently had cardioversion by Dr. Motta for atrial fibrillation (within last few weeks) . Daughter states that Dr. Motta said that the aortic valve might be tightening and starting to wear out. Patient also has a chronic heart murmur. Pt did wear an event monitor for 30 days - daughter states there as a burst of fast rate but pt was not symptomatic. She has chronic swelling in the legs that has not gotten worse recently. Patient is on Coumadin for stroke prevention. Patient is not taking any fluid medications. Daughter staets the pt had been on lisinopril - this was changed to metoprolol before and after cardioversion - daughter states did not tolerate well - caused dizziness so was discontinued. Patient's last echo was reported two weeks ago, and per daughter it was normal. Patient has not had a stress test recently. Patient has never had stents. Patients medication as entered in EMR reviewed this visit. - History of Current Complaint Chief Complaint: EDChestPainROMI Time Seen by Provider: 10/01/19 15:54 Hx Obtained From: Patient, Family/[employer] Supervisor Hx Last Menstrual Period: n/a Onset/Duration: Started Hours Ago, Resolved Timing: Constant, Lasting Hours - 2 hours Initial Severity: Moderate Current Severity: None Pain Intensity: 6 Pain Scale Used: 0-10 Numeric Chest Pain Radiates: No Character: Pressure/Squeezing Aggravating Factor(s): Nothing Alleviating Factor(s): Nothing Associated Signs and Symptoms: Positive: Negative - Diarrhea, Chest Pain, Shortness of Breath, Nausea, Calf Pain/Swelling - Chronic leg swelling. Negative: Fever, Vomiting - Additional Pertinent History Primary Care Physician: DAPHNE - Allergy/Home Medications Allergies/Adverse Reactions: Allergies Allergy/AdvReac Type Severity Reaction Status Date / Time atorvastatin [From Lipitor] Allergy Leg Cramps Verified 05/31/18 06:42 avoids statins Allergy Unknown Uncoded 05/31/18 06:42 Reaction Details Home Medications: Home Medications Acetaminophen [Acetaminophen Extra Strength] 500 mg PO BID 10/01/19 [History Confirmed 10/01/19] Bisacodyl EC TAB* [Dulcolax EC TAB*] 5 mg PO DAILY PRN 10/01/19 [History Confirmed 10/01/19] Loy/D3/Mag11/Zinc/Technology Program Manager/Fransisco/Bor [Caltrate 600+D Plus] 1 tab PO QAM 10/01/19 [ History Confirmed 10/01/19] Clotrimazole 1% CREAM* [Clotrimazole 1%*] 1 applic TOPICAL BID PRN 10/01/19 [ History Confirmed 10/01/19] Conjugated Estrogens TAB* [Premarin TAB*] 0.625 mg PO DAILY PRN 10/01/19 [ History Confirmed 10/01/19] Ezetimibe TAB* [Zetia TAB*] 10 mg PO QAM 10/01/19 [History Confirmed 10/01/19] Multivitamin/Iron/Folic Acid [Multivitamin with Iron Tablet] 1 each PO QAM 10/01 [History Confirmed 10/01/19] Propylene Glycol/Peg 400/Pf [Systane 0.3-0.4% Eye Drops] 1 drop BOTH EYES BID PRN 10/01/19 [History Confirmed 10/01/19] PMH/Surg Hx/FS Hx/Imm Hx Endocrine/Hematology History: Reports: Hx Anticoagulant Therapy - coumadin, Hx Thyroid Disease - hypo, Hx Anemia Denies: Hx Diabetes Cardiovascular History: Reports: Hx Atrial Fibrillation, Hx Hypertension, Hx Valvular Heart Disease - aortic valve replacement Respiratory History: Denies: Hx Asthma, Hx Chronic Obstructive Pulmonary Disease (COPD) GI History: Reports: Hx Gall Bladder Disease, Other GI Disorders - chronic constipation Denies: Hx Gastroesophageal Reflux Disease History: Denies: Hx Chronic Renal Failure, Hx Dialysis Comment Only: Other Problems/Disorders - UTI Musculoskeletal History: Reports: Hx Arthritis - left leg, Hx Osteoporosis, Other Musculoskeletal History - right shoulder injury Sensory History: Reports: Hx Cataracts - both eyes, Hx Contacts or Glasses, Hx Macular Degeneration, Hx Hearing Aid Denies: Hx Deafness Opthamlomology History: Reports: Hx Cataracts - both eyes, Hx Contacts or Glasses, Hx Macular Degeneration Psychiatric History: Reports: Hx Depression Denies: Hx Autism - Surgical History Surgery Procedure, Year, and Place: aortic valve 2006, 2010 cholecystectomy; Left knee replacement 2000, hysterectomy, appendectomy, tonsillectomy, right shoulder surgery, LEFT hip Hx Anesthesia Reactions: No Infectious Disease History: No Infectious Disease History: Denies: Traveled Outside the [place] in Last 30 Days - Family History Known Family History: Positive: Hypertension, Non-Contributory - Social History Occupation: Retired Lives: With Family Alcohol Use: Rare Alcohol Amount: gin and raisins for arhtritis Hx Substance Use: No Substance Use Type: Reports: None Hx Tobacco Use: Yes Smoking Status (MU): Former Smoker Review of Systems Negative: Fever Positive: Chest Pain Positive: Shortness Of Breath Positive: Nausea. Negative: Vomiting, Diarrhea Musculoskeletal: Other - Chronic swelling in the legs Neurological: Other - Dizzy spells All Other Systems Reviewed And Are Negative: Yes Physical Exam - Summary Physical Exam Summary: Vital Signs Reviewed: Yes A+Ox3, no distress, speaking full easy sentences Eyes: Conjunctiva Clear, CHERYL. EOM intact and full ENT: mild GAKONA - bilateral hearing devices, TM x 2 clear, mmoist, uvula midline, no exudate, no erythema Neck: Positive: Supple, no bruits Respiratory: Positive: No respiratory distress, No accessory muscle use + CTA throughout no w/r Cardiovascular: RRR nl s1, s2 no rub, soft mumur CBT <2 sec, trace edema LE abd soft + BS nt/nd no guarding, no distension Musculoskeletal Exam: SNEED x 4 without difficulty Strength Intact, ROM Intact Neurological: Positive: Alert, + sensation throughout Psychological: Positive: Normal Response To stadium attendant Skin: Positive: no rash, no ecchymosis Triage Information Reviewed: Yes Vital Signs On Initial Exam: Initial Vitals Temp Pulse Resp BP Pulse Ox 97.3 F 81 19 180/148 97 10/01/19 13:43 10/01/19 13:43 10/01/19 13:43 10/01/19 13:43 10/01/19 13:43 Vital Signs Reviewed: Yes Procedures - Sedation Patient Received Moderate/Deep Sedation with Procedure: No Diagnostics - Vital Signs Vital Signs Temp Pulse Resp BP Pulse Ox 10/01/19 15:27 98.0 F 74 19 166/77 98 10/01/19 13:43 97.3 F 81 19 180/148 97 - Laboratory Lab Results: Lab Results 10/01/19 10/01/19 10/01/19 Range/Units 13:52 13:56 13:56 WBC 7.2 (3.5-10.8) 10^3/uL RBC 4.20 (3.70-4.87) 10^6 /uL Hgb 13.4 (12.0-16.0) g/dL Hct 39 (35-47) % MCV 93 (80-97) fL MCH 32 H (27-31) pg MCHC 34 (31-36) g/dL RDW 14 (10-15) % Plt Count 297 (150-450) 10^3/uL MPV 8.6 (7.4-10.4) fL Neut % (Auto) 67.6 % Lymph % (Auto) 22.1 % Schuyler % (Auto) 8.9 % Eos % (Auto) 0.7 % Baso % (Auto) 0.7 % Absolute Neuts (auto) 4.9 (1.5-7.7) 10^3/ul Absolute Lymphs (auto) 1.6 (1.0-4.8) 10^3/ul Absolute Monos (auto) 0.6 (0-0.8) 10^3/ul Absolute Eos (auto) 0.0 (0-0.6) 10^3/ul Absolute Basos (auto) 0.1 (0-0.2) 10^3/ul Absolute Nucleated RBC 0.0 10^3/ul Nucleated RBC % 0.1 INR (Anticoag Therapy) 2.82 H (0.82-1.09) Sodium 137 (135-145) mmol/L Potassium 4.2 (3.5-5.0) mmol/L Chloride 103 (101-111) mmol/L Carbon Dioxide 28 (22-32) mmol/L Anion Gap 6 (2-11) mmol/L BUN 12 (6-24) mg/dL Creatinine 0.80 (0.51-0.95) mg/dL Est GFR ( Amer) 81.9 (>60) Est GFR (Non-Af Amer) 67.7 (>60) BUN/Creatinine Ratio 15.0 (8-20) Glucose 95 (70-100) mg/dL Calcium 9.3 (8.6-10.3) mg/dL Total Bilirubin 0.40 (0.2-1.0) mg/dL AST 24 (13-39) U/L ALT 14 (7-52) U/L Alkaline Phosphatase 101 (34-104) U/L Troponin I 0.01 (<0.03) ng/mL Total Protein 6.8 (6.4-8.9) g/dL Albumin 4.3 (3.2-5.2) g/dL Globulin 2.5 (2-4) g/dL Albumin/Globulin Ratio 1.7 (1-3) Result Diagrams: 10/01/19 13:56 10/01/19 13:56 Lab Statement: Any lab studies that have been ordered have been reviewed, and results considered in the medical decision making process. - Radiology CXR Radiology Interpretation Completed By: Radiologist Summary of Radiographic Findings: 1. No acute cardiopulmonary process by radiograph. 2. Postoperative changes as above. 3. Severe right glenohumeral osteophyte arthropathy. Dr. Mathias has reviewed this radiology report. - EKG 1340 Cardiac Rate: NL - 79 BPM EKG Rhythm: Sinus Rhythm ST Segment: Normal Summary of EKG Findings: An EKG at 1340 revealed NSR at 79 BPM, no ST elevations. Dr. Mathias has reviewed and interpreted this EKG. Re-Evaluation - Re-Evaluation First Eval Re-Evaluation Time: 16:54 Comment: Patient had 17 beat run of V-tach on the monitor. Patient was not sympatomatic with the beats. Will consult with cardiology and add a magnesium. At 1656, discussed patient case with Dr. Raphael - and the patient's 17-beat run of V-tach with Dr. Bayron Raphael, shallot cleaner, who is aware of the EKG. Will proceed with admission to hospitalist as planned Chest Pain Course/Dx - Course Course Of Treatment: Patient presents to urgent care with daughter. Patient has history of A. fib for which he been cardioverted. Patient also has episodes of dizziness spells with walking. Patient today was in the car with her daughter when she suddenly developed chest pressure. Patient states she was short of breath and nauseous with it. Pain currently. Pain lasts approximately one hour and has since resolved. Patient has never had a cardiac stress test but has had an echo recently about 2 weeks ago and is followed by Dr. Motta. Daughter also concerning the patient's heart rate higher than baseline is in the 80s. On exam vital signs are stable. EKG nondiagnostic. Troponin negative. Within a chest x-ray and BNP. Given patient's episode of chest pain recommend that she be admitted for rule out. I did speak to Dr. Conner who is in agreement. Patient and her daughter component with plan. Patient takes Coumadin, to take it today but does not take aspirin. - Diagnoses Provider Diagnoses: Chest pain, Cardiac dysrhythmia - Provider Notifications Discussed Care Of Patient With: Aline Honeycutt Time Discussed With Above Provider: 16:28 Instructed by Provider To: Other - Discussed patient case with Dr. Honeycutt, hospitalist, who accepted the patient for admission to [facility]. At 1656, discussed patient case and the patient's 17-beat run of V-tach with Dr. Bayron Raphael, shallot cleaner, who is aware of the EKG. Discharge ED - Sign-Out/Discharge Documenting (check all that apply): Patient Departure - Admit - Discharge Plan Condition: Fair Disposition: ADMITTED TO [facility] Referrals: Max Alicea MD [Primary Care Provider] - - Billing Disposition and Condition Condition: FAIR Disposition: Admitted to [facility] - Attestation Statements Document Initiated by Scribe: Yes Documenting Scribe: Delroy Duran Provider For Whom Scribe is Documenting (Include Credential): Christina Mathias MD Scribe Attestation: Delroy Prajapati, scribed for Christina Mathias MD on 10/01/19 at 1737. Scribe Documentation Reviewed: Yes Provider Attestation: The documentation as recorded by the scribe, Delroy Duran accurately reflects the service I personally performed and the decisions made by me, Christina Mathias MD Status of Scribe Document: Viewed
[2019-10-01] MEDS ORDERED: Acetaminophen TAB* 325 MG PO PRN (18:07)
[2019-10-01] MEDS ORDERED: Docusate CAP* 100 MG PO PRN (18:15)
[2019-10-01] MEDS ORDERED: Polyethyl Glycol/Propylene Gly OPHTH.SOLN BOTH EYES PRN (18:15)
[2019-10-01] MEDS ORDERED: Conjugated Estrogens TAB* 0.625 MG TAB PO PRN (18:15)
[2019-10-01 18:32] LABS: Urine Appearance Clear; Urine Bilirubin Negative (Negative); Urine Blood Negative (Negative); Urine Color Straw; Urine Glucose Negative (Negative); Urine Ketones Negative (Negative); Urine Nitrite Negative (Negative); Urine Protein Negative (Negative); Urine Specific Gravity 1.003 (1.010-1.030); Urine Urobilinogen Negative (Negative)
[2019-10-01 18:38] LABS: Urine Bacteria 1+ (Absent); Urine Red Blood Cell Absent (Absent); Urine White Blood Cell 1+(6-10/hpf) (Absent)
[2019-10-01] MEDS ORDERED: Warfarin TAB(*) 3 MG PO SCH (21:30)
--- NOTE | 2019-10-01 23:02 | HP ---
CC: Dr. Alicea; Dr. Motta * HISTORY AND PHYSICAL: DATE OF ADMISSION: 10/01/19 PRIMARY CARE PHYSICIAN: Dr. Alicea. PROVIDER: Tammy Irwin NP ATTENDING PHYSICIAN WHILE IN THE HOSPITAL: Dr. Aline Honeycutt * (dictated by Tammy Irwin NP) CHIEF COMPLAINT: Chest pain. HISTORY OF PRESENT ILLNESS: Ms. Stephen is an 89-year-old female with a past medical history significant for paroxysmal atrial fibrillation, hypertension, history of aortic valve replacement, depression, hyperlipidemia, venous insufficiency, and hypothyroid, who presented to the emergency room with complaints of chest pain. Per the daughter, the patient developed chest pain approximately at 12:45 this morning. She reports the chest pain lasted for approximately 2 hours. She describes the chest pain as tightness and pressure in her chest with associated shortness of breath and nausea. She does report nothing made it better, nothing made it worse. She does report that the chest pain gradually subsided on its own. The patient also has been reporting episodes of dizziness, 4 to 5 episodes per week for which she is being evaluated by Cardiology. The patient does report that she had a recent 30-day event monitor which showed 1 episode of SVT. The patient has recently followed up with Dr. Motta on 09/25/19 and she has also had an echocardiogram this morning. She also had an echocardiogram which was 09/11/19, which showed an EF visually of 65% to 70%, normal global wall motion with normal-to- hyperdynamic systolic function. While in the emergency room, the patient had routine lab work drawn which was within normal limits. She had a troponin that was drawn that was 0.01 x2. Due to these findings, Hospital Medicine was asked to see and evaluate her for admission. While in the emergency room, the patient did have episode of 17-beat run of tachycardia. PAST MEDICAL HISTORY: Significant for: 1. Paroxysmal atrial fibrillation, status post cardioversion, 07/18/19, to sinus rhythm. 2. Hypertension. 3. Aortic valve replacement. 4. Hypothyroid. 5. Venous insufficiency. 6. Hyperlipidemia. 7. Depression. PAST SURGICAL HISTORY: 1. Hip replacement. 2. Hysterectomy. 3. Knee replacement. 4. Aortic valve replacement. 5. Cholecystectomy. 6. Tonsillectomy. 7. Cataract surgery. MEDICATIONS: Home medications include: 1. Coumadin 3 mg Tuesday, Tuesday, Tuesday and 4 mg Tuesday, Tuesday, , Tuesday. 2. Apple cider vinegar 500 mg p.o. daily with meal. 3. Levothyroxine 125 mcg p.o. daily. 4. Sustenna eye drops, 1 drop to both eyes b.i.d. 5. Caltrate plus D 1 tab p.o. daily. 6. Multivitamin 1 tab p.o. daily. 7. AREDS 2 soft gels 1 tab p.o. daily. 8. Premarin 0.625 mg p.o. daily p.r.n. 9. Dulcolax 5 mg daily p.r.n. constipation. 10. Nystatin topically b.i.d. 12. Docusate 100 mg p.o. b.i.d. 13. Tylenol Extra Strength 500 mg p.o. b.i.d. 14. Zetia 10 mg p.o. q.a.m. ALLERGIES: To ATORVASTATIN. FAMILY HISTORY: Maternal grandmother with history of stroke and diabetes. No reported history of cancer. SOCIAL HISTORY: The patient quit smoking in 2006, prior to that she was a social light smoker with occasional cigarette use. No alcohol or illicit drug use. She is . She lives with her daughter. Healthcare proxy in the event she is unable to make her own decisions is her daughter. She is a full code. REVIEW OF SYSTEMS: The patient denies any fever, chills, unintended weight loss. She does complain of chest pain, described as a tightness and pressure in her chest associated with shortness of breath and nausea. She denies any cough , hemoptysis. She denies any vomiting, diarrhea, abdominal pain, hematuria, or dysuria. She denies any focal weakness, sensory loss, visual complaints, dysphagia, arthralgias, myalgias, rashes, lesions, open sores, psychosis, or anxiety. PHYSICAL EXAMINATION GENERAL: At this time, Ms. Stephen is an 89-year-old female. She is alert and oriented. Resting on the stretcher in the emergency room. She is in no acute distress. VITAL SIGNS: Blood pressure 147/75, heart rate is 74, respirations are 20, O2 saturation 98%, temperature was 98.0. HEENT: Head is atraumatic, normocephalic. Eyes, EOMs are intact. Sclerae anicteric and not pale. Oral mucosa is moist. NECK: Supple. LUNGS: Lungs are clear to auscultation bilaterally. No wheezes, rales, or rhonchi. CARDIAC: S1, S2. Irregular rate and rhythm. No murmurs or rubs. ABDOMEN: Soft, nontender. Bowel sounds are present x4. EXTREMITIES: She is able to to move all 4 extremities. There is no clubbing or cyanosis. NEUROLOGIC: She is awake, alert, and oriented x3. Speech is clear. Thought process is intact. There are no gross focal deficits. DIAGNOSTIC STUDIES/LAB DATA: WBCs are 7.2, RBCs 4.20, hemoglobin 13.4, hematocrit 39, platelet count 297. INR is 2.82. Sodium 137, potassium 4.2, chloride 103, carbon dioxide is 28, anion gap of 6, BUN 12, creatinine 0.80. ASTs were 24, ALTs were 14, alkaline phosphatase is 101. Troponin was 0.01 x2. BNP was 69. Urine pH was 7.0; specific gravity 1.003; urine protein, ketones , blood, nitrites, bilirubin, urobilinogen were all negative; leukocyte esterase was 2+; wbc's were 1+; rbc's were absent; bacteria was 1+; glucose was negative. She had a chest x-ray, radiologist's impression: No active cardiopulmonary disease, postoperative changes, severe right osteophyte, arthropathy. She had an electrocardiogram which showed sinus rhythm at a rate of 79. No ST or T wave changes. ASSESSMENT AND PLAN: Ms. Stephen is an 89-year-old female with past medical history significant for paroxysmal atrial fibrillation, hypertension, hypothyroid, venous insufficiency, hyperlipidemia, depression, aortic valve replacement, who presented to the emergency room with complaints of chest pain and had an episode of 18 beats of tachycardia in the emergency room suspected to be supraventricular tachycardia versus ventricular tachycardia. The patient will be admitted for: 1. Chest pain. The patient will be observed. I suspect this could be related to coronary artery disease as the patient did have chest pain associated with shortness of breath and nausea. The patient will be monitored on telemetry overnight. We will continue to do a stress test in the a.m. She will have serial troponins; first troponin was 0.01 x2. The patient is currently chest pain free at this time. The patient will not be given any beta blockers as she did have an intolerance to beta blockers in the past. 2. Tachycardia. The patient did have an 18-beat run of tachycardia in the emergency room, could be ventricular tachycardia versus supraventricular tachycardia. The patient did recently have a 30-day event monitor that showed supraventricular tachycardia at Dr. Motta's office. We will continue to monitor on telemetry overnight. This also has been discussed with Dr. Raphael as well. 3. History of paroxysmal atrial fibrillation. The patient is currently in sinus rhythm. She does take Coumadin alternating 3 to 4 mg at home. She takes 3 mg Tuesday, Tuesday, Tuesday; 4 mg Tuesday, Tuesday, , Tuesday. She will have 3 mg today. Repeat an INR in the a.m. The patient recently had an echo in the office by Dr. Motta, which showed moderate concentric hypertrophy of the left ventricle, normal global wall motion with [id number] systolic function, visual ejection fraction of 65% to 70%. Doppler evidence of grade 1 diastolic dysfunction, elevated left atrial pressure, left atrial cavity size is mildly dilated, mild concentric hypertrophy of the right ventricle, normal right ventricular systolic function, bioprosthetic aortic valve with [id number] regurgitation, mild prosthetic aortic valve leaflet thickening and calcification, posterior valve stenosis versus pre-aortic stenosis versus valve mismatch, mean gradient was 33 mmHg, peak velocity aortic valve was 3.6 m/s, mary's igloo mitral valve with grade 1 regurgitation, mild mitral valve stenosis. The patient also had an event monitor at Dr. Motta's office which showed supraventricular tachycardia. 4. Hypothyroid. She will continue on levothyroxine as previously prescribed. 5. Depression. She will continue with supportive care. 6. Hyperlipidemia. She will continue on Zetia as previously prescribed. 7. Dizziness. The patient has had episodic dizziness over the past several months, not associated with episodes of supraventricular tachycardia according to her recent 30-day event monitor. We will continue to monitor. Again, the patient had an 18-beat run of tachycardia in the emergency room with no associated dizziness and was completely asymptomatic. 8. FEN: She can have a regular diet. 9. Code status: She is full code. 10. DVT prophylaxis: She is on Coumadin. TIME SPENT: Time spent on this admission was 60 minutes. Greater than half that time was spent at the bedside reviewing the events leading thus far to her hospitalization, performing physical exam, and reviewing my plan of care. I have discussed this with my attending, Dr. Aline Honeycutt; she is in agreement with my plan. TAMMY IRWIN, QUALITY ASSURANCE QA LAB ANALYST [id number]/[facility] #: [id number] LIANA
[2019-10-02] MEDS ORDERED: Levothyroxine TAB* 125 MCG TAB PO SCH (06:00)
[2019-10-02 06:13] LABS: INR 3.04 (0.82-1.09)
[2019-10-02] MEDS ORDERED: Regadenoson* 0.4 MG/5 ML SYRINGE ONE (08:35)
[2019-10-02] MEDS ORDERED: Aminophylline IV* 25 MG/ML 10 ML VIAL ONE (08:35)
[2019-10-02] MEDS ORDERED: Vitamin THERAPEUTIC TAB PO SCH (09:00)
[2019-10-02] MEDS ORDERED: Ezetimibe TAB* 10 MG PO SCH (09:00)
--- NOTE | 2019-10-02 10:49 | ECHO ---
*[facility]* [place] [address] Fax #: [phone] Transthoracic Echocardiogram Patient: Nurys Stephen : 1930 Study Date: 10/02/2019 Age: 89 Gender: F HR: 74 bpm Height: 63 in /160 cm BSA: 1.77 m^2 Weight: 161.7 lb /73.5 kg BMI: 28.7 kg/m^2 *Boiler Tube Blower: Jenn Desai *Referring Physician: * Tiny Ricks *Reading Physician: * Roel Waller MD Indications: Chest Pain, unspecified. History: Aortic valve disease. Risk factors: Hypertension. Dyslipidemia. Conclusions Summary: - Left ventricle: Systolic function is normal. The estimated ejection fraction is 60-65%. - Aortic valve: There is a bioprosthetic valve. There is mild regurgitation. And functioning normally. - C/t transesophageal echocardiogram 02/07/2015, no overt significant changes. Study data: Transthoracic echocardiogram. Procedure: Transthoracic echocardiography was performed. Image quality was good. Complete 2D, spectral Doppler, and color flow Doppler. Location: Procedure room. Patient status: Inpatient. Patient room number: 447-2. Findings Left ventricle: The cavity size is normal. Wall thickness is normal. Systolic function is normal. The estimated ejection fraction is 60-65%. Wall motion is normal; there are no regional wall motion abnormalities. Left ventricular diastolic function parameters are normal. Right ventricle: The cavity size is normal. Systolic function is normal. Left atrium: The atrium is mildly to moderately dilated. Right atrium: The atrium is mildly dilated. Atrial septum: No defect or patent foramen ovale is identified. Mitral valve: Appears calcified and thickened. The leaflets are mildly thickened. No echocardiographic evidence for prolapse. There is no evidence of stenosis. There is trace regurgitation. Aortic valve: There is a bioprosthetic valve. The leaflets are normal thickness. There is no evidence of stenosis. There is mild regurgitation. Tricuspid valve: The leaflets are normal thickness. There is no evidence of stenosis. There is trace regurgitation. Pulmonic valve: The valve is structurally normal. There is no evidence of stenosis. There is trace regurgitation. Aorta: The aortic root appears normal. The aortic arch appears normal. Pericardium: There is no significant pericardial effusion. Pulmonary arteries: Systolic pressure can not be accurately estimated. Systemic veins: Inferior vena cava: The vessel is normal in size. There is (>= 50%) respiratory change in the IVC dimension. Pulmonary veins: The Pulmonary veins appear normal. Measurements Left ventricle Value Ref Right atrium Value Ref CHIOMA, LAX (L) 2.9 cm 3.8 - SI dim, ES 4.6 cm 3.4 - 5.3 5.2 ML dim, ES, A4C 3.9 cm 2.6 - 4.4 ESD, LAX 2.7 cm 2.2 - SI dim, ES, A4C 4.6 cm 3.4 - 5.3 3.5 FS, LAX (L) 7 % Aortic valve Value Ref PW, ED, LAX (H) 1.6 cm 0.6 - Peak v, S 1.34 m/sec --------- 0.9 VTI, S 29.4 cm --------- FS (L) 7 % Mean grad, S 5.0 mm Hg --------- Mid-wall FS 2 % -------- Peak grad, S 7.0 mm Hg --------- PW, ED (H) 1.6 cm 0.6 - ERICA, VTI 3.54 cm^2 --------- 0.9 ERICA, Vmax 2.95 cm^2 --------- PW/ID, ED 0.55 -------- E', lat jose, TDI (L) 8.5 cm/sec >=10.0 Mitral valve Value Ref E/e', lat jose, TDI 10 -------- Peak E 0.89 m/sec ------ --- E', med jose, TDI (L) 6.4 cm/sec >=7.0 Peak A 1.11 m/sec --- ------ E/e', med jose, TDI 14 -------- Decel time 289 ms ------ --- E', avg, TDI 7.5 cm/sec -------- Peak grad, D 3.1 mm Hg ------ --- E/e', avg, TDI 12 <=14 Peak E/A ratio 0.8 --- ------ LVOT Value Ref Pulmonic valve Value Ref Diam, S 2.00 cm -------- Peak v, S 1.01 m/sec --------- Area 3.1 cm^2 -------- Peak grad, S 4.0 mm Hg --------- Peak ramón, S 1.26 m/sec -------- Peak grad, S 6 mm Hg -------- Aortic root Value Ref Mean grad, S 4 mm Hg -------- Root diam 3.4 cm <4.0 SV 104 ml -------- Ascending aorta Value Ref Ventricular septum Value Ref AAo AP diam, S 3.2 cm --------- IVS, ED (H) 1.6 cm 0.6 - 0.9 Aortic arch Value Ref Arch diam 2.9 cm --------- Right ventricle Value Ref CHIOMA, LAX 3.3 cm -------- Decending aorta Value Ref CHIOMA minor ax, A4C 3.2 cm 1.9 - Jak peak ramón 0.89 m/sec --------- mid 3.5 Inferior vena cava Value Ref Left atrium Value Ref Diam 1.9 cm --------- ML dim, A4C 4.0 cm -------- SI dim, A4C 5.9 cm -------- Vol/bsa, ES, 1-p 29 ml/m^2 11 - 40 A4C Vol/bsa, ES, A/L 33 ml/m^2 16 - 34 Legend: (L) and (H) nori values outside specified reference range. Prepared and electronically signed by Roel Waller MD 10/02/2019 10:49
[2019-10-02 14:16] LABS: HDL Cholesterol 54.7 mg/dL
[2019-10-02 15:42] VITALS: BP 128/58
[2019-10-02] MEDS ORDERED: Warfarin TAB(*) 3 MG PO ONE (17:00)
[2019-10-02] MEDS ORDERED: Warfarin TAB(*) 4 MG PO SCH (17:00)
--- NOTE | 2019-10-03 00:02 | DS ---
CC: Dr. Alicea; Dr. Motta * DISCHARGE SUMMARY: DATE OF ADMISSION: 10/01/19 DATE OF DISCHARGE: 10/02/19 PROVIDER: Lianna Ricks NP ATTENDING PHYSICIAN: Dr. Power.* (DICTATED BY LIANNA RICKS NP) PRIMARY CARE PHYSICIANS: Dr. Alicea and Dr. Motta. PRIMARY DIAGNOSIS: Chest pain without any evidence of myocardial infarction. SECONDARY DIAGNOSES: 1. Paroxysmal atrial fibrillation, status post cardioversion. 2. Hypertension. 3. Aortic valve replacement. 4. Hypothyroidism. 5. Venous insufficiency. 6. Hyperlipidemia. 7. Depression. PROCEDURES: Underwent a nuclear stress test on 10/02/19, which showed no evidence for stress-induced myocardial ischemia or presence of an infarct. There was hypokinesis at the septum, normal range estimated left ventricular ejection fraction and end-diastolic volume, and based on the impression, it revealed low risk based on nuclear portion. DIAGNOSTIC STUDIES: Chest x-ray on 10/01/19 showed no acute cardiopulmonary process, postoperative changes as above, severe right glenohumeral osteophyte arthropathy. Transthoracic echocardiogram, which showed an ejection fraction of 60% to 65% with a bioprosthetic valve with mild regurgitation but functionally normal. No regional wall motion abnormalities. Right atrium mildly dilated, left atrium mild to moderately dilated. Trace regurgitation of mitral valve, aortic valve, tricuspid valve, pulmonic valve. PERTINENT LABORATORY DATA: INR 3.04. Troponin 0.01. Triglycerides 135, cholesterol 176, LDL cholesterol 94, HDL cholesterol 54.7. B-natriuretic peptide 69. HISTORY OF PRESENT ILLNESS/HOSPITAL COURSE: This is an 89-year-old female with a past medical history significant for paroxysmal atrial fib, status post cardioversion into sinus rhythm on 07/18/19; hypertension; aortic valve replacement, who presented to the emergency room on 10/01/19 with reports of chest pain lasting approximately 2 hours. Chest pain was accompanied by tightness and pressure and associated with shortness of breath and nausea. Nothing made it better, nothing made it worse. At the time of its onset, she was riding in a car on her way to physical therapy. She, of note, had also had been reporting episodes of dizziness 4 to 5 episodes a week, for which she has been evaluated by Cardiology. She recently had a 30-day event monitor, which showed 1 episode of SVT. In the emergency room, she had a 17-beat run of tachycardia. In the emergency room, labs were drawn. EKG was taken, which showed sinus rhythm with first-degree heart block. Chest x-ray was performed, which was unremarkable. So, the patient was then admitted into the hospital for observation and further followup. Initial troponin was 0.01, subsequent 2 troponins were the same. The patient had no chest pain since coming to the hospital. This morning on 10/02/19, she is still continuing to deny any chest pain, shortness of breath, or any discomfort. Her nuclear med stress test stratified her as low risk. Echocardiogram was unremarkable with no changes from her most recent one. I believe the patient to be medically optimized as her LDL is within target and her blood pressure was labile while she was here. Initially, her blood pressure was 180/148, though right before discharge, her blood pressure had dropped to 128/58. So, there is a question as to which came first, did high blood pressure cause chest pain or did the chest pain cause high blood pressure. After speaking with the daughter, she stated that normally she monitors her mother's blood pressures rather frequently and she tends to be in the 120s and 130s, every 4th and 5th reading will spike into the 140s, but has never gone more than 150 systolically. The daughter also reported recent fluctuations in her blood pressure going as low as 104. So, due to these findings, I was not comfortable with starting her on blood pressure medication especially as it normalized on its own; however, I will defer to Dr. Alicea for further blood pressure management. REVIEW OF SYSTEMS: A 12-point system review was performed, which had no pertinent positives. All pertinent negatives include no lightheadedness, dizziness, chest pain, shortness of breath, palpitations, abdominal pain, nausea , vomiting, issues moving her bowels or bladder. PHYSICAL EXAMINATION: Vital Signs: 97.4 Fahrenheit, 80 pulse, 16 respirations , 99% oxygen on room air, and 128/58 blood pressure. General: This is a well- developed female seen sitting up in the bed in no acute distress. HEENT: Conjunctivae pink and moist. PERRLA. EOMs intact. Mucous membranes moist. Oropharynx clear. Neck is supple. Cardiac: S1, S2 present with grade 1 crescendo murmur heard loudest at the second intercostal to the right of the sternal border. Respiratory: Lung sounds clear throughout bilaterally on room air. Abdomen: Soft, nontender, nondistended with positive bowel sounds x4. Musculoskeletal: No clubbing or cyanosis of the digits. She is able to move all extremities. Skin: The patient has likely candidal rash under both breasts. Neurologic: No focal deficits appreciated. Sensation intact to light touch. Psych: She is alert and oriented x3. Thought content organized. DISCHARGE PLAN: She is to be discharged with a regular diet. No activity restrictions. To return to the emergency room should she develop any increasing shortness of breath, radiating chest pain. PLAN FOR EACH CONDITION: 1. Chest pain. An ND was ruled out. It is likely secondary to fluctuating hypertension; however, her blood pressures are very labile, I will defer to Dr. Alicea for blood pressure management as I do not feel comfortable starting her on any medication at this time. I did speak with her daughter about monitoring her blood pressures at home before and after exercise or strenuous activity and to bring these numbers to Dr. Alicea. I also want her to follow up with Dr. Motta within the next week or two to follow up with her hospital stay. 2. History of paroxysmal AFib. Currently, she is in AFib. She does take Coumadin on an alternating basis either 3 or 4 mg at home because her INR was 3.04. Normally on this day, she would take 4 mg of Coumadin. I recommend that she go home with 3 for tonight and then resume her normal schedule. 3. Hypothyroidism. Continue on levothyroxine. 4. Depression. Continue with supportive care, is not currently medicated. 5. Hyperlipidemia. Continue on Zetia as previously prescribed as it is adequately controlling her LDL cholesterol. MEDICATIONS TO CONTINUE UPON DISCHARGE: 1. Apple cider vinegar 500 mg p.o. daily with meals. 2. Levothyroxine 125 mcg p.o. q.a.m. 3. Systane 0.3% to 0.4% eye drop, 1 drop in both eyes b.i.d. p.r.n. 4. Caltrate 600 + vitamin D one tab p.o. q.a.m. 5. Multivitamin with iron and folic acid 1 tab p.o. q.a.m. 6. AREDS 2 one cap p.o. b.i.d. 7. Premarin 0.625 p.o. daily p.r.n. 8. Bisacodyl 5 mg p.o. daily p.r.n. 9. Nystatin powder 1 application topically b.i.d. 10. Docusate 100 mg p.o. b.i.d. p.r.n. 11. Clotrimazole 1% cream 1 application topically b.i.d. p.r.n. 12. Acetaminophen 500 mg p.o. b.i.d. 13. Warfarin 3 mg tonight and then continue with her normal schedule of 3 mg every Tuesday, Tuesday, Tuesday and 4 mg every Tuesday, Tuesday, , Tuesday. 14. Zetia 10 mg p.o. q.a.m. CONDITION UPON DISCHARGE: Stable. DISPOSITION: To home. TIME SPENT: On the patient is about 50 minutes with 30 of that spent face to face. LIANNA RICKS, SHEEBA [id number]/[facility] #: [id number] MTDD
[2019-10-04] MEDS ORDERED: Warfarin TAB(*) 4 MG PO SCH (17:00)
== END 2019-10-02 15:35 | disposition home or self-care (01) ==
LOC: ED 13:36 → MEDTELE 18:07
PROVIDERS: ADMIT Internal Medicine; ATTEND Internal Medicine
DX: R07.9 Chest pain, unspecified (principal); I48.0 Paroxysmal atrial fibrillation; I10 Essential (primary) hypertension; Z95.4 Presence of other heart-valve replacement; E03.9 Hypothyroidism, unspecified; I87.2 Venous insufficiency (chronic) (peripheral); E78.5 Hyperlipidemia, unspecified; F32.9 Major depressive disorder, single episode, unspecified; Z98.890 Other specified postprocedural states; Z79.01 Long term (current) use of anticoagulants; Z87.891 Personal history of nicotine dependence; Z96.649 Presence of unspecified artificial hip joint; Z96.659 Presence of unspecified artificial knee joint; R00.0 Tachycardia, unspecified; Z79.899 Other long term (current) drug therapy; R06.02 Shortness of breath; R60.9 Edema, unspecified
CPT/HCPCS: 36415; 71045; 78452; 80053; 80061; 81003; 81015; 83735; 83880; 84484; 85025; 85610; 87077; 87086; 87186; 93005; 93017; 93306; 99284; A9270-GY; A9502; G0378; J0280; J2785